=== PATIENT | female | born 1985 | race Caucasian/White ===

== ENCOUNTER 2018-01-18 16:53 | Emergency (ER) | payer MEDICAID, SELFPAY ==
[2018-01-18 16:55] VITALS: BP 145/87; PULSE 99; RESP 14; TEMP 36.4; O2SAT 99; BMI 44.6
--- NOTE | 2018-01-18 17:21 | CT_ITS ---
STUDY: CT ABDOMEN AND PELVIS WITHOUT CONTRAST REASON FOR EXAM: Female, 32 years old. Right flank pain. Hematuria. RADIATION DOSAGE (If Supplied By Facility): CTDIvol = ( 23.49 ) mGy, DLP = ( 1238.24 ) mGycm TECHNIQUE: Transaxial images were obtained from the dome of the diaphragm to the symphysis pubis without oral contrast, and without intravenous contrast. Sagittal and coronal images were reconstructed. Individualized dose optimization techniques were used for this CT. COMPARISON: None. FINDINGS: The visualized lung bases are unremarkable. The visualized portions of the heart are within normal limits. There is decreased attenuation of the liver consistent with steatosis. There is hepatomegaly. Normal gallbladder and extrahepatic biliary system. Normal spleen. Normal pancreas. Normal bilateral adrenal glands. Normal right kidney. Normal left kidney. No definite renal or ureteral stones are seen. There is no hydronephrosis on either side. Evaluation of the GI tract is limited by absence of oral contrast. Cannot exclude stomach wall thickening. No dilated loops of bowel or evidence for obstruction. Cannot exclude segmental thickening of the ortiz of the small or large bowel. Cannot exclude enteritis or colitis. Moderate diffuse fecal retention. Appendix within normal limits. Normal abdominal aorta. Normal inferior vena cava. Normal retroperitoneum. Normal urinary bladder. Normal visualized uterus. Normal abdominal wall. Normal osseous structures. CT/Abdomen/Pelvis without Cont IMPRESSION: No definite acute abnormality. Fatty liver and hepatomegaly. Electronically Signed: Yaron Mchugh MD at 18:54 EDT , Service support ,
[2018-01-18 17:44] LABS: Mucous, Urine 0 SEEN /hpf (<or=2+)
[2018-01-18] MEDS: HYDROcodone Bitartrate/Apap 5/325 Tablet PO (17:50)
[2018-01-18 18:03] LABS: Color, Urine Amber (Yellow); Glucose, Dipstick Normal (Normal); Ketone-Dipstick 15 mg/dl (Negative); Leukocyte Esterase-Dipstick 500 /ul (Negative); Nitrite-Dipstick Positive (Negative); Occult Blood-Urine 250 /ul (Negative); Protein-Dipstick 500 mg/dl (Negative); Urine Clarity Turbid (Clear); Urine Urobilinogen 1 mg/dl (Normal)
[2018-01-18 18:07] LABS: Internal QC Validated? YES +Cl - CLEAR BKGD
[2018-01-18 18:08] LABS: Pregnancy, Urine Negative Negative
[2018-01-18 18:09] LABS: Urine Bilirubin Dipstick 1 mg/dL (Negative)
[2018-01-18 18:17] LABS: Red Blood Cells-Urine > 100 SEEN /hpf (0-5); Squamous Epithelial Cells - UA 5-10 SEEN /hpf (5-10); White Blood Cells >100 SEEN /hpf (0-5)
[2018-01-18 18:18] LABS: Bacteria 1+ /hpf (None Seen)
[2018-01-18 19:18] VITALS: BP 132/80; PULSE 85; RESP 14; O2SAT 98
--- NOTE | 2018-01-18 19:38 | ED.DEP ---
ED Disposition - Plan for ED Patient: Disposition: Home or Assisted Living Chief Complaint: Flank Pain Instructions: ED UTI Cystitis Female Prescriptions: Ondansetron [Zofran Odt] 4 mg PO Q8H PRN PRN #10 tab PRN Reason: Nausea Cephalexin [Keflex] 500 mg PO Q6 #40 cap Referrals: Mario Gonzales DO [Primary Care Provider] - 3-5 Days Additional Instructions: Fluids and rest. Zofran as needed for nausea. Keflex 1 pill 4 times a day for 10 days for urinary tract infection that may be into your right kidney. Motrin and Tylenol for pain. Call and follow-up with your doctor. A urine culture was sent those results should be back within 2 days.
[2018-01-18] MEDS: Cephalexin 250 MG Capsule 500 MG PO (20:03)
[2018-01-18 20:04] VITALS: BP 134/69; PULSE 72; RESP 18
--- NOTE | 2018-04-15 04:56 | ED.VISSUMM ---
- ER Visit Summary Date of Service: 04/15/18 Chief Complaint: Right flank pain History of Present Illness: The patient is a 32 F past medical history of fht-rzrpxjv-jwuuxsvcl diabetes and hyper tension. No prior abdominal surgeries. Patient states she has had right flank pain since Monday. Was gradual in onset is been constant. Only mild pain associated nausea without vomiting or diarrhea. Denies any dysuria. No fever or abdominal trauma. Physical Examination: Well-appearing young female. Vital signs are stable and afebrile. No acute distress. H EENT exam unremarkable with moist mucous membranes. Neck nontender. Heart regular rate and rhythm no murmur. Lungs clear to auscultation bilaterally. Abdomen is soft, nontender, nondistended with normal bowel sounds. No peritoneal signs. No masses. No hernias. Back nontender. Moving all 4 extremities. Neurovascularly intact. Neurologically patient is awake alert with no focal motor deficits. Test Results: CT flank study showed no acute abnormality. There is a normal appendix seen. And no kidney stones. This is reviewed by me and read by the radiologist. Urinalysis showed positive nitrates greater than 100 white cells. Greater than 100 red cells. Positive bacteria. A urine culture was sent. Urine test was negative. Emergency Department Course and Treatment: Patient will be treated for UTI. Started on Keflex in the ER and written a prescription for. Treatment Plan: Keflex 4 times a day for 1 week. Disposition: Discharge Impression: Acute right flank pain secondary to UTI. This note was generated with [employer] dictation software. It may contain incorrect words, spelling, and punctuation that were not noted in review of the chart prior to signing ED Disposition - Plan for ED Patient: Disposition: Home or Assisted Living Chief Complaint: Flank Pain Instructions: ED UTI Cystitis Female Prescriptions: Ondansetron [Zofran Odt] 4 mg PO Q8H PRN PRN #10 tab PRN Reason: Nausea Cephalexin [Keflex] 500 mg PO Q6 #40 cap Referrals: Mario Gonzales DO [Primary Care Provider] - 3-5 Days Additional Instructions: Fluids and rest. Zofran as needed for nausea. Keflex 1 pill 4 times a day for 10 days for urinary tract infection that may be into your right kidney. Motrin and Tylenol for pain. Call and follow-up with your doctor. A urine culture was sent those results should be back within 2 days.
--- NOTE | 2018-04-15 05:00 | ED.DCSUM_ITS ---
- ER Visit Summary Date of Service: 04/15/18 Chief Complaint: Right flank pain History of Present Illness: The patient is a 32 F past medical history of non- insulin-dependent diabetes and hyper tension. No prior abdominal surgeries. Patient states she has had right flank pain since Monday. Was gradual in onset is been constant. Only mild pain associated nausea without vomiting or diarrhea. Denies any dysuria. No fever or abdominal trauma. Physical Examination: Well-appearing young female. Vital signs are stable and afebrile. No acute distress. H EENT exam unremarkable with moist mucous membranes. Neck nontender. Heart regular rate and rhythm no murmur. Lungs clear to auscultation bilaterally. Abdomen is soft, nontender, nondistended with normal bowel sounds. No peritoneal signs. No masses. No hernias. Back nontender. Moving all 4 extremities. Neurovascularly intact. Neurologically patient is awake alert with no focal motor deficits. Test Results: CT flank study showed no acute abnormality. There is a normal appendix seen. And no kidney stones. This is reviewed by me and read by the radiologist. Urinalysis showed positive nitrates greater than 100 white cells. Greater than 100 red cells. Positive bacteria. A urine culture was sent. Urine test was negative. Emergency Department Course and Treatment: Patient will be treated for UTI. Started on Keflex in the ER and written a prescription for. Treatment Plan: Keflex 4 times a day for 1 week. Disposition: Discharge Impression: Acute right flank pain secondary to UTI. This note was generated with [employer] dictation software. It may contain incorrect words, spelling, and punctuation that were not noted in review of the chart prior to signing ED Disposition - Plan for ED Patient: Disposition: Home or Assisted Living Chief Complaint: Flank Pain Instructions: ED UTI Cystitis Female Prescriptions: Ondansetron [Zofran Odt] 4 mg PO Q8H PRN PRN #10 tab PRN Reason: Nausea Cephalexin [Keflex] 500 mg PO Q6 #40 cap Referrals: Mario Gonzales DO [Primary Care Provider] - 3-5 Days Additional Instructions: Fluids and rest. Zofran as needed for nausea. Keflex 1 pill 4 times a day for 10 days for urinary tract infection that may be into your right kidney. Motrin and Tylenol for pain. Call and follow-up with your doctor. A urine culture was sent those results should be back within 2 days.
== END 2018-01-18 20:10 | disposition home or self-care (01) ==
PROVIDERS: Emergency Provider Emergency Medicine; Family Provider Student in an Organized Health Care Education/Training Program; PCP Student in an Organized Health Care Education/Training Program
DX: N39.0 Urinary tract infection, site not specified (principal); R10.9 Unspecified abdominal pain; I10 Essential (primary) hypertension; E11.9 Type 2 diabetes mellitus without complications; Z72.0 Tobacco use; Z79.84 Long term (current) use of oral hypoglycemic drugs; Z79.899 Other long term (current) drug therapy
CPT/HCPCS: 74176; 81001; 81025; 87086; 87088; 87186; 99283

== ENCOUNTER 2018-12-08 01:54 | Emergency (ER) | payer MEDICAID, SELFPAY ==
[2018-12-08 01:54] VITALS: BP 189/116; PULSE 92; RESP 16; TEMP 36.3; O2SAT 98; BMI 43.0
--- NOTE | 2018-12-08 02:15 | ED.DCSUM_ITS ---
- ER Visit Summary Date of Service: 12/08/18 Chief Complaint: Dental pain History of Present Illness: The patient is a 33 F who presents to the emergency department at 0200 hours for the evaluation of dental pain. Patient states that approximately 5 days ago she was seen at outside emergency department was prior to penicillin for a dental infection. She states is not helping and she continues to have pain. When asked what her primary care physician is doing for this she states there is nothing they can do because she is not a dentist. She was informed that I am not a dentist either. She states she has a dental appointment on the of this month. She states she would like a higher antibiotic. Patient continues to smoke. She is trying to get to the point where she can have dentures. Patient is a diabetic with history of hypertension. No known heart murmurs Physical Examination: Afebrile vital signs are stable noted hypertension. Gen: Well-nourished well-developed Head: Normocephalic atraumatic Eyes: Perrl EOMI ENT: TMs clear no rhinorrhea moist mucous membranes patient has widespread dental decay. She points to the left upper probably remnants of a canine or a premolar. There is no focal dental abscess. There are multiple teeth that are decayed down to the gumline as this 1 is. There is no trismus. There is no overlying facial swelling or cellulitic changes Neck: Supple no lymphadenopathy no JVD nontender CVS: Regular rate rhythm no murmurs normal S1-S2 Respiratory: No distress clear to auscultation bilaterally chest nontender Abdomen: Soft nontender nondistended normal bowel sounds no masses Back: Nontender Extremity: Nontender no edema Skin: Normal color no rash Neuro: alert orientated ?3 CN II-XII intact normal strength sensation reflexes gait cerebellar Psych: Normal affect normal mood Emergency Department Course and Treatment: Patient will be given a shot of Toradol. I explained to her that only a dentist is really go to be able to fix this problem. I do not see a need for stronger antibiotic as I do not see any abscess or cellulitic changes. I suspect the pain is because the nerve is becoming irritated due to the advanced decay. Impression: 1. Dental caries This note was generated with [employer] dictation software. It may contain incorrect words, spelling, and punctuation that were not noted in review of the chart prior to signing ED Disposition - Plan for ED Patient: Disposition: Home or Assisted Living Instructions: ED Tooth Pain Prescriptions: Ketorolac [Toradol] 10 mg PO TID PRN 5 Days #15 tab PRN Reason: Pain Referrals: Mario Gonzales DO [Primary Care Provider] - 3-5 Days Additional Instructions: I recommend you get on the cancellation list for your dentist. I would recommend that you continue the penicillin.
[2018-12-08 02:32] VITALS: BP 175/101; PULSE 88; RESP 14; O2SAT 98
[2018-12-08] MEDS: Ketorolac 60 MG/2 ML Vial IM (02:35)
== END 2018-12-08 02:53 | disposition home or self-care (01) ==
PROVIDERS: Emergency Provider Emergency Medicine; Family Provider Student in an Organized Health Care Education/Training Program; PCP Student in an Organized Health Care Education/Training Program
DX: K02.9 Dental caries, unspecified (principal); E11.9 Type 2 diabetes mellitus without complications; I10 Essential (primary) hypertension; E66.9 Obesity, unspecified; Z72.0 Tobacco use; Z79.84 Long term (current) use of oral hypoglycemic drugs; Z79.899 Other long term (current) drug therapy
CPT/HCPCS: 96372; 99283

== ENCOUNTER 2019-10-05 16:33 | Emergency (ER) | payer MEDICAID, SELFPAY ==
[2019-10-05 16:34] VITALS: BP 188/90; PULSE 99; RESP 18; TEMP 36.3; O2SAT 99; BMI 47.2
--- NOTE | 2019-10-05 17:38 | ED.DCSUM_ITS ---
History of Present Illness Chief Complaint: Other, Pain/Inj Informant: Patient Onset: Yesterday Context: Gradual Onset Timing: Continuous Quality: Aching Location: Thoracic - left Worsened by: improves with: Movement Relieved by: Nothing Narrative: Patient is a 34-year-old female with history of obesity, hypertension diabetes mellitus presenting with left shoulder/back pain. She also states she has some pain in her neck. She is the pain is worse when she moves her head to the left or tries to lift her arms up. Then she will get a shock of pain near her left shoulder blade. She denies any injury or falls. She is taken ibuprofen with no significant relief. She states this started yesterday. She denies any numbness or tingling in her legs or arms. She has any radiation of pain into her extremities. She denies any incontinence, fever or headache. She denies any vision changes. 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 She states she came in to be checked out to make sure there was not anything really bad going on because she is never had pain like this before. Past Medical History - Allergies and Home Meds Allergies/Adverse Reactions: Allergies naproxen Allergy (Verified 10/05/19 16:35) Itching oxycodone HCl [From Percocet] Allergy (Verified 10/05/19 16:35) Itching Primary Care Physician: Mario Gonzales DO [Primary Care Provider] - Past Medical History: - - Hypertension, diabetes mellitus Surgical History: noncontributory Smoking Status: Current every day smoker Review of Systems General: Denies: Chills, Fever, Sweats Eyes: Denies: Visual changes - bilaterally, Diplopia ENT: Denies: Rhinorrhea, Sore throat Cardiovascular: Denies: Chest pain, Palpitations Respiratory: Denies: Dyspnea, Cough, Dyspnea on exertion Gastrointestinal: Denies: Abdominal pain, Nausea, Vomiting, Diarrhea, Melena, Hematochezia Genitourinary: Denies: Dysuria, Hematuria, Frequency Musculoskeletal: Reports: Neck pain, Back pain. Denies: Extremity Pain Skin: Denies: Rash, Wounds Neurological: Denies: Headache, Weakness, Parasthesia, Numbness Physical Exam Vital Signs/Narrative: Vital Signs Temp Pulse Resp BP Pulse Ox 10/05/19 16:34 97.4 F L 99 18 188/90 H 99 Inital Vital Signs reviewed: Yes General: Well nourished, Well developed, Obese Head: Normocephalic, Atraumatic Eyes: Perrl, EOMI ENT: Moist mucous membranes, No rhinorrhea Neck: Supple, Nontender, - - No Midline tenderness, limited range of motion to the left secondary to pain Cardiovascular: Regular rate, Regular rhythm, No murmurs Respiratory: No distress, CTA bilaterally, Chest nontender Abdomen: Soft, Nontender, Nondistended, Normal bowel sounds Back: Normal Inspection, Paraspinal Tenderness, - - Mild left thoracic paraspinal tenderness to palpation, no step-off sign, mild tenderness palpation around the spine of the scapula and just above Extremeties: Nontender, No edema, - - Normal range of motion Skin: Normal color, No rash Neuro: Alert, Oriented, Normal Strength, Normal Sensation, Normal DTR, Normal Gait Psychological: Normal affect Diagnostic/Tx/Re-eval - Medical Decision Making Patient is evaluated for atraumatic left neck/upper back pain. This appears to be muscle skeletal. She appears nontoxic in no acute distress. She has normal vital signs except for hypertension however patient has a history of this. She has no respiratory symptoms associated with this. Patient is already taking ibuprofen. She is counseled to continue NSAID therapy and will be prescribed Flexeril as well. She is neurovascular intact. At this time I do not think patient requires further imaging. She is given a work note for tomorrow. Patient is counseled on signs and symptoms requiring return to the emergency room. Patient verbalizes agreement and understand this plan. Patient discharged home in stable and improved condition. ED Disposition - Plan for ED Patient: Disposition: Home or Assisted Living Diagnosis: Acute left-sided thoracic back pain Instructions: BACK PAIN (Acute or Chronic) Prescriptions: cycloBENZAPRine HCl [Flexeril] 10 mg PO TID PRN PRN #15 tab PRN Reason: Muscle Spasm Prescription Printed Referrals: Mario Gonzales DO [Primary Care Provider] - Additional Instructions: I suspect this is a muscle that is having a spasm in your back causing your pain. Continue to use ibuprofen for anti-inflammatory. Apply heat to the area. Follow-up with your primary care doctor you are still having symptoms in the next few days. Return emergency room with significantly worsening symptoms or if you develop weakness, chest pain or fever.
== END 2019-10-05 17:55 | disposition home or self-care (01) ==
PROVIDERS: Emergency Provider Emergency Medicine; PCP Student in an Organized Health Care Education/Training Program
DX: M54.6 Pain in thoracic spine (principal); E11.9 Type 2 diabetes mellitus without complications; I10 Essential (primary) hypertension; E66.9 Obesity, unspecified; F17.200 Nicotine dependence, unspecified, uncomplicated
CPT/HCPCS: 99282

== ENCOUNTER 2021-03-23 15:14 | Emergency (ER) | payer MEDICAID, SELFPAY ==
[2021-03-23 15:16] VITALS: BP 177/97; PULSE 89; RESP 20; TEMP 37.1; O2SAT 97; BMI 47.0
--- NOTE | 2021-03-23 16:13 | EX.ED.DYSGE1 ---
HPI History of Present Illness Chief Complaint: Lower Extremity Injury Informant: patient Narrative Narrative: 35-year-old female states that 3 days ago she was moving into a new apartment going down the steps in a pair of sandals when she slipped came down onto her left knee in a bent position. She states she has had pain in the knee since then. She has been able to bear weight. She denies any sensation that is catching or giving out on her. She also is concerned she may have pinkeye on the right side because her eye has been watering and has been itching. She notes that the eye is not injected or red. No significant runny nose cough or sneezing. PFSH PFSH Medical History Diabetes GERD (gastroesophageal reflux disease) Hypertension Smoker Home Medications glimepiride 4 mg PO DAILY 09/26/13 [History Last Taken 01/18/18] omeprazole 20 mg PO DAILY 02/02/14 [History Last Taken 01/18/18] metformin [Glucophage Xr] 750 mg PO DAILY 06/20/15 [History Last Taken 01/18/18] metoprolol succinate 25 mg PO DAILY 07/29/16 [History Last Taken 01/18/18] dulaglutide [Trulicity] 3 mg SUBCUT QWEEK 03/23/21 [History Last Taken Unknown] naphazoline-pheniramine [Naphcon-A] 2 drp RIGHT EYE Q8H PRN #15 ml 03/23/21 [Rx Last Taken Unknown] Allergy/AdvReac Type Severity Reaction Status Date / Time naproxen Allergy Itching Verified 03/23/21 15:15 oxycodone HCl [From Percocet] Allergy Itching Verified 03/23/21 15:15 Surgical History Hx of tonsillectomy Social History (Updated 03/23/21 @ 16:[address] Nazario Grimm DO) service: No Smoking Status: Current every day smoker tobacco type: cigarettes substance use type: does not use ROS ROS ED Constitutional Constitutional ED: Denies chills or weight loss Eyes Eyes: Reports other Details: Watery right eye with itching ; Denies change in vision or diplopia ENT ENT ED: Denies ear pain, rhinorrhea or sore throat Cardiovascular Cardiovascular: Denies chest pain, orthopnea, palpitations or racing heartbeat Respiratory/Chest Respiratory/Chest: Denies cough, dyspnea or orthopnea Gastrointestinal Gastrointestinal: Denies abdominal pain, diarrhea, nausea or vomiting Genitourinary Genitourinary ED: Denies dysuria, hematuria or urinary frequency Musculoskeletal Musculoskeletal: Reports other Details: See HPI ; Denies arthralgias or myalgias Integumentary Denies abscess or rash Neurologic Neurologic: Denies headache(s) or weakness Psychiatric Psychiatric: Denies anxiety, depression, suicidal ideation or suicidal thoughts Endocrine Endocrinology: Denies polydipsia, polyphagia or polyuria Allergic/Immunologic Allergic/Immunologic ED: Denies mouth swelling, tongue swelling or urticaria EXAM Physical Exam Const Vital Signs: 03/23/21 15:16 Temperature 98.8 F Temperature Source Oral Pulse Rate 89 Respiratory Rate 20 H Blood Pressure 177/97 H Blood Pressure Mean 123 Pulse Ox 97 Oxygen Delivery Method Room Air Positive well nourished, well developed and obese General Appearance ED: well developed Nutritional Appearance: obese HEENT Reports normocephalic, head/scalp atraumatic and moist mucous membranes Eyes PERRL and EOMs intact bilaterally Eyes Narrative: There is mild right periorbital swelling when compared to the left. No erythema. The conjunctiva appears normal. No exudates seen. Neck no lymphadenopathy, supple and no JVD Resp normal respiratory effort and clear to auscultation bilaterally Cardio regular rate, regular rhythm and no murmurs GI normal to inspection, nondistended, normoactive bowel sounds and non-tender Palpation: soft Back/Spine no CVA tenderness and normal ROM Extremity Extremity Narrative: Ligaments appear stable when compared to right.. No palpable effusion. Tensor mechanism intact. No tenderness along the patella or infrapatellar region. No ecchymosis seen. General Extremety ED: Negative for edema General Extremity: Negative for edema Neuro oriented x3 and CN's II-XII intact bilaterally Sensorium / Orientation: alert Motor Exam: strength 5/5 throughout Psych mental status grossly normal Mood & Affect: Negative for depressed or tearful Skin no rashes or lesions noted and no wounds MDM MDM MDM Narrative Medical decision making narrative: My interpretation of the plain films of the left knee is no fracture or effusion. We will treat this conservatively as a sprain. Follow-up with orthopedics in 10 to 14 days if not improved. As far as her eye goes I do not think this is bacterial conjunctivitis. This could possibly be allergic. I can prescribe Naphcon-A. Discharge Plan Triage Chief Complaint: Lower Extremity Injury ED Provider: Nazario Grimm Dx/Rx/DC Orders Clinical Impression: Acute allergic conjunctivitis of right eye, Left knee sprain Instructions: ED Conjunctivitis, Allergic, ED Knee Sprain Prescriptions: New Naphcon-A 0.025-0.3 % drops 2 drp RIGHT EYE Q8H PRN (Reason: eye irritation) Qty: 15 RF: 0 No Action glimepiride 4 MG tablet 4 mg PO DAILY RF: 0 omeprazole 20 MG capsule 20 mg PO DAILY RF: 0 metformin [Glucophage XR] 750 MG tablet extended release 24 hr 750 mg PO DAILY RF: 0 metoprolol succinate 25 MG tablet extended release 24 hr 25 mg PO DAILY RF: 0 Trulicity 3 mg/0.5 mL pen injector 3 mg SUBCUT QWEEK RF: 0 Primary Care Provider: Mario Gonzales Referrals: Mario Gonzales DO [Primary Care Provider] - As Needed Arthur Negrete DO [STAFF PHYSICIAN] - 10-14 Days if not better (For orthopedic evaluation if your knee is not improved in 10 to 14 days)
--- NOTE | 2021-03-23 16:23 | RAD_ITS ---
STUDY: X-RAY - LEFT KNEE REASON FOR EXAM: Female, 35 years old. injury TECHNIQUE: 4 view(s) of the knee. COMPARISON: None. FINDINGS: Normal visualized distal femur. Normal visualized proximal tibia and fibula. Normal proximal tibiofibular articulation. There is no demonstrated fracture. Normal medial femorotibial compartment. Normal lateral femorotibial compartment. Normal patellofemoral articulation. There is no demonstrated joint effusion. The soft tissue structures are unremarkable. RAD/Knee 4 or More Views IMPRESSION: Normal x-ray examination of the knee. Electronically Signed: Tanvir Miguel MD at 17:07 EDT , Service support ,
[2021-03-23 16:52] VITALS: BP 169/85; PULSE 91; RESP 15; O2SAT 98
== END 2021-03-23 16:53 | disposition home or self-care (01) ==
LOC: ED 16:01
PROVIDERS: Emergency Provider Emergency Medicine; PCP Student in an Organized Health Care Education/Training Program
DX: S83.92XA Sprain of unspecified site of left knee, initial encounter (principal); H10.11 Acute atopic conjunctivitis, right eye; E11.9 Type 2 diabetes mellitus without complications; K21.9 Gastro-esophageal reflux disease without esophagitis; I10 Essential (primary) hypertension; Z79.84 Long term (current) use of oral hypoglycemic drugs; Z79.899 Other long term (current) drug therapy; F17.210 Nicotine dependence, cigarettes, uncomplicated; W10.9XXA Fall (on) (from) unspecified stairs and steps, initial encounter; Y93.E6 Activity, residential relocation; Y92.009 Unspecified place in unspecified non-institutional (private) residence as the place of occurrence of the external cause; Y99.8 Other external cause status
CPT/HCPCS: 73564; 99282

== ENCOUNTER 2021-04-16 16:25 | Emergency (ER) | payer MEDICAID, SELFPAY ==
[2021-04-16 16:27] VITALS: BP 187/92; PULSE 96; RESP 18; TEMP 36.4; O2SAT 99; BMI 39.6
--- NOTE | 2021-04-16 17:08 | EKG12_ITS ---
Test Reason : CP Blood Pressure : / mmHG Vent. Rate : 092 BPM Atrial Rate : 092 BPM P-R Int : 136 ms QRS Dur : 088 ms QT Int : 338 ms P-R-T Axes : 025 053 024 degrees QTc Int : 417 ms Normal sinus rhythm Normal ECG Confirmed by MATEO ZAYAS, DANIKA ([id number]), editor managing newspaper KASSY SOTO ([id number]) on 04/19/2021 1:38:19 PM Referred By: PL Confirmed By:VERONICA GALINDO MD
--- NOTE | 2021-04-16 17:15 | RAD_ITS ---
STUDY: X-RAY CHEST REASON FOR EXAM: Female, 35 years old. Chest pain TECHNIQUE: Frontal portable view of the chest COMPARISON: 15 December 2014. FINDINGS: The lungs are clear and expanded. There is no demonstrated pleural abnormality. Normal size heart. Normal mediastinum and lorena. Normal visualized pulmonary arteries. Normal visualized aortic arch and descending thoracic aorta. Normal visualized thoracic spine. Normal visualized ribs, clavicles, and shoulders. There is no demonstrated abnormality of the visualized soft tissue structures of the upper abdomen. RAD/Chest 1 View (Portable) IMPRESSION: Normal x-ray examination of the chest. Electronically Signed: Levy Adam MD at 17:51 EDT Tel , Service support ,
--- NOTE | 2021-04-16 17:16 | EDS_ITS ---
HPI History of Present Illness Chief Complaint: Chest Pain Informant: patient Onset/Context/Timing Onset: Yesterday Activity at onset: gradual Timing: Continuous Quality: Positive for Aching, Burning and Sharp Location: Left Chest and - (Left shoulder) Worsened By: Movement of Arm Relieved By: Nothing Associated Symptoms: Positive for Nausea, Diaphoresis, Dyspnea, Cough and Acid Reflux; Negative for Vomiting, Fever, Lightheadedness and Palpitations Narrative Narrative: Patient presents with pain in her left upper chest and left shoulder that began yesterday. Patient states it has been constant. Patient describes the pain as sharp and burning. Patient states pain is worse with movement of her left shoulder, left arm, and movement of her neck. Patient states nothing has been helping. Patient states she has been taking [id number] analgesics with no relief. Patient admits to nausea but denies any vomiting. Patient states she did break out into a sweat when the pain began. Patient admits to a cough and some slight shortness of breath. Patient also admits to some reflux symptoms. Patient states she has a history of reflux disease however. CVD Risk Factors: Positive for Diabetes and Smoking; Negative for Hypertension, Hypercholesterolemia and Family History 1' </=55 PE Risk Factors: Negative for Recent Travel/Surgery, Recent Immobilization, Prior DVT or PE, Cancer and OCP + Smoking + >/=35 PFSH PFSH Medical History Diabetes GERD (gastroesophageal reflux disease) Hypertension Smoker Home Medications glimepiride 4 mg PO DAILY 09/26/13 [History Last Taken 01/18/18] omeprazole 20 mg PO DAILY 02/02/14 [History Last Taken 01/18/18] metformin [Glucophage Xr] 500 mg PO BID 06/20/15 [History Last Taken 01/18/18] metoprolol succinate 100 mg PO DAILY 07/29/16 [History Last Taken 01/18/18] dulaglutide [Trulicity] 3 mg SUBCUT QWEEK 03/23/21 [History Last Taken Unknown] naphazoline-pheniramine [Naphcon-A] 2 drp RIGHT EYE Q8H PRN #15 ml 03/23/21 [Rx Last Taken Unknown] meloxicam 15 mg PO DAILY PRN #10 tab 04/16/21 [Rx Last Taken Unknown] pravastatin 20 mg PO DAILY 04/16/21 [History Last Taken Unknown] Allergy/AdvReac Type Severity Reaction Status Date / Time naproxen Allergy Itching Verified 04/16/21 16:29 oxycodone HCl [From Percocet] Allergy Itching Verified 04/16/21 16:29 Surgical History (Updated 04/16/21 @ 17:[address] James Browne, ) History of tympanostomy tube placement Hx of tonsillectomy Social History Smoking Status: Current every day smoker tobacco type: cigarettes substance use type: does not use ROS ROS ED Constitutional Constitutional ED: Denies chills or fever(s) Eyes Eyes: Denies blurry vision or change in vision ENT ENT ED: Denies rhinorrhea or sore throat Cardiovascular Cardiovascular: Reports chest pain; Denies palpitations Respiratory/Chest Respiratory/Chest: Reports cough and dyspnea Gastrointestinal Gastrointestinal: Reports nausea; Denies abdominal pain or vomiting Genitourinary Genitourinary ED: Denies dysuria or hematuria Musculoskeletal Musculoskeletal: Reports back pain and neck pain Integumentary Denies abscess or rash Neurologic Neurologic: Denies headache(s) or weakness Allergic/Immunologic Allergic/Immunologic ED: Denies mouth swelling or urticaria EXAM Physical Exam Const Vital Signs: 04/16/21 16:27 04/16/21 16:29 04/16/21 18:25 Temperature 97.6 F L Temperature Source Temporal Pulse Rate 96 88 Respiratory Rate 18 15 Respiratory Effort Normal Non-Labored Blood Pressure 187/92 H 134/88 H Blood Pressure Mean 123 103 Pulse Ox 99 97 Oxygen Delivery Method Room Air Room Air Positive well nourished, well developed and obese General Appearance ED: well developed Nutritional Appearance: obese HEENT normocephalic and atraumatic Eyes PERRL and EOMs intact bilaterally Neck supple and no JVD Chest Wall palpation of chest normal Resp normal respiratory effort and clear to auscultation bilaterally Effort and Inspection: Negative for respiratory distress Cardio regular rate, regular rhythm and no murmurs GI normal to inspection, nondistended, normoactive bowel sounds, soft to palpation, non-tender and non-distended Extremity normal to inspection General Extremety ED: Negative for edema or tenderness General Extremity: Negative for edema Neuro oriented x3, CN's II-XII intact bilaterally and no sensory deficits noted Sensorium / Orientation: awake and alert Motor Exam: strength 5/5 throughout Psych mental status grossly normal Heart Score History: Slightly/Non-Suspicious ECG: Normal Age: </= 45 years Risk Factors: 1 or 2 Risk Factors Troponin: </= Normal Limit Score: 1 MDM MDM MDM Narrative Medical decision making narrative: EKG was obtained. On my interpretation, it showed a normal sinus rhythm with a rate of 92. SC interval, QRS interval, and QTc intervals were all normal. Tyler was normal. There are no acute ST or T wave changes. Portable 1 view chest x-ray was obtained. On my interpretation, lung fan are clear. There is normal cardiac silhouette. Bony thorax is normal. There is no acute process noted. Radiologist also interpreted the x- ray and agrees. CBC shows a mild leukocytosis of 15.0. Comprehensive metabolic profile was within normal limits. Patient was given a dose of morphine initial ly. Patient was given IV fluids. Patient feels better on reevaluation. Patient was instructed to use ice to her left shoulder and upper chest. Patient was instructed to follow-up with her primary care physician in 5 to 7 days. Patient given a prescription for meloxicam. Patient was instructed return if worse in any way. Patient understood and was agreeable with the plan. All questions were answered. Lab Data Attestation: I reviewed the patient's lab results. Labs: Laboratory Results - last 24 hr 04/16/21 04/16/21 16:38 16:38 WBC 15.0 H RBC 4.67 Hgb 12.6 Hct 39.9 MCV 85.4 MCH 27.0 MCHC 31.6 L RDW Std Deviation 44.4 H RDW Coeff of Nicky 14.3 Plt Count 477 H MPV 10.5 Immature Gran % (Auto) 0.300 Neut % (Auto) 61.6 Lymph % (Auto) 28.5 [place] % (Auto) 7.1 Eos % (Auto) 2.0 Baso % (Auto) 0.5 Absolute Neuts (auto) 9.3 H Absolute Lymphs (auto) 4.29 Nucleated RBC % 0 Differential Comment SCANNED Sodium 136 Potassium 4.0 Chloride 104 Carbon Dioxide 25.0 Anion Gap 7 BUN 7 Creatinine 0.60 Estim Creat Clear Calc 139.37 Est GFR (MDRD) Af Amer 147 Est GFR (MDRD) Non-Af 121 BUN/Creatinine Ratio 11.6 Glucose 277 H Calcium 8.4 L Total Bilirubin 0.30 AST 19 ALT 40 Alkaline Phosphatase 98 Troponin I High Sens 4 Total Protein 7.5 Albumin 3.3 Globulin 4.2 Albumin/Globulin Ratio 0.8 L Radiography Chest X-Ray - ED: 1 View, Read by ED Physician, Read by Radiologist and Normal Diagnostic Testing: Radiology Impression Chest X-Ray 04/16/21 17:15 IMPRESSION: Normal x-ray examination of the chest. Electronically Signed: Levy Adam MD at 17:51 EDT Tel , Service support , EKG Initial EKG: Attestation: I personally reviewed and interpreted this EKG as follows: Interpretation: Sinus Rhythm (92) and No Acute Injury Pattern Prior EKG tracings: available for review Prior: Unchanged (07/29/16) Discharge Plan Triage Chief Complaint: Chest Pain ED Provider: James Browne Dx/Rx/DC Orders Clinical Impression: Muscle strain of left shoulder region Instructions: ED Strain Chest Wall, ED Muscle Strain, Extremity Prescriptions: New meloxicam 15 mg tablet 15 mg PO DAILY PRN (Reason: pain) Qty: 10 RF: 0 No Action glimepiride 4 MG tablet 4 mg PO DAILY RF: 0 omeprazole 20 MG capsule 20 mg PO DAILY RF: 0 metformin [Glucophage XR] 750 MG tablet extended release 24 hr 500 mg PO BID RF: 0 metoprolol succinate 25 MG tablet extended release 24 hr 100 mg PO DAILY RF: 0 Trulicity 3 mg/0.5 mL pen injector 3 mg SUBCUT QWEEK RF: 0 Naphcon-A 0.025-0.3 % drops 2 drp RIGHT EYE Q8H PRN (Reason: eye irritation) Qty: 15 RF: 0 pravastatin 20 mg tablet 20 mg PO DAILY RF: 0 Primary Care Provider: Mario Gonzales Referrals: Mario Gonzales DO [Primary Care Provider] - 5-7 Days Disposition Disposition: Home, Self Care
[2021-04-16] MEDS: Morphine 4 MG/ML Syringe IV (17:22)
[2021-04-16] MEDS: 0.9% Normal Saline 1,000 ML 1000 ML IV (17:23)
[2021-04-16 17:32] LABS: Absolute Lymphocyte Count 4.29 X10^3/uL (0.83-4.51); Absolute Neutrophil Count 9.3 X10^3/uL (2.0-7.7); Basophil# 0.08 X10^3/uL; Basophil% 0.5 % (0-1); Hematocrit 39.9 % (37-47); Hemoglobin 12.6 g/dL (12.0-15.0); Lymphocyte # 4.29 X10^3/ul (0.83-4.51); Lymphocyte % 28.5 % (19-41); Mean Corp Hgb Conc 31.6 g/dL (32-36); Mean Corpuscular Volume 85.4 fL (81-99); Mean Platelet Vol. 10.5 fl (6.2-12.0); Monocyte# 1.07 X10^3/uL; Monocyte% 7.1 % (0-10); NRBC Flagged by Analyzer 0 % (0-5); Neutrophil # 9.25 X10^3/uL (2.7-7.7); Neutrophil % 61.6 % (47-70); POSITIVE MORPHOLOGY YES; Platelet Count 477 K/mm3 (150-450); RBC Distribution Width CV 14.3 % (11.6-14.6); RBC Distribution Width SD 44.4 fl (35.1-43.9); Red Blood Count 4.67 M/mm3 (4.2-5.4)
[2021-04-16 17:35] LABS: ALB/GLOB Ratio 0.8 RATIO (0.9-2.4); AST(SGOT) 19 U/L (15-37); Alanine Aminotransfer ALT/SGPT 40 U/L (13-56); Albumin, Serum 3.3 g/dL (3.2-5.0); Alkaline Phosphatase 98 U/L (45-117); Anion Gap 7 (5-15); BUN 7 mg/dL (7-18); BUN/Creat Ratio 11.6 RATIO (10-20); Calcium,Total 8.4 mg/dL (8.5-10.1); Chloride 104 mmol/L (98-107); EST Glomerular Filtration Rate 121 mL/min (>60); Est Glom Filt Rate - Afr Amer 147 mL/min (>60); Estimated Creatinine Clearance 139.37 ml/min; Globulin 4.2 g/dL (2.2-4.2); Glucose 277 mg/dL (74-106); Protein, Total 7.5 g/dL (6.4-8.2); Sodium Level 136 mmol/L (136-145); Troponin-I HS 4 pg/mL (3.0-54.0)
[2021-04-16 17:45] LABS: Differential Indicated SCAN CRITERIA MET
[2021-04-16 18:10] LABS: Differential Comment SCANNED
[2021-04-16 18:25] VITALS: BP 134/88; PULSE 88; RESP 15; O2SAT 97
== END 2021-04-16 19:11 | disposition home or self-care (01) ==
PROVIDERS: Emergency Provider Emergency Medicine; PCP Student in an Organized Health Care Education/Training Program
DX: S46.912A Strain of unspecified muscle, fascia and tendon at shoulder and upper arm level, left arm, initial encounter (principal); F17.210 Nicotine dependence, cigarettes, uncomplicated; E66.9 Obesity, unspecified; E11.9 Type 2 diabetes mellitus without complications; I10 Essential (primary) hypertension; K21.9 Gastro-esophageal reflux disease without esophagitis; Z79.84 Long term (current) use of oral hypoglycemic drugs; Z79.899 Other long term (current) drug therapy; X58.XXXA Exposure to other specified factors, initial encounter
CPT/HCPCS: 71045; 80053; 84484; 85025; 93005; 96374; 99284; J7030; A4216

== ENCOUNTER 2021-07-02 18:13 | Emergency (ER) | payer MEDICAID, SELFPAY ==
[2021-07-02 18:14] VITALS: BP 163/99; PULSE 88; RESP 16; TEMP 35.9; O2SAT 98; BMI 47.7
--- NOTE | 2021-07-02 19:03 | EX.ED.UPPERE ---
HPI History of Present Illness Chief Complaint: Upper Extremity Injury Detail of Chief Complaint: Patient presents with atraumatic left upper extremity pain since March Informant: patient Occured/Mechanism Mechanism/Context: Yes unknown Onset/Context/Timing Onset: Month(s) Context: Sudden Onset Timing: Continuous Quality of Pain: Burning Location: Left upper extremity, arm and forearm Current Severity: Mild Maximum Severity: Severe Worsened by: Nothing Relieved by: Nothing Associated Symptoms Associated Symptoms: Positive for Parasthesia; Negative for Weakness and Loss of Funtion Narrative Narrative: Patient is a 36-year-old woman with type 2 diabetes, hypertension and GERD. She does not know what her last A1c level was. She presents because of persistent pain. She states she had a cardiac work-up and nothing was done for her pain. She was diagnosed with musculoskeletal pain of unknown etiology. She denies fever, chills night sweats. Denies loss of function. She states pain is worse with movement. Initially she said nothing. She describes it as a burning tingling sensation. She has no other symptoms. She does report increased pain with neck movement when asked. Tetanus Immunization: 5-10 years Prior similar symptoms: Yes Recent Illness/Hospitalization: No PFSH PFSH Medical History Diabetes GERD (gastroesophageal reflux disease) Hypertension Smoker Home Medications glimepiride 4 mg PO DAILY 09/26/13 [History Last Taken 01/18/18] omeprazole 20 mg PO DAILY 02/02/14 [History Last Taken 01/18/18] metformin [Glucophage Xr] 500 mg PO BID 06/20/15 [History Last Taken 01/18/18] metoprolol succinate 100 mg PO DAILY 07/29/16 [History Last Taken 01/18/18] dulaglutide [Trulicity] 3 mg SUBCUT QWEEK 03/23/21 [History Last Taken Unknown] naphazoline-pheniramine [Naphcon-A] 2 drp RIGHT EYE Q8H PRN #15 ml 03/23/21 [Rx Last Taken Unknown] meloxicam 15 mg PO DAILY PRN #10 tab 04/16/21 [Rx Last Taken Unknown] pravastatin 20 mg PO DAILY 04/16/21 [History Last Taken Unknown] gabapentin See Rx Instructions .ROUTE .COMPLEX #60 cap 07/02/21 [Rx Last Taken Unknown] Allergy/AdvReac Type Severity Reaction Status Date / Time naproxen Allergy Itching Verified 07/02/21 18:14 oxycodone HCl [From Percocet] Allergy Itching Verified 07/02/21 18:14 Surgical History History of tympanostomy tube placement Hx of tonsillectomy Social History (Updated 07/02/21 @ 19:[address] Ron Ellis MD) household members: none Smoking Status: Current every day smoker tobacco type: cigarettes substance use type: does not use ROS ROS ED Constitutional Constitutional ED: Denies chills, fever(s), subjective, sweats or weight loss Eyes Eyes: Denies blurry vision, change in vision or diplopia ENT ENT ED: Denies ear pain, rhinorrhea or sore throat Cardiovascular Cardiovascular: Denies chest pain, palpitations or racing heartbeat Respiratory/Chest Respiratory/Chest: Denies cough, dyspnea or dyspnea on exertion Gastrointestinal Gastrointestinal: Denies abdominal pain, diarrhea, nausea or vomiting Genitourinary Genitourinary ED: Denies dysuria, hematuria, LMP (females 10-50) or urinary frequency Musculoskeletal Musculoskeletal: Reports neck pain; Denies back pain or myalgias Integumentary Denies Abrasions or rash Neurologic Neurologic: Reports paresthesias; Denies headache(s) or weakness Endocrine Endocrinology: Denies polydipsia, polyphagia or polyuria Hematologic/Lymphatic Hematologic/Lymphatic: Denies easy bleeding or easy bruising EXAM Physical Exam Const Vital Signs: 07/02/21 18:14 Temperature 96.7 F L Temperature Source Temporal Pulse Rate 88 Respiratory Rate 16 Blood Pressure 163/99 H Blood Pressure Mean 120 Pulse Ox 98 Oxygen Delivery Method Room Air Positive well nourished, well developed and obese General Appearance ED: well developed and NAD Nutritional Appearance: obese HEENT Reports moist mucous membranes HEENT Narrative: Ears normal. Nares patent. Posterior pharynx unremarkable. normocephalic and atraumatic Eyes PERRL and EOMs intact bilaterally Eyes Narrative: Conjunctive a pink. Sclera anicteric. Neck full ROM and supple General: tenderness Resp normal respiratory effort and clear to auscultation bilaterally Effort and Inspection: Negative for pain with movement Cardio regular rate, regular rhythm, S1 normal heart sound, S2 normal heart sound and no murmurs GI non-tender, non-distended and no masses Auscultation: normoactive bowel sounds Palpation: soft Extremity normal to inspection and full ROM Extremity Narrative: Axillary, median, radial and ulnar function intact. Bicep, brachialis tricep reflex are 2+ and symmetric. There is no clonus or Babinski sign noted right or left. There is no joint swelling. There is no skin lesions noted. Negative drop test. General Extremety ED: Negative for edema General Extremity: Negative for edema Neuro oriented x3, CN's II-XII intact bilaterally and moves all extremities Neuro Narrative: Affect is flat Sensorium / Orientation: alert Skin Lesions: no lesions Rashes: no rashes Trauma: no lacerations or abrasions MDM MDM MDM Narrative Medical decision making narrative: With a 10-year history of diabetes and description of burning paresthetic pain suspect this represents diabetic neuropathy. X-ray of the neck was obtained since it exacerbated her pain to rule out any significant cervical disc disease. Lab Data Attestation: I reviewed the patient's lab results. Lab results narrative: White count is elevated 12.3 and is nonspecific. Blood sugar is elevated at 243. She has had numerous elevated blood sugars. Suspect she is poorly controlled and cause of her pain i.e. diabetic neuropathy. Patient was started on gabapentin. Radiography Diagnostic Testin view x-ray of the neck was obtained and is normal. There is no evidence of degenerative disc disease narrowing of the foramen etc. There was no interpretation available at the time of my dictation Discharge Plan Triage Chief Complaint: Upper Extremity Injury ED Provider: Ron Ellis Dx/Rx/DC Orders Clinical Impression: Neuropathy due to type 2 diabetes mellitus, Hyperglycemia due to type 2 diabetes mellitus Instructions: ED Neuropathy, Peripheral Prescriptions: New gabapentin 100 mg capsule See Rx Instructions .ROUTE .COMPLEX Qty: 60 RF: 0 No Action glimepiride 4 MG tablet 4 mg PO DAILY RF: 0 omeprazole 20 MG capsule 20 mg PO DAILY RF: 0 metformin [Glucophage XR] 750 MG tablet extended release 24 hr 500 mg PO BID RF: 0 metoprolol succinate 25 MG tablet extended release 24 hr 100 mg PO DAILY RF: 0 Trulicity 3 mg/0.5 mL pen injector 3 mg SUBCUT QWEEK RF: 0 Naphcon-A 0.025-0.3 % drops 2 drp RIGHT EYE Q8H PRN (Reason: eye irritation) Qty: 15 RF: 0 pravastatin 20 mg tablet 20 mg PO DAILY RF: 0 meloxicam 15 mg tablet 15 mg PO DAILY PRN (Reason: pain) Qty: 10 RF: 0 Primary Care Provider: Mario Gonzales Referrals: Mario Gonzales DO [Primary Care Provider] - 1 Week (Will need prescription for gabapentin to treat her diabetic neuropathy neuropathic pain) Disposition Disposition: Home, Self Care
[2021-07-02 19:16] LABS: Absolute Lymphocyte Count 4.29 X10^3/uL (0.83-4.51); Basophil# 0.06 X10^3/uL; Basophil% 0.5 % (0-1); Eosinophil# 0.31 X10^3/uL; Eosinophils% 2.5 % (0-5); Hematocrit 37.5 % (37-47); Hemoglobin 11.8 g/dL (12.0-15.0); Lymphocyte # 4.29 X10^3/ul (0.83-4.51); Mean Corp Hgb Conc 31.5 g/dL (32-36); Mean Corpuscular Hgb 26.5 pg (27.0-32.0); Mean Corpuscular Volume 84.1 fL (81-99); Mean Platelet Vol. 9.9 fl (6.2-12.0); Monocyte% 4.9 % (0-10); NRBC Flagged by Analyzer 0 % (0-5); Neutrophil # 6.97 X10^3/uL (2.7-7.7); Neutrophil % 56.8 % (47-70); POSITIVE MORPHOLOGY YES; Platelet Count 480 K/mm3 (150-450); RBC Distribution Width CV 14.1 % (11.6-14.6); RBC Distribution Width SD 43.2 fl (35.1-43.9); Red Blood Count 4.46 M/mm3 (4.2-5.4); White Blood Count 12.3 K/mm3 (4.4-11.0)
--- NOTE | 2021-07-02 19:18 | RAD_ITS ---
EXAM: XR CERVICAL SPINE, 4 OR 5 VIEWS CLINICAL INDICATION: Neck pain and left upper extremity pain TECHNIQUE: Frontal, lateral and oblique views of the cervical spine. This report was created using I AM AT report [employer] technology. COMPARISON: None. FINDINGS: VERTEBRAE: There is mild straightening of the normal cervical lordosis. This can suggest neck strain. Preserved vertebral body height. No acute fracture. No spondylolisthesis. No significant facet arthropathy. DISC SPACES: Unremarkable. Disc spaces are maintained. SOFT TISSUES: Unremarkable. No prevertebral soft tissue widening. LUNG APICES: Clear. RAD/Cerv Spine 4 or 5 Views IMPRESSION: There is mild straightening of the normal cervical lordosis. This can suggest neck strain. Electronically Signed: Ross Ruiz MD at 19:40 EDT , Service support ,
[2021-07-02 19:22] LABS: Differential Indicated SCAN CRITERIA MET
[2021-07-02 19:29] LABS: Anion Gap 9 (5-15); BUN 11 mg/dL (7-18); BUN/Creat Ratio 12.1 RATIO (10-20); Calcium,Total 8.4 mg/dL (8.5-10.1); Chloride 104 mmol/L (98-107); Creatinine, Serum 0.91 mg/dL (0.55-1.02); EST Glomerular Filtration Rate 76 mL/min (>60); Est Glom Filt Rate - Afr Amer 92 mL/min (>60); Estimated Creatinine Clearance 72.06 ml/min; Glucose 243 mg/dL (74-106); Potassium 3.9 mmol/L (3.5-5.1); Sodium Level 136 mmol/L (136-145)
[2021-07-02 20:12] LABS: Platelet Estimate ADEQUATE (ADEQ); Red Cell Morphology NORM C+C NORMAL (NORM C&C)
== END 2021-07-02 20:12 | disposition home or self-care (01) ==
PROVIDERS: Emergency Provider Emergency Medicine; PCP Student in an Organized Health Care Education/Training Program
DX: E11.40 Type 2 diabetes mellitus with diabetic neuropathy, unspecified (principal); E11.65 Type 2 diabetes mellitus with hyperglycemia; I10 Essential (primary) hypertension; K21.9 Gastro-esophageal reflux disease without esophagitis; F17.210 Nicotine dependence, cigarettes, uncomplicated; E66.9 Obesity, unspecified; Z79.84 Long term (current) use of oral hypoglycemic drugs; Z79.899 Other long term (current) drug therapy
CPT/HCPCS: 72050; 80048; 85025; 99283

== ENCOUNTER 2021-07-10 23:47 | Emergency (ER) | payer MEDICAID, SELFPAY ==
[2021-07-10 23:49] VITALS: BP 204/128; PULSE 81; RESP 15; TEMP 36.4; O2SAT 100; BMI 46.0
--- NOTE | 2021-07-11 00:08 | EX.ED.UPPERE ---
HPI History of Present Illness Chief Complaint: Upper Extremity Injury Narrative Narrative: Patient is a 36-year-old female who states she has been seen multiple times for pain and numbness in her left hand/forearm. She reports she is also had an MRI which showed no obvious signs of nerve impingement. She states that she is right-hand dominant. She also reports that this evening she was wrapping [place] presents and after doing this felt some increased pain and numbness and therefore comes in for evaluation. She denies any direct trauma PFSH PFSH Medical History Diabetes GERD (gastroesophageal reflux disease) Hypertension Smoker Home Medications glimepiride 4 mg PO DAILY 09/26/13 [History Last Taken 01/18/18] omeprazole 20 mg PO DAILY 02/02/14 [History Last Taken 01/18/18] metformin [Glucophage Xr] 500 mg PO BID 06/20/15 [History Last Taken 01/18/18] metoprolol succinate 100 mg PO DAILY 07/29/16 [History Last Taken 01/18/18] dulaglutide [Trulicity] 3 mg SUBCUT QWEEK 03/23/21 [History Last Taken Unknown] naphazoline-pheniramine [Naphcon-A] 2 drp RIGHT EYE Q8H PRN #15 ml 03/23/21 [Rx Last Taken Unknown] meloxicam 15 mg PO DAILY PRN #10 tab 04/16/21 [Rx Last Taken Unknown] pravastatin 20 mg PO DAILY 04/16/21 [History Last Taken Unknown] gabapentin See Rx Instructions .ROUTE .COMPLEX #60 cap 07/02/21 [Rx Last Taken Unknown] prednisone 40 mg PO DAILY #10 tab 07/11/21 [Rx Last Taken Unknown] Allergy/AdvReac Type Severity Reaction Status Date / Time naproxen Allergy Itching Verified 07/10/21 23:53 oxycodone HCl [From Percocet] Allergy Itching Verified 07/10/21 23:53 Surgical History History of tympanostomy tube placement Hx of tonsillectomy Social History (Updated 07/02/21 @ 19:[address] Ron Ellis MD) household members: none Smoking Status: Former smoker substance use type: does not use ROS ROS ED Constitutional Constitutional ED: Denies chills or fever(s) Cardiovascular Cardiovascular: Denies chest pain Respiratory/Chest Respiratory/Chest: Denies cough or dyspnea Gastrointestinal Gastrointestinal: Denies abdominal pain, diarrhea, nausea or vomiting Genitourinary Genitourinary ED: Denies dysuria Musculoskeletal Musculoskeletal: Reports other Details: Positive left hand/forearm pain ; Denies myalgias Integumentary Denies rash Neurologic Neurologic: Reports paresthesias; Denies headache(s) Hematologic/Lymphatic Hematologic/Lymphatic: Denies easy bleeding or easy bruising EXAM Physical Exam Const Vital Signs: 07/10/21 23:49 Temperature 97.6 F L Temperature Source Temporal Pulse Rate 81 Respiratory Rate 15 Blood Pressure 204/128 H Blood Pressure Mean 153 Pulse Ox 100 Oxygen Delivery Method Room Air Positive well nourished and well developed General Appearance ED: well developed Eyes PERRL and EOMs intact bilaterally Neck supple Resp normal respiratory effort and clear to auscultation bilaterally Cardio regular rate and regular rhythm Extremity Extremity Narrative: Left upper extremity is neurovascularly intact; AIN/PIN are intact and normal. No obvious bony deformity or joint effusion noted. Patient has full active range of motion. No overlying soft tissue changes to suggest trauma or infection. Positive Tinel's and Phalen's sign. Neuro oriented x3 and CN's II-XII intact bilaterally Sensorium / Orientation: alert Psych mental status grossly normal Skin no rashes or lesions noted Lesions: no lesions Rashes: no rashes Trauma: no lacerations or abrasions MDM MDM MDM Narrative Medical decision making narrative: Patient presented to the ER with no report or signs of trauma. She had no secondary soft tissue changes to suggest infection. Her exam is consistent with carpal tunnel as she reports pain numbness and tingling into her first second and third digits and the fact that this worsened with repetitive use this evening is common. Therefore do not feel there is need for laboratory or imaging studies. Patient had no signs of compartment syndrome as the forearm was soft and compressible. Therefore she can follow-up with orthopedics to discuss need for possible surgery for her symptoms but otherwise can be given symptomatic medications such as a brace and anti-inflammatories and discharged home Discharge Plan Triage Chief Complaint: Upper Extremity Injury ED Provider: Niko Stovall Dx/Rx/DC Orders Clinical Impression: Acute carpal tunnel syndrome of left wrist Instructions: Carpal Tunnel Syndrome, Carpal Tunnel Release Surgery Prescriptions: New prednisone 20 mg tablet 40 mg PO DAILY Qty: 10 RF: 0 No Action glimepiride 4 MG tablet 4 mg PO DAILY RF: 0 omeprazole 20 MG capsule 20 mg PO DAILY RF: 0 metformin [Glucophage XR] 750 MG tablet extended release 24 hr 500 mg PO BID RF: 0 metoprolol succinate 25 MG tablet extended release 24 hr 100 mg PO DAILY RF: 0 Trulicity 3 mg/0.5 mL pen injector 3 mg SUBCUT QWEEK RF: 0 Naphcon-A 0.025-0.3 % drops 2 drp RIGHT EYE Q8H PRN (Reason: eye irritation) Qty: 15 RF: 0 pravastatin 20 mg tablet 20 mg PO DAILY RF: 0 meloxicam 15 mg tablet 15 mg PO DAILY PRN (Reason: pain) Qty: 10 RF: 0 gabapentin 100 mg capsule See Rx Instructions .ROUTE .COMPLEX Qty: 60 RF: 0 Primary Care Provider: Mario Gonzales Referrals: Mario Gonzales DO [Primary Care Provider] - Heber Horne DO [STAFF PHYSICIAN] - 1 Week (Carpal tunnel) Disposition Disposition: Home, Self Care
== END 2021-07-11 00:30 | disposition home or self-care (01) ==
LOC: ED 07-11 00:24
PROVIDERS: Emergency Provider Emergency Medicine; PCP Student in an Organized Health Care Education/Training Program
DX: G56.02 Carpal tunnel syndrome, left upper limb (principal); E11.9 Type 2 diabetes mellitus without complications; K21.9 Gastro-esophageal reflux disease without esophagitis; I10 Essential (primary) hypertension; Z79.84 Long term (current) use of oral hypoglycemic drugs; Z79.899 Other long term (current) drug therapy; Z87.891 Personal history of nicotine dependence
CPT/HCPCS: 99283

== ENCOUNTER 2021-08-23 13:08 | Emergency (ER) | payer MEDICAID, SELFPAY ==
[2021-08-23 13:09] VITALS: BP 167/115; PULSE 84; RESP 16; TEMP 35.7; O2SAT 96; BMI 46.7
[2021-08-23 13:50] VITALS: O2SAT 98
--- NOTE | 2021-08-23 14:27 | EX.ED.VIS.UR ---
HPI HPI - URI History of Present Illness Chief Complaint: Cough Detail of Chief Complaint: Covid positive since 1222 symptoms for 10 days. Informant: patient Onset/Context/Timing Onset: Days Context: Gradual Onset Timing: Continuous Current Severity: Mild Maximum Severity: Mild Associated Symptoms Associated Symptoms: Positive for Nasal Congestion, Myalgias and Nonproductive cough Narrative Narrative: 36-year-old diabetic female who states that she tested Covid positive on 1222 but has had symptoms now for 10 days. She has had no care for this. She was a [facility] and was referred to [facility]. She denies vomiting or diarrhea Pillard states she has chills and sweats. Last time she checked her blood sugar was yesterday and it was 162. She has been vaccinated against Covid in April. Prior similar symptoms: No Recent Illness/Hospitalization: No ROS ROS ED ROS Narrative Cough, myalgias. Fevers and sweats. Review of Systems ROS Unobtainable: Denies due to encephalopathy Constitutional Constitutional ED: Reports chills, fever(s) and subjective Eyes Eyes: Denies change in vision ENT ENT ED: Reports rhinorrhea; Denies ear pain Cardiovascular Cardiovascular: Denies chest pain Respiratory/Chest Respiratory/Chest: Reports cough; Denies dyspnea Gastrointestinal Gastrointestinal: Denies abdominal pain, diarrhea, nausea or vomiting Genitourinary Genitourinary ED: Denies dysuria Musculoskeletal Musculoskeletal: Reports myalgias Integumentary Denies rash Neurologic Neurologic: Denies headache(s) Psychiatric Psychiatric: Denies depression Endocrine Endocrinology: Denies polyuria Hematologic/Lymphatic Hematologic/Lymphatic: Denies easy bruising Allergic/Immunologic Allergic/Immunologic ED: Denies urticaria PFSH PFSH Medical History Cervical pain (neck) Diabetes GERD (gastroesophageal reflux disease) Hypertension Smoker Home Medications glimepiride 4 mg PO DAILY 09/26/13 [History Last Taken 01/18/18] omeprazole 20 mg PO DAILY 02/02/14 [History Last Taken 01/18/18] metformin [Glucophage Xr] 500 mg PO BID 06/20/15 [History Last Taken 01/18/18] dulaglutide [Trulicity] 3 mg SUBCUT QWEEK 03/23/21 [History Last Taken Unknown] pravastatin 20 mg PO DAILY 04/16/21 [History Last Taken Unknown] gabapentin See Rx Instructions .ROUTE .COMPLEX #60 cap 07/02/21 [Rx Last Taken Unknown] cholecalciferol (vitamin D3) 50 mcg (2,000 unit) capsule 2,000 unit PO DAILY cap 07/21/21 [History Last Taken Unknown] cyanocobalamin (vitamin B-12) 1,000 mcg tablet 1,000 mcg PO DAILY tab 07/21/21 [History Last Taken Unknown] hydrochlorothiazide 12.5 mg capsule 12.5 mg PO DAILY cap 07/21/21 [History Last Taken Unknown] pyridoxine (vitamin B6) 100 mg tablet 200 mg PO BID tab 07/21/21 [History Last Taken Unknown] Allergy/AdvReac Type Severity Reaction Status Date / Time naproxen Allergy Itching Verified 08/23/21 13:09 oxycodone HCl [From Percocet] Allergy Itching Verified 08/23/21 13:09 Surgical History History of tympanostomy tube placement Hx of tonsillectomy Social History household members: none Smoking Status: Former smoker substance use type: does not use EXAM Physical Exam Narrative Exam Narrative: 30 refill no acute distress vital signs are stable and afebrile. Blood pressure is elevated 167/115. Pulse ox 96% on room air no signs of hypoxia. Temperature 96. She does not look septic or toxic. H EENT exam unremarkable moist extremities. Lungs clear to auscultation bilaterally. Heart regular rhythm rate about 80 no murmur. Abdomen soft but obese nontender normal bowel sounds no peritoneal signs. Moving all 4 extremities. Nontender no edema. Neurologically awake and alert. Const Vital Signs: 08/23/21 13:09 08/23/21 13:50 Temperature 96.3 F L Temperature Source Temporal Pulse Rate 84 Respiratory Rate 16 Respiratory Effort Normal Respiratory Depth Normal Respiratory Pattern Normal Blood Pressure 167/115 H Blood Pressure Mean 132 Pulse Ox 96 Oxygen Delivery Method Room Air Room Air Positive well nourished, well developed and obese; Negative for cachectic or contractures General Appearance ED: well developed and NAD; Negative for cachectic, contractures, cyanotic, diaphoretic or pallor Nutritional Appearance: obese; Negative for cachectic HEENT Reports moist mucous membranes normocephalic and atraumatic; Negative for scalp tenderness Face and Sinus: Negative for sinus tenderness External Ear: external ears normal Eyes PERRL and EOMs intact bilaterally Neck no lymphadenopathy, supple, no meningeal signs and no JVD General: Negative for anterior neck swelling or lymphadenopathy Resp normal respiratory effort and clear to auscultation bilaterally Auscultation: Negative for rales, rhonchi or wheezes Cardio S1 normal heart sound, S2 normal heart sound and no murmurs Rate: regular rate Rhythm: regular rhythm GI non-tender, non-distended and no masses Inspection: Negative for abdominal distention Auscultation: normoactive bowel sounds Palpation: soft; Negative for tender or guarding Back/Spine no CVA tenderness and normal ROM General Back: Negative for CVA tenderness Cervical Spine: Negative for cervical spine tenderness Neuro oriented x3 and CN's II-XII intact bilaterally Sensorium / Orientation: alert, oriented to person, oriented to place and oriented to time; Negative for orientation impaired, lethargic or stuporous Motor Exam: strength 5/5 throughout Psych mental status grossly normal Mood & Affect: Negative for depressed or tearful Skin General Skin Exam: Negative for jaundice or pallor Lesions: no lesions Rashes: no rashes MDM MDM MDM Narrative Medical decision making narrative: 36-year-old diabetic vaccinated patient against Covid and Covid positive now for 5 days by test for 10 days of symptoms. She is out of the window for monoclonal antibodies. Clinically she does not look ill. She is not dehydrated. She is not hypoxic. Plenty of fluids and rest. Tylenol Motrin. Watch her blood sugars. Discharge Plan Triage Chief Complaint: Cough Other Complaint: General Illness ED Provider: Rolly Paula Dx/Rx/DC Orders Clinical Impression: COVID-19, Diabetes Instructions: Human Coronaviruses Prescriptions: No Action cyanocobalamin (vitamin B-12) 1,000 mcg tablet 1,000 mcg PO DAILY RF: 0 pyridoxine (vitamin B6) 100 mg tablet 200 mg PO BID RF: 0 cholecalciferol (vitamin D3) 50 mcg (2,000 unit) capsule 2,000 unit PO DAILY RF: 0 hydrochlorothiazide 12.5 mg capsule 12.5 mg PO DAILY RF: 0 glimepiride 4 MG tablet 4 mg PO DAILY RF: 0 omeprazole 20 MG capsule 20 mg PO DAILY RF: 0 metformin [Glucophage XR] 750 MG tablet extended release 24 hr 500 mg PO BID RF: 0 Trulicity 3 mg/0.5 mL pen injector 3 mg SUBCUT QWEEK RF: 0 pravastatin 20 mg tablet 20 mg PO DAILY RF: 0 gabapentin 100 mg capsule See Rx Instructions .ROUTE .COMPLEX Qty: 60 RF: 0 Primary Care Provider: Mario Gonzales Referrals: Mario Gonzales, [Primary Care Provider] - 1 Week if not improving Activity Restrictions/Additional Instructions: Plenty of fluids and rest. Tylenol and Motrin for body aches and fever Watch your blood sugars closely. Follow-up if not improving or return if feeling a lot worse. Disposition Disposition: Home, Self Care
== END 2021-08-23 14:48 | disposition home or self-care (01) ==
LOC: ED 14:36
PROVIDERS: Emergency Provider Emergency Medicine; PCP Student in an Organized Health Care Education/Training Program
DX: U07.1 COVID-19 (principal); E11.9 Type 2 diabetes mellitus without complications; E66.9 Obesity, unspecified; Z87.891 Personal history of nicotine dependence; K21.9 Gastro-esophageal reflux disease without esophagitis; I10 Essential (primary) hypertension; Z79.84 Long term (current) use of oral hypoglycemic drugs
CPT/HCPCS: 99282

== ENCOUNTER 2023-02-24 17:36 | Emergency (ER) | payer MEDICAID, SELFPAY ==
[2023-02-24 17:38] VITALS: BP 121/75; PULSE 84; RESP 14; TEMP 36.1; O2SAT 97; BMI 47.0
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
== END 2023-02-24 18:30 | disposition home or self-care (01) ==
PROVIDERS: Emergency Provider Emergency Medicine; PCP Student in an Organized Health Care Education/Training Program; Visit Provider Emergency Medicine
DX: S16.1XXA Strain of muscle, fascia and tendon at neck level, initial encounter (principal); E11.9 Type 2 diabetes mellitus without complications; R51.9 Headache, unspecified; Z87.891 Personal history of nicotine dependence; I10 Essential (primary) hypertension; V43.52XA Car driver injured in collision with other type car in traffic accident, initial encounter
CPT/HCPCS: 99281

== ENCOUNTER 2023-09-02 15:34 | Emergency (ER) | payer MEDICAID, SELFPAY ==
[2023-09-02 15:36] VITALS: BP 159/98; PULSE 80; RESP 18; TEMP 36.3; O2SAT 99
--- NOTE | 2023-09-02 15:50 | RAD_ITS ---
INDICATION: swelling, pain digit 1 EXAMINATION/TECHNIQUE: X-RAY - RIGHT XR Hand 3 VIEWS COMPARISON: FINDINGS: SOFT TISSUES: No soft tissue swelling or gas. No radiopaque foreign body. BONES/JOINTS: No acute fracture or subluxation.. Normal alignment. Preservation of the joint space.. No sclerotic or destructive changes observed. RAD/Hand Min 3 Views IMPRESSION: Negative. Electronically Signed: Freddie Coyne DO at 16:35 EST ,
--- NOTE | 2023-09-02 17:43 | EX.ED.UPPERE ---
HPI History of Present Illness Chief Complaint: Upper Extremity Injury Detail of Chief Complaint: Pain and swelling to the right thumb Informant: patient Narrative Narrative: Patient presents with pain and swelling to the right thumb that she noticed throughout the night while sleeping and was mild initially. When she woke up she had pain that became more severe and pain with flexion of the IP joint. Pain is to the dorsum of the IP joint. She was worried about possibility of a spider bite. She also was not sure if she maybe had something in with her hand in her sleep. PFSH PFSH Medical History Cervical pain (neck) Diabetes GERD (gastroesophageal reflux disease) Hypertension Smoker Home Medications glimepiride 4 mg tablet 4 mg PO DAILY 09/26/13 [History Last Taken 01/18/18] omeprazole 20 mg capsule,delayed release 20 mg PO DAILY 02/02/14 [History Last Taken 01/18/18] metformin 750 mg tablet,extended release 24 hr (Glucophage XR) 500 mg PO BID 06/20/15 [History Last Taken 01/18/18] dulaglutide 3 mg/0.5 mL subcutaneous pen injector (Trulicity) 3 mg subcut QWEEK 03/23/21 [History Last Taken Unknown] pravastatin 20 mg tablet 20 mg PO DAILY 04/16/21 [History Last Taken Unknown] gabapentin 100 mg capsule See Rx Instructions .Route .COMPLEX #60 caps 07/02/21 [Rx Last Taken Unknown] cholecalciferol (vitamin D3) 50 mcg (2,000 unit) capsule 2,000 unit PO DAILY 07/21/21 [History Last Taken Unknown] cyanocobalamin (vitamin B-12) 1,000 mcg tablet 1,000 mcg PO DAILY 07/21/21 [History Last Taken Unknown] hydrochlorothiazide 12.5 mg capsule 12.5 mg PO DAILY 07/21/21 [History Last Taken Unknown] pyridoxine (vitamin B6) 100 mg tablet 200 mg PO BID 07/21/21 [History Last Taken Unknown] bupropion HCl 150 mg 24 hr tablet, extended release ea PO 10/04/21 [History Last Taken Unknown] cephalexin 500 mg capsule 500 mg PO Q6 #40 CAPSULES 09/02/23 [Rx Last Taken Unknown] fluconazole 200 mg tablet (Diflucan) 200 mg PO DAILY #2 tabs 09/02/23 [Rx Last Taken Unknown] hydrocodone-acetaminophen 5-325mg 5mg-325mg 1 tab PO Q4H PRN PRN Pain 2 days #10 TABLETS 09/02/23 [Rx Last Taken Unknown] sulfamethoxazole 800 mg-trimethoprim 160 mg tablet 1 tab PO BID #14 TABLETS 09/02/23 [Rx Last Taken Unknown] Allergy/AdvReac Type Severity Reaction Status Date / Time naproxen Allergy Itching Verified 09/02/23 15:36 oxycodone HCl [From Percocet] Allergy Itching Verified 09/02/23 15:36 Surgical History History of tympanostomy tube placement Hx of tonsillectomy Social History household members: none Smoking Status: Former smoker substance use type: does not use ROS ROS ED Review of Systems ROS Unobtainable: other Constitutional Constitutional ED: Reports lethargy; Denies chills, fever(s), sweats or weight loss Eyes Eyes: Denies blurry vision, change in vision or diplopia ENT ENT ED: Denies rhinorrhea or sore throat Cardiovascular Cardiovascular: Reports chest pain and racing heartbeat; Denies orthopnea Respiratory/Chest Respiratory/Chest: Reports dyspnea and dyspnea on exertion; Denies cough, orthopnea or sputum Gastrointestinal Gastrointestinal: Denies abdominal pain, diarrhea, nausea or vomiting Genitourinary Genitourinary ED: Denies dysuria, hematuria or urinary frequency Musculoskeletal Musculoskeletal: Reports other Details: Right thumb pain and swelling ; Denies arthralgias, back pain, myalgias or neck pain Integumentary Denies abscess, Abrasions or rash Neurologic Neurologic: Denies headache(s) or weakness Psychiatric Psychiatric: Denies anxiety, depression or suicidal thoughts Endocrine Endocrinology: Denies polydipsia, polyphagia or polyuria Hematologic/Lymphatic Hematologic/Lymphatic: Denies easy bleeding, easy bruising or lymphadenopathy Allergic/Immunologic Allergic/Immunologic ED: Denies mouth swelling, tongue swelling or urticaria EXAM Physical Exam Const Vital Signs: 09/02/23 15:36 Temperature 97.3 F L Temperature Source Temporal Pulse Rate 80 Respiratory Rate 18 Blood Pressure 159/98 H Blood Pressure Mean 118 Pulse Ox 99 Oxygen Delivery Method Room Air Positive well nourished and well developed General Appearance ED: well developed and NAD HEENT Reports TM's clear and moist mucous membranes normocephalic and atraumatic; Negative for trauma or tenderness Tympanic Membrane ED: Yes TM's clear Eyes PERRL and EOMs intact bilaterally General Eye ED: Negative for pale conjunctiva or scleral icterus Neck no lymphadenopathy, supple and no JVD General: Negative for tenderness Chest Wall inspection of chest normal and palpation of chest normal Chest: Negative for tenderness Resp normal respiratory effort and clear to auscultation bilaterally Effort and Inspection: Negative for respiratory distress or pain with movement Auscultation: Negative for rhonchi, wheezes or diminished lung sounds Cardio regular rate, regular rhythm, S1 normal heart sound, S2 normal heart sound and no murmurs Peripheral Pulses: pulses 2+ throughout GI normal to inspection, nondistended, normoactive bowel sounds, soft to palpation, non-tender, non-distended and no masses Back/Spine no CVA tenderness and no thoracic nor lumbar tenderness Extremity Extremity Narrative: Right thumb-patient has some faint erythema to the dorsum of the right thumb over the IP joint with tenderness palpation to the area and pain with attempted flexion of the area. No pain to the flexor surface of the thumb. Neurovascularly intact. No evidence of abscess or foreign body or broken skin noted. No bite wounds noted. General Extremety ED: Negative for edema General Extremity: Negative for edema Neuro oriented x3, CN's II-XII intact bilaterally, no sensory deficits noted and gait normal Sensorium / Orientation: awake, alert, oriented to person, oriented to place and oriented to time Motor Exam: strength 5/5 throughout and strength abnormal Psych mental status grossly normal Skin no rashes or lesions noted and no wounds MDM MDM MDM Narrative Medical decision making narrative: X-ray of the right hand obtained interpreted by radiology as no acute fracture or dislocation. Etiology of redness and swelling unclear. Patient will be referred to orthopedics for follow-up. I will start her on Bactrim and Keflex and give a prescription for few [place] for pain. Will apply an aluminum splint. She is advised to return if increasing pain, redness, swelling, or condition should worsen anyway. Radiography Diagnostic Testing: Clinical Impression(s) from Imaging Studies Hand X-Ray 09/02/23 15:50 IMPRESSION: Negative. Electronically Signed: Freddie Coyne DO at 16:35 EST , Three-view x-rays of the right hand interpreted by myself as no evidence of fracture or dislocation. Radiology in agreement. Discharge Plan Triage Chief Complaint: Upper Extremity Injury ED Provider: Franklin Rodriguez Dx/Rx/DC Orders Clinical Impression: Cellulitis Instructions: ED Cellulitis Prescriptions: New sulfamethoxazole-trimethoprim [sulfamethoxazole-trimethoprim] 800-160 mg tablet 1 tab PO BID Qty: 14 0RF cephalexin [cephalexin] 500 mg capsule 500 mg PO Q6 Qty: 40 0RF fluconazole [Diflucan] 200 mg tablet 200 mg PO DAILY Qty: 2 0RF hydrocodone-acetaminophen [hydrocodone-acetaminophen] 5-325 mg tablet 1 tab PO Q4H PRN PRN (Reason: Pain) 2 Days Qty: 10 0RF No Action cyanocobalamin (vitamin B-12) 1,000 mcg tablet 1,000 mcg PO DAILY pyridoxine (vitamin B6) 100 mg tablet 200 mg PO BID cholecalciferol (vitamin D3) 50 mcg (2,000 unit) capsule 2,000 unit PO DAILY Patient Comments: Take 1 capsule by mouth once daily. hydrochlorothiazide 12.5 mg capsule 12.5 mg PO DAILY bupropion HCl 150 mg tablet extended release 24 hr PO Patient Comments: Take 1 tablet by mouth once daily. In the morning, for mood glimepiride 4 MG tablet 4 mg PO DAILY omeprazole 20 MG capsule 20 mg PO DAILY metformin [Glucophage XR] 750 MG tablet extended release 24 hr 500 mg PO BID Trulicity 3 mg/0.5 mL pen injector 3 mg SUBCUT QWEEK pravastatin 20 mg tablet 20 mg PO DAILY gabapentin 100 mg capsule See Rx Instructions .ROUTE .COMPLEX Qty: 60 0RF Rx Instructions: 100 mg orally twice daily for 2 days then 3 times a day then 2 3 times a day for 3 days then 3 3 times a day Primary Care Provider: Mario Gonzales Referrals: Mario Gonzales DO [Primary Care Provider] - Heber Horne DO [Med Staff - Active Staff] - 3-5 Days Disposition Disposition: Home, Self Care Discharge Date/Time: 09/02/23 18:06
[2023-09-02] MEDS: Cephalexin 250 MG Capsule 500 MG PO (17:59)
[2023-09-02] MEDS: Smz/Tmp Ds Tablet 1 TABLET PO (17:59)
--- OUTSIDE RECORDS SUMMARY | 2023-09-02 17:59 | XMS RPT_ITS | CCD ---
Author Name Unknown Address [id number] [place] [address] Organization [facility] Care Team Providers Care Double Bottom Driver Name Role Phone MARIO GONZALES DO Primary Care Physician Mario Gonzales DO Primary Care Provider [facility], [place]uir Unavailable [facility], Keti Unavailable Mario Gonzales DO Primary Care Provider [facility], Zuri Unavailable [facility], Keti Unavailable Mario Gonzales DO Primary Care Provider [facility], [place]uri Unavailable [facility], [place]eti Unavailable Mario Gonzales DO Primary Care Provider [facility], [place]uri Unavailable [facility], Keti Unavailable [facility], [place]eti Unavailable MARIO GONZALES Primary Care Unavailable VIMAL WILDE Referring Unavailable MARIO GONZALES Primary Care Unavailable MARIO GONZALES Attending Unavailable MARIO GONZALES Primary Care Unavailable MARIO GONZALES Referring Unavailable MARIO GONZALES Primary Care Unavailable MARIO GONZALES Primary Care Unavailable MARIO GONZALES Referring Unavailable MARIO GONZALES Primary Care Unavailable HALLE RAMIREZ Attending Unavailable MRAIO GONZALES Primary Care Unavailable MARIO GONZALES Attending Unavailable MARIO GONZALES Primary Care Unavailable CHANI, VIMAL Referring Unavailable ISRAEL LUEVANO Attending Unavailable MARIO GONZALES Primary Care Unavailable MARIO GONZALES Primary Care Unavailable MALCOLM AMESON Attending Unavailable GONZALESMARIO L Primary Care Unavailable DEVIN DELANEY Attending Unavailable HALLE RAMIREZ Referring Unavailable ISRAEL LUEVANO Attending Unavailable MARIO GONZALES Primary Care Unavailable FAY, CHAYA Attending Unavailable MARIO GONZALES L Primary Care Unavailable AMES, CHAYA Referring Unavailable GONZALESMARIO L Primary Care Unavailable AMES, CHAYA Referring Unavailable GONZALES MARIO L Primary Care Unavailable AMES, CHAYA Attending Unavailable MARIO GONZALES L Primary Care Unavailable AMES, CHAYA Referring Unavailable MARIO GONZALES L Primary Care Unavailable ISRAEL LUEVANO Referring Unavailable GONZALESMARIO L Primary Care Unavailable MARIO GONZALES Primary Care Unavailable VIMAL WILDE Attending Unavailable Allergies Allergy Classification Reported Allergen(s) Allergy Type Date of Onset Reaction(s) Facility (20 sources) Acetaminophen / oxyCODONE; Translations: [acetaminophen-oxy codone] Drug Allergy 04-23-2013 Rash [facility] (20 sources) Naproxen; Translations: [naproxen] Drug Allergy 04-23-2013 Itching [facility] (1 source) Acetaminophen / oxyCODONE; Translations: [OXYCODONE-ACETAMI NOPHEN] Drug Allergy 04-23-2013 [facility] Repository Medications Current Medications Medication Drug Class(es) Dates Sig (Normalized) Sig (Original) Artificial Tears ophthalmic solution (1 source) Start: 09-01-2018 Artificial Tears ophthalmic solution Dose = 2 drop(s), Eye, right, q4hr, PRN for dry eyes, # 15 mL, 0 Refill(s) Start Date: 09/01/18 Status: Ordered azithromycin 250 mg oral tablet (2 sources) Macrolide Antimicrobial Start: 08-18-2022 End: 08-23-2022 azithromycin (ZITHROMAX Z-IRAIDA) 250 mg tablet Take 2 tablets day one, then, 1 tablet daily until gone. 6 tablet 0 08/18/2022 08/23/2022 Active Completed/Discontinued Medications Medication Drug Class(es) Dates Sig (Normalized) Sig (Original) acetaminophen 325 mg oral tablet (20 sources) Start: 07-04-2019 take 2 tablets by mouth every six hours as needed acetaminophen (TYLENOL) 325 mg tablet Take 2 tablets by mouth every 6 hours as needed for Pain. 20 tablet 0 07/04/2019 Active Problems Active Problems Problem Classification Problem Date Documented Da te Episodic/Chronic Abdominal pain (4 sources) Finding of sensation of abdomen; Translations: [Unspecified abdominal pain] Onset: 3 Episodic Acute bronchitis (1 source) Acute bronchitis; Translations: [Acute bronchitis, unspecified] Episodic Administrative/social admission (1 source) Worried well; Translations: [Person with feared health complaint in whom no diagnosis is made] Episodic Anal and rectal conditions (1 source) Disorder of anal region; Translations: [Disease of anus and rectum, unspecified] Episodic Anxiety disorders (20 sources) Mixed anxiety and depressive disorder; Translations: [Anxiety disorder, unspecified] Onset: 1 08-11-2021 Chronic Diabetes mellitus with complications (20 sources) Type 2 diabetes mellitus; Translations: [Type 2 diabetes mellitus with hyperglycemia] Onset: 6 Chronic Diabetes mellitus without complication (1 source) Diabetes mellitus 09-06-2014 Chronic Diabetes mellitus without complication (1 source) High glucose level in blood; Translations: [Glycosuria] Episodic Disorders of lipid metabolism (20 sources) Hypertriglyceridemia; Translations: [Pure hyperglyceridemia] Onset: 6 06-29-2016 Chronic Esophageal disorders (17 sources) Gastroesophageal reflux disease without esophagitis; Translations: [Gastro-esophageal reflux disease without esophagitis] Onset: 3 Chronic Essential hypertension (20 sources) Hypertensive disorder; Translations: [Essential hypertension] Onset: 3 09-06-2014 Chronic Gastritis and duodenitis (5 sources) Gastritis; Translations: [Gastritis, unspecified, without bleeding] Onset: 3 Episodic Genitourinary symptoms and ill-defined conditions (4 sources) Dysuria; Translations: [Dysuria] Onset: 3 Episodic Mood disorders (20 sources) Recurrent major depressive episodes, moderate ; Translations: [Major depressive disorder, recurrent, moderate] Onset: 5 03-18-2015 Chronic Mood disorders (1 source) Mood disorders; Translations: [Anxiety and depression] Onset: 1 Mycoses (3 sources) Candidiasis of vagina; Translations: [Candidiasis of vulva and vagina] Episodic Nausea and vomiting (6 sources) Nausea; Translations: [Nausea] Onset: 3 Episodic Nutritional deficiencies (1 source) Vitamin D deficiency, unspecified; Translations: [Vitamin D deficiency] Onset: 3 Chronic Other circulatory disease (1 source) Pulmonary congestion ; Translations: [Other specified symptoms and signs involving the circulatory and respiratory systems] Episodic Other connective tissue disease (1 source) Cramp in lower limb; Translations: [Cramp and spasm] Episodic Other female genital disorders (1 source) Lesion of vulva; Translations: [Other specified noninflammatory disorders of vulva and perineum] Episodic Other female genital disorders (1 source) Pruritus of vagina; Translations: [Other specified noninflammatory disorders of vagina] Episodic Other female genital disorders (4 sources) Burning sensation of vagina; Translations: [Unspecified condition associated with female genital organs and menstrual cycle] Episodic Other female genital disorders (1 source) Vaginal discharge; Translations: [Other specified noninflammatory disorders of vagina] Episodic Other female genital disorders (1 source) Vaginal irritation; Translations: [Other specified noninflammatory disorders of vagina] Episodic Other gastrointestinal disorders (1 source) Abdominal bloating; Translations: [Abdominal distension (gaseous)] Episodic Other gastrointestinal disorders (1 source) Diarrhea; Translations: [Diarrhea, unspecified] 07-11-2023 Episodic Other gastrointestinal disorders (1 source) Diarrhea, unspecified; Translations: [Diarrhea, unspecified type] Onset: 3 Episodic Other gastrointestinal disorders (1 source) Eructation; Translations: [Belching] Onset: 3 Episodic Other gastrointestinal disorders (1 source) Abdominal distension (gaseous); Translations: [Bloating] Onset: 3 Episodic Other gastrointestinal disorders (1 source) Constipation, unspecified; Translations: [Acute constipation] Onset: 3 Episodic Other liver diseases (20 sources) Steatosis of liver; Translations: [Fatty (change of) liver, not elsewhere classified] Onset: 0 08-30-2019 Chronic Other lower respiratory disease (1 source) Cough; Translations: [Acute cough] Episodic Other non-traumatic joint disorders (1 source) Pain of right wrist; Translations: [Pain in right wrist] Episodic Other non-traumatic joint disorders (1 source) Pain in right knee; Translations: [Pain in joint, lower leg] Episodic Other nutritional; endocrine; and metabolic disorders (20 sources) Body mass index 40+ - severely obese; Translations: [Morbid (severe) obesity due to excess calories] Onset: 6 06-29-2016 Chronic Other nutritional; endocrine; and metabolic disorders (20 sources) Hypomagnesemia; Translations: [Hypomagnesemia] Onset: 3 Chronic Other nutritional; endocrine; and metabolic disorders (1 source) Obesity, unspecified; Translations: [Diabetes mellitus type 2 in obese (HCC)] Onset: 3 Chronic Other upper respiratory infections (2 sources) Acute upper respiratory infection; Translations: [Acute upper respiratory infection, unspecified] Episodic Sexually transmitted infections (not HIV or hepatitis) (1 source) Human papillomavirus deoxyribonucleic acid test positive, high risk on cervical specimen; Translations: [Cervical high risk human papillomavirus (HPV) DNA test positive] Episodic Spondylosis; intervertebral disc disorders; other back problems (1 source) Cervical radiculopathy; Translations: [Radiculopathy, cervical region] Onset: 1 Episodic Unclassified (1 source) History of COVID-19; Translations: [History of COVID-19] Onset: 3 Viral infection (1 source) COVID-19; Translations: [COVID-19] Onset: 3 Past or Other Problems Problem Classification Problem Date Documented Date Episodic/Chronic Allergic reactions (20 sources) Eczema; Translations: [Other specified dermatitis] Onset: 09-28-2022 Episodic Cancer of cervix (20 sources) Atypical squamous cells of undetermined significance on cervical Papanicolaou smear; Translations: [Atypical squamous cells of undetermined significance on cytologic smear of cervix (ASC-US)] Onset: 10-16-2019 10-16-2019 Episodic Immunizations and screening for infectious disease (6 sources) Patient encounter status; Translations: [Encounter for immunization] Onset: 11-28-2022 Episodic Malaise and fatigue (20 sources) Fatigue; Translations: [Other fatigue] Onset: 08-11-2021 08-11-2021 Episodic Other connective tissue disease (20 sources) Neuralgia; Translations: [Neuralgia and neuritis, unspecified] Onset: 08-11-2021 08-11-2021 Episodic Other connective tissue disease (20 sources) Pain in left arm; Translations: [Pain in left arm] Onset: 08-11-2021 08-11-2021 Episodic Other connective tissue disease (20 sources) Muscle weakness; Translations: [Muscle weakness (generalized)] Onset: 09-28-2022 Episodic Other connective tissue disease (1 source) Muscle weakness (generalized); Translations: [Muscle weakness] Onset: 09-26-2022 Episodic Other female genital disorders (1 source) Other specified noninflammatory disorders of vagina; Translations: [Vaginal irritation] Onset: 11-28-2022 Episodic Other infections; including parasitic (20 sources) Personal history of other infectious and parasitic diseases; Translations: [History of COVID-19] Onset: 09-28-2022 Episodic Other screening for suspected conditions (not mental disorders or infectious disease) (4 sources) Other specified abnormal findings of blood chemistry; Translations: [Other abnormal blood chemistry] Onset: 11-01-2022 Episodic Viral infection (20 sources) Infective dermatosis of female genitalia; Translations: [Anogenital (venereal) warts] Onset: 10-08-2019 10-08-2019 Episodic Results Test Name Value Interpretation Reference Range Facil ity Vital Signs Date Time Vital Sign Value Performing Clinician Facility 07-11-2023 07:52-0500 Body temperature 98.4 [degF] Israel Luevano APRN.CNP Work Phone: [facility] 07-11-2023 07:52-0500 Body weight 117.94 kg Israel Luevano APRN.CNP Work Phone: [facility] 07-11-2023 07:52-0500 Diastolic blood pressure 82 mm[Hg] Israel Luevano APRN.CNP Work Phone: [facility] 07-11-2023 07:52-0500 Heart rate 73 /min Israel Luevano APRN.CNP Work Phone: [facility] 07-11-2023 07:52-0500 Respiratory rate 14 /min Israel Luevano STENCIL TYPIST.DIRECTOR OF REHABILITATIVE SERVICES Work Phone: [facility] 07-11-2023 07:52-0500 Systolic blood pressure 131 mm[Hg] Israel Luevano STENCIL TYPIST.DIRECTOR OF REHABILITATIVE SERVICES Work Phone: [facility] 03-27-2023 15:15-0400 Body weight 116.57 kg Israel Luevano STENCIL TYPIST.DIRECTOR OF REHABILITATIVE SERVICES Work Phone: [facility] 03-27-2023 15:15-0400 Diastolic blood pressure 84 mm[Hg] Israel Luevano STENCIL TYPIST.DIRECTOR OF REHABILITATIVE SERVICES Work Phone: [facility] 03-27-2023 15:15-0400 Heart rate 80 /min Israel Luevano STENCIL TYPIST.DIRECTOR OF REHABILITATIVE SERVICES Work Phone: [facility] 03-27-2023 15:15-0400 Respiratory rate 14 /min Israel Luevano STENCIL TYPIST.DIRECTOR OF REHABILITATIVE SERVICES Work Phone: [facility] 03-27-2023 15:15-0400 Systolic blood pressure 136 mm[Hg] Israel Luevano STENCIL TYPIST.DIRECTOR OF REHABILITATIVE SERVICES Work Phone: [facility] 01-25-2023 15:50-0400 Body temperature 97 [degF] Mario Gonzales DO Work Phone: [facility] 01-25-2023 15:50-0400 Body weight 117.48 kg Mario Gonzales DO Work Phone: [facility] 01-25-2023 15:50-0400 Diastolic blood pressure 60 mm[Hg] Mario Gonzales DO Work Phone: [facility] 01-25-2023 15:50-0400 Heart rate 88 /min Mario Gonzales DO Work Phone: [facility] 01-25-2023 15:50-0400 Respiratory rate 20 /min Mario Gonzales DO Work Phone: [facility] 01-25-2023 15:50-0400 Systolic blood pressure 110 mm[Hg] Mario Gonzales DO Work Phone: [facility] 11-28-2022 16:01-0400 Body height 163.8 cm Halle Betzy STENCIL TYPIST.DIRECTOR OF REHABILITATIVE SERVICES Work Phone: [facility] 11-28-2022 16:01-0400 Body weight 120.84 kg Halle Betzy STENCIL TYPIST.DIRECTOR OF REHABILITATIVE SERVICES Work Phone: [facility] 11-28-2022 16:01-0400 Diastolic blood pressure 82 mm[Hg] Halle Betzy STENCIL TYPIST.DIRECTOR OF REHABILITATIVE SERVICES Work Phone: [facility] 11-28-2022 16:01-0400 Systolic blood pressure 130 mm[Hg] Halle Coalton STENCIL TYPIST.DIRECTOR OF REHABILITATIVE SERVICES Work Phone: [facility] 09-26-2022 15:32-0500 Body temperature 97 [degF] Mario Gonzales DO Work Phone: [facility] 09-26-2022 15:32-0500 Body weight 124.29 kg Mario Gonzales DO Work Phone: [facility] 09-26-2022 15:32-0500 Diastolic blood pressure 86 mm[Hg] Mario Gonzales DO Work Phone: [facility] 09-26-2022 15:32-0500 Heart rate 80 /min Mario Gonzales DO Work Phone: [facility] 09-26-2022 15:32-0500 Respiratory rate 16 /min Mario Gonzales DO Work Phone: [facility] 09-26-2022 15:32-0500 Systolic blood pressure 138 mm[Hg] Mario Gonzales DO Work Phone: [facility] 08-30-2022 16:21-0500 Body temperature 97.2 [degF] Nereida Calljanis STENCIL TYPIST.DIRECTOR OF REHABILITATIVE SERVICES Work Phone: [facility] 08-30-2022 16:21-0500 Body weight 127.19 kg Nereida Callow STENCIL TYPIST.DIRECTOR OF REHABILITATIVE SERVICES Work Phone: [facility] 08-30-2022 16:21-0500 Diastolic blood pressure 80 mm[Hg] Nereida Callow STENCIL TYPIST.DIRECTOR OF REHABILITATIVE SERVICES Work Phone: [facility] 08-30-2022 16:21-0500 Heart rate 85 /min Nereida Callow STENCIL TYPIST.DIRECTOR OF REHABILITATIVE SERVICES Work Phone: [facility] 08-30-2022 16:21-0500 Respiratory rate 16 /min Nereida Callow STENCIL TYPIST.DIRECTOR OF REHABILITATIVE SERVICES Work Phone: [facility] 08-30-2022 16:21-0500 SaO2% (BldA) [Mass fraction] 99 % Nereida Callow STENCIL TYPIST.DIRECTOR OF REHABILITATIVE SERVICES Work Phone: [facility] 08-30-2022 16:21-0500 Systolic blood pressure 142 mm[Hg] Nereida Callow STENCIL TYPIST.DIRECTOR OF REHABILITATIVE SERVICES Work Phone: [facility] 08-17-2022 13:43-0500 Body temperature 96.6 [degF] Vimal Chani STENCIL TYPIST.DIRECTOR OF REHABILITATIVE SERVICES Work Phone: [facility] 08-17-2022 13:43-0500 Body weight 125.28 kg Vimal Chani STENCIL TYPIST.DIRECTOR OF REHABILITATIVE SERVICES Work Phone: [facility] 08-17-2022 13:43-0500 Diastolic blood pressure 92 mm[Hg] Vimal Chani STENCIL TYPIST.DIRECTOR OF REHABILITATIVE SERVICES Work Phone: [facility] 08-17-2022 13:43-0500 Heart rate 91 /min Vimal Chani STENCIL TYPIST.DIRECTOR OF REHABILITATIVE SERVICES Work Phone: [facility] 08-17-2022 13:43-0500 SaO2% (BldA) [Mass fraction] 98 % Vimal Chani STENCIL TYPIST.DIRECTOR OF REHABILITATIVE SERVICES Work Phone: [facility] 08-17-2022 13:43-0500 Systolic blood pressure 136 mm[Hg] Vimal Chani STENCIL TYPIST.DIRECTOR OF REHABILITATIVE SERVICES Work Phone: [facility] 04-08-2022 13:20-0400 Body weight 126.1 kg Chaya Zurawick STENCIL TYPIST.DIRECTOR OF REHABILITATIVE SERVICES Work Phone: [facility] 03-25-2022 14:28-0400 Body weight 125.56 kg Vimal Chani STENCIL TYPIST.DIRECTOR OF REHABILITATIVE SERVICES Work Phone: [facility] 03-25-2022 14:28-0400 Diastolic blood pressure 94 mm[Hg] Vimal Chani STENCIL TYPIST.DIRECTOR OF REHABILITATIVE SERVICES Work Phone: [facility] 03-25-2022 14:28-0400 Heart rate 89 /min Vimal Chani STENCIL TYPIST.DIRECTOR OF REHABILITATIVE SERVICES Work Phone: [facility] 03-25-2022 14:28-0400 Respiratory rate 16 /min Vimal Chani STENCIL TYPIST.DIRECTOR OF REHABILITATIVE SERVICES Work Phone: [facility] 03-25-2022 14:28-0400 SaO2% (BldA) [Mass fraction] 97 % Vimal Chani STENCIL TYPIST.DIRECTOR OF REHABILITATIVE SERVICES Work Phone: [facility] 03-25-2022 14:28-0400 Systolic blood pressure 160 mm[Hg] Vimal Chani STENCIL TYPIST.DIRECTOR OF REHABILITATIVE SERVICES Work Phone: [facility] 03-22-2022 17:15-0400 Body temperature 97.39 [degF] Shanda Kadeem STENCIL TYPIST.DIRECTOR OF REHABILITATIVE SERVICES Work Phone: [facility] 03-22-2022 17:15-0400 Body weight 127.1 kg Shanda Kadeem STENCIL TYPIST.DIRECTOR OF REHABILITATIVE SERVICES Work Phone: [facility] 03-22-2022 17:15-0400 Diastolic blood pressure 78 mm[Hg] Shanda Kadeem STENCIL TYPIST.DIRECTOR OF REHABILITATIVE SERVICES Work Phone: [facility] 03-22-2022 17:15-0400 Heart rate 80 /min Shanda Kadeem STENCIL TYPIST.DIRECTOR OF REHABILITATIVE SERVICES Work Phone: [facility] 03-22-2022 17:15-0400 Respiratory rate 16 /min Shanda Kadeem STENCIL TYPIST.DIRECTOR OF REHABILITATIVE SERVICES Work Phone: [facility] 03-22-2022 17:15-0400 SaO2% (BldA) [Mass fraction] 98 % Shanda Kadeem STENCIL TYPIST.DIRECTOR OF REHABILITATIVE SERVICES Work Phone: [facility] 03-22-2022 17:15-0400 Systolic blood pressure 124 mm[Hg] Shanda Kadeem STENCIL TYPIST.DIRECTOR OF REHABILITATIVE SERVICES Work Phone: [facility] 03-11-2022 11:10-0400 Body weight 126.1 kg Aileen De La Rosa MD Work Phone: [facility] 03-11-2022 11:10-0400 Diastolic blood pressure 86 mm[Hg] Aileen De La Rosa MD Work Phone: [facility] 03-11-2022 11:10-0400 Systolic blood pressure 132 mm[Hg] Aileen De La Rosa MD Work Phone: [facility] 02-21-2022 08:03-0400 Body weight 126.55 kg Chaya Zurawick STENCIL TYPIST.DIRECTOR OF REHABILITATIVE SERVICES Work Phone: [facility] 02-21-2022 08:03-0400 Diastolic blood pressure 76 mm[Hg] Chaya Zurawick STENCIL TYPIST.DIRECTOR OF REHABILITATIVE SERVICES Work Phone: [facility] 02-21-2022 08:03-0400 Heart rate 68 /min Chaya Zurawick STENCIL TYPIST.DIRECTOR OF REHABILITATIVE SERVICES Work Phone: [facility] 02-21-2022 08:03-0400 Respiratory rate 16 /min Chaya Zurawick STENCIL TYPIST.DIRECTOR OF REHABILITATIVE SERVICES Work Phone: [facility] 02-21-2022 08:03-0400 Systolic blood pressure 122 mm[Hg] Chaya Zurawick STENCIL TYPIST.DIRECTOR OF REHABILITATIVE SERVICES Work Phone: [facility] 01-20-2022 13:19-0400 Body weight 126.64 kg Chaya Zurawick STENCIL TYPIST.DIRECTOR OF REHABILITATIVE SERVICES Work Phone: [facility] 01-20-2022 13:19-0400 Diastolic blood pressure 90 mm[Hg] Chaya Zurawick STENCIL TYPIST.DIRECTOR OF REHABILITATIVE SERVICES Work Phone: [facility] 01-20-2022 13:19-0400 Heart rate 60 /min Chaya Zurawick STENCIL TYPIST.DIRECTOR OF REHABILITATIVE SERVICES Work Phone: [facility] 01-20-2022 13:19-0400 Respiratory rate 16 /min Chaya Zurawick STENCIL TYPIST.DIRECTOR OF REHABILITATIVE SERVICES Work Phone: [facility] 01-20-2022 13:19-0400 Systolic blood pressure 138 mm[Hg] Chaya Zurawick STENCIL TYPIST.DIRECTOR OF REHABILITATIVE SERVICES Work Phone: [facility] 12-13-2021 15:04-0400 Body weight 126.1 kg Aileen De La Rosa MD Work Phone: [facility] 12-13-2021 15:04-0400 Diastolic blood pressure 88 mm[Hg] Aileen De La Rosa MD Work Phone: [facility] 12-13-2021 15:04-0400 Systolic blood pressure 148 mm[Hg] Aileen De La Rosa MD Work Phone: [facility] 11-22-2021 15:13-0400 Body weight 124.74 kg Aileen De La Rosa MD Work Phone: [facility] 11-22-2021 15:13-0400 Diastolic blood pressure 74 mm[Hg] Aileen De La Rosa MD Work Phone: [facility] 11-22-2021 15:13-0400 Systolic blood pressure 130 mm[Hg] Aileen De La Rosa MD Work Phone: [facility] 07-07-2021 18:24-0500 Body temperature 98.6 [degF] BRIT REICHFIELD DO [facility] 07-07-2021 18:24-0500 Diastolic blood pressure 92 mm[Hg] BRIT REICHFIELD DO [facility] 07-07-2021 18:24-0500 Heart rate 89 /min BRITOCTAVIO DREW DO [facility] 07-07-2021 18:24-0500 Respiratory rate 16 /min BRIT DREW DO [facility] 07-07-2021 18:24-0500 Systolic blood pressure 149 mm[Hg] [facility] Encounters Encounter Date Encounter Type Care Provider Facility Start: 08-23-2023 End: 08-23-2023 ambulatory MARIO L GONZALES Facility:[facility] Start: 08-14-2023 End: 08-15-2023 ambulatory MARIO L GONZALES Facility:[facility] Start: 07-14-2023 Faustina BRADSHAW-C Work Phone: [facility] [place] Procedures Date Procedure Procedure Detail Performing Clinician Start: 01-25-2023 Hemoglobin A1c/Hemoglobin.total in Blood Mario L Gonzales DO Work Phone: Start: 11-01-2022 Us abdominal real time w/image limited Mario L Gonzales DO Work Phone: Start: 08-30-2022 STREP A MOLECULAR (POC) Noni Nuñez PA-C Work Phone: Start: 08-17-2022 COVID WITH FLUA+B, ROUTINE Vimal Wilde STENCIL TYPIST.DIRECTOR OF REHABILITATIVE SERVICES Work Phone: Start: 04-08-2022 Urnls dip stick/tablet rgnt auto w/o microscopy Chaya [facility] STENCIL TYPIST.DIRECTOR OF REHABILITATIVE SERVICES Work Phone: Start: 03-22-2022 Urnls dip stick/tablet rgnt auto w/o microscopy Radha Nicole STENCIL TYPIST.DIRECTOR OF REHABILITATIVE SERVICES Work Phone: Start: 01-20-2022 Hemoglobin A1c/Hemoglobin.total in Blood Chaya Wilson STENCIL TYPIST.DIRECTOR OF REHABILITATIVE SERVICES Work Phone: Start: 11-22-2021 Urine test visual color cmprsn claire De La Rosa MD Work Phone: Start: 10-08-2019 H/O: surgery History of loop electrical excision procedure (LEEP) Mario Gonzales DO Work Phone: Ligation of fallopia n tube BRIT JONES DO Tonsillectomy and adenoidectomy [facility] DO Plan of Treatment Date Care Activity Detail Author Start: 05-02-2029 Urine microalbumin profile [facility] Start: 11-29-2027 HPV TESTING HPV TESTING [facility] Start: 11-29-2027 PAP TESTING PAP TESTING [facility] Start: 05-05-2026 HPV TESTING HPV TESTING [facility] Start: 05-05-2026 PAP TESTING PAP TESTING [facility] Start: 07-11-2024 Annual PCP Team Ring [employer] sloan Disease Visit Annual PCP Team Chronic Disease Visit [facility] Start: 06-02-2024 Annual PCP Team Ring Maker sloan Disease Visit Annual PCP Team Chronic Disease Visit [facility] Start: 05-17-2024 Covid-19 Vaccine ( season) Covid-19 Vaccine ( season) [facility] Immunizations Immunization Date Immunization Notes Care Provider Fa tangela 05-17-2023 Human Papillomavirus 9-valent vaccine Chaya Ames STENCIL TYPIST.DIRECTOR OF REHABILITATIVE SERVICES Work Phone: [facility] 03-08-2023 Human Papillomavirus 9-valent vaccine Israel Luevano STENCIL TYPIST.DIRECTOR OF REHABILITATIVE SERVICES Work Phone: [facility] 02-21-2022 hepatitis B vaccine, adult dosage Chaya Wilson STENCIL TYPIST.DIRECTOR OF REHABILITATIVE SERVICES Work Phone: [facility] 06-02-2021 COVID-19 vaccine, ag e 12+ yr ([employer] - PURPLE TOP) Mario Gonzales DO Work Phone: [facility] 05-06-2021 COVID-19 vaccine, ag e 12+ yr ([employer] - PURPLE TOP) Mario Gonzales DO Work Phone: [facility] 05-02-2019 tetanus toxoid, redu isidro diphtheria toxoid, and acellular pertussis vaccine, adsorbed Mario Gonzales DO Work Phone: [facility] 09-04-2018 influenza virus vacc ine, unspecified formulation Chaya Ames STENCIL TYPIST.DIRECTOR OF REHABILITATIVE SERVICES Work Phone: [facility] 05-16-2000 hepatitis B vaccine, pediatric or pediatric/adolescent dosage Mario Gonzales DO Work Phone: [facility] 05-16-2000 hepatitis B vaccine, unspecified formulation Chayahenrique Wilson STENCIL TYPIST.DIRECTOR OF REHABILITATIVE SERVICES Work Phone: [facility] 04-11-2000 hepatitis B vaccine, pediatric or pediatric/adolescent dosage Mario Gonzales DO Work Phone: [facility] 04-11-2000 measles, mumps and rubella virus vaccine Mario Gonzales DO Work Phone: [facility] 01-19-1993 diphtheria, tetanus toxoids and acellular pertussis vaccine Mario Gonzales DO Work Phone: [facility] 01-19-1993 poliovirus vaccine, inactivated Mario Gonzales DO Work Phone: [facility] 04-28-1989 diphtheria, tetanus toxoids and acellular pertussis vaccine Mario Gonzales DO Work Phone: [facility] 04-28-1989 haemophilus influenz ae type b vaccine, HbOC conjugate Mario Gonzales DO Work Phone: [facility] 04-28-1989 poliovirus vaccine, inactivated Mario Gonzales DO Work Phone: [facility] 11-03-1988 DTP-Haemophilus influenzae type b conjugate vaccine Mario Gonzales DO Work Phone: [facility] 11-03-1988 measles, mumps and rubella virus vaccine Mario Gonzales DO Work Phone: [facility] 02-18-1988 DTP-Haemophilus influenzae type b conjugate vaccine Mario Gonzales DO Work Phone: [facility] 02-18-1988 poliovirus vaccine, inactivated Mario Gonzales DO Work Phone: [facility] 1987 DTP-Haemophilus influenzae type b conjugate vaccine Mario Gonzales DO Work Phone: [facility] 1987 poliovirus vaccine, inactivated Mario Gonzales DO Work Phone: [facility] Payers Date Payer Category Payer Medicaid [id number] 2013 [facility] MEDICAID [id number] 2013-Present [phone] [address] [place] [address] Medicaid [id number] 2013 Medicaid [id number] 2013 Medicaid [id number] Social History Date Type Detail Facility Smokes tobacco d tishay (finding) [facility] Sex Assigned At [facility] Start: 08-18-2021 End: 05-23-2022 Tobacco smoking status NHIS Ex-smoker [facility] End: 03-28-2021 History of tobacco use Current smoker [facility] End: 03-28-2021 History of tobacco use Cigarette Smoker [facility] Start: 08-18-2021 End: 12-28-2022 Cigarettes smoked current (pack per day) - Reported 1 [facility] Work Phone: Start: 08-18-2021 End: 05-23-2022 Tobacco use and exposure Smokeless tobacco non-user [facility] Start: 11-10-2021 End: 06-02-2023 Alcohol intake Current drinker of alcohol (finding) [facility] Start: 11-11-2013 History SDOH Alcohol Comment Occasionally [facility] Start: 10-08-2019 History SDOH Social Connections Phone 5 [facility] Start: 10-08-2019 History SDOH Social Connections Jainism 1 [facility] Start: 10-08-2019 History SDOH Social Connections Membership 2 [facility] Start: 10-08-2019 History SDOH Physical Activity DPW 3 [facility] Start: 10-08-2019 History SDOH Physical Activity MPS 6 [facility] Start: 10-08-2019 Education 13 [facility] Start: 1985 Sex Assigned At Not on file [facility] Start: 11-05-2021 End: 06-29-2022 Exposure to SARS-CoV-2 (event) Not sure [facility] Work Phone: Start: 10-08-2019 End: 12-28-2022 Social connection and isolation panel [facility] Work Phone: Do you belong to any clubs or organizations such as faith groups, unions, fraternal or athletic groups, or school groups? No [facility] Work Phone: Marital Status Not on file [facility] sloan Work Phone: Do you feel stress - tense, restless, nervous, or anxious, or unable to sleep at night because your mind is troubled all the time - these days [OSQ] Only a little [facility] Work Phone: (I/We) worried wheth er (my/our) food would run out before (I/we) got money to buy more. Never true [facility] Work Phone: Medical Equipment Procedure Code Equipment Code Equipment Origin al Text Equipment Identifier Dates Start: 04-29-2014 End: 01-20-2022 Clinical Notes 09-23-2016 to 08-23-2023 Telephone Encounter - Chanel Campa RN - 07/24/2023 4:52 PM ESTTelephone Encounter - Chanel Campa RN - 07/18/2023 8:34 AM ESTTelephone Encounter - Jena Tellez LPN - 07/17/2023 9:58 AM EST Note Date & Type Note Facility 08-23-2023 Note HNO ID: [id number] Author: Janine Mitchell RDMS Service: ? Author Type: Data Input Clerk Type: Progress Notes Filed: 08/23/2023 10:17 AM Note Text: Radiology Service Progress Note PATIENT NAME: Sheila Jimenes DATE OF SERVICE: August 23, 2023 TIME: 10:17 AM PATIENT IDENTITY VERIFICATION COMPLETED USING TWO (2) IDENTIFIERS: Name and Date of confirmed by patient verbally. FALL SCREENING: Has the patient had 2 falls in the last year or 1 fall with injury or currently using an Ambulatory Assistive Device (Walker, Cane, Wheelchair, Crutches, etc.)? No PATIENT GENDER DATA: Female. status: : No status: NO. PATIENT RELEVANT IMPLANT DATA REVIEWED: Not Applicable RADIOLOGY DEPARTMENT: Ultrasound PERIPHERAL IV DATA: Not applicable SIGNED BY: Janine Mitchell RDMS RVT August 23, 2023 10:17 AM [facility] 08-14-2023 Note HNO ID: [id number] Author: Vimal Wilde APRN.CNP Service: ? Author Type: Nurse Practitioner Type: Progress Notes Filed: 08/14/2023 9:54 AM Note Text: Chief Complaint Patient presents with: Follow Up: Diarrhea, vomiting and indigestion x 1 month HPI Sheila Jimenes is a 38 year old female who presents here today for Above Complaints.. Per appointment with Israel Pinzon CNP on 07/11/2023: HPI Sheila Jimenes is a 38 year old female who presents here today for Above Complaints.. Patient presents for watery diarrhea and nausea with vomiting x1 week. Patient reports she ate taco angelo last Monday and has had symptoms since. Patient reports she is able to drink fluids but has not prabhu able to eat much. ASSESSMENT/PLAN: 1. Diarrhea, unspecified type - ICD9: 787.91, ICD10: R19.7 (primary diagnosis) - ENTERIC BACTERIAL PANEL BY PCR - OVA + PARA MICROSCOPIC - C. DIFFICILE PCR - CBC + DIFF - COMP METABOLIC PANEL 2. Gastritis without bleeding, unspecified chronicity, unspecified gastritis type - ICD9: 535.50, ICD10: K29.70 - ONDANSETRON 4 MG DISINTEGRATING TABLET - LOPERAMIDE 2 MG CAPSULE 3. Nausea - ICD9: 787.02, ICD10: R11.0 - ONDANSETRON 4 MG DISINTEGRATING TABLET Patient advised to go to ER if she develops fever increase abdominal pain or can not keep fluids down. Israel Luevano APRN.DIRECTOR OF REHABILITATIVE SERVICES Currently today: Burping smells like spoiled eggs. Happing very frequently. Has been unable to do her stool sample-can't handle having BM in a hat to catch it or put her own stool in a sample cup. Is always nauseated. Diarrhea every day. Most of the time is pure water, greenish, yellow. With imodium gets constipated for several days. No weight loss-has actually gained weight. Doesn't have much appetite, only for sweets. Denies any urinary sx. Diarrhea is worse with eating. Feels very bloated. Nausea, gassy, burping is an all day thing, no triggers that she can note. No improvement in sx with anything but the imodium which makes her constipated so she doesn't like to take it. Sometimes burning in entire lower abdomen. Since this has started her period was about 12 weeks late. But then was normal. Last menstrual period was less than 4 weeks ago. Past medical history, appointments, medications, allergies reviewed. Previous Medical History PAST MEDICAL HISTORY Diagnosis Date Benign hypertensive heart disease without heart failure Diabetes mellitus type 2 in obese (HCC) (HCC) Fatty liver 11/02/2022 Helicobacter pylori infection 09/23/2016 Hypertension Tobacco abuse 04/23/2013 Trichomonosis 09/2018 Previous Surgical History PAST SURGICAL HISTORY Procedure Laterality Date PAST SURGICAL HISTORY OF 2010 [facility] Procedure TONSILLECTOMY PRIMARY/SECONDARY Family History FAMILY HISTORY Problem Relation Age of Onset Diabetes Mother Heart Mother Hypertension Mother Lipids Mother Osteoporosis Mother Diabetes Father Heart Father Hypertension Father Lipids Father Diabetes Paternal Grandfather Heart Paternal Grandfather Hypertension Paternal Grandfather Cancer Paternal Grandmother unsure of the type Diabetes Paternal Grandmother Heart Paternal Grandmother Hypertension Paternal Grandmother Cancer Maternal Grandmother lung Diabetes Maternal Grandmother Heart Maternal Grandmother Hypertension Maternal Grandmother Diabetes Maternal Grandfather Heart Maternal Grandfather Hypertension Maternal Grandfather Patient Allergies ALLERGIES Allergen Reactions Naproxen Itching Percocet [Oxycodone* Rash itching Current Medications Current Outpatient Medications on File Prior to Visit Medication Sig FLUoxetine (PROZAC) 10 mg capsule Take 1 capsule by mouth once daily. pantoprazole DR (PROTONIX) 40 mg tablet Take 1 tablet by mouth daily before breakfast. Take on empty stomach, 1/2 hr before meal. ondansetron orally disintegrating (ZOFRAN ODT) 4 mg disintegrating tablet Take 1 tablet by mouth every 6 hours as needed for nausea/vomiting. loperamide (IMODIUM A-D) 2 mg cap(s) Take 1 capsule by mouth four times a day as needed. polyethylene glycol 3350 (MIRALAX) 17 gram/dose powder Take as needed with no BM in 2 days. magnesium citrate solution Drink 1/3 of bottle, wait 4hrs for results. If no stool, drink next 1/3 bottle. Wait 4hrs. No results, then drink last 1/3 of bottle. For severe constipation. cholecalciferol, Vitamin D3, (VITAMIN D3) 1,250 mcg (50,000 unit) cap capsule Take 1 capsule by mouth one time a week. nystatin (MYCOSTATIN) powder Apply 1 application to affected area three times daily. Blood-Glucose Meter monitoring kit Glucose Meter of Choice - Kit - Dx: Type 2 DM - Uncontrolled E11.65 blood sugar diagnostic (BLOOD GLUCOSE TEST) test strip Test blood sugar(s) 2 times daily. Dx: Type 2 DM - Controlled E11.9 Insulin: Yes Lancets lancets Test blood sugar(s) 2 times daily. Dx: Type 2 DM - Uncontro (more content not included)... [facility] 07-24-2023 Miscellaneous Notes Called Pt ans offered to get her in on Monday with Ceci Ames NP or Vimal Wilde NP and she states, I have already seen both of them and they haven't done anything. . Pt declined OV and hung up. Pt states after she saw provider she took the Imodium and she has only been able to have a BM x2, Now Pt states it is hard to go and is taking the Miralax. She states her stomach feels like it is burning an being ripped apart. Pts phone dropped the call before I could ask her anything else, tried calling back x2 but said it was unavailable. Please let patient know in order to provide antibiotics I need to know what I am treating. I am assuming if she has been unable to provide stool sample the diarrhea has stopped? Pt reports it isn't any of those. She states it has been 4-5 years since she has had it and it was for an infection she had in her intestines. In 2017 looks like she tested + for H Pylori, otherwise mainly had UTIs. Which medication? She has been on prilosec, protonix, miralax in the past 6 months. Pt called in and reports She is not able to give stool sample. She states he butt is too big and hits the bottom of the hat when she sits on it. She said she isn't sure if she's afraid of getting poop all over her, but she can't make herself go. She was able to go once in the toilet, but states her butt burned after she went. Pt reports at first it was hard to get the poop to come out, but it was a norm size/consistency. She said the poop may have been a bit darker, but she had been taking Pepto Bismol.She reports her belly is still aching, upset, nauseated, and burning. Pt states she has not vomited since seeing this provider. She was asking if she could be put on what Dr Gonzales had put her on last time for her stomach to see if that will help. documented in this encounter [facility] 07-17-2023 Miscellaneous Notes KENDAL-07/11/23 Labs-07/11/23 NOV-08/23/23 Stephanie Brown LPN documented in this encounter [facility] 07-17-2023 Miscellaneous Notes Patient has been identified by name and date of : Yes Requested Prescriptions Pending Prescriptions Disp Refills FLUoxetine (PROZAC) 10 mg capsule 90 capsule 0 Sig: Take 1 capsule by mouth once daily. RX INSTRUCTIONS: Patient aware RX will be sent to pharmacy. No need to notify patient. Scheduled 08/23/23 Last check up 05/17/23 Jena Tellez LPN documented in this encounter [facility] 07-13-2023 Miscellaneous Notes Patient was notified Natasha Calderon Ma I can't prescribe antibiotics as I don't know what I'm treating which is reason for stool sample. Patient should stop immodium and only use as needed as directed in the office. Once she has BM she should provide sample. Patient calling asking for lab results. Went over results, notes from Israel Luevano DESIGN QUALITY ENGINEER. Patient said she is having lower mid abdominal pain, taking tylenol and not helping. Patient said she is nauseated, taking zofran rx. Patient said she is eating full meal at dinner and odds and ends for breakfast and lunch, she is craving certain foods. Patient said she is passing small amount of flatus, no bowel movement since taking immodium rx. Patient asking if she needs antibiotic since WBC are elevated? Patient not having any UTI symptoms, not sure if she has yeast infection. Patient uses [facility] for her pharmacy. Please advise Please let patient know her WBC count is high which is consistent with inflammation/infection. Her platelets are high as well however this seems to be chronic. Pt called in asking if provider could go over her labs and get back to her. Pt also wanted to let provider know that she hasn't been able to give the stool samples yet. documented in this encounter [facility] 07-11-2023 Note HNO ID: [id number] Author: Israel Luevano APRN.KALPESH Service: ? Author Type: Nurse Practitioner Type: Progress Notes Filed: 07/11/2023 8:08 AM Note Text: Chief Complaint Patient presents with: Diarrhea: X 1 week Nausea: X 1 week HPI Sheila Lofton Friend is a 38 year old female who presents here today for Above Complaints.. Patient presents for watery diarrhea and nausea with vomiting x1 week. Patient reports she ate taco angelo last Monday and has had symptoms since. Patient reports she is able to drink fluids but has not prabhu able to eat much. Past medical history, appointments, medications, allergies reviewed. Previous Medical History PAST MEDICAL HISTORY Diagnosis Date Benign hypertensive heart disease without heart failure Diabetes mellitus type 2 in obese (HCC) Fatty liver 11/02/2022 Helicobacter pylori infection 09/23/2016 Hypertension Tobacco abuse 04/23/2013 Trichomonosis 09/2018 Previous Surgical History PAST SURGICAL HISTORY Procedure Laterality Date PAST SURGICAL HISTORY OF 2010 [facility] Procedure TONSILLECTOMY PRIMARY/SECONDARY Family History FAMILY HISTORY Problem Relation Age of Onset Diabetes Mother Heart Mother Hypertension Mother Lipids Mother Osteoporosis Mother Diabetes Father Heart Father Hypertension Father Lipids Father Diabetes Paternal Grandfather Heart Paternal Grandfather Hypertension Paternal Grandfather Cancer Paternal Grandmother unsure of the type Diabetes Paternal Grandmother Heart Paternal Grandmother Hypertension Paternal Grandmother Cancer Maternal Grandmother lung Diabetes Maternal Grandmother Heart Maternal Grandmother Hypertension Maternal Grandmother Diabetes Maternal Grandfather Heart Maternal Grandfather Hypertension Maternal Grandfather Patient Allergies ALLERGIES Allergen Reactions Naproxen Itching Percocet [Oxycodone* Rash itching Current Medications Current Outpatient Medications on File Prior to Visit Medication Sig polyethylene glycol 3350 (MIRALAX) 17 gram/dose powder Take as needed with no BM in 2 days. magnesium citrate solution Drink 1/3 of bottle, wait 4hrs for results. If no stool, drink next 1/3 bottle. Wait 4hrs. No results, then drink last 1/3 of bottle. For severe constipation. cholecalciferol, Vitamin D3, (VITAMIN D3) 1,250 mcg (50,000 unit) cap capsule Take 1 capsule by mouth one time a week. FLUoxetine (PROZAC) 10 mg capsule Take 1 capsule by mouth once daily. nystatin (MYCOSTATIN) powder Apply 1 application to affected area three times daily. gabapentin (NEURONTIN) 100 mg capsule TAKE 1 CAPSULE EVERY MORNING, 1 capsule in the afternoon, and 1 - 2 capsules at bedtime. Blood-Glucose Meter monitoring kit Glucose Meter of Choice - Kit - Dx: Type 2 DM - Uncontrolled E11.65 blood sugar diagnostic (BLOOD GLUCOSE TEST) test strip Test blood sugar(s) 2 times daily. Dx: Type 2 DM - Controlled E11.9 Insulin: Yes Lancets lancets Test blood sugar(s) 2 times daily. Dx: Type 2 DM - Uncontrolled E11.65 Insulin: Yes empagliflozin (JARDIANCE) 25 mg tablet Take 1 tablet by mouth once daily. Take 1 tablet once daily in the morning diclofenac (VOLTAREN ARTHRITIS PAIN) 1 % topical gel Apply 2 g to affected area three times daily as needed (carpal tunnel symptoms). pantoprazole DR (PROTONIX) 40 mg tablet Take 1 tablet by mouth daily before breakfast. Take on empty stomach, 1/2 hr before meal. magnesium chloride [address] tablet Take 1 tablet by mouth twice daily. (Patient not taking: Reported on 05/17/2023) pravastatin (PRAVACHOL) 20 mg tablet Take 1 tablet by mouth daily at bedtime. omeprazole (PRILOSEC) 20 mg capsule One pill by mouth daily 30 minutes before breakfast. (Patient not taking: Reported on 05/17/2023) magnesium oxide (MAG-OX) 400 mg (241.3 mg magnesium) tablet Take 1 tablet by mouth once daily. (Patient not taking: Reported on 05/17/2023) diclofenac (VOLTAREN ARTHRITIS PAIN) 1 % topical gel Apply 2 g to affected area four times daily. glimepiride (AMARYL) 2 mg tablet Take 3 tablets every morning and 1 tablet every evening with meals. metoprolol succinate ER (TOPROL XL) 100 mg Take 1 tablet by mouth once daily. dulaglutide (TRULICITY) 4.5 mg/0.5 mL pen injector Inject 4.5 mg subcutaneously one time a week. triamcinolone acetonide (KENALOG) 0.1 % cream Apply 1 application to affected area twice daily as needed (for eczema rash). Apply sparingly to area for rash/itching. Magnesium 250 mg tab Take 1 tablet by mouth twice daily. Blood Pressure Monitor 1 Each once daily. Dx: essential hypertension, type 2 diabetes ibuprofen (MOTRIN) 600 mg tablet Take 1 tablet by mouth every 6 hours as needed for pain. acetaminophen (TYLENOL) 325 mg tablet Take 2 tablets by mouth every 6 hours as needed for Pain. Blood Pressure Test Kit-Large (QUICK RESPONSE BP MONITOR) kit 1 Kit twice daily. No current facility-administered medications on file pr (more content not included)... [facility] 07-11-2023 History of Present illness Narrative Chief Complaint Patient presents with: Diarrhea: X 1 week Nausea: X 1 week HPI Sheila Lofton Friend is a 38 year old female who presents here today for Above Complaints.. Patient presents for watery diarrhea and nausea with vomiting x1 week. Patient reports she ate taco angelo last Monday and has had symptoms since. Patient reports she is able to drink fluids but has not prabhu able to eat much. Past medical history, appointments, medications, allergies reviewed. Previous Medical History PAST MEDICAL HISTORY Diagnosis Date Benign hypertensive heart disease without heart failure Diabetes mellitus type 2 in obese (HCC) Fatty liver 11/02/2022 Helicobacter pylori infection 09/23/2016 Hypertension Tobacco abuse 04/23/2013 Trichomonosis 09/2018 Previous Surgical History PAST SURGICAL HISTORY Procedure Laterality Date PAST SURGICAL HISTORY OF 2010 [facility] Procedure TONSILLECTOMY PRIMARY/SECONDARY <AGE 12 Family History FAMILY HISTORY Problem Relation Age of Onset Diabetes Mother Heart Mother Hypertension Mother Lipids Mother Osteoporosis Mother Diabetes Father Heart Father Hypertension Father Lipids Father Diabetes Paternal Grandfather Heart Paternal Grandfather Hypertension Paternal Grandfather Cancer Paternal Grandmother unsure of the type Diabetes Paternal Grandmother Heart Paternal Grandmother Hypertension Paternal Grandmother Cancer Maternal Grandmother lung Diabetes Maternal Grandmother Heart Maternal Grandmother Hypertension Maternal Grandmother Diabetes Maternal Grandfather Heart Maternal Grandfather Hypertension Maternal Grandfather Patient Allergies ALLERGIES Allergen Reactions Naproxen Itching Percocet [Oxycodone* Rash itching Current Medications Current Outpatient Medications on File Prior to Visit Medication Sig polyethylene glycol 3350 (MIRALAX) 17 gram/dose powder Take as needed with no BM in 2 days. magnesium citrate solution Drink 1/3 of bottle, wait 4hrs for results. If no stool, drink next 1/3 bottle. Wait 4hrs. No results, then drink last 1/3 of bottle. For severe constipation. cholecalciferol, Vitamin D3, (VITAMIN D3) 1,250 mcg (50,000 unit) cap capsule Take 1 capsule by mouth one time a week. FLUoxetine (PROZAC) 10 mg capsule Take 1 capsule by mouth once daily. nystatin (MYCOSTATIN) powder Apply 1 application to affected area three times daily. gabapentin (NEURONTIN) 100 mg capsule TAKE 1 CAPSULE EVERY MORNING, 1 capsule in the afternoon, and 1 - 2 capsules at bedtime. Blood-Glucose Meter monitoring kit Glucose Meter of Choice - Kit - Dx: Type 2 DM - Uncontrolled E11.65 blood sugar diagnostic (BLOOD GLUCOSE TEST) test strip Test blood sugar(s) 2 times daily. Dx: Type 2 DM - Controlled E11.9 Insulin: Yes Lancets lancets Test blood sugar(s) 2 times daily. Dx: Type 2 DM - Uncontrolled E11.65 Insulin: Yes empagliflozin (JARDIANCE) 25 mg tablet Take 1 tablet by mouth once daily. Take 1 tablet once daily in the morning diclofenac (VOLTAREN ARTHRITIS PAIN) 1 % topical gel Apply 2 g to affected area three times daily as needed (carpal tunnel symptoms). pantoprazole DR (PROTONIX) 40 mg tablet Take 1 tablet by mouth daily before breakfast. Take on empty stomach, 1/2 hr before meal. magnesium chloride [address] tablet Take 1 tablet by mouth twice daily. (Patient not taking: Reported on 05/17/2023) pravastatin (PRAVACHOL) 20 mg tablet Take 1 tablet by mouth daily at bedtime. omeprazole (PRILOSEC) 20 mg capsule One pill by mouth daily 30 minutes before breakfast. (Patient not taking: Reported on 05/17/2023) magnesium oxide (MAG-OX) 400 mg (241.3 mg magnesium) tablet Take 1 tablet by mouth once daily. (Patient not taking: Reported on 05/17/2023) diclofenac (VOLTAREN ARTHRITIS PAIN) 1 % topical gel Apply 2 g to affected area four times daily. glimepiride (AMARYL) 2 mg tablet Take 3 tablets every morning and 1 tablet every evening with meals. metoprolol succinate ER (TOPROL XL) 100 mg Take 1 tablet by mouth once daily. dulaglutide (TRULICITY) 4.5 mg/0.5 mL pen injector Inject 4.5 mg subcutaneously one time a week. triamcinolone acetonide (KENALOG) 0.1 % cream Apply 1 application to affected area twice daily as needed (for eczema rash). Apply sparingly to area for rash/itching. Magnesium 250 mg tab Take 1 tablet by mouth twice daily. Blood Pressure Monitor 1 Each once daily. Dx: essential hypertension, type 2 diabetes ibuprofen (MOTRIN) 600 mg tablet Take 1 tablet by mouth every 6 hours as needed for pain. acetaminophen (TYLENOL) 325 mg tablet Take 2 tablets by mouth every 6 hours as needed for Pain. Blood Pressure Test Kit-Large (QUICK RESPONSE BP MONITOR) kit 1 Kit twice daily. No current facility-administered medications on file prior to visit. Social History Social History Tobacco Use Smoking status: Former Packs/day: 1.00 Years: 7.00 Additional pack years: 0.00 Total pack years: 7.00 Types: Cigarettes Quit date: 03/28/2021 Years since quittin.2 Smokeless tobacco: Never Vaping Use Vaping Use: Never used Substance Use Topics Alcohol use: Yes Comment: Occasionally Drug use: No Review of Symptoms REVIEW OF SYSTEMS SEE HPI EXAM: BP 131/82 Pulse 73 Temp 36.9 C (98.4 F) Resp 14 Wt 117.9 kg (260 lb) LMP 02/08/2023 (Within Days) BMI 43.94 kg/m General Appearance: Well appearing, alert, in no acute distress, well-hydrated, well nourished.. Abdomen: Normal abdominal exam, Abdomen soft, non-tender. Bowel sounds normal. No masses, organomegaly Health Maintenance List Dilated Retinal Exam due on 10/26/2018 Diabetic Foot Exam due on 05/05/2022 Urine Albumin:Creatinine Ratio due on 05/06/2022 BP Controlled (<130/80) due on 08/03/2022 Influenza Vaccine(1) due on 02/25/2024 Covid-19 Vaccine(3 - 2022-24 season) due on 05/17/2024 Pneumococcal Vaccine(1 - PCV) due on 05/17/2024 HbA1C due on 08/16/2023 HPV Vaccine(3 - 3-dose SCDM series) due on 09/16/2023 LDL Cholesterol due on 05/17/2024 Annual PCP Team Chronic Disease Visit due on 06/02/2024 Pap Testing due on 11/29/2027 HPV Testing due on 11/29/2027 DTaP,Tdap,Td Vaccine(7 - Td or Tdap) due on 05/02/2029 Hepatitis B Vaccine Completed Hepatitis C Screening Completed HIV Screening Completed ASSESSMENT/PLAN: 1. Diarrhea, unspecified type - ICD9: 787.91, ICD10: R19.7 (primary diagnosis) - ENTERIC BACTERIAL PANEL BY PCR - OVA + PARA MICROSCOPIC - C. DIFFICILE PCR - CBC + DIFF - COMP METABOLIC PANEL 2. Gastritis without bleeding, unspecified chronicity, unspecified gastritis type - ICD9: 535.50, ICD10: K29.70 - ONDANSETRON 4 MG DISINTEGRATING TABLET - LOPERAMIDE 2 MG CAPSULE 3. Nausea - ICD9: 787.02, ICD10: R11.0 - ONDANSETRON 4 MG DISINTEGRATING TABLET Patient advised to go to ER if she develops fever increase abdominal pain or can not keep fluids down. Israel Luevano APRN.DIRECTOR OF REHABILITATIVE SERVICES documented in this encounter [facility] 07-06-2023 Miscellaneous Notes KENDAL-06/02/23 Labs-06/02/23 NOV-08/23/23 Stephanie Brown LPN documented in this encounter [facility] 06-02-2023 Note HNO ID: [id number] Author: Katey Canales RT(R) Service: Radiology Author Type: Technologist Type: Progress Notes Filed: 06/02/2023 3:20 PM Note Text: Radiology Service Progress Note PATIENT NAME: Sheila Jimenes DATE OF SERVICE: June 02, 2023 TIME: 3:07 PM PATIENT IDENTITY VERIFICATION COMPLETED USING TWO (2) IDENTIFIERS: Name and Date of confirmed by patient verbally. FALL SCREENING: Has the patient had 2 falls in the last year or 1 fall with injury or currently using an Ambulatory Assistive Device (Walker, Cane, Wheelchair, Crutches, etc.)? No PATIENT GENDER DATA: Female. status: : No status: NO. PATIENT RELEVANT IMPLANT DATA REVIEWED: Not Applicable RADIOLOGY DEPARTMENT: General X-ray: Exam(s) Completed: Abdomen X-Ray: Abdomen PERIPHERAL IV DATA: Not applicable SIGNED BY: RT Andrea(R) June 02, 2023 3:07 PM [facility] 06-02-2023 Note HNO ID: [id number] Author: Chaya Ames APRN.DIRECTOR OF REHABILITATIVE SERVICES Service: ? Author Type: Nurse Practitioner Type: Progress Notes Filed: 06/02/2023 3:16 PM Note Text: Chief Complaint Patient presents with: abdominal discomfort: Was constipated states took 6 laxatives did go just a normal amouny on Monday. States keeps smelling a vinagar smell off and on HPI Sheila Lofton Friend is a 37 year old female who presents here today for Above Complaints.. Sheila is an established patient of DR. Gonzales, and myself. Per TE: Pt reports for the last 4-5 days, she has been smelling something that smells like vinegar everywhere she goes . Denies any cold or allergy sx's. Denies fever or illness. Does reports she takes a diet pill and gets hot flashes or a headache at times from that but other than that no other sx's. Pt c/o abd discomfort that has been going on for the last couple of days. Notes it is in her lower abd and feels like a sore muscle. Sometimes she gets a sharp pain. Also states she is constipated. She feels like she has to force herself to go and when she does go, it isn't a normal amount. States she used to go 2-3 times per day but for the last 6 weeks she hasn't gone daily. States she even went a couple weeks without going. But denies any abd pain during that time. She said she discussed her bowel issues with Chaya at her last visit on 05/17/23. Feels maybe the Phentermine and Vitamin D might be affecting it as well but she was having some problems prior to starting those meds. Appt made for tomorrow to see Chaya. She will try to come and do her urine sample earlier so that the results will be done by her appt with Chaya. In office today... Pt reports ongoing constipation. Only 1 normal size BM since last visit on 05/17. Took 6 OTC laxative pills over the last 2 days with no relief. Recently started adipex which may be contributing to new constipation? Pt reports she normally goes 1-3 x per day. Reports recent lower abd/pelvis pain the past few days. Pain 5-6/10 Sometimes a sharp central lower abd pain. No fever/chills or n/v UA drawn prior to appointment d/t vinegar smell complaint. Denies dysuria. Reports she thought she had a UTI about 2 weeks ago and took left over antibiotics she had at home and symptoms resolved. Past medical history, appointments, medications, allergies reviewed. Previous Medical History PAST MEDICAL HISTORY Diagnosis Date Benign hypertensive heart disease without heart failure Diabetes mellitus type 2 in obese (HCC) Fatty liver 11/02/2022 Helicobacter pylori infection 09/23/2016 Hypertension Tobacco abuse 04/23/2013 Trichomonosis 09/2018 Previous Surgical History PAST SURGICAL HISTORY Procedure Laterality Date PAST SURGICAL HISTORY OF 2010 [facility] Procedure TONSILLECTOMY PRIMARY/SECONDARY Family History FAMILY HISTORY Problem Relation Age of Onset Diabetes Mother Heart Mother Hypertension Mother Lipids Mother Osteoporosis Mother Diabetes Father Heart Father Hypertension Father Lipids Father Diabetes Paternal Grandfather Heart Paternal Grandfather Hypertension Paternal Grandfather Cancer Paternal Grandmother unsure of the type Diabetes Paternal Grandmother Heart Paternal Grandmother Hypertension Paternal Grandmother Cancer Maternal Grandmother lung Diabetes Maternal Grandmother Heart Maternal Grandmother Hypertension Maternal Grandmother Diabetes Maternal Grandfather Heart Maternal Grandfather Hypertension Maternal Grandfather Patient Allergies ALLERGIES Allergen Reactions Naproxen Itching Percocet [Oxycodone* Rash itching Current Medications Current Outpatient Medications on File Prior to Visit Medication Sig ondansetron orally disintegrating (ZOFRAN ODT) 4 mg disintegrating tablet Take 1 tablet by mouth every 6 hours as needed for nausea/vomiting. Phentermine HCl (ADIPEX-P) 37.5 mg tablet Take 1 tablet by mouth once daily for 30 days. fluconazole (DIFLUCAN) 150 mg tablet Take 1 tablet by mouth as directed. take one, repeat q 4 days until symptoms improve cholecalciferol, Vitamin D3, (VITAMIN D3) 1,250 mcg (50,000 unit) cap capsule Take 1 capsule by mouth one time a week. FLUoxetine (PROZAC) 10 mg capsule Take 1 capsule by mouth once daily. loperamide (IMODIUM A-D) 2 mg cap(s) Take 1 capsule by mouth four times daily as needed. nystatin (MYCOSTATIN) powder Apply 1 application to affected area three times daily. Blood-Glucose Meter monitoring kit Glucose Meter of Choice - Kit - Dx: Type 2 DM - Uncontrolled E11.65 blood sugar diagnostic (BLOOD GLUCOSE TEST) test strip Test blood sugar(s) 2 times daily. Dx: Type 2 DM - Controlled E11.9 Insulin: Yes Lancets lancets Test blood sugar(s) 2 times daily. Dx: Type 2 DM - Uncontrolled E11.65 Insulin: Yes empagliflozin (JARDIANCE) 25 mg tablet Take 1 tablet by mouth once daily. Take 1 tablet once daily in the mornin (more content not included)... [facility] 05-18-2023 Miscellaneous Notes Spoke with pt gave information provided. Pt voices understanding. Please assist in scheduling with endo. Please call patient and let her know that lab work is back. Lipid panel looks good. Continue current regimen of pravastatin. hgA1c is stable at 8.0. Goal is to be below 7.0. We need to adjust current DM regimen. As discussed, the next option is most likely insulin. I have placed endocrinology consult to get their opinion. Please assist in scheduling. Vitamin D level is low. Needs to take OTC 5000 units of vitamin D3 daily. Thank you, Chaya Ames APRN.DIRECTOR OF REHABILITATIVE SERVICES documented in this encounter [facility] 05-17-2023 Note HNO ID: [id number] Author: Chaya Ames APRN.DIRECTOR OF REHABILITATIVE SERVICES Service: ? Author Type: Nurse Practitioner Type: Progress Notes Filed: 05/17/2023 11:57 AM Note Text: Chief Complaint Patient presents with: Follow Up HPI Sheila Jimenes is a 37 year old female who presents here today for Above Complaints. Sheila is an established patient of Dr. Gonzales, Do and myself. Concerns today.. 3 month follow-up Weight and eating -- Pt reports increase in appetite x 1 month. Seems to be eating everything and does not fell full. Gaining weight because of this. Admits to poor diet. DM -- Admits to not checking blood sugars recently. Last time she checked it was months ago and it was 130. Last hgA1c in August was 8.0 Taking Trulicity, jardiance, and amaryl. NO insulin regimen at this time. Tolerating regimen well. Due for lab work today. Denies polyuria, polydipsia, numbness, tingling or pain in extremities, new or unusual visual symptoms, unintended weight changes, lightheadedness/dizziness, bowel changes/loose stools, chest pain or dyspnea Gets yeast infections occasionally after menstrual cycle week. Also taking jardiance which may be contributing. Asking for diflucan to have on hand when needed. No symptoms currently. Vitamin d deficiency -- not taking any supplement currently. Straining with BMs. Denies constipation or hard stools but reports stool is harder to get out than usual. Denies any blood in stool or toilet. Denies any hx of hemorrhoids. Past medical history, appointments, medications, allergies reviewed. Previous Medical History PAST MEDICAL HISTORY Diagnosis Date Benign hypertensive heart disease without heart failure Diabetes mellitus type 2 in obese (HCC) Fatty liver 11/02/2022 Helicobacter pylori infection 09/23/2016 Hypertension Tobacco abuse 04/23/2013 Trichomonosis 09/2018 Previous Surgical History PAST SURGICAL HISTORY Procedure Laterality Date PAST SURGICAL HISTORY OF 2010 [facility] Procedure TONSILLECTOMY PRIMARY/SECONDARY Family History FAMILY HISTORY Problem Relation Age of Onset Diabetes Mother Heart Mother Hypertension Mother Lipids Mother Osteoporosis Mother Diabetes Father Heart Father Hypertension Father Lipids Father Diabetes Paternal Grandfather Heart Paternal Grandfather Hypertension Paternal Grandfather Cancer Paternal Grandmother unsure of the type Diabetes Paternal Grandmother Heart Paternal Grandmother Hypertension Paternal Grandmother Cancer Maternal Grandmother lung Diabetes Maternal Grandmother Heart Maternal Grandmother Hypertension Maternal Grandmother Diabetes Maternal Grandfather Heart Maternal Grandfather Hypertension Maternal Grandfather Patient Allergies ALLERGIES Allergen Reactions Naproxen Itching Percocet [Oxycodone* Rash itching Current Medications Current Outpatient Medications on File Prior to Visit Medication Sig FLUoxetine (PROZAC) 10 mg capsule Take 1 capsule by mouth once daily. ondansetron orally disintegrating (ZOFRAN ODT) 4 mg disintegrating tablet Take 1 tablet by mouth every 6 hours as needed for nausea/vomiting. loperamide (IMODIUM A-D) 2 mg cap(s) Take 1 capsule by mouth four times daily as needed. fluconazole (DIFLUCAN) 150 mg tablet Take 1 tablet by mouth as directed. take one, repeat q 4 days until symptoms improve nystatin (MYCOSTATIN) powder Apply 1 application to affected area three times daily. Blood-Glucose Meter monitoring kit Glucose Meter of Choice - Kit - Dx: Type 2 DM - Uncontrolled E11.65 blood sugar diagnostic (BLOOD GLUCOSE TEST) test strip Test blood sugar(s) 2 times daily. Dx: Type 2 DM - Controlled E11.9 Insulin: Yes Lancets lancets Test blood sugar(s) 2 times daily. Dx: Type 2 DM - Uncontrolled E11.65 Insulin: Yes empagliflozin (JARDIANCE) 25 mg tablet Take 1 tablet by mouth once daily. Take 1 tablet once daily in the morning pantoprazole DR (PROTONIX) 40 mg tablet Take 1 tablet by mouth daily before breakfast. Take on empty stomach, 1/2 hr before meal. pravastatin (PRAVACHOL) 20 mg tablet Take 1 tablet by mouth daily at bedtime. diclofenac (VOLTAREN ARTHRITIS PAIN) 1 % topical gel Apply 2 g to affected area four times daily. glimepiride (AMARYL) 2 mg tablet Take 3 tablets every morning and 1 tablet every evening with meals. metoprolol succinate ER (TOPROL XL) 100 mg Take 1 tablet by mouth once daily. triamcinolone acetonide (KENALOG) 0.1 % cream Apply 1 application to affected area twice daily as needed (for eczema rash). Apply sparingly to area for rash/itching. Magnesium 250 mg tab Take 1 tablet by mouth twice daily. Blood Pressure Monitor 1 Each once daily. Dx: essential hypertension, type 2 diabetes ibuprofen (MOTRIN) 600 mg tablet Take 1 tablet by mouth every 6 hours as needed for pain. acetaminophen (TYLENOL) 325 mg tablet Take 2 tablets by mouth every 6 hours as needed for Pain. Blood Pressure T (more content not included)... [facility] 04-27-2023 Note HNO ID: [id number] Author: Chaya Ames APRN.DIRECTOR OF REHABILITATIVE SERVICES Service: ? Author Type: Nurse Practitioner Type: Progress Notes Filed: 04/27/2023 9:11 AM Note Text: This Team Access Model visit is a phone encounter. It required patient-provider interaction for the medical decision making as documented below. Patient agrees to the visit: Yes Patient Location: [place] CC: Patient presents with: Covid Positive HPI Sheila Lofton Friend is a 37 year old female who is contacted today for a phone visit. This is an established patient of Dr. Mario Gonzales, and myself. Concerns today.. COVID-- COVID + with at home test x2 on Monday evening. Symptoms include: stuffy nose, cough, headache, chills, sneezing, AND possible fever. Symptoms started on Monday morning. Asking for medication to help with symptoms. Denies any CP, SOB, dizziness, or lightheadedness. REVIEW OF SYSTEMS See HPI PAST MEDICAL HISTORY Diagnosis Date Benign hypertensive heart disease without heart failure Diabetes mellitus type 2 in obese (HCC) Fatty liver 11/02/2022 Helicobacter pylori infection 09/23/2016 Hypertension Tobacco abuse 04/23/2013 Trichomonosis 09/2018 PAST SURGICAL HISTORY Procedure Laterality Date PAST SURGICAL HISTORY OF 2010 [facility] Procedure TONSILLECTOMY PRIMARY/SECONDARY ALLERGIES Naproxen and Percocet [Oxycodone-Acetaminophen] MEDICATIONS FLUoxetine (PROZAC) 10 mg capsule Take 1 capsule by mouth once daily. ondansetron orally disintegrating (ZOFRAN ODT) 4 mg disintegrating tablet Take 1 tablet by mouth every 6 hours as needed for nausea/vomiting. loperamide (IMODIUM A-D) 2 mg cap(s) Take 1 capsule by mouth four times daily as needed. fluconazole (DIFLUCAN) 150 mg tablet Take 1 tablet by mouth as directed. take one, repeat q 4 days until symptoms improve nystatin (MYCOSTATIN) powder Apply 1 application to affected area three times daily. gabapentin (NEURONTIN) 100 mg capsule TAKE 1 CAPSULE EVERY MORNING, 1 capsule in the afternoon, and 1 - 2 capsules at bedtime. Blood-Glucose Meter monitoring kit Glucose Meter of Choice - Kit - Dx: Type 2 DM - Uncontrolled E11.65 blood sugar diagnostic (BLOOD GLUCOSE TEST) test strip Test blood sugar(s) 2 times daily. Dx: Type 2 DM - Controlled E11.9 Insulin: Yes Lancets lancets Test blood sugar(s) 2 times daily. Dx: Type 2 DM - Uncontrolled E11.65 Insulin: Yes empagliflozin (JARDIANCE) 25 mg tablet Take 1 tablet by mouth once daily. Take 1 tablet once daily in the morning diclofenac (VOLTAREN ARTHRITIS PAIN) 1 % topical gel Apply 2 g to affected area three times daily as needed (carpal tunnel symptoms). pantoprazole DR (PROTONIX) 40 mg tablet Take 1 tablet by mouth daily before breakfast. Take on empty stomach, 1/2 hr before meal. magnesium chloride [address] tablet Take 1 tablet by mouth twice daily. pravastatin (PRAVACHOL) 20 mg tablet Take 1 tablet by mouth daily at bedtime. omeprazole (PRILOSEC) 20 mg capsule One pill by mouth daily 30 minutes before breakfast. magnesium oxide (MAG-OX) 400 mg (241.3 mg magnesium) tablet Take 1 tablet by mouth once daily. diclofenac (VOLTAREN ARTHRITIS PAIN) 1 % topical gel Apply 2 g to affected area four times daily. glimepiride (AMARYL) 2 mg tablet Take 3 tablets every morning and 1 tablet every evening with meals. metoprolol succinate ER (TOPROL XL) 100 mg Take 1 tablet by mouth once daily. dulaglutide (TRULICITY) 4.5 mg/0.5 mL pen injector Inject 4.5 mg subcutaneously one time a week. triamcinolone acetonide (KENALOG) 0.1 % cream Apply 1 application to affected area twice daily as needed (for eczema rash). Apply sparingly to area for rash/itching. Magnesium 250 mg tab Take 1 tablet by mouth twice daily. Blood Pressure Monitor 1 Each once daily. Dx: essential hypertension, type 2 diabetes ibuprofen (MOTRIN) 600 mg tablet Take 1 tablet by mouth every 6 hours as needed for pain. acetaminophen (TYLENOL) 325 mg tablet Take 2 tablets by mouth every 6 hours as needed for Pain. Blood Pressure Test Kit-Large (QUICK RESPONSE BP MONITOR) kit 1 Kit twice daily. FAMILY HISTORY Problem Relation Age of Onset Diabetes Mother Heart Mother Hypertension Mother Lipids Mother Osteoporosis Mother Diabetes Father Heart Father Hypertension Father Lipids Father Diabetes Paternal Grandfather Heart Paternal Grandfather Hypertension Paternal Grandfather Cancer Paternal Grandmother unsure of the type Diabetes Paternal Grandmother Heart Paternal Grandmother Hypertension Paternal Grandmother Cancer Maternal Grandmother lung Diabetes Maternal Grandmother Heart Maternal Grandmother Hypertension Maternal Grandmother Diabetes Maternal Grandfather Heart Maternal Grandfather Hypertension Maternal Grandfather Social History Tobacco Use Smoking status: Former Packs/day: 1.00 Years: 7.00 Additional pack years: 0.00 Total pack years: 7.00 Types: Cigarettes Q (more content not included)... [facility] 04-27-2023 Instructions Chaya Ames APRN.[facility] 04/27/2023 9:09 AM EDT Images from the original note were not included. FACT SHEET FOR PATIENTS, PARENTS, AND CAREGIVERS EMERGENCY USE AUTHORIZATION (EUA) OF PAXLOVID FOR CORONAVIRUS DISEASE 2019 (COVID-19) You are being given this Fact Sheet because your healthcare provider believes it is necessary to provide you with PAXLOVID for the treatment of oowr-xx-eouzkhja coronavirus disease (COVID-19) caused by the SARS-CoV-2 virus. This Fact Sheet contains information to help you understand the risks and benefits of taking the PAXLOVID you may receive. This Fact Sheet also contains information about how to take PAXLOVID and how to report side effects or problems with the appearance or packaging of PAXLOVID. The U.S. Food and Drug Administration (FDA) has issued an Emergency Use Authorization (EUA) to make PAXLOVID available for the treatment of wvpo-zl-hyhieykd COVID-19 in adults and children 12 years of age and older weighing at least 88 pounds (40 kg) who are at high risk for progression to severe COVID-19, including hospitalization or (for more details about an EUA please see What is an Emergency Use Authorization? at the end of this document). Read this Fact Sheet for information about PAXLOVID. Talk to your healthcare provider about your options or if you have any questions. It is your choice to take PAXLOVID. What is COVID-19? COVID-19 is caused by a virus called a coronavirus. You can get COVID-19 through close contact with another person who has the virus. COVID-19 illnesses have ranged from very mvgu-ne-fxpkcu, including illness resulting in . While information so far suggests that most COVID-19 illness is mild, serious illness can happen and may cause some of your other medical conditions to become worse. Older people and people of all ages with severe, long lasting (chronic) medical conditions like heart disease, lung disease, and diabetes, for example seem to be at higher risk of being hospitalized for COVID-19. What is PAXLOVID? PAXLOVID is a medicine that is available under EUA for the treatment of mvcc-ar-piwhloqo COVID-19 in adults and children 12 years of age and older weighing at least 88 pounds (40 kg) who are at high risk for progression to severe COVID-19, including hospitalization or . Although PAXLOVID is FDA-approved for the treatment of COVID-19 in certain adults (see section What other treatment choices are there?), PAXLOVID use in children remains investigational because it is still being studied. There is limited information about the safety and effectiveness of using PAXLOVID to treat children with pvof-fl-rmapoeoq COVID-19. What is the most important information I should know about PAXLOVID? PAXLOVID can interact with other medicines causing severe or life-threatening side effects or . It is important to know the medicines that should not be taken with PAXLOVID. Do not take PAXLOVID if: you are taking any of the following medicines: o alfuzosin o amiodarone o apalutamide o carbamazepine o colchicine o dihydroergotamine o dronedarone o eletriptan o eplerenone o ergotamine o finerenone o flecainide o flibanserin o ivabradine o lomitapide o lovastatin o lumacaftor/ivacaftor o lurasidone o methylergonovine o midazolam (oral) o naloxegol o phenobarbital o phenytoin o pimozide o primidone o propafenone o quinidine o ranolazine o rifampin o rifapentine o [employer] s Wort (hypericum perforatum) o sildenafil (Revatio ) for pulmonary arterial hypertension o silodosin o simvastatin o tolvaptan o triazolam o ubrogepant o voclosporin These are not the only medicines that may cause serious or life-threatening side effects if taken with PAXLOVID. PAXLOVID may increase or decrease the levels of multiple other medicines. It is very important to tell your healthcare provider about all of the medicines you are taking because additional laboratory tests or changes in the dose of your other medicines may be necessary during treatment with PAXLOVID. Your healthcare provider may also tell you about specific symptoms to watch out for that may indicate that you need to stop or decrease the dose of some of your other medicines. you are allergic to nirmatrelvir, ritonavir, or any of the ingredients in PAXLOVID. See the end of this leaflet for a complete list of ingredients in PAXLOVID. See What are the important possible side effects of PAXLOVID? for signs and symptoms of allergic reactions. What should I tell my healthcare provider before I take PAXLOVID? Tell your healthcare provider if you: have kidney problems. You may need a different dose of PAXLOVID. have liver problems, including hepatitis. have Human Immunodeficiency Virus 1 (HIV-1) infection. PAXLOVID may lead to some HIV-1 medicines not working as well in the future. are or plan to become . It is not known if PAXLOVID can harm your unborn baby. Tell your healthcare provider right away if you are or if you become . are or plan to breastfeed. It is not known if PAXLOVID can pass into your breast milk. Talk to your healthcare provider about the best way to feed your baby during treatment with PAXLOVID. Some medicines may interact with PAXLOVID and may cause serious side effects. Tell your healthcare provider about all the medicines you take, including prescription and hzpv-swz-beyqgcb medicines, vitamins, and herbal supplements. Your healthcare provider can tell you if it is safe to take PAXLOVID with other medicines. You can ask your healthcare provider or pharmacist for a list of medicines that interact with PAXLOVID. Do not start taking a new medicine without telling your healthcare provider. Tell your healthcare provider if you are taking combined control (hormonal contraceptive). PAXLOVID may affect how your hormonal contraceptives work. Females who are able to become should use another effective alternative form of contraception or an additional barrier method of contraception during treatment with PAXLOVID. Talk to your healthcare provider if you have any questions about contraceptive methods that might be right for you. How do I take PAXLOVID? Take PAXLOVID exactly as your healthcare provider tells you to take it. PAXLOVID consists of 2 medicines: nirmatrelvir tablets and ritonavir tablets. The 2 medicines are taken together 2 times each day for 5 days. Nirmatrelvir is an oval, pink tablet. Ritonavir is a white or off-white tablet. PAXLOVID is available in 2 Dose Packs (see Figures A and B below). Your healthcare provider will prescribe the PAXLOVID Dose Pack that is right for you. If you have kidney disease, your healthcare provider may prescribe a lower dose (see Figure B). Talk to your healthcare provider to make sure you receive the correct Dose Pack. Do not remove your PAXLOVID tablets from the blister card before you are ready to take your dose. Take your first dose of PAXLOVID in the morning or evening, depending on when you bulk picker your prescription, or as your healthcare provider tells you to. Swallow the tablets whole. Do not chew, break, or crush the tablets. Take PAXLOVID with or without food. Do not stop taking PAXLOVID without talking to your healthcare provider, even if you feel better. If you miss a dose of PAXLOVID within 8 hours of the time it is usually taken, take it as soon as you remember. If you miss a dose by more than 8 hours, skip the missed dose and take the next dose at your regular time. Do not take 2 doses of PAXLOVID at the same time. If you take too much PAXLOVID, call your healthcare provider or go to the nearest hospital emergency room right away. If you are taking a ritonavir- or cobicistat-containing medicine to treat hepatitis C or HIV-1 infection, you should continue to take your medicine as prescribed by your healthcare provider. Talk to your healthcare provider if you do not feel better or if you feel worse after 5 days. What are the important possible side effects of PAXLOVID? PAXLOVID may cause serious side effects, including: Allergic reactions, including severe allergic reactions (anaphylaxis) have happened during treatment with PAXLOVID. Stop taking PAXLOVID and get medical help right away if you get any of the following symptoms of an allergic reaction: o skin rash, hives, blisters or peeling skin o painful sores or ulcers in the mouth, nose, throat or genital area o swelling of the mouth, lips, tongue or face o trouble swallowing or breathing o throat tightness o hoarseness Liver Problems. Tell your healthcare provider right away if you get any of the following signs and symptoms of liver problems during treatment with PAXLOVID: o loss of appetite o yellowing of your skin and the white of eyes o dark-colored urine o pale colored stools o itchy skin o stomach-area (abdominal) pain The most common side effects of PAXLOVID include: altered sense of taste and diarrhea. Other possible side effects include: headache vomiting abdominal pain nausea high blood pressure feeling generally unwell These are not all the possible side effects of PAXLOVID. For more information, ask your healthcare provider or pharmacist. What other treatment choices are there? PAXLOVID is FDA-approved for the treatment of lfcd-sv-xxhnddtu COVID-19 in certain adults; however, there are not sufficient quantities of the approved presentations (i.e., dose packs) of PAXLOVID at this time. This EUA continues to authorize the emergency use of PAXLOVID for the approved patient population to ensure continued access in order to meet the public health need. VEKLURY (remdesivir) is FDA-approved for the treatment of wkrk-mi-ndtzoyfu COVID-19 in certain adults and children. Talk with your healthcare provider to see if VEKLURY is appropriate for you. For information on the emergency use of other medicines that are authorized by FDA to treat people with COVID-19, please go to https://www.fda.gov/emergency-prep etsffgqv-qjd-thdklqdp/qhw-yuccy-zi watvlzza-mst-bubirf-framework/bradley obawz-fgy-fjvpuwlfmowyt. Your healthcare provider may talk with you about clinical trials for which you may be eligible. It is your choice to be treated or not to be treated with PAXLOVID. Should you decide not to receive it or for your child not to receive it, it will not change your standard medical care. What if I am or ? There is limited experience treating women or mothers with PAXLOVID. For a mother and unborn baby, the benefit of taking PAXLOVID may be greater than the risk from the treatment. If you are , discuss your options and specific situation with your healthcare provider. If you are , discuss your options and specific situation with your healthcare provider. How do I report side effects or problems with the appearance or packaging of PAXLOVID? Contact your healthcare provider if you have any side effects that bother you or do not go away. Report side effects or problems with the appearance or packaging of PAXLOVID (see Figures A and B above for examples of PAXLOVID Dose Packs) to [employer] at www.fda.gov/medHolidogtch or call 0-109-GOH-9188 or you can report side effects to [employer] at the contact information provided below. How should I store PAXLOVID? Store PAXLOVID tablets at room temperature, between 68?F to 77?F (20?C to 25?C). Keep PAXLOVID and all medicines out of the reach of children. What if I have questions about the expiration date for my PAXLOVID? The FDA has extended the expiration date (shelf-life) for some lots of PAXLOVID. To find the extended expiration date, enter the lot number found on the side of carton or bottom of blister pack at this website: https://www.paxlovidlotexEcho360.Chemclin/ or talk with your healthcare provider. Information on the authorized shelf-life extensions for PAXLOVID may also be found at https://www.fda.gov/emergency-prep dsimwuoc-vse-tflfhpxe/lxl-noskh-tp hrpljvfs-fra-mgqnfs-framework/expi ddftcg-jwmtam-qjlgcvbpz. How can I learn more about COVID-19? Ask your healthcare provider. Visit https://www.cdc.gov/COVID19. Contact your local or state public health department. What is an Emergency Use Authorization (EUA)? The [place] FDA has made PAXLOVID available under an emergency access mechanism called an Emergency Use Authorization (EUA). The EUA is supported by a [place] of Health and Human Services (HHS) declaration that circumstances exist to justify the emergency use of drugs and biological products during the COVID-19 pandemic. In issuing an EUA, the FDA has determined, among other things, that based on the total amount of scientific evidence available including data from adequate and well-controlled clinical trials, if available, it is reasonable to believe that the product may be effective for diagnosing, treating, or preventing COVID-19, or a serious or life-threatening disease or condition caused by COVID-19; that the known and potential benefits of the product, when used to diagnose, treat, or prevent such disease or condition, outweigh the known and potential risks of such product; and that there are no adequate, approved, and available alternatives. All of these criteria must be met to allow for the product to be available under an EUA. The EUA for PAXLOVID is in effect for the duration of the COVID-19 declaration justifying emergency use of this product, unless the relevant EUA declaration is terminated or the EUA revoked (after which the products may no longer be used under the EUA). What are the ingredients in PAXLOVID? Active ingredient: nirmatrelvir and ritonavir Nirmatrelvir inactive ingredients: colloidal silicon dioxide, croscarmellose sodium, lactose monohydrate, microcrystalline cellulose, and sodium stearyl fumarate. Film-coating contains: hydroxy propyl methylcellulose, iron oxide red, polyethylene glycol, and titanium dioxide. Ritonavir inactive ingredients: anhydrous dibasic calcium phosphate, colloidal silicon dioxide, copovidone, sodium stearyl fumarate, and sorbitan monolaurate. The film coating may contain: colloidal anhydrous silica, colloidal silicon dioxide, hydroxypropyl cellulose, hypromellose, polyethylene glycol, polysorbate 80, talc, and titanium dioxide. Additional Information For general questions, visit the website or call the telephone number provided below. Website: www.PHWBK00pvymGw.Chemclin Telephone number: (1-877-c19-pack) Distributed by [facility] [place] [address] [id number] Revised: 12/2022 documented in this encounter [facility] 04-27-2023 History of Present illness Narrative This Team Access Model visit is a phone encounter. It required patient-provider interaction for the medical decision making as documented below. Patient agrees to the visit: Yes Patient Location: [place] CC: Patient presents with: Covid Positive HPI Sheila Lofton Friend is a 37 year old female who is contacted today for a phone visit. This is an established patient of Dr. Mario Gonzales, DO and myself. Concerns today.. COVID-- COVID + with at home test x2 on Monday evening. Symptoms include: stuffy nose, cough, headache, chills, sneezing, & possible fever. Symptoms started on Monday morning. Asking for medication to help with symptoms. Denies any CP, SOB, dizziness, or lightheadedness. REVIEW OF SYSTEMS See HPI PAST MEDICAL HISTORY Diagnosis Date Benign hypertensive heart disease without heart failure Diabetes mellitus type 2 in obese (HCC) Fatty liver 11/02/2022 Helicobacter pylori infection 09/23/2016 Hypertension Tobacco abuse 04/23/2013 Trichomonosis 09/2018 PAST SURGICAL HISTORY Procedure Laterality Date PAST SURGICAL HISTORY OF 2010 [facility] Procedure TONSILLECTOMY PRIMARY/SECONDARY <AGE 12 ALLERGIES Naproxen and Percocet [Oxycodone-Acetaminophen] MEDICATIONS FLUoxetine (PROZAC) 10 mg capsule Take 1 capsule by mouth once daily. ondansetron orally disintegrating (ZOFRAN ODT) 4 mg disintegrating tablet Take 1 tablet by mouth every 6 hours as needed for nausea/vomiting. loperamide (IMODIUM A-D) 2 mg cap(s) Take 1 capsule by mouth four times daily as needed. fluconazole (DIFLUCAN) 150 mg tablet Take 1 tablet by mouth as directed. take one, repeat q 4 days until symptoms improve nystatin (MYCOSTATIN) powder Apply 1 application to affected area three times daily. gabapentin (NEURONTIN) 100 mg capsule TAKE 1 CAPSULE EVERY MORNING, 1 capsule in the afternoon, and 1 - 2 capsules at bedtime. Blood-Glucose Meter monitoring kit Glucose Meter of Choice - Kit - Dx: Type 2 DM - Uncontrolled E11.65 blood sugar diagnostic (BLOOD GLUCOSE TEST) test strip Test blood sugar(s) 2 times daily. Dx: Type 2 DM - Controlled E11.9 Insulin: Yes Lancets lancets Test blood sugar(s) 2 times daily. Dx: Type 2 DM - Uncontrolled E11.65 Insulin: Yes empagliflozin (JARDIANCE) 25 mg tablet Take 1 tablet by mouth once daily. Take 1 tablet once daily in the morning diclofenac (VOLTAREN ARTHRITIS PAIN) 1 % topical gel Apply 2 g to affected area three times daily as needed (carpal tunnel symptoms). pantoprazole DR (PROTONIX) 40 mg tablet Take 1 tablet by mouth daily before breakfast. Take on empty stomach, 1/2 hr before meal. magnesium chloride [address] tablet Take 1 tablet by mouth twice daily. pravastatin (PRAVACHOL) 20 mg tablet Take 1 tablet by mouth daily at bedtime. omeprazole (PRILOSEC) 20 mg capsule One pill by mouth daily 30 minutes before breakfast. magnesium oxide (MAG-OX) 400 mg (241.3 mg magnesium) tablet Take 1 tablet by mouth once daily. diclofenac (VOLTAREN ARTHRITIS PAIN) 1 % topical gel Apply 2 g to affected area four times daily. glimepiride (AMARYL) 2 mg tablet Take 3 tablets every morning and 1 tablet every evening with meals. metoprolol succinate ER (TOPROL XL) 100 mg Take 1 tablet by mouth once daily. dulaglutide (TRULICITY) 4.5 mg/0.5 mL pen injector Inject 4.5 mg subcutaneously one time a week. triamcinolone acetonide (KENALOG) 0.1 % cream Apply 1 application to affected area twice daily as needed (for eczema rash). Apply sparingly to area for rash/itching. Magnesium 250 mg tab Take 1 tablet by mouth twice daily. Blood Pressure Monitor 1 Each once daily. Dx: essential hypertension, type 2 diabetes ibuprofen (MOTRIN) 600 mg tablet Take 1 tablet by mouth every 6 hours as needed for pain. acetaminophen (TYLENOL) 325 mg tablet Take 2 tablets by mouth every 6 hours as needed for Pain. Blood Pressure Test Kit-Large (QUICK RESPONSE BP MONITOR) kit 1 Kit twice daily. FAMILY HISTORY Problem Relation Age of Onset Diabetes Mother Heart Mother Hypertension Mother Lipids Mother Osteoporosis Mother Diabetes Father Heart Father Hypertension Father Lipids Father Diabetes Paternal Grandfather Heart Paternal Grandfather Hypertension Paternal Grandfather Cancer Paternal Grandmother unsure of the type Diabetes Paternal Grandmother Heart Paternal Grandmother Hypertension Paternal Grandmother Cancer Maternal Grandmother lung Diabetes Maternal Grandmother Heart Maternal Grandmother Hypertension Maternal Grandmother Diabetes Maternal Grandfather Heart Maternal Grandfather Hypertension Maternal Grandfather Social History Tobacco Use Smoking status: Former Packs/day: 1.00 Years: 7.00 Additional pack years: 0.00 Total pack years: 7.00 Types: Cigarettes Quit date: 03/28/2021 Years since quittin.0 Smokeless tobacco: Never Vaping Use Vaping Use: Never used Substance Use Topics Alcohol use: Yes Comment: Occasionally Drug use: No EXAM: Deferred physical exam as visit was completed over the phone Patient is speaking in complete sentences without obvious respiratory distress or audible wheezing. Virtual visit completed using video, limited exam completed. No exam performed DATA REVIEWED: Most recent labs and imaging results. PNEUMOCOCCAL(1 - PCV) Never done DILATED RETINAL EXAM due on 10/26/2018 COVID-19 VACCINE(3 - Pfizer series) due on 07/28/2021 DIABETIC FOOT EXAM due on 05/05/2022 URINE ALBUMIN:CREATININE RATIO due on 05/06/2022 LDL CHOLESTEROL due on 05/06/2022 BP CONTROLLED (<130/80) due on 08/03/2022 HPV VACCINE(2 - 3-dose SCDM series) due on 04/05/2023 INFLUENZA(1) due on 04/28/2023 HBA1C due on 07/27/2023 ANNUAL PCP TEAM CHRONIC DISEASE VISIT due on 03/27/2024 PAP TESTING due on 11/29/2027 HPV TESTING due on 11/29/2027 DTAP,TDAP,TD(7 - Td or Tdap) due on 05/02/2029 HEPATITIS B Completed HEPATITIS C SCREENING Completed HIV SCREENING Completed ASSESSMENT/PLAN: 1. COVID-19 - ICD9: 079.89, ICD10: U07.1 Paxlovid BID x 5 days. Rest and increase fluids. Discussed CDC guidelines for quarantine. If symptoms worsen to CP or SOB, please be evaluated in ER. - NIRMATRELVIR 300 MG (150 MG X2)-RITONAVIR 100 MG TABLET,DOSE PACK Prescription instructions reviewed with patient as applicable. Potential red flag symptoms discussed with the patient. Reviewed appropriate action plan to take if red flag symptoms occur. Patient agreeable to treatment plan. During this patient visit I have spent approximately 20 minutes in counseling regarding treatment options, medications, and test results. Chaya Ames APRN.DIRECTOR OF REHABILITATIVE SERVICES Nirmatrelvir/Ritonavir (Paxlovid) Considerations Paxlovid is FDA-approved for treatment of mild to moderate COVID-19 in adults who are at high risk for progression to severe COVID-19. Consider use of Paxlovid in the following examples of high risk patients (list is not all inclusive): Age over 65 years Cardiovascular and cerebrovascular disease Chronic disease state (kidney, liver, lung) Diabetes (type 1 or type 2) Immunocompromised state (cancer, solid organ or blood stem cell transplant, HIV) Obesity Paxlovid warnings include serious drug interactions (co-administration with drugs highly dependent on CYP3A for clearance), hypersensitivity reactions, hepatotoxicity, and risk of HIV-1 resistance development. Chaya Ames APRN.CNP April 27, 2023 9:09 AM documented in this encounter [facility] 04-26-2023 Miscellaneous Notes Ok set her up for a telephone call for 9am tomorrow morning with you. Telephone call is fine. Thank you, Chaya Ames APRN.KALPESH Spoke with pt gave information provided. Pt states unable to do video visits has tried and can not.Please advise. Needs VV to assess severity of symptoms prior to prescribing. Thank you, Chaya Ames APRN.KALPESH Patient reports she tested positive twice on home covid test. Symptoms started Sat night: cough, chest congestion, fever, runny nose, sneeze, aches, chills. Today is day 3. Patient asking if pcp would send antiviral medication to [facility]. States she is unable to do VV. Please advise patient. documented in this encounter [facility] 04-17-2023 Miscellaneous Notes Patient has been identified by name and date of : Patient phones for refill(s): Requested Prescriptions Pending Prescriptions Disp Refills FLUoxetine (PROZAC) 10 mg capsule 90 capsule 0 Sig: Take 1 capsule by mouth once daily. Date of last office visit in primary care: 01/25/2023, has appt 05/02/2023 Last 2 Encounter Wt Readings: Date: Wt: 03/27/2023 116.6 kg (257 lb) 03/08/2023 117 kg (258 lb) Previous labs/tests for medication: Not applicable Please advise. Thank you. Josselyn Hayes LPN Patient said she has been out of medication for past 3 days now, was trying to request on my chart. documented in this encounter [facility] 03-27-2023 Note HNO ID: [id number] Author: Israel Luevano APRN.DIRECTOR OF REHABILITATIVE SERVICES Service: ? Author Type: Nurse Practitioner Type: Progress Notes Filed: 03/27/2023 3:23 PM Note Text: Chief Complaint Patient presents with: Diarrhea HPI Sheila Lofton Friend is a 37 year old female who presents here today for Above Complaints.. Patient presents with 4 day history of diarrhea. Patient also reports nausea. Denies vomiting, abdominal pain. Reports daughter was sick prior to her becoming symptomatic. Past medical history, appointments, medications, allergies reviewed. Previous Medical History PAST MEDICAL HISTORY Diagnosis Date Benign hypertensive heart disease without heart failure Diabetes mellitus type 2 in obese (HCC) Fatty liver 11/02/2022 Helicobacter pylori infection 09/23/2016 Hypertension Tobacco abuse 04/23/2013 Trichomonosis 09/2018 Previous Surgical History PAST SURGICAL HISTORY Procedure Laterality Date PAST SURGICAL HISTORY OF 2010 [facility] Procedure TONSILLECTOMY PRIMARY/SECONDARY Family History FAMILY HISTORY Problem Relation Age of Onset Diabetes Mother Heart Mother Hypertension Mother Lipids Mother Osteoporosis Mother Diabetes Father Heart Father Hypertension Father Lipids Father Diabetes Paternal Grandfather Heart Paternal Grandfather Hypertension Paternal Grandfather Cancer Paternal Grandmother unsure of the type Diabetes Paternal Grandmother Heart Paternal Grandmother Hypertension Paternal Grandmother Cancer Maternal Grandmother lung Diabetes Maternal Grandmother Heart Maternal Grandmother Hypertension Maternal Grandmother Diabetes Maternal Grandfather Heart Maternal Grandfather Hypertension Maternal Grandfather Patient Allergies ALLERGIES Allergen Reactions Naproxen Itching Percocet [Oxycodone* Rash itching Current Medications Current Outpatient Medications on File Prior to Visit Medication Sig fluconazole (DIFLUCAN) 150 mg tablet Take 1 tablet by mouth as directed. take one, repeat q 4 days until symptoms improve nystatin (MYCOSTATIN) powder Apply 1 application to affected area three times daily. gabapentin (NEURONTIN) 100 mg capsule TAKE 1 CAPSULE EVERY MORNING, 1 capsule in the afternoon, and 1 - 2 capsules at bedtime. Blood-Glucose Meter monitoring kit Glucose Meter of Choice - Kit - Dx: Type 2 DM - Uncontrolled E11.65 blood sugar diagnostic (BLOOD GLUCOSE TEST) test strip Test blood sugar(s) 2 times daily. Dx: Type 2 DM - Controlled E11.9 Insulin: Yes Lancets lancets Test blood sugar(s) 2 times daily. Dx: Type 2 DM - Uncontrolled E11.65 Insulin: Yes empagliflozin (JARDIANCE) 25 mg tablet Take 1 tablet by mouth once daily. Take 1 tablet once daily in the morning diclofenac (VOLTAREN ARTHRITIS PAIN) 1 % topical gel Apply 2 g to affected area three times daily as needed (carpal tunnel symptoms). pantoprazole DR (PROTONIX) 40 mg tablet Take 1 tablet by mouth daily before breakfast. Take on empty stomach, 1/2 hr before meal. ondansetron orally disintegrating (ZOFRAN ODT) 4 mg disintegrating tablet Take 1 tablet by mouth every 6 hours as needed for nausea/vomiting. magnesium chloride [address] tablet Take 1 tablet by mouth twice daily. pravastatin (PRAVACHOL) 20 mg tablet Take 1 tablet by mouth daily at bedtime. omeprazole (PRILOSEC) 20 mg capsule One pill by mouth daily 30 minutes before breakfast. magnesium oxide (MAG-OX) 400 mg (241.3 mg magnesium) tablet Take 1 tablet by mouth once daily. diclofenac (VOLTAREN ARTHRITIS PAIN) 1 % topical gel Apply 2 g to affected area four times daily. glimepiride (AMARYL) 2 mg tablet Take 3 tablets every morning and 1 tablet every evening with meals. FLUoxetine (PROZAC) 10 mg capsule Take 1 capsule by mouth once daily. metoprolol succinate ER (TOPROL XL) 100 mg Take 1 tablet by mouth once daily. dulaglutide (TRULICITY) 4.5 mg/0.5 mL pen injector Inject 4.5 mg subcutaneously one time a week. triamcinolone acetonide (KENALOG) 0.1 % cream Apply 1 application to affected area twice daily as needed (for eczema rash). Apply sparingly to area for rash/itching. Magnesium 250 mg tab Take 1 tablet by mouth twice daily. Blood Pressure Monitor 1 Each once daily. Dx: essential hypertension, type 2 diabetes ibuprofen (MOTRIN) 600 mg tablet Take 1 tablet by mouth every 6 hours as needed for pain. acetaminophen (TYLENOL) 325 mg tablet Take 2 tablets by mouth every 6 hours as needed for Pain. Blood Pressure Test Kit-Large (QUICK RESPONSE BP MONITOR) kit 1 Kit twice daily. No current facility-administered medications on file prior to visit. Social History Social History Tobacco Use Smoking status: Former Packs/day: 1.00 Years: 7.00 Total pack years: 7.00 Types: Cigarettes Quit date: 03/28/2021 Years since quittin.9 Smokeless tobacco: Never Vaping Use Vaping Use: Never used Substance Use Topics Alcohol use: Yes Comment: Occasionally Drug use: No (more content not included)... [facility] 03-27-2023 Instructions Israel Luevano APRN.CNP - 03/27/2023 3:22 PM EDT Continue zofran Start Immodium documented in this encounter [facility] 03-27-2023 History of Present illness Narrative Chief Complaint Patient presents with: Diarrhea HPI Sheila Lofton Friend is a 37 year old female who presents here today for Above Complaints.. Patient presents with 4 day history of diarrhea. Patient also reports nausea. Denies vomiting, abdominal pain. Reports daughter was sick prior to her becoming symptomatic. Past medical history, appointments, medications, allergies reviewed. Previous Medical History PAST MEDICAL HISTORY Diagnosis Date Benign hypertensive heart disease without heart failure Diabetes mellitus type 2 in obese (HCC) Fatty liver 11/02/2022 Helicobacter pylori infection 09/23/2016 Hypertension Tobacco abuse 04/23/2013 Trichomonosis 09/2018 Previous Surgical History PAST SURGICAL HISTORY Procedure Laterality Date PAST SURGICAL HISTORY OF 2010 [facility] Procedure TONSILLECTOMY PRIMARY/SECONDARY <AGE 12 Family History FAMILY HISTORY Problem Relation Age of Onset Diabetes Mother Heart Mother Hypertension Mother Lipids Mother Osteoporosis Mother Diabetes Father Heart Father Hypertension Father Lipids Father Diabetes Paternal Grandfather Heart Paternal Grandfather Hypertension Paternal Grandfather Cancer Paternal Grandmother unsure of the type Diabetes Paternal Grandmother Heart Paternal Grandmother Hypertension Paternal Grandmother Cancer Maternal Grandmother lung Diabetes Maternal Grandmother Heart Maternal Grandmother Hypertension Maternal Grandmother Diabetes Maternal Grandfather Heart Maternal Grandfather Hypertension Maternal Grandfather Patient Allergies ALLERGIES Allergen Reactions Naproxen Itching Percocet [Oxycodone* Rash itching Current Medications Current Outpatient Medications on File Prior to Visit Medication Sig fluconazole (DIFLUCAN) 150 mg tablet Take 1 tablet by mouth as directed. take one, repeat q 4 days until symptoms improve nystatin (MYCOSTATIN) powder Apply 1 application to affected area three times daily. gabapentin (NEURONTIN) 100 mg capsule TAKE 1 CAPSULE EVERY MORNING, 1 capsule in the afternoon, and 1 - 2 capsules at bedtime. Blood-Glucose Meter monitoring kit Glucose Meter of Choice - Kit - Dx: Type 2 DM - Uncontrolled E11.65 blood sugar diagnostic (BLOOD GLUCOSE TEST) test strip Test blood sugar(s) 2 times daily. Dx: Type 2 DM - Controlled E11.9 Insulin: Yes Lancets lancets Test blood sugar(s) 2 times daily. Dx: Type 2 DM - Uncontrolled E11.65 Insulin: Yes empagliflozin (JARDIANCE) 25 mg tablet Take 1 tablet by mouth once daily. Take 1 tablet once daily in the morning diclofenac (VOLTAREN ARTHRITIS PAIN) 1 % topical gel Apply 2 g to affected area three times daily as needed (carpal tunnel symptoms). pantoprazole DR (PROTONIX) 40 mg tablet Take 1 tablet by mouth daily before breakfast. Take on empty stomach, 1/2 hr before meal. ondansetron orally disintegrating (ZOFRAN ODT) 4 mg disintegrating tablet Take 1 tablet by mouth every 6 hours as needed for nausea/vomiting. magnesium chloride [address] tablet Take 1 tablet by mouth twice daily. pravastatin (PRAVACHOL) 20 mg tablet Take 1 tablet by mouth daily at bedtime. omeprazole (PRILOSEC) 20 mg capsule One pill by mouth daily 30 minutes before breakfast. magnesium oxide (MAG-OX) 400 mg (241.3 mg magnesium) tablet Take 1 tablet by mouth once daily. diclofenac (VOLTAREN ARTHRITIS PAIN) 1 % topical gel Apply 2 g to affected area four times daily. glimepiride (AMARYL) 2 mg tablet Take 3 tablets every morning and 1 tablet every evening with meals. FLUoxetine (PROZAC) 10 mg capsule Take 1 capsule by mouth once daily. metoprolol succinate ER (TOPROL XL) 100 mg Take 1 tablet by mouth once daily. dulaglutide (TRULICITY) 4.5 mg/0.5 mL pen injector Inject 4.5 mg subcutaneously one time a week. triamcinolone acetonide (KENALOG) 0.1 % cream Apply 1 application to affected area twice daily as needed (for eczema rash). Apply sparingly to area for rash/itching. Magnesium 250 mg tab Take 1 tablet by mouth twice daily. Blood Pressure Monitor 1 Each once daily. Dx: essential hypertension, type 2 diabetes ibuprofen (MOTRIN) 600 mg tablet Take 1 tablet by mouth every 6 hours as needed for pain. acetaminophen (TYLENOL) 325 mg tablet Take 2 tablets by mouth every 6 hours as needed for Pain. Blood Pressure Test Kit-Large (QUICK RESPONSE BP MONITOR) kit 1 Kit twice daily. No current facility-administered medications on file prior to visit. Social History Social History Tobacco Use Smoking status: Former Packs/day: 1.00 Years: 7.00 Total pack years: 7.00 Types: Cigarettes Quit date: 03/28/2021 Years since quittin.9 Smokeless tobacco: Never Vaping Use Vaping Use: Never used Substance Use Topics Alcohol use: Yes Comment: Occasionally Drug use: No Review of Symptoms REVIEW OF SYSTEMS See HPI EXAM: BP 136/84 Pulse 80 Resp 14 Wt 116.6 kg (257 lb) LMP 02/08/2023 (Within Days) BMI 43.43 kg/m General Appearance: Well appearing, alert, in no acute distress, well-hydrated, well nourished.. Abdomen: Normal abdominal exam, Abdomen soft, non-tender. Bowel sounds normal. No masses, organomegaly. Health Maintenance List PNEUMOCOCCAL(1 - PCV) Never done DILATED RETINAL EXAM due on 10/26/2018 COVID-19 VACCINE(3 - Pfizer series) due on 07/28/2021 DIABETIC FOOT EXAM due on 05/05/2022 URINE ALBUMIN:CREATININE RATIO due on 05/06/2022 LDL CHOLESTEROL due on 05/06/2022 BP CONTROLLED (<130/80) due on 08/03/2022 HPV VACCINE(2 - 3-dose SCDM series) due on 04/05/2023 INFLUENZA(1) due on 04/28/2023 HBA1C due on 07/27/2023 ANNUAL PCP TEAM CHRONIC DISEASE VISIT due on 01/26/2024 PAP TESTING due on 11/29/2027 HPV TESTING due on 11/29/2027 DTAP,TDAP,TD(7 - Td or Tdap) due on 05/02/2029 HEPATITIS B Completed HEPATITIS C SCREENING Completed HIV SCREENING Completed ASSESSMENT/PLAN: 1. Gastritis without bleeding, unspecified chronicity, unspecified gastritis type - ICD9: 535.50, ICD10: K29.70 - ONDANSETRON 4 MG DISINTEGRATING TABLET - LOPERAMIDE 2 MG CAPSULE 2. Nausea - ICD9: 787.02, ICD10: R11.0 - ONDANSETRON 4 MG DISINTEGRATING TABLET Israel Luevano APRN.DIRECTOR OF REHABILITATIVE SERVICES documented in this encounter [facility] 03-08-2023 Note HNO ID: [id number] Author: Daisy Bates Ma Service: ? Author Type: ? Type: Progress Notes Filed: 03/08/2023 4:32 PM Note Text: Sheila is a 37 year old who presents today for a colposcopy. The patient's last pap smear was ASCUS with positive HPV from November 2022. Patient has a history of abnormal pap: Yes. The patient has had prior treatment: none. test: negative UNIVERSAL PROTOCOL / SAFETY CHECKLIST Procedure to be Performed: Colposcopy with possible biopsy Sign In: A Moment of CARE was completed. Personnel directly involved with the procedure wore the appropriate PPE (Personal Protective Equipment). Patient/Surrogate Stated/Verified: PATIENT VERIFIED(optional for EMERGENT procedures): Patient name, Date of , Relevant allergies, and The intended procedure Time Out Communication: Intended patient and procedure match the source documents. Consent documented and matches the intended procedure. No implant(s) inserted. Sign Out: SIGN OUT (optional for EMERGENT procedures): All specimen containers correctly labeled. All instruments, equipment, possible retained foreign bodies accounted for. Post-procedure follow-up management communicated and Plan of Care Visit completed when applicable. Devin Delaney M.D. PROCEDURE: EXTERNAL GENITALIA: Normal in appearance without lesions VAGINA: Normal in appearance without lesions CERVIX: Speculum placed in vagina and excellent visualization of cervix achieved. Cervix swabbed x 3 with 3% acetic acid solution. Cervix grossly normal. Squamocolumnar junction visualized. acetowhite changes noted 10-2, punctations noted none, mosaicism noted none, and atypical vasculature noted none. BIOPSY: Done at 3:00, 6:00, 10:00, and 12:00 ECC: done HEMOSTASIS: Obtained with silver nitrate and pressure Procedure Summary: Patient tolerated procedure well and colposcopy was adequate. ASSESSMENT: HPV effect PLAN: Specimens labeled and sent to Pathology. Will notify patient of results in 1-2 weeks. Post-procedure instructions reviewed and written material given to the patient. recommended gardasil vaccine trial diflucan and nystatin powder for yeast Devin Delaney MD Patient identified by name and date of . Sheila Jimenes is here for her HPV 9 vaccination, injection # one of the series. Patient ?No Gardasil injection was given without incident. See immunizations for details of immunizations administered today. VIS sheet provided: Yes Patient advised to follow up in 2 months from the 1st injection Provider Dr Delaney was present in office at time of injection. Daisy Bates [facility] 02-23-2023 Miscellaneous Notes Spoke with pt gave information provided. Pt voices understanding. Yes, okay for her to hold off from taking Metformin at this time Mario Gonzales DO MyChart message: U want me to stop taking the metformen right just confused fausto it s still on my medication list documented in this encounter [facility] 01-25-2023 Note HNO ID: [id number] Author: Mario Gonzales, DO Service: ? Author Type: Physician Type: Progress Notes Filed: 01/25/2023 9:39 PM Note Text: Patient presents with: F/U 3 Month HPI: Sheila Jimenes is a 37 year old female who presents to the office today for review of health conditions. Concerns today: Recently has felt sweaty, like she is nauseated, upset stomach and fatigue symptoms. 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 Has been checking blood glucose readings, has been 120 Weight loss, intentional, has been taking her trulicity consistently Feels she isn't tolerating her neurontin well for her carpal tunnel symptoms in her arms, causing fatigue, she has been tapering off this medication Ms. Jimenes has past history of diabetes. Since our last visit she denies excessive thirst or increased frequency of urination, chest pain or dyspnea , new or unusual visual symptoms, and low sugar/hypoglycemic reactions. Depression- no. Follows a diabetic diet some of the time. She is compliant with medication(s) and is tolerating med(s) without any side effects. She reports checking her glucose on a twice a day schedule with sugars in the <150 range. Patient's last HgA1C was Hemoglobin A1C (%) Date Value 09/26/2022 8.0 05/23/2022 8.8 05/06/2021 8.4 01/14/2021 8.4 Hemoglobin A1C (POCT) (%) Date Value 01/20/2022 9.1 ) Last Ophthalmology exam was within the past 12 months Ms. Jimenes reports history of hyperlipidemia. Current therapy includes pravastatin (Pravachol) 20 mg. Denies side effects of muscle weakness or achiness. Her most recent lipid panels are reviewed. Cholesterol, Total (mg/dL) Date Value 05/06/2021 197 HDL Cholesterol (mg/dL) Date Value 05/06/2021 49 LDL Cholesterol (mg/dL) Date Value 05/06/2021 105 Triglyceride (mg/dL) Date Value 05/06/2021 215 Ms. Friend indicates a history of hypertension and states that she is feeling well and denies any symptoms referable to elevated blood pressure. Specifically denies headache, chest pain, palpitations, dyspnea, and peripheral edema. Patient denies any side effects of her medication(s) and is compliant with their regimen. Last 3 Encounter BP Readings: Date: BP: 01/25/2023 110/60 11/28/2022 130/82 09/26/2022 138/86 She watches her diet for sodium, low fat and low cholesterol some of the time. She does not check BP's generally. Sheila gets minimal exercise. PAST MEDICAL HISTORY Diagnosis Date Benign hypertensive heart disease without heart failure Diabetes mellitus type 2 in obese (HCC) Fatty liver 11/02/2022 Helicobacter pylori infection 09/23/2016 Hypertension Tobacco abuse 04/23/2013 Trichomonosis 09/2018 PAST SURGICAL HISTORY Procedure Laterality Date PAST SURGICAL HISTORY OF 2010 [facility] Procedure TONSILLECTOMY PRIMARY/SECONDARY Social History Tobacco Use Smoking status: Former Packs/day: 1.00 Years: 7.00 Pack years: 7.00 Types: Cigarettes Quit date: 03/28/2021 Years since quittin.8 Smokeless tobacco: Never Vaping Use Vaping Use: Never used Substance Use Topics Alcohol use: Yes Comment: Occasionally Drug use: No FAMILY HISTORY Problem Relation Age of Onset Diabetes Mother Heart Mother Hypertension Mother Lipids Mother Osteoporosis Mother Diabetes Father Heart Father Hypertension Father Lipids Father Diabetes Paternal Grandfather Heart Paternal Grandfather Hypertension Paternal Grandfather Cancer Paternal Grandmother unsure of the type Diabetes Paternal Grandmother Heart Paternal Grandmother Hypertension Paternal Grandmother Cancer Maternal Grandmother lung Diabetes Maternal Grandmother Heart Maternal Grandmother Hypertension Maternal Grandmother Diabetes Maternal Grandfather Heart Maternal Grandfather Hypertension Maternal Grandfather Allergies: ALLERGIES Allergen Reactions Naproxen Itching Percocet [Oxycodone* Rash itching Current Meds: magnesium chloride [address] tablet Take 1 tablet by mouth twice daily. pravastatin (PRAVACHOL) 20 mg tablet Take 1 tablet by mouth daily at bedtime. omeprazole (PRILOSEC) 20 mg capsule One pill by mouth daily 30 minutes before breakfast. diclofenac (VOLTAREN ARTHRITIS PAIN) 1 % topical gel Apply 2 g to affected area four times daily. glimepiride (AMARYL) 2 mg tablet Take 3 tablets every morning and 1 tablet every evening with meals. FLUoxetine (PROZAC) 10 mg capsule Take 1 capsule by mouth once daily. gabapentin (NEURONTIN) 100 mg capsule TAKE 1 CAPSULE EVERY MORNING, 1 capsule in the afternoon, and 1 - 2 capsules at bedtime. clotrimazole-betamethasone (LOTRISONE) cream Apply 1 application to affected area twice daily. metoprolol succinate ER (TOPROL XL) 100 mg Take 1 tablet by mouth once daily. dulaglutide (TRULICITY) 4.5 mg (more content not included)... [facility] 01-25-2023 History of Present illness Narrative Patient presents with: F/U 3 Month HPI: Sheila Jimenes is a 37 year old female who presents to the office today for review of health conditions. Concerns today: Recently has felt sweaty, like she is nauseated, upset stomach and fatigue symptoms. 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 Has been checking blood glucose readings, has been 120 Weight loss, intentional, has been taking her trulicity consistently Feels she isn't tolerating her neurontin well for her carpal tunnel symptoms in her arms, causing fatigue, she has been tapering off this medication Ms. Jimenes has past history of diabetes. Since our last visit she denies excessive thirst or increased frequency of urination, chest pain or dyspnea , new or unusual visual symptoms, and low sugar/hypoglycemic reactions. Depression- no. Follows a diabetic diet some of the time. She is compliant with medication(s) and is tolerating med(s) without any side effects. She reports checking her glucose on a twice a day schedule with sugars in the <150 range. Patient's last HgA1C was Hemoglobin A1C (%) Date Value 09/26/2022 8.0 05/23/2022 8.8 05/06/2021 8.4 01/14/2021 8.4 Hemoglobin A1C (POCT) (%) Date Value 01/20/2022 9.1 ) Last Ophthalmology exam was within the past 12 months Ms. Jimenes reports history of hyperlipidemia. Current therapy includes pravastatin (Pravachol) 20 mg. Denies side effects of muscle weakness or achiness. Her most recent lipid panels are reviewed. Cholesterol, Total (mg/dL) Date Value 05/06/2021 197 HDL Cholesterol (mg/dL) Date Value 05/06/2021 49 LDL Cholesterol (mg/dL) Date Value 05/06/2021 105 Triglyceride (mg/dL) Date Value 05/06/2021 215 Friend indicates a history of hypertension and states that she is feeling well and denies any symptoms referable to elevated blood pressure. Specifically denies headache, chest pain, palpitations, dyspnea, and peripheral edema. Patient denies any side effects of her medication(s) and is compliant with their regimen. Last 3 Encounter BP Readings: Date: BP: 01/25/2023 110/60 11/28/2022 130/82 09/26/2022 138/86 She watches her diet for sodium, low fat and low cholesterol some of the time. She does not check BP's generally. Sheila gets minimal exercise. PAST MEDICAL HISTORY Diagnosis Date Benign hypertensive heart disease without heart failure Diabetes mellitus type 2 in obese (HCC) Fatty liver 11/02/2022 Helicobacter pylori infection 09/23/2016 Hypertension Tobacco abuse 04/23/2013 Trichomonosis 09/2018 PAST SURGICAL HISTORY Procedure Laterality Date PAST SURGICAL HISTORY OF 2010 [facility] Procedure TONSILLECTOMY PRIMARY/SECONDARY <AGE 14 Social History Tobacco Use Smoking status: Former Packs/day: 1.00 Years: 7.00 Pack years: 7.00 Types: Cigarettes Quit date: 03/28/2021 Years since quittin.8 Smokeless tobacco: Never Vaping Use Vaping Use: Never used Substance Use Topics Alcohol use: Yes Comment: Occasionally Drug use: No FAMILY HISTORY Problem Relation Age of Onset Diabetes Mother Heart Mother Hypertension Mother Lipids Mother Osteoporosis Mother Diabetes Father Heart Father Hypertension Father Lipids Father Diabetes Paternal Grandfather Heart Paternal Grandfather Hypertension Paternal Grandfather Cancer Paternal Grandmother unsure of the type Diabetes Paternal Grandmother Heart Paternal Grandmother Hypertension Paternal Grandmother Cancer Maternal Grandmother lung Diabetes Maternal Grandmother Heart Maternal Grandmother Hypertension Maternal Grandmother Diabetes Maternal Grandfather Heart Maternal Grandfather Hypertension Maternal Grandfather Allergies: ALLERGIES Allergen Reactions Naproxen Itching Percocet [Oxycodone* Rash itching Current Meds: magnesium chloride [address] tablet Take 1 tablet by mouth twice daily. pravastatin (PRAVACHOL) 20 mg tablet Take 1 tablet by mouth daily at bedtime. omeprazole (PRILOSEC) 20 mg capsule One pill by mouth daily 30 minutes before breakfast. diclofenac (VOLTAREN ARTHRITIS PAIN) 1 % topical gel Apply 2 g to affected area four times daily. glimepiride (AMARYL) 2 mg tablet Take 3 tablets every morning and 1 tablet every evening with meals. FLUoxetine (PROZAC) 10 mg capsule Take 1 capsule by mouth once daily. gabapentin (NEURONTIN) 100 mg capsule TAKE 1 CAPSULE EVERY MORNING, 1 capsule in the afternoon, and 1 - 2 capsules at bedtime. clotrimazole-betamethasone (LOTRISONE) cream Apply 1 application to affected area twice daily. metoprolol succinate ER (TOPROL XL) 100 mg Take 1 tablet by mouth once daily. dulaglutide (TRULICITY) 4.5 mg/0.5 mL pen injector Inject 4.5 mg subcutaneously one time a week. triamcinolone acetonide (KENALOG) 0.1 % cream Apply 1 application to affected area twice daily as needed (for eczema rash). Apply sparingly to area for rash/itching. gabapentin (NEURONTIN) 300 mg capsule Take 1 capsule by mouth three times daily for 30 days. empagliflozin (JARDIANCE) 10 mg tablet Take 1 tablet by mouth once daily. Take 1 tablet once daily in the morning metFORMIN ER (GLUCOPHAGE XR) 500 mg 24 hr tablet Take 2 tablets by mouth twice daily. Blood Pressure Monitor 1 Each once daily. Dx: essential hypertension, type 2 diabetes ibuprofen (MOTRIN) 600 mg tablet Take 1 tablet by mouth every 6 hours as needed for pain. Blood-Glucose Meter monitoring kit Glucose Meter of Choice - Kit - Dx: Type 2 DM - Uncontrolled E11.65 acetaminophen (TYLENOL) 325 mg tablet Take 2 tablets by mouth every 6 hours as needed for Pain. Blood Pressure Test Kit-Large (QUICK RESPONSE BP MONITOR) kit 1 Kit twice daily. magnesium oxide (MAG-OX) 400 mg (241.3 mg magnesium) tablet Take 1 tablet by mouth once daily. cyanocobalamin (VITAMIN B-12) 1,000 mcg tab Take 1 tablet by mouth once daily. Magnesium 250 mg tab Take 1 tablet by mouth twice daily. Review of Systems: The remainder of the review of systems is negative. PE: 01/25/23 1550 BP: 110/60 Pulse: 88 Resp: 20 Temp: 36.1 C (97 F) TempSrc: Right Tympanic Weight: 117.5 kg (259 lb) Gen: A&O, NAD, non-toxic appearing, Pleasant, cooperative HEENT: NT/AC, wearing glasses, PERRLA, EOMs intact b/l, nares clear and patent b/l, pharynx without erythema, exudate or lesions. Uvula midline, MMM. EACs without erythema or debris. TMs pearly musa with intact landmarks b/l. Neck: supple, No cervical LAD, no thyromegaly, no carotid bruits CV: RRR, normal S1 and S2, no murmurs, no gallops, no rubs, Pulses 2+ and symmetric in UE and LE b/l Lungs: normal respiratory effort, CTA b/l, no wheezing or rhonchi or rales Abd: soft,mild epigastric TTP and upper abdominal bloating, ND, +BS, no hepatosplenomegaly MS: FROM all 4 extremities Neuro: CN II-XII intact b/l, strength 5/5 b/l UE and LE, DTRs 2/4 UE and LE, sensation intact. Skin: warm, dry, intact, No rashes or lesions on exposed skin. Foot exam: no edema, normal pulses ASSESSMENT/PLAN: 1. Type 2 diabetes mellitus with hyperglycemia, without long-term current use of insulin (HCC) - ICD9: 250.00, 790.29, ICD10: E11.65 (primary diagnosis) - Improving control - Continue current medications - Stop metformin - Blood glucose monitoring on a twice daily schedule - Counseled on healthy diet and regular exercise - Discussed need for and benefit of weight loss. BMI 43.77 kg/(m^2) 2. Nerve pain - ICD9: 729.2, ICD10: M79.2 - rx refilled, she is tapering off the gabapentin, has signs of carpal tunnel syndrome, she isn't interested in surgical opinoin at this time. - GABAPENTIN 100 MG CAPSULE - DICLOFENAC 1 % TOPICAL GEL 3. Diabetes mellitus type 2 in obese (HCC) - ICD9: 250.00, 278.00, ICD10: E11.69, E66.9 - Controlled - Continue current medications - Blood glucose monitoring on twice daily schedule - Counseled on healthy diet and regular exercise - Discussed need for and benefit of weight loss. BMI 43.77 kg/(m^2) Weight decreasing - Behavioral intervention and - Pharmacological intervention - BLOOD-GLUCOSE METER KIT - BLOOD GLUCOSE TEST STRIPS - LANCETS - EMPAGLIFLOZIN 25 MG TABLET - HEMOGLOBIN A1C (POC) 4. Acute pain of right knee - ICD9: 719.46, ICD10: M25.561 5. GERD without esophagitis - ICD9: 530.81, ICD10: K21.9 - Discussed lifestyle modifications including losing weight, limiting caffeine, no meals three hours before sleep, and head of bed elevation 6. Gastritis without bleeding, unspecified chronicity, unspecified gastritis type - ICD9: 535.50, ICD10: K29.70 - rx refilled. - PANTOPRAZOLE 40 MG TABLET,DELAYED RELEASE - ONDANSETRON 4 MG DISINTEGRATING TABLET 7. Nausea - ICD9: 787.02, ICD10: R11.0 rx refilled, start on prn nausea med, BRAT bland diet., likely with acute gastritis and illness. - PANTOPRAZOLE 40 MG TABLET,DELAYED RELEASE - ONDANSETRON 4 MG DISINTEGRATING TABLET 8. Fatigue, unspecified type - ICD9: 780.79, ICD10: R53.83 - see above 9. Hypertriglyceridemia - ICD9: 272.1, ICD10: E78.1 - suboptimal control - Continue current medication. - Encouraged following a low fat, low cholesterol diet. - Discussed the benefits of regular aerobic exercise and weight loss. 10. Obesity, Class III, BMI 40-49.9 (morbid obesity) (HCC) - ICD9: 278.01, ICD10: E66.01 Stable - Behavioral intervention and - Pharmacological intervention Mario Gonzales DO To ER if develops chest pain, shortness of breath, or severe worsening of symptoms. Discussed risks, benefits, alternatives, and potential side effects of medications. Patient expressed understanding and agreed with the plan. Mario Gonzales DO [address] [place] [address] documented in this encounter [facility] 01-02-2023 Miscellaneous Notes See pt mychart refill request. Pt has upcoming appointment scheduled. Gabrielle Goldstein LPN documented in this encounter [facility] 12-31-2022 Miscellaneous Notes Patient phones requesting refills as follows: Requested Prescriptions Pending Prescriptions Disp Refills cyanocobalamin (VITAMIN B-12) 1,000 mcg tab 90 tablet 3 Sig: Take 1 tablet by mouth once daily. metoprolol succinate ER (TOPROL XL) 100 mg 30 tablet 11 Sig: Take 1 tablet by mouth once daily. dulaglutide (TRULICITY) 4.5 mg/0.5 mL pen injector 6 mL 2 Sig: Inject 4.5 mg subcutaneously one time a week. triamcinolone acetonide (KENALOG) 0.1 % cream 30 g 2 Sig: Apply 1 application to affected area twice daily as needed (for eczema rash). Apply sparingly to area for rash/itching. Magnesium 250 mg tab 60 tablet 11 Sig: Take 1 tablet by mouth twice daily. KENDAL-09/26/22 Labs-09/26/22Jun-01/25/23 Please review and advise. Stephanie Brown LPN documented in this encounter [facility] 12-31-2022 Miscellaneous Notes Patient phones requesting refills as follows: Requested Prescriptions Pending Prescriptions Disp Refills magnesium chloride [address] tablet 60 tablet 0 Sig: Take 1 tablet by mouth twice daily. KENDAL-09/26/22 Labs-09/26/22Jun-01/25/23 med filled 03/28/22 Please review and advise. Stephanie Brown LPN documented in this encounter [facility] 12-06-2022 Miscellaneous Notes Patient notified. Prema Vallejo RN The following approved medication requests have been transmitted electronically. Requested Prescriptions Signed Prescriptions Disp Refills fluconazole (DIFLUCAN) 150 mg tablet 2 tablet 0 Sig: Take 1 tablet by mouth one time only for 1 dose. Repeat in 3 days as needed. Authorizing Provider: HALLE RAMIREZ Pharmacy Information Pharmacy Address [phone] [place] [address] RX sent. Halle Ramirez APRN.CNP Patient notified and colp scheduled. She is still having symptoms of yeast infection though. Vaginal itching/irritation. States in the past she has needed to take 2 diflucan for symptoms to resolve. Asking if she can get more diflucan? Rx pending if appropriate. Please advise. Prema Vallejo RN Please let the patient know that her Pap was normal but HPV is still positive, she will need to have a [place] done. Order filed. Halle Ramirez APRN.CNP documented in this encounter [facility] 11-29-2022 Miscellaneous Notes Patient has been identified by name and date of : Yes Requested Prescriptions Pending Prescriptions Disp Refills gabapentin (NEURONTIN) 300 mg capsule 180 capsule 0 Sig: Take 1 capsule by mouth three times daily for 30 days. RX INSTRUCTIONS: Patient aware RX will be sent to pharmacy. No need to notify patient. Patient last office visit: 09/26/22 Patient next office visit: 12/28/22 Rebecca Rangel MA documented in this encounter [facility] 11-29-2022 Miscellaneous Notes Patient notified of results, verbalizes understanding of instructions. Aleida Fowler RN BV positive. To treat with Flagyl 500mg PO BID for 7 days. 1) No alcohol during treatment and for 24 hours after last dose. 2) No intercourse during treatment. 3) Probiotic by mouth once daily for 30 days or as needed. + YEAST- diflucan sent also Halle Ramirez APRN.CNP documented in this encounter [facility] 11-28-2022 Note HNO ID: [id number] Author: Halle Ramirez APRN.CNP Service: ? Author Type: Nurse Practitioner Type: Progress Notes Filed: 11/28/2022 4:26 PM Note Text: Director Of Athletics offered: Patient declines. Sheila is a 37 year old who presents for an annual gynecologic exam with complaints, vaginal irritation . Menses: cycles every 25-30 days and 3-5 days of flow. Contraception: Essure HPV vaccine: No Last Pap: 05/13/2021 abnormal, ASCUS HPV: 05/07/2021 positive History of abnormal pap: Yes Last mammogram: never Sexually active: Yes Patient concerns for STD exposure: No. 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 History Comments: Sexual Activity: Yes; Male; Essure Contraception: Surgical PAST MEDICAL HISTORY Diagnosis Date Benign hypertensive heart disease without heart failure Diabetes mellitus type 2 in obese (HCC) Fatty liver 11/02/2022 Helicobacter pylori infection 09/23/2016 Hypertension Tobacco abuse 04/23/2013 Trichomonosis 09/2018 PAST SURGICAL HISTORY Procedure Laterality Date PAST SURGICAL HISTORY OF 2010 Essure Procedure TONSILLECTOMY PRIMARY/SECONDARY FAMILY HISTORY Problem Relation Age of Onset Diabetes Mother Heart Mother Hypertension Mother Lipids Mother Osteoporosis Mother Diabetes Father Heart Father Hypertension Father Lipids Father Diabetes Paternal Grandfather Heart Paternal Grandfather Hypertension Paternal Grandfather Cancer Paternal Grandmother unsure of the type Diabetes Paternal Grandmother Heart Paternal Grandmother Hypertension Paternal Grandmother Cancer Maternal Grandmother lung Diabetes Maternal Grandmother Heart Maternal Grandmother Hypertension Maternal Grandmother Diabetes Maternal Grandfather Heart Maternal Grandfather Hypertension Maternal Grandfather SOCIAL HISTORY Social History Tobacco Use Smoking status: Former Packs/day: 1.00 Years: 7.00 Pack years: 7.00 Types: Cigarettes Quit date: 03/28/2021 Years since quittin.6 Smokeless tobacco: Never Vaping Use Vaping Use: Never used Substance Use Topics Alcohol use: Yes Comment: Occasionally Drug use: No REVIEW OF SYSTEMS Abdomen: No abdominal pain, nausea, vomiting, diarrhea, or constipation. No bloating, early satiety, indigestion, or increased flatulence. Bladder: No dysuria, gross hematuria, urinary frequency, urinary urgency, or incontinence. Breast: No breast lumps, nipple d/c, overlying skin changes, redness or skin retraction. Allergies and current medication updated:Yes EXAM: BP 130/82 Ht 5' 4.5 (1.64m) Wt 266 lb 6.4 oz (120.8kg) LMP 11/16/2022 BMI 45.04 kg/(m2). GENERAL: pleasant, female in no apparent distress HEENT: Normocephalic, atraumatic, and no lesions NECK: Supple, full range of motion, no adenopathy, and thyroid normal DERMATOLOGY: Normal, without lesions, non-icteric, and non-hirsute BREAST: soft, non-tender, symmetric, no dominant mass, normal nipple-areolar complex, no lymphadenopathy, and no nipple discharge CHEST: Normal inspiratory effort ABDOMEN: soft, non-tender, and no masses PELVIC: external genitalia normal, normal Bartholin's glands, urethra, [place]'s glands, no vulvar lesions, no cervical lesions, physiologic discharge present, normal appearing perineal body and perianal region BIMANUAL: uterus normal size, shape and consistency, no adnexal masses, and non-tender RECTOVAGINAL: deferred. NEURO: alert and oriented x3,exam grossly non-focal EXTREMITIES: normal ASSESSMENT/PLAN: 1) Health maintenance: Pap done with HPV. Mammogram starting age 40. Nutrition, exercise and routine health maintenance exams reviewed. Calcium/Vitamin D supplementation information provided. 2) Contraception: Essure. Contraceptive options reviewed and information provided. 3) STD screening: Accepted STD check for Gonorrhea and Chlamydia. Trich/BV/yeast done- will notify of results 4) Follow up one year or sooner as needed Halle Ramirez APRN.KALPESH [facility] 11-28-2022 History of Present illness Narrative Director Of Athletics offered: Patient declines. Sheila is a 37 year old who presents for an annual gynecologic exam with complaints, vaginal irritation . Menses: cycles every 25-30 days and 3-5 days of flow. Contraception: Essure HPV vaccine: No Last Pap: 05/13/2021 abnormal, ASCUS HPV: 05/07/2021 positive History of abnormal pap: Yes Last mammogram: never Sexually active: Yes Patient concerns for STD exposure: No. 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 History Comments: Sexual Activity: Yes; Male; Essure Contraception: Surgical PAST MEDICAL HISTORY Diagnosis Date Benign hypertensive heart disease without heart failure Diabetes mellitus type 2 in obese (HCC) Fatty liver 11/02/2022 Helicobacter pylori infection 09/23/2016 Hypertension Tobacco abuse 04/23/2013 Trichomonosis 09/2018 PAST SURGICAL HISTORY Procedure Laterality Date PAST SURGICAL HISTORY OF 2010 Essure Procedure TONSILLECTOMY PRIMARY/SECONDARY <AGE 12 FAMILY HISTORY Problem Relation Age of Onset Diabetes Mother Heart Mother Hypertension Mother Lipids Mother Osteoporosis Mother Diabetes Father Heart Father Hypertension Father Lipids Father Diabetes Paternal Grandfather Heart Paternal Grandfather Hypertension Paternal Grandfather Cancer Paternal Grandmother unsure of the type Diabetes Paternal Grandmother Heart Paternal Grandmother Hypertension Paternal Grandmother Cancer Maternal Grandmother lung Diabetes Maternal Grandmother Heart Maternal Grandmother Hypertension Maternal Grandmother Diabetes Maternal Grandfather Heart Maternal Grandfather Hypertension Maternal Grandfather SOCIAL HISTORY Social History Tobacco Use Smoking status: Former Packs/day: 1.00 Years: 7.00 Pack years: 7.00 Types: Cigarettes Quit date: 03/28/2021 Years since quittin.6 Smokeless tobacco: Never Vaping Use Vaping Use: Never used Substance Use Topics Alcohol use: Yes Comment: Occasionally Drug use: No REVIEW OF SYSTEMS Abdomen: No abdominal pain, nausea, vomiting, diarrhea, or constipation. No bloating, early satiety, indigestion, or increased flatulence. Bladder: No dysuria, gross hematuria, urinary frequency, urinary urgency, or incontinence. Breast: No breast lumps, nipple d/c, overlying skin changes, redness or skin retraction. Allergies and current medication updated:Yes EXAM: BP 130/82 Ht 5' 4.5 (1.64m) Wt 266 lb 6.4 oz (120.8kg) LMP 11/16/2022 BMI 45.04 kg/(m^2). GENERAL: pleasant, female in no apparent distress HEENT: Normocephalic, atraumatic, and no lesions NECK: Supple, full range of motion, no adenopathy, and thyroid normal DERMATOLOGY: Normal, without lesions, non-icteric, and non-hirsute BREAST: soft, non-tender, symmetric, no dominant mass, normal nipple-areolar complex, no lymphadenopathy, and no nipple discharge CHEST: Normal inspiratory effort ABDOMEN: soft, non-tender, and no masses PELVIC: external genitalia normal, normal Bartholin's glands, urethra, [place]'s glands, no vulvar lesions, no cervical lesions, physiologic discharge present, normal appearing perineal body and perianal region BIMANUAL: uterus normal size, shape and consistency, no adnexal masses, and non-tender RECTOVAGINAL: deferred. NEURO: alert and oriented x3,exam grossly non-focal EXTREMITIES: normal ASSESSMENT/PLAN: 1) Health maintenance: Pap done with HPV. Mammogram starting age 40. Nutrition, exercise and routine health maintenance exams reviewed. Calcium/Vitamin D supplementation information provided. 2) Contraception: Essure. Contraceptive options reviewed and information provided. 3) STD screening: Accepted STD check for Gonorrhea and Chlamydia. Trich/BV/yeast done- will notify of results 4) Follow up one year or sooner as needed Halle Ramirez APRN.KALPESH documented in this encounter [facility] 11-03-2022 Miscellaneous Notes Patient has been identified by name and date of : Yes, Provider Holly Esquivel RN Date 11/03/2022 Time 2:38 pm Patient phones for refill(s): Requested Prescriptions Pending Prescriptions Disp Refills empagliflozin (JARDIANCE) 10 mg tablet 30 tablet 11 Sig: Take 1 tablet by mouth once daily. Take 1 tablet once daily in the morning Date of last office visit with pcp: 09/26/2022 Future appt: 12/28/2022 Last 2 Encounter Wt Readings: Date: Wt: 09/26/2022 124.3 kg (274 lb) 08/30/2022 127.2 kg (280 lb 6.4 oz) Previous labs/tests for medication: Diabetes: Hemoglobin A1C (%) Date Value 09/26/2022 8.0 05/23/2022 8.8 05/06/2021 8.4 01/14/2021 8.4 Hemoglobin A1C (POCT) (%) Date Value 01/20/2022 9.1 Blood Pressure: BUN (mg/dL) Date Value 09/26/2022 10 05/06/2021 8 Sodium (mmol/L) Date Value 09/26/2022 138 05/06/2021 134 Last 1 Encounter BP Readings: Date: BP: 09/26/2022 138/86 Liver Function: ALT (U/L) Date Value 09/26/2022 47 05/06/2021 30 AST (U/L) Date Value 09/26/2022 36 05/06/2021 26 Please advise. Thank you. Holly Esquivel RN documented in this encounter [facility] 11-03-2022 Miscellaneous Notes Patient calls and notified of results and providers instructions. Patient verbalizes understanding. Holly Esquivel RN Attempted to contact pt with no answer or vm setup. Will need to try again later. Celina Rizvi Please inform patient that her RUQ US is suggestive of fatty liver disease. I would like her to work on weight loss and low fat diet. Recheck US in 1-2 year Mario Gonzales DO documented in this encounter [facility] 11-01-2022 Note HNO ID: [id number] Author: Janine Mitchell RDMS Service: ? Author Type: Data Input Clerk Type: Progress Notes Filed: 11/01/2022 2:02 PM Note Text: Radiology Service Progress Note PATIENT NAME: Sheila Jimenes DATE OF SERVICE: November 01, 2022 TIME: 2:01 PM PATIENT IDENTITY VERIFICATION COMPLETED USING TWO (2) IDENTIFIERS: Name and Date of confirmed by patient verbally. FALL SCREENING: Has the patient had 2 falls in the last year or 1 fall with injury or currently using an Ambulatory Assistive Device (Walker, Cane, Wheelchair, Crutches, etc.)? No PATIENT GENDER DATA: Female. status: : No status: NO. PATIENT RELEVANT IMPLANT DATA REVIEWED: Not Applicable RADIOLOGY DEPARTMENT: Ultrasound PERIPHERAL IV DATA: Not applicable SIGNED BY: Janine Mitchell RDMS RVT November 01, 2022 2:01 PM [facility] 11-01-2022 History of Present illness Narrative Radiology Service Progress Note PATIENT NAME: Sheila Jimenes DATE OF SERVICE: November 01, 2022 TIME: 2:01 PM PATIENT IDENTITY VERIFICATION COMPLETED USING TWO (2) IDENTIFIERS: Name and Date of confirmed by patient verbally. FALL SCREENING: Has the patient had 2 falls in the last year or 1 fall with injury or currently using an Ambulatory Assistive Device (Walker, Cane, Wheelchair, Crutches, etc.)? No PATIENT GENDER DATA: Female. status: : No status: NO. PATIENT RELEVANT IMPLANT DATA REVIEWED: Not Applicable RADIOLOGY DEPARTMENT: Ultrasound PERIPHERAL IV DATA: Not applicable SIGNED BY: Janine Mitchell RDMS RVT November 01, 2022 2:01 PM documented in this encounter [facility] 10-17-2022 Miscellaneous Notes The following approved medication requests have been transmitted electronically. Requested Prescriptions Signed Prescriptions Disp Refills Magnesium 250 mg tab 60 tablet 11 Sig: Take 1 tablet by mouth twice daily. Authorizing Provider: MARIO GONZALES empagliflozin (JARDIANCE) 10 mg tablet 30 tablet 0 Sig: Take 1 tablet by mouth once daily. Take 1 tablet once daily in the morning Authorizing Provider: MARIO GONZALES DO Pt notified and is willing to add Jardiance to medication regimen. Please send to [facility]. Alice Pedersen Ma We have the option of adding on Jardiance for better diabetes control since she is on max dose of Metformin and Amaryl and Trulicity Please ask patient if she is willing Mario Gonzales DO Spoke with patient in detail concerning results. She verbalized understanding. Advised her to start taking the Mag supplement. She agreed to do so. Went over diabetic meds with her. She claims she is consistent with these and does not miss doses. Sending to schedulers for US order. Aleida Barraza Please inform patient that her lab results show that her magnesium levels are too low. She needs to be taking magnesium supplement twice a day as prescribed with food. Also her a1c is still high at 8%, although slighlty improved. Please clarify what she is actually taking for her diabetes and if she is being consistent and not missing doses? Her liver enzyme levels are too high. Need for RUQ US to recheck her liver. I am concerned for fatty liver disease. Needs to work on weight loss as well and cut out animal fats in her diet such as cheese and high fat milk and red meats and fried/fast/fatty foods. Mario Gonzales DO documented in this encounter [facility] 09-28-2022 Note HNO ID: [id number] Author: Mario Gonzales DO Service: ? Author Type: Physician Type: Progress Notes Filed: 09/28/2022 1:11 PM Note Text: Patient presents with: Follow Up: diabetes HPI: Sheila Jimenes is a 37 year old female who presents to the office today for review of health conditions. Concerns today: Cough, chest congestion, + sick contacts, no hemoptysis or fevers or chills symptoms for 7-10 days. Use of OTC tylenol and ibuprofen without relief. Muscle weakness feeling arms and legs, comes and goes, I just feel like I am weak and achy at times. No known swelling or injury Rash, hands and arm, red and itching, present a few weeks/month. No known new exposures. Ms. Jimenes has past history of diabetes. Since our last visit she denies excessive thirst or increased frequency of urination, chest pain or dyspnea , new or unusual visual symptoms, and low sugar/hypoglycemic reactions. Depression- no. Follows a diabetic diet some of the time. She is compliant with medication(s) and is tolerating med(s) without any side effects. She reports checking her glucose on a once a day schedule with sugars in the <200 range. Patient's last HgA1C was Hemoglobin A1C (%) Date Value 09/26/2022 8.0 05/23/2022 8.8 05/06/2021 8.4 01/14/2021 8.4 Hemoglobin A1C (POCT) (%) Date Value 01/20/2022 9.1 ) Last Ophthalmology exam was within the past 12 months Ms. Jimenes reports history of hyperlipidemia. Current therapy includes pravastatin (Pravachol) 20 mg. Denies side effects of muscle weakness or achiness. Her most recent lipid panels are reviewed. Cholesterol, Total (mg/dL) Date Value 05/06/2021 197 HDL Cholesterol (mg/dL) Date Value 05/06/2021 49 LDL Cholesterol (mg/dL) Date Value 05/06/2021 105 Triglyceride (mg/dL) Date Value 05/06/2021 215 Friend indicates a history of hypertension and states that she is feeling well and denies any symptoms referable to elevated blood pressure. Specifically denies headache, chest pain, palpitations, dyspnea, and peripheral edema. Patient denies any side effects of her medication(s) and is compliant with their regimen. Last 3 Encounter BP Readings: Date: BP: 09/26/2022 138/86 08/30/2022 142/80 08/17/2022 136/92 She watches her diet for sodium, low fat and low cholesterol some of the time. She does not check BP's generally. Sheila gets minimal exercise. PAST MEDICAL HISTORY Diagnosis Date Benign hypertensive heart disease without heart failure Diabetes mellitus type 2 in obese (HCC) Helicobacter pylori infection 09/23/2016 Hypertension Tobacco abuse 04/23/2013 Trichomonosis 09/2018 PAST SURGICAL HISTORY Procedure Laterality Date PAST SURGICAL HISTORY OF 2010 [facility] Procedure TONSILLECTOMY PRIMARY/SECONDARY Social History Tobacco Use Smoking status: Former Packs/day: 1.00 Years: 7.00 Pack years: 7.00 Types: Cigarettes Quit date: 03/28/2021 Years since quittin.5 Smokeless tobacco: Never Vaping Use Vaping Use: Never used Substance Use Topics Alcohol use: Yes Comment: Occasionally Drug use: No FAMILY HISTORY Problem Relation Age of Onset Diabetes Mother Heart Mother Hypertension Mother Lipids Mother Osteoporosis Mother Diabetes Father Heart Father Hypertension Father Lipids Father Diabetes Paternal Grandfather Heart Paternal Grandfather Hypertension Paternal Grandfather Cancer Paternal Grandmother unsure of the type Diabetes Paternal Grandmother Heart Paternal Grandmother Hypertension Paternal Grandmother Cancer Maternal Grandmother lung Diabetes Maternal Grandmother Heart Maternal Grandmother Hypertension Maternal Grandmother Diabetes Maternal Grandfather Heart Maternal Grandfather Hypertension Maternal Grandfather Allergies: ALLERGIES Allergen Reactions Naproxen Itching Percocet [Oxycodone* Rash itching Current Meds: metoprolol succinate ER (TOPROL XL) 100 mg Take 1 tablet by mouth once daily. FLUoxetine (PROZAC) 10 mg capsule Take 1 capsule by mouth once daily. glimepiride (AMARYL) 2 mg tablet Take 3 tablets every morning and 1 tablet every evening with meals magnesium oxide (MAG-OX) 400 mg (241.3 mg magnesium) tablet Take 1 tablet by mouth once daily. diclofenac (VOLTAREN ARTHRITIS PAIN) 1 % topical gel Apply 2 g to affected area four times daily. gabapentin (NEURONTIN) 100 mg capsule Take 1 capsule PO in the morning, 1 capsule PO in the afternoon and 1-2 capsules PO at bedtime magnesium chloride (MAG DELAY, MAG 64) [address] tablet Take 1 tablet by mouth twice daily. clotrimazole-betamethasone (LOTRISONE) cream Apply 1 application to affected area twice daily. pravastatin (PRAVACHOL) 20 mg tablet Take 1 tablet by mouth daily at bedtime. metFORMIN ER (GLUCOPHAGE XR) 500 mg 24 hr tablet Take 2 tablets by mouth twice daily. omeprazole (PRILOSEC) 20 mg capsule One pill by mouth daily 30 minutes before break (more content not included)... [facility] 09-28-2022 History of Present illness Narrative Patient presents with: Follow Up: diabetes HPI: Sheila Jimenes is a 37 year old female who presents to the office today for review of health conditions. Concerns today: Cough, chest congestion, + sick contacts, no hemoptysis or fevers or chills symptoms for 7-10 days. Use of OTC tylenol and ibuprofen without relief. Muscle weakness feeling arms and legs, comes and goes, I just feel like I am weak and achy at times. No known swelling or injury Rash, hands and arm, red and itching, present a few weeks/month. No known new exposures. Ms. Jimenes has past history of diabetes. Since our last visit she denies excessive thirst or increased frequency of urination, chest pain or dyspnea , new or unusual visual symptoms, and low sugar/hypoglycemic reactions. Depression- no. Follows a diabetic diet some of the time. She is compliant with medication(s) and is tolerating med(s) without any side effects. She reports checking her glucose on a once a day schedule with sugars in the <200 range. Patient's last HgA1C was Hemoglobin A1C (%) Date Value 09/26/2022 8.0 05/23/2022 8.8 05/06/2021 8.4 01/14/2021 8.4 Hemoglobin A1C (POCT) (%) Date Value 01/20/2022 9.1 ) Last Ophthalmology exam was within the past 12 months Ms. Jimenes reports history of hyperlipidemia. Current therapy includes pravastatin (Pravachol) 20 mg. Denies side effects of muscle weakness or achiness. Her most recent lipid panels are reviewed. Cholesterol, Total (mg/dL) Date Value 05/06/2021 197 HDL Cholesterol (mg/dL) Date Value 05/06/2021 49 LDL Cholesterol (mg/dL) Date Value 05/06/2021 105 Triglyceride (mg/dL) Date Value 05/06/2021 215 Friend indicates a history of hypertension and states that she is feeling well and denies any symptoms referable to elevated blood pressure. Specifically denies headache, chest pain, palpitations, dyspnea, and peripheral edema. Patient denies any side effects of her medication(s) and is compliant with their regimen. Last 3 Encounter BP Readings: Date: BP: 09/26/2022 138/86 08/30/2022 142/80 08/17/2022 136/92 She watches her diet for sodium, low fat and low cholesterol some of the time. She does not check BP's generally. Sheila gets minimal exercise. PAST MEDICAL HISTORY Diagnosis Date Benign hypertensive heart disease without heart failure Diabetes mellitus type 2 in obese (HCC) Helicobacter pylori infection 09/23/2016 Hypertension Tobacco abuse 04/23/2013 Trichomonosis 09/2018 PAST SURGICAL HISTORY Procedure Laterality Date PAST SURGICAL HISTORY OF 2010 [facility] Procedure TONSILLECTOMY PRIMARY/SECONDARY <AGE 14 Social History Tobacco Use Smoking status: Former Packs/day: 1.00 Years: 7.00 Pack years: 7.00 Types: Cigarettes Quit date: 03/28/2021 Years since quittin.5 Smokeless tobacco: Never Vaping Use Vaping Use: Never used Substance Use Topics Alcohol use: Yes Comment: Occasionally Drug use: No FAMILY HISTORY Problem Relation Age of Onset Diabetes Mother Heart Mother Hypertension Mother Lipids Mother Osteoporosis Mother Diabetes Father Heart Father Hypertension Father Lipids Father Diabetes Paternal Grandfather Heart Paternal Grandfather Hypertension Paternal Grandfather Cancer Paternal Grandmother unsure of the type Diabetes Paternal Grandmother Heart Paternal Grandmother Hypertension Paternal Grandmother Cancer Maternal Grandmother lung Diabetes Maternal Grandmother Heart Maternal Grandmother Hypertension Maternal Grandmother Diabetes Maternal Grandfather Heart Maternal Grandfather Hypertension Maternal Grandfather Allergies: ALLERGIES Allergen Reactions Naproxen Itching Percocet [Oxycodone* Rash itching Current Meds: metoprolol succinate ER (TOPROL XL) 100 mg Take 1 tablet by mouth once daily. FLUoxetine (PROZAC) 10 mg capsule Take 1 capsule by mouth once daily. glimepiride (AMARYL) 2 mg tablet Take 3 tablets every morning and 1 tablet every evening with meals magnesium oxide (MAG-OX) 400 mg (241.3 mg magnesium) tablet Take 1 tablet by mouth once daily. diclofenac (VOLTAREN ARTHRITIS PAIN) 1 % topical gel Apply 2 g to affected area four times daily. gabapentin (NEURONTIN) 100 mg capsule Take 1 capsule PO in the morning, 1 capsule PO in the afternoon and 1-2 capsules PO at bedtime magnesium chloride (MAG DELAY, MAG 64) [address] tablet Take 1 tablet by mouth twice daily. clotrimazole-betamethasone (LOTRISONE) cream Apply 1 application to affected area twice daily. pravastatin (PRAVACHOL) 20 mg tablet Take 1 tablet by mouth daily at bedtime. metFORMIN ER (GLUCOPHAGE XR) 500 mg 24 hr tablet Take 2 tablets by mouth twice daily. omeprazole (PRILOSEC) 20 mg capsule One pill by mouth daily 30 minutes before breakfast. Blood Pressure Monitor 1 Each once daily. Dx: essential hypertension, type 2 diabetes cyanocobalamin (VITAMIN B-12) 1,000 mcg tab Take 1 tablet by mouth once daily. ibuprofen (MOTRIN) 600 mg tablet Take 1 tablet by mouth every 6 hours as needed for pain. Blood-Glucose Meter monitoring kit Glucose Meter of Choice - Kit - Dx: Type 2 DM - Uncontrolled E11.65 acetaminophen (TYLENOL) 325 mg tablet Take 2 tablets by mouth every 6 hours as needed for Pain. Blood Pressure Test Kit-Large (QUICK RESPONSE BP MONITOR) kit 1 Kit twice daily. gabapentin (NEURONTIN) 300 mg capsule Take 1 capsule by mouth three times daily for 30 days. dulaglutide (TRULICITY) 4.5 mg/0.5 mL pen injector Inject 4.5 mg subcutaneously one time a week. triamcinolone acetonide (KENALOG) 0.1 % cream Apply 1 application to affected area twice daily as needed (for eczema rash). Apply sparingly to area for rash/itching. ondansetron orally disintegrating (ZOFRAN ODT) 4 mg disintegrating tablet Take 1 tablet by mouth every 6 hours as needed for nausea/vomiting. doxycycline (VIBRA-TABS) 100 mg tablet Take 1 tablet by mouth twice daily for 10 days. Review of Systems: The remainder of the review of systems is negative. PE: 09/26/22 1532 BP: 138/86 Pulse: 80 Resp: 16 Temp: 36.1 C (97 F) TempSrc: Left Tympanic Weight: 124.3 kg (274 lb) Gen: A&O, NAD, non-toxic appearing, Pleasant, cooperative HEENT: NT/AC, PERRLA, wearing glasses, EOMs intact b/l, nares clear and patent b/l, pharynx without erythema, exudate or lesions. Uvula midline. MMM, EACs without erythema or debris. TMs pearly musa with intact landmarks b/l. Neck: supple, No cervical LAD, no thyromegaly, no carotid bruits CV: RRR, normal S1 and S2, no murmurs, no gallops, no rubs, Pulses 2+ and symmetric in UE and LE b/l Lungs: normal respiratory effort, CTA b/l, no wheezing or rhonchi or rales, + cough Abd: soft, obese, NT, ND, +BS, no hepatosplenomegaly MS: FROM all 4 extremities No proximal or distal muscle pain to palpation Neuro: CN II-XII intact b/l, strength 5/5 b/l UE and LE, DTRs 2/4 UE and LE, sensation intact. Skin: warm, dry, intact, eczema changes of hands and forearms without signs of infection Foot exam: Monofilament wnl on right and left feet. ASSESSMENT/PLAN: 1. History of COVID-19 - ICD9: V12.09, ICD10: Z86.16 (primary diagnosis) - recheck labs - TSH BLD - T4 FREE/FREE THYROX 2. Nerve pain - ICD9: 729.2, ICD10: M79.2 - rx refilled, chronic, stable. - GABAPENTIN 300 MG CAPSULE 3. Type 2 diabetes mellitus with hyperglycemia, without long-term current use of insulin (HCC) - ICD9: 250.00, 790.29, ICD10: E11.65 uncontrolled Poor adherence to plan of care. - Continue current medications - Blood glucose monitoring on a twice a day schedule - Encouraged regular aerobic exercise and weight loss - BP goal of <130/80 - LDL goal of <100 - TRULICITY 4.5 MG/0.5 ML SUBCUTANEOUS PEN INJECTOR - HGB A1C - COMP METABOLIC PANEL - VITAMIN D 25 HYDROXY - TSH BLD - T4 FREE/FREE THYROX 4. Anxiety and depression - ICD9: 300.00, 311, ICD10: F41.9, F32.A - recheck labs, overall stable. - TSH BLD - T4 FREE/FREE THYROX 5. Hypomagnesemia - ICD9: 275.2, ICD10: E83.42 Recheck labs 6. Other eczema - ICD9: 692.9, ICD10: L30.8 - discussed skin care of rash - follow up if symptoms persist or worsen. - Dry skin care instructions reviewed - Use mild soap like Dove, Aveeno or Cetaphil - limit shower/bath to less than 15 minutes with warm, not hot, water - BID use of recommended emollients such as Cetaphil, Eucerin Plus, Aveeno, Aquaphor - Follow up if symptoms persist or worsen. - TRIAMCINOLONE ACETONIDE 0.1 % TOPICAL CREAM 7. Muscle weakness - ICD9: 728.87, ICD10: M62.81 Recheck labs, likely due to lack of exercise and good routines - VITAMIN B12 BLOOD - CK CREATINE KINASE - MAGNESIUM BLD 8. Acute bronchitis, unspecified organism - ICD9: 466.0, ICD10: J20.9 rx as below, supportive care with vaporizer and use of mucinex twice a day recommended - DOXYCYCLINE HYCLATE 100 MG TABLET Mario Gonzales DO To ER if develops chest pain, shortness of breath, or severe worsening of symptoms. Discussed risks, benefits, alternatives, and potential side effects of medications. Patient expressed understanding and agreed with the plan. Mario Gonzales DO [address] [place] [address] documented in this encounter [facility] 09-21-2022 Miscellaneous Notes Pt. informed. Pt should also be checking blood sugars more closely. This may be contributing. Chaya Ames APRN.CNP Noted. Diarrhea may be related to COVID virus. Continue paxlovid. Continue pepto-bismul and increase fluids to stay hydrated. If no improvement within 1 week, please make appointment to assess all of this. Thank you, Chaya Ames APRN.CNP Patient calling and states she had Distance Health visit with Chaya Ames CNP on 09/19/22 for covid treatment. Pt continues to take Paxlovid as ordered. Pt states she forgot to mention to Chaya that she has been having diarrhea for several weeks before having covid and continues to have diarrhea. Reports has 5-6 watery stools per day and there are white oblong things in her stool at times. Has tried Pepto Bismal only, and this has not helped. Reports intermittent mild abdominal ache. Drinking and eating well-states she never lost her appetite. Denies eating fried or fatty foods. Reports feeling very weak and very dizzy . Denies feeling like she is going to pass out. Denies headache, but states she takes medicine for her headaches. Denies having a fever but has sweats currently. Walking ok. States she drops things out of her hand sometimes when trying to hold items. Reports shallow breathing from covid and thick mucus in lungs. Denies SOB or chest pain. Red flag symptoms reviewed as to when to seek ER. Please advise patient. Thank you. documented in this encounter [facility] 09-19-2022 Note HNO ID: [id number] Author: Chaya Ames APRN.CNP Service: ? Author Type: Nurse Practitioner Type: Progress Notes Filed: 09/19/2022 1:14 PM Note Text: AMBULATORY TELEPHONE VISIT Sheila Jimenes has consented to this telephone encounter. Persons Present: patient Chief Complaint/Reason: COVID concern. HPI: COVID -- COVID + with at home test yesterday. Symptoms started Monday morning with cough, diarrhea, body aches, congestion and mild chest tightness. Body aches are the most bothersome symptom. Pt denies any CP, SOB, dizziness, or palpitations. Pt interested in paxlovid. Data Reviewed: Most recent labs and imaging results. Assessment: (U07.1) COVID-19 (primary encounter diagnosis) ASSESSMENT/PLAN: 1. COVID-19 - ICD9: 079.89, ICD10: U07.1 Discussed CDC guidelines for quarantine. Start paxlovid BID x 5 days. Rest and increase fluids. Discussed red flag symptoms and when to seek immediate medical attention. - NIRMATRELVIR 300 MG (150 MG X2)-RITONAVIR 100 MG TABLET,DOSE PACK(EUA) Total Time Spent: 24 minutes Chaya Ames APRN.DIRECTOR OF REHABILITATIVE SERVICES Nirmatrelvir/Ritonavir (Paxlovid) Eligibility and Patient Discussion [facility] Formulary Restriction Criteria: Adult outpatients 18 years and older with ALL of the following: [x] Patient has positive SARS-COV-2 viral test (PCR or antigen test) during current illness [x] Patient has symptoms for 5 days or less [x] Not requiring hospitalization at any time for management of COVID-19 [x] Not requiring supplemental oxygen or a change in baseline supplemental oxygen [x] Not utilized for pre-exposure or post-exposure prophylaxis for prevention of COVID-19 [x] Patient does not have severe renal impairment (eGFR < 30 mL/min) or severe hepatic impairment (Child-Zacarias Class C) [x] Meeting at least one of the criteria for high risk of progression to severe COVID-19: [] Age over 65 years [] Cancer [] Chronic kidney disease [] Chronic liver disease [] Chronic lung diseases, including cystic fibrosis [] Dementia or other neurological conditions [x] Diabetes (type 1 or type 2) [] Disabilities, including Down syndrome and neurodevelopmental disorders [] Heart conditions [] HIV infection [] Immunocompromised state [] Mental health conditions [] Medical related technological dependence (tracheostomy, gastrostomy, or positive pressure ventilation (not related to COVID) [x] Overweight and obesity (BMI greater or equal to 25 for adults) [] Physical inactivity [] [] Sickle cell disease or thalassemia [] Smoking, current or former [] Solid organ or blood stem cell transplant [] Stroke or cerebrovascular disease [] Substance use disorders [] Tuberculosis [] People from racial and ethnic minority groups Criteria above are met: Yes Date of Positive Test: 09/18/22 Date of Symptom Onset: 09/17/22 Patient received COVID vaccine: Yes Drug-Drug interactions reviewed: Yes. No drug interactions were identified. I have discussed the use of the investigational therapeutic, nirmatrelvir/ritonavir, for the treatment of mild to moderate COVID-19 and its use under Emergency Use Authorization with the patient. The patient was informed that nirmatrelvir/ritonavir is not an FDA approved drug and that it is authorized for use under this Emergency Use Authorization. The patient was also informed of the significant known benefits and potential risks of nirmatrelvir/ritonavir, and the extent to which such potential risks and benefits are unknown. The patient was informed that there is mandatory reporting of all medication errors and serious adverse events potentially related to nirmatrelvir/ritonavir treatment within 7 calendar days from the onset of the event and that events up to 28 days after completion of therapy need to be reported. The discussion included alternatives to receiving nirmatrelvir/ritonavir, including clinical trials, and potential the risks and benefits of those alternatives. The patient was provided electronically with the Fact Sheet for Patients, Parents and Caregivers . The patient was also instructed that in addition to the treatment with nirmatrelvir/ritonavir, he/she should continue to self-isolate and use infection control measures (e.g., wear mask, isolate, social distance, avoid sharing personal items, clean and disinfect high touch surfaces, and frequent handwashing) according to CDC guidelines. The patient stated understanding and gave verbal consent to proceeding with nirmatrelvir/ritonavir treatment. Chaya Ames APRN.DIRECTOR OF REHABILITATIVE SERVICES September 19, 2022 1:12 PM [facility] 09-19-2022 Miscellaneous Notes Pt informed, verbalized understanding Celina Rizvi MA The following approved medication requests have been transmitted electronically. Requested Prescriptions Signed Prescriptions Disp Refills nirmatrelvir tablet 300 mg (150 mg x 2) and ritonavir tablet 100 mg in a dose pack (PAXLOVID) 30 tablet 0 Sig: Administer TWO pink nirmatrelvir 150 mg tablets and ONE white ritonavir 100 mg tablet for a total of three tablets twice daily. Authorizing Provider: CHAYA AMES APRN.CNP Pt calls to report her pharmacy does not have Paxlovid. Advised pt to call different pharmacies to see who does have Paxlovid. Pt calls back to report that [facility] stated they have Paxlovid. Please file rx. Patient has been identified by name and date of : Yes Requested Prescriptions Pending Prescriptions Disp Refills nirmatrelvir tablet 300 mg (150 mg x 2) and ritonavir tablet 100 mg in a dose pack (PAXLOVID) 30 tablet 0 Sig: Administer TWO pink nirmatrelvir 150 mg tablets and ONE white ritonavir 100 mg tablet for a total of three tablets twice daily. RX INSTRUCTIONS: Patient aware RX will be sent to pharmacy. No need to notify patient. Ginger Monaco LPN documented in this encounter [facility] 09-19-2022 Miscellaneous Notes Pt had video appt today with Chaya Ames cnp. Ginger Monaco LPN Mychart message sent to pt notifying her to return call to office and speak with FM Triage Nurse. Notified we LM on VM with no call back. PCP recommends an OV. Kaitlin Dinero Ma TC to patient - unable to reach and no option to LM will try again later. Patient needs an office visit to be evaluated Mario Gonzales DO Pt called in and report Dr Gonzales told her to call in any time she wasn't feeling well and she would send medication in for her. Pt states she has a fever, cough bringing up small amount of phlegm clear/white/ yellow, fatigue, diarrhea, nausea, and bilateral leg pain. Pt is going to take a Covid test at home and call back in with results. I let Pt know provider may want her to come in so they can listen to her lungs before they would want to prescribe anything. Please call and advise. documented in this encounter [facility] 09-19-2022 History of Present illness Narrative AMBULATORY TELEPHONE VISIT Sheila Jimenes has consented to this telephone encounter. Persons Present: patient Chief Complaint/Reason: COVID concern. HPI: COVID -- COVID + with at home test yesterday. Symptoms started Monday morning with cough, diarrhea, body aches, congestion and mild chest tightness. Body aches are the most bothersome symptom. Pt denies any CP, SOB, dizziness, or palpitations. Pt interested in paxlovid. Data Reviewed: Most recent labs and imaging results. Assessment: (U07.1) COVID-19 (primary encounter diagnosis) ASSESSMENT/PLAN: 1. COVID-19 - ICD9: 079.89, ICD10: U07.1 Discussed CDC guidelines for quarantine. Start paxlovid BID x 5 days. Rest and increase fluids. Discussed red flag symptoms and when to seek immediate medical attention. - NIRMATRELVIR 300 MG (150 MG X2)-RITONAVIR 100 MG TABLET,DOSE PACK(EUA) Total Time Spent: 24 minutes Chaya Ames, STENCIL TYPIST.DIRECTOR OF REHABILITATIVE SERVICES Nirmatrelvir/Ritonavir (Paxlovid) Eligibility and Patient Discussion [facility] Formulary Restriction Criteria: Adult outpatients 18 years and older with ALL of the following: [x] Patient has positive SARS-COV-2 viral test (PCR or antigen test) during current illness [x] Patient has symptoms for 5 days or less [x] Not requiring hospitalization at any time for management of COVID-19 [x] Not requiring supplemental oxygen or a change in baseline supplemental oxygen [x] Not utilized for pre-exposure or post-exposure prophylaxis for prevention of COVID-19 [x] Patient does not have severe renal impairment (eGFR < 30 mL/min) or severe hepatic impairment (Child-Zacarias Class C) [x] Meeting at least one of the criteria for high risk of progression to severe COVID-19: [] Age over 65 years [] Cancer [] Chronic kidney disease [] Chronic liver disease [] Chronic lung diseases, including cystic fibrosis [] Dementia or other neurological conditions [x] Diabetes (type 1 or type 2) [] Disabilities, including Down syndrome and neurodevelopmental disorders [] Heart conditions [] HIV infection [] Immunocompromised state [] Mental health conditions [] Medical related technological dependence (tracheostomy, gastrostomy, or positive pressure ventilation (not related to COVID) [x] Overweight and obesity (BMI greater or equal to 25 for adults) [] Physical inactivity [] [] Sickle cell disease or thalassemia [] Smoking, current or former [] Solid organ or blood stem cell transplant [] Stroke or cerebrovascular disease [] Substance use disorders [] Tuberculosis [] People from racial and ethnic minority groups Criteria above are met: Yes Date of Positive Test: 09/18/22 Date of Symptom Onset: 09/17/22 Patient received COVID vaccine: Yes Drug-Drug interactions reviewed: Yes. No drug interactions were identified. I have discussed the use of the investigational therapeutic, nirmatrelvir/ritonavir, for the treatment of mild to moderate COVID-19 and its use under Emergency Use Authorization with the patient. The patient was informed that nirmatrelvir/ritonavir is not an FDA approved drug and that it is authorized for use under this Emergency Use Authorization. The patient was also informed of the significant known benefits and potential risks of nirmatrelvir/ritonavir, and the extent to which such potential risks and benefits are unknown. The patient was informed that there is mandatory reporting of all medication errors and serious adverse events potentially related to nirmatrelvir/ritonavir treatment within 7 calendar days from the onset of the event and that events up to 28 days after completion of therapy need to be reported. The discussion included alternatives to receiving nirmatrelvir/ritonavir, including clinical trials, and potential the risks and benefits of those alternatives. The patient was provided electronically with the Fact Sheet for Patients, Parents and Caregivers . The patient was also instructed that in addition to the treatment with nirmatrelvir/ritonavir, he/she should continue to self-isolate and use infection control measures (e.g., wear mask, isolate, social distance, avoid sharing personal items, clean and disinfect high touch surfaces, and frequent handwashing) according to CDC guidelines. The patient stated understanding and gave verbal consent to proceeding with nirmatrelvir/ritonavir treatment. Chaya Ames APRN.CNP September 19, 2022 1:12 PM documented in this encounter [facility] 09-19-2022 Instructions Chaya Ames APRN.CNP - 09/19/2022 1:11 PM EST FACT SHEET FOR PATIENTS, PARENTS, AND CAREGIVERS EMERGENCY USE AUTHORIZATION (EUA) OF PAXLOVID FOR CORONAVIRUS DISEASE 2019 (COVID-19) You are being given this Fact Sheet because your healthcare provider believes it is necessary to provide you with PAXLOVID for the treatment of dsot-pm-bhenpebj coronavirus disease (COVID-19) caused by the SARS-CoV-2 virus. This Fact Sheet contains information to help you understand the risks and benefits of taking the PAXLOVID you have received or may receive. The [place]. Food and Drug Administration (FDA) has issued an Emergency Use Authorization (EUA) to make PAXLOVID available during the COVID-19 pandemic (for more details about an EUA please see What is an Emergency Use Authorization? at the end of this document). PAXLOVID is not an FDA-approved medicine in the [place]. Read this Fact Sheet for information about PAXLOVID. Talk to your healthcare provider about your options or if you have any questions. It is your choice to take PAXLOVID. What is COVID-19? COVID-19 is caused by a virus called a coronavirus. You can get COVID-19 through close contact with another person who has the virus. COVID-19 illnesses have ranged from very ougy-xx-xwoswk, including illness resulting in . While information so far suggests that most COVID-19 illness is mild, serious illness can happen and may cause some of your other medical conditions to become worse. Older people and people of all ages with severe, long lasting (chronic) medical conditions like heart disease, lung disease, and diabetes, for example seem to be at higher risk of being hospitalized for COVID-19. What is PAXLOVID? PAXLOVID is an investigational medicine used to treat alqh-rb-fvxjipim COVID-19 in adults and children [12 years of age and older weighing at least 88 pounds (40 kg)] with positive results of direct SARS-CoV-2 viral testing, and who are at high risk for progression to severe COVID-19, including hospitalization or . PAXLOVID is investigational because it is still being studied. There is limited information about the safety and effectiveness of using PAXLOVID to treat people with oltg-uz-kfytekuz COVID-19. The FDA has authorized the emergency use of PAXLOVID for the treatment of stif-uc-livsvkpl COVID-19 in adults and children [12 years of age and older weighing at least 88 pounds (40 kg)] with a positive test for the virus that causes COVID-19, and who are at high risk for progression to severe COVID-19, including hospitalization or , under an EUA. 1 Revised: 12 November 2021 What should I tell my healthcare provider before I take PAXLOVID? Tell your healthcare provider if you: Have any allergies Have liver or kidney disease Are or plan to become Are a child Have any serious illnesses Tell your healthcare provider about all the medicines you take, including prescription and vpxz-tey-xotvndm medicines, vitamins, and herbal supplements. Some medicines may interact with PAXLOVID and may cause serious side effects. Keep a list of your medicines to show your healthcare provider and pharmacist when you get a new medicine. You can ask your healthcare provider or pharmacist for a list of medicines that interact with PAXLOVID. Do not start taking a new medicine without telling your healthcare provider. Your healthcare provider can tell you if it is safe to take PAXLOVID with other medicines. Tell your healthcare provider if you are taking combined hormonal contraceptive. PAXLOVID may affect how your control pills work. Females who are able to become should use another effective alternative form of contraception or an additional barrier method of contraception. Talk to your healthcare provider if you have any questions about contraceptive methods that might be right for you. How do I take PAXLOVID? PAXLOVID consists of 2 medicines: nirmatrelvir and ritonavir. Take 2 pink tablets of nirmatrelvir with 1 white tablet of ritonavir by mouth 2 times each day (in the morning and in the evening) for 5 days. For each dose, take all 3 tablets at the same time. If you have kidney disease, talk to your healthcare provider. You may need a different dose. Swallow the tablets whole. Do not chew, break, or crush the tablets. Take PAXLOVID with or without food. Do not stop taking PAXLOVID without talking to your healthcare provider, even if you feel better. If you miss a dose of PAXLOVID within 8 hours of the time it is usually taken, take it as soon as you remember. If you miss a dose by more than 8 hours, skip the missed dose and take the next dose at your regular time. Do not take 2 doses of PAXLOVID at the same time. If you take too much PAXLOVID, call your healthcare provider or go to the nearest hospital emergency room right away. If you are taking a ritonavir-or cobicistat-containing medicine to treat hepatitis C or Human Immunodeficiency Virus (HIV), you should continue to take your medicine as prescribed by your healthcare provider. Talk to your healthcare provider if you do not feel better or if you feel worse after 5 days. Who should generally not take PAXLOVID? Do not take PAXLOVID if: You are allergic to nirmatrelvir, ritonavir, or any of the ingredients in PAXLOVID You are taking any of the following medicines: Alfuzosin Pethidine, propoxyphene Ranolazine Amiodarone, dronedarone, flecainide, propafenone, quinidine Colchicine Lurasidone, pimozide, clozapine Dihydroergotamine, ergotamine, methylergonovine Lovastatin, simvastatin Sildenafil (Revatio ) for pulmonary arterial hypertension (PAH) Triazolam, oral midazolam Apalutamide Carbamazepine, phenobarbital, phenytoin Rifampin Teresa s Wort (hypericum perforatum) Taking PAXLOVID with these medicines may cause serious or life-threatening side effects or affect how PAXLOVID works. These are not the only medicines that may cause serious side effects if taken with PAXLOVID. PAXLOVID may increase or decrease the levels of multiple other medicines. It is very important to tell your healthcare provider about all of the medicines you are taking because additional laboratory tests or changes in the dose of your other medicines may be necessary while you are taking PAXLOVID. Your healthcare provider may also tell you about specific symptoms to watch out for that may indicate that you need to stop or decrease the dose of some of your other medicines. What are the important possible side effects of PAXLOVID? Possible side effects of PAXLOVID are: Allergic Reactions. Allergic reactions can happen in people taking PAXLOVID, even after only 1 dose. Stop taking PAXLOVID and call your healthcare provider right away if you get any of the following symptoms of an allergic reaction: hives trouble swallowing or breathing swelling of the mouth, lips, or face throat tightness hoarseness skin rash Liver Problems. Tell your healthcare provider right away if you have any of these signs and symptoms of liver problems: loss of appetite, yellowing of your skin and the whites of eyes (jaundice), dark-colored urine, pale colored stools and itchy skin, stomach area (abdominal) pain. Resistance to HIV Medicines. If you have untreated HIV infection, PAXLOVID may lead to some HIV medicines not working as well in the future. Other possible side effects include: altered sense of taste diarrhea high blood pressure muscle aches These are not all the possible side effects of PAXLOVID. Not many people have taken PAXLOVID. Serious and unexpected side effects may happen. PAXLOVID is still being studied, so it is possible that all of the risks are not known at this time. What other treatment choices are there? Veklury (remdesivir) is FDA-approved for the treatment of ktol-uo-lpygudqs COVID-19 in certain adults and children. Talk with your doctor to see if Veklury is appropriate for you. Like PAXLOVID, FDA may also allow for the emergency use of other medicines to treat people with COVID-19. Go to https://www.fda.gov/emergency-prep aredness-orlye/nje-ahkvx-nek rvqmlcd-rhi-fvtmgl-framework/emerg uhls-rqh-izmclxgtqmwro for information on the emergency use of other medicines that are authorized by FDA to treat people with COVID-19. Your healthcare provider may talk with you about clinical trials for which you may be eligible. It is your choice to be treated or not to be treated with PAXLOVID. Should you decide not to receive it or for your child not to receive it, it will not change your standard medical care. What if I am or ? There is director of diagnostic imaging treating women or mothers with PAXLOVID. For a mother and unborn baby, the benefit of taking PAXLOVID may be greater than the risk from the treatment. If you are , discuss your options and specific situation with your healthcare provider. It is recommended that you use effective barrier contraception or do not have sexual activity while taking PAXLOVID. If you are , discuss your options and specific situation with your healthcare provider. How do I report side effects with PAXLOVID? Contact your healthcare provider if you have any side effects that bother you or do not go away. Report side effects to FDA MedWatch at www.fda.gov/medwatch or call 1-717-URX7466 or you can report side effects to [employer]. at the contact information provided below. Website Fax number Telephone number [employer] How should I store PAXLOVID? Store PAXLOVID tablets at room temperature, between 68?F to 77?F (20?C to 25?C). How can I learn more about COVID-19? Ask your healthcare provider. Visit https://www.cdc.gov/COVID19. Contact your local or state public health department. What is an Emergency Use Authorization (EUA)? The [place] FDA has made PAXLOVID available under an emergency access mechanism called an Emergency Use Authorization (EUA). The EUA is supported by a Water [employer] Manager of Health and Human Service (HHS) declaration that circumstances exist to justify the emergency use of drugs and biological products during the COVID-19 pandemic. PAXLOVID for the treatment of qjtz-ld-srmeqswp COVID-19 in adults and children [12 years of age and older weighing at least 88 pounds (40 kg)] with positive results of direct SARS-CoV-2 viral testing, and who are at high risk for progression to severe COVID-19, including hospitalization or , has not undergone the same type of review as an FDA-approved product. In issuing an EUA under the COVID-19 public health emergency, the FDA has determined, among other things, that based on the total amount of scientific evidence available including data from adequate and well-controlled clinical trials, if available, it is reasonable to believe that the product may be effective for diagnosing, treating, or preventing COVID-19, or a serious or life-threatening disease or condition caused by COVID-19; that the known and potential benefits of the product, when used to diagnose, treat, or prevent such disease or condition, outweigh the known and potential risks of such product; and that there are no adequate, approved, and available alternatives. All of these criteria must be met to allow for the product to be used in the treatment of patients during the COVID-19 pandemic. The EUA for PAXLOVID is in effect for the duration of the COVID-19 declaration justifying emergency use of this product, unless terminated or revoked (after which the products may no longer be used under the EUA). Additional Information For general questions, visit the website or call the telephone number provided below. Website Telephone number www.RROUU40riifJgcinvolve (5-829-E06-RYSZ) You can also go to www.BigCalc.Chemclin or call for more information. Pfizer Distributed by [facility] [place] [address] [id number] Revised: 12 November 2021 documented in this encounter [facility] 08-30-2022 Note HNO ID: [id number] Author: Nereida Esteban APRN.DIRECTOR OF REHABILITATIVE SERVICES Service: ? Author Type: Nurse Practitioner Type: Progress Notes Filed: 09/12/2022 12:02 PM Note Text: Subjective HPI Sheila presents today with a sore throat and sore tounge x 2 days, she states her daughter had strep last week. She has not had a fever. She is eating and drinking well, and no other symptoms. She states she has not ate anything different that would cause tongue irritation Review of Systems HENT: Positive for sore throat (sore throat and tounge). Objective Physical Exam Constitutional: Appearance: Normal appearance. HENT: Head: Normocephalic and atraumatic. Right Ear: Tympanic membrane normal. Nose: Nose normal. No congestion or rhinorrhea. Mouth/Throat: Mouth: Mucous membranes are dry. Pharynx: Posterior oropharyngeal erythema (scantly red, tound irritated on dorsals surface no open area) present. No oropharyngeal exudate. Comments: Slight redness noted on dorsal surface of tongue, no open area and no white coating or other discharge or abnormal's noted Eyes: Extraocular Movements: Extraocular movements intact. Pupils: Pupils are equal, round, and reactive to light. Cardiovascular: Rate and Rhythm: Normal rate and regular rhythm. Pulses: Normal pulses. Heart sounds: Normal heart sounds. Pulmonary: Effort: Pulmonary effort is normal. Breath sounds: Normal breath sounds. Abdominal: General: Abdomen is flat. Palpations: Abdomen is soft. Musculoskeletal: General: Normal range of motion. Lymphadenopathy: Cervical: No cervical adenopathy. Skin: General: Skin is warm and dry. Neurological: General: No focal deficit present. Mental Status: She is alert and oriented to person, place, and time. Psychiatric: Mood and Affect: Mood normal. ASSESSMENT/PLAN: 1. Strep throat exposure - ICD9: V01.89, ICD10: Z20.818 Increase fluids Motrin prn [place] diet and salt water gargles tid x three days for tongue irritations, Follow up with pcp if not resolved in three days - STREP A MOLECULAR (POC) Nereida Esteban APRN.DIRECTOR OF REHABILITATIVE SERVICES [facility] 08-30-2022 History of Present illness Narrative Subjective HPI Sheila presents today with a sore throat and sore tounge x 2 days, she states her daughter had strep last week. She has not had a fever. She is eating and drinking well, and no other symptoms. She states she has not ate anything different that would cause tongue irritation Review of Systems HENT: Positive for sore throat (sore throat and tounge). Objective Physical Exam Constitutional: Appearance: Normal appearance. HENT: Head: Normocephalic and atraumatic. Right Ear: Tympanic membrane normal. Nose: Nose normal. No congestion or rhinorrhea. Mouth/Throat: Mouth: Mucous membranes are dry. Pharynx: Posterior oropharyngeal erythema (scantly red, tound irritated on dorsals surface no open area) present. No oropharyngeal exudate. Comments: Slight redness noted on dorsal surface of tongue, no open area and no white coating or other discharge or abnormal's noted Eyes: Extraocular Movements: Extraocular movements intact. Pupils: Pupils are equal, round, and reactive to light. Cardiovascular: Rate and Rhythm: Normal rate and regular rhythm. Pulses: Normal pulses. Heart sounds: Normal heart sounds. Pulmonary: Effort: Pulmonary effort is normal. Breath sounds: Normal breath sounds. Abdominal: General: Abdomen is flat. Palpations: Abdomen is soft. Musculoskeletal: General: Normal range of motion. Lymphadenopathy: Cervical: No cervical adenopathy. Skin: General: Skin is warm and dry. Neurological: General: No focal deficit present. Mental Status: She is alert and oriented to person, place, and time. Psychiatric: Mood and Affect: Mood normal. ASSESSMENT/PLAN: 1. Strep throat exposure - ICD9: V01.89, ICD10: Z20.818 Increase fluids Motrin prn [place] diet and salt water gargles tid x three days for tongue irritations, Follow up with pcp if not resolved in three days - STREP A MOLECULAR (POC) Nereida Esteban APRN.KALPESH documented in this encounter [facility] 08-19-2022 Miscellaneous Notes Pt reports she is out of medication below. Patient has been identified by name and date of : Yes Patient phones for refill(s): Requested Prescriptions Pending Prescriptions Disp Refills metoprolol succinate ER (TOPROL XL) 100 mg 30 tablet 11 Sig: Take 1 tablet by mouth once daily. Date of last office visit in primary care: 08/17/22 next apt 09/26/22 Last 2 Encounter Wt Readings: Date: Wt: 08/17/2022 125.3 kg (276 lb 3.2 oz) 06/29/2022 127.6 kg (281 lb 3.2 oz) Previous labs/tests for medication: Blood Pressure: BUN (mg/dL) Date Value 05/23/2022 13 05/06/2021 8 Sodium (mmol/L) Date Value 05/23/2022 134 05/06/2021 134 Last 1 Encounter BP Readings: Date: BP: 08/17/2022 136/92 Please advise. Thank you. Phuong Gaitan LPN documented in this encounter [facility] 08-18-2022 Miscellaneous Notes The following approved medication requests have been transmitted electronically. Requested Prescriptions Signed Prescriptions Disp Refills azithromycin (ZITHROMAX Z-IRAIDA) 250 mg tablet 6 tablet 0 Sig: Take 2 tablets day one, then, 1 tablet daily until gone. Authorizing Provider: VIMAL WILDE APRN.CNP documented in this encounter [facility] 08-17-2022 Instructions Vimal Wilde APRN.KALPESH - 08/17/2022 2:08 PM EST Make sure you're drinking at least 60-80 oz of water daily. Drink 1-2 Gatorades or Body Armors daily, Poweraid is good as well. Rest. Ibuprofen/Tylenol as needed. Mucinex twice daily. We'll let you know tomorrow about your COVID/flu results. At that point we'll consider an antibiotic if necessary. documented in this encounter [facility] 08-17-2022 History of Present illness Narrative Chief Complaint Patient presents with: Cough: Congestion, sore throat x 2 days, at home covid test negative HPI Sheila Lofton Friend is a 37 year old female who presents here today for Above Complaints. Today: Started feeling poorly 2 days ago. Nasal congestion, drainage down the back of her throat. A little bit of a sore throat. A little bit of diarrhea. Productive cough with mild yellow productive mucous. No nasal drainage. + aches and chills. Legs feel weak, wobbly. Took Dayquil this morning-did help her sleep somewhat. Past medical history, appointments, medications, allergies reviewed. Previous Medical History PAST MEDICAL HISTORY Diagnosis Date Benign hypertensive heart disease without heart failure Diabetes mellitus type 2 in obese (HCC) Helicobacter pylori infection 09/23/2016 Hypertension Tobacco abuse 04/23/2013 Trichomonosis 09/2018 Previous Surgical History PAST SURGICAL HISTORY Procedure Laterality Date PAST SURGICAL HISTORY OF 2010 Essure Procedure TONSILLECTOMY PRIMARY/SECONDARY <AGE 12 Family History FAMILY HISTORY Problem Relation Age of Onset Diabetes Mother Heart Mother Hypertension Mother Lipids Mother Osteoporosis Mother Diabetes Father Heart Father Hypertension Father Lipids Father Diabetes Paternal Grandfather Heart Paternal Grandfather Hypertension Paternal Grandfather Cancer Paternal Grandmother unsure of the type Diabetes Paternal Grandmother Heart Paternal Grandmother Hypertension Paternal Grandmother Cancer Maternal Grandmother lung Diabetes Maternal Grandmother Heart Maternal Grandmother Hypertension Maternal Grandmother Diabetes Maternal Grandfather Heart Maternal Grandfather Hypertension Maternal Grandfather Patient Allergies ALLERGIES Allergen Reactions Naproxen Itching Percocet [Oxycodone* Rash itching Current Medications Current Outpatient Medications on File Prior to Visit Medication Sig FLUoxetine (PROZAC) 10 mg capsule Take 1 capsule by mouth once daily. glimepiride (AMARYL) 2 mg tablet Take 3 tablets every morning and 1 tablet every evening with meals magnesium oxide (MAG-OX) 400 mg (241.3 mg magnesium) tablet Take 1 tablet by mouth once daily. diclofenac (VOLTAREN ARTHRITIS PAIN) 1 % topical gel Apply 2 g to affected area four times daily. dulaglutide (TRULICITY) 4.5 mg/0.5 mL pen injector Inject 4.5 mg subcutaneously one time a week. pravastatin (PRAVACHOL) 20 mg tablet Take 1 tablet by mouth daily at bedtime. metFORMIN ER (GLUCOPHAGE XR) 500 mg 24 hr tablet Take 2 tablets by mouth twice daily. omeprazole (PRILOSEC) 20 mg capsule One pill by mouth daily 30 minutes before breakfast. metoprolol succinate ER (TOPROL XL) 100 mg Take 1 tablet by mouth once daily. ibuprofen (MOTRIN) 600 mg tablet Take 1 tablet by mouth every 6 hours as needed for pain. Blood-Glucose Meter monitoring kit Glucose Meter of Choice - Kit - Dx: Type 2 DM - Uncontrolled E11.65 acetaminophen (TYLENOL) 325 mg tablet Take 2 tablets by mouth every 6 hours as needed for Pain. gabapentin (NEURONTIN) 100 mg capsule Take 1 capsule PO in the morning, 1 capsule PO in the afternoon and 1-2 capsules PO at bedtime magnesium chloride (MAG DELAY, MAG 64) [address] tablet Take 1 tablet by mouth twice daily. (Patient not taking: Reported on 08/17/2022) clotrimazole-betamethasone (LOTRISONE) cream Apply 1 application to affected area twice daily. (Patient not taking: No sig reported) Blood Pressure Monitor 1 Each once daily. Dx: essential hypertension, type 2 diabetes (Patient not taking: No sig reported) cyanocobalamin (VITAMIN B-12) 1,000 mcg tab Take 1 tablet by mouth once daily. (Patient not taking: Reported on 08/17/2022) Blood Pressure Test Kit-Large (QUICK RESPONSE BP MONITOR) kit 1 Kit twice daily. (Patient not taking: No sig reported) No current facility-administered medications on file prior to visit. Social History Social History Tobacco Use Smoking status: Former Packs/day: 1.00 Years: 7.00 Pack years: 7.00 Types: Cigarettes Quit date: 03/28/2021 Years since quittin.3 Smokeless tobacco: Never Vaping Use Vaping Use: Never used Substance Use Topics Alcohol use: Yes Comment: Occasionally Drug use: No Review of Symptoms REVIEW OF SYSTEMS See HPI, otherwise negative EXAM: BP 136/92 (BP Site: Left Arm, BP Position: Sitting, BP Cuff Size: Regular Adult) Pulse 91 Temp (!) 35.9 C (96.6 F) Wt 125.3 kg (276 lb 3.2 oz) LMP 03/16/2022 (Within Days) SpO2 98% BMI 46.68 kg/m General Appearance: Well appearing, alert, in no acute distress, well-hydrated, well nourished. and Morbidly obese. Head: Normocephalic, no masses, lesions, tenderness or abnormalities. Eyes: Anicteric sclera. Pupils are equally round and reactive to light. Extraocular movements are intact. . Ears: External ears normal, canals clear. Nose/Sinuses: Positive findings: mucosa erythematous and swollen, clear rhinorrhea. Oropharynx: Lips, mucosa, and tongue normal, teeth and gums normal, oropharynx normal. Neck: Supple, no adenopathy; thyroid symmetric, normal size, no bruits. Lungs: Lungs clear to auscultation. No wheezing, rhonchi, rales.. Heart: RRR without murmur, gallop, or rubs. No ectopy. Health Maintenance List PNEUMOCOCCAL(1 - PCV) Never done DILATED RETINAL EXAM due on 10/26/2018 COVID-19 VACCINE(3 - Booster for Pfizer series) due on 07/28/2021 INFLUENZA(1) due on 04/28/2022 DIABETIC FOOT EXAM due on 05/05/2022 URINE ALBUMIN:CREATININE RATIO due on 05/06/2022 LDL CHOLESTEROL due on 05/06/2022 BP CONTROLLED (<130/80) due on 08/03/2022 HBA1C due on 08/22/2022 ANNUAL PCP TEAM CHRONIC DISEASE VISIT due on 06/29/2023 PAP TESTING due on 05/05/2026 HPV TESTING due on 05/05/2026 DTAP,TDAP,TD(7 - Td or Tdap) due on 05/02/2029 HEPATITIS B Completed HEPATITIS C SCREENING Completed HIV SCREENING Completed Data reviewed Previous records, office notes ASSESSMENT/PLAN: 1. URI, acute - ICD9: 465.9, ICD10: J06.9 (primary diagnosis) - Discussed viral etiology and rationale for treatment. - Symptomatic treatment with prn analgesia - Supportive care with fluids and rest - given upcoming [place] weekend if COVID and influenza testing is negative, will consider antibiotic - COVID WITH FLUA+B, ROUTINE 2. Sore throat - ICD9: 462, ICD10: J02.9 - Discussed viral etiology and rationale for treatment. - Symptomatic treatment with prn analgesia - Supportive care with fluids and rest - given upcoming [place] weekend if COVID and influenza testing is negative, will consider antibiotic - COVID WITH FLUA+B, ROUTINE 3. Chest congestion - ICD9: 786.9, ICD10: R09.89 - Discussed viral etiology and rationale for treatment. - Symptomatic treatment with prn analgesia - Supportive care with fluids and rest - given upcoming [place] weekend if COVID and influenza testing is negative, will consider antibiotic - COVID WITH FLUA+B, ROUTINE 4. Acute cough - ICD9: 786.2, ICD10: R05.1 - Discussed viral etiology and rationale for treatment. - Symptomatic treatment with prn analgesia - Supportive care with fluids and rest - given upcoming [place] weekend if COVID and influenza testing is negative, will consider antibiotic - COVID WITH FLUA+B, ROUTINE Vimal Wilde APRN.DIRECTOR OF REHABILITATIVE SERVICES documented in this encounter [facility] 08-08-2022 History of Present illness Narrative POPULATION HEALTH NAVIGATION OUTREACH Action/FYI RP OUTREACH: Contacted patient to schedule PT/OT, will call back when they are ready to schedule. Requested a message in [employer] with call back number. Pt identified by name and : YES, via phone Outreach Outcome/Action Spoke to patient or caregiver: Patient will return the call or ask for return call Did you use a PCP flex slot to schedule this appointment? No Reason for Outreach Care Gap or Scheduling/Wellness visits Payer: Payor: [facility] MEDICAID / [facility] / Product Type: Medicaid / Care Gap Reviewed:: N/A Reminder: Reminder note to check Health Maintenance for items below Health Maintenance items due: PNEUMOCOCCAL(1 - PCV) Never done DILATED RETINAL EXAM due on 10/26/2018 COVID-19 VACCINE(3 - Booster for Pfizer series) due on 07/28/2021 INFLUENZA(1) due on 04/28/2022 DIABETIC FOOT EXAM due on 05/05/2022 URINE ALBUMIN:CREATININE RATIO due on 05/06/2022 LDL CHOLESTEROL due on 05/06/2022 BP CONTROLLED (<130/80) due on 08/03/2022 Navigation Signature: Janine Shultz August 08, 2022 11:32 AM documented in this encounter [facility] 07-25-2022 Miscellaneous Notes Patient phones requesting refills as follows: Requested Prescriptions Pending Prescriptions Disp Refills FLUoxetine (PROZAC) 10 mg capsule [Pharmacy Med Name: fluoxetine 10 mg capsule] 90 capsule 0 Sig: Take 1 capsule by mouth once daily. glimepiride (AMARYL) 2 mg tablet [Pharmacy Med Name: glimepiride 2 mg tablet] 360 tablet 0 Sig: Take 3 tablets every morning and 1 tablet every evening with meals KENDAL-06/29/22 Labs-05/23/22 NOV-09/26/22 med filled 02/21/22 Please review and advise. Stephanie Brown LPN documented in this encounter [facility] 06-16-2022 Miscellaneous Notes Faxed 06/16/2022 Celina Mendez Ma Reordered with new diagnosis. Please fax. Thank you, Chaya Wilson APRN.DIRECTOR OF REHABILITATIVE SERVICES Kayy from [facility] DME section calling received order for wrist thumb spica brace. The carpel tunnel diagnosis is not covered with that type of brace, requesting another diagnosis please. Fax number is [phone]. Please advise documented in this encounter [facility] 05-26-2022 Miscellaneous Notes The following approved medication requests have been transmitted electronically. Requested Prescriptions Signed Prescriptions Disp Refills dulaglutide (TRULICITY) 4.5 mg/0.5 mL pen injector 6 mL 2 Sig: Inject 4.5 mg subcutaneously one time a week. Authorizing Provider: VIMAL WILDE APRN.KALPESH Pt informed, verbalized understanding. Pt reports she needs refill of trulicity. Pended for review. Celina Mendez Ma I'd like her to have her magnesium rechecked again in a month, after taking the rx. Please confirm with Sheila. She is supposed to be taking 4.5mg of the Trulicity. Please have her take the 4.5mg. does she need a new rx? She can have her A1C rechecked again in 3 months. Vimal Wilde APRN.CNP Pt informed, verbalized understanding. Pt reports she has been taking metformin as prescirbed. Just picked up magnesium prescription last night but didn't take it regularly before. Injects 3 mg of trulicity one time a week per pt. Celina Mendez Ma Please let Sheila know that I received her lab results. Her A1C is stable at 8.8, but still too high. Her magnesium is too low. Her liver enzymes remain elevated, but looks like this is her normal and is stable. A low magnesium level can be caused by metformin use. Is she taking her metformin as prescribed? Is she taking her magnesium as prescribed? How often is she taking her Trulicity? I believe her most previous note says she has not been taking this regularly. Vimal Wilde APRN.CNP documented in this encounter [facility] 05-24-2022 Miscellaneous Notes Please schedule daughter as below. Kiara Alvarado LPN Due to her age and diagnosis -- she needs to see pediatric endocrinology. Thank you, Chaya Wilson APRN.DIRECTOR OF REHABILITATIVE SERVICES Phoned patient and scheduled appt with DESIGN QUALITY ENGINEER for 05/23 at 320 pm. Mother said daughter name is Melina Pryor 12/29/2006, . How old is daughter? Mario Gonzales DO Before calling pt back are you okay with taking DaughterMelina as a new pt? Notes she was dx with DM. Kaitlin Dinero Ma Please have her schedule appt with provider to discuss, ok with Dina or Chaya Gonzales DO Patient calls and states that she started to work in February. Patient states that every night when she gets home her hands are numb. Patient knows that she has carpal tunnel. Patient asking if there is anything that she can do for the nerve pain? Patient also states that her daughter Melina has been diagnosed with Diabetes. Patient asking if there is any way that provider can take on Melina as a patient? Please review and advise, Camille Josue RN documented in this encounter [facility] 04-08-2022 History of Present illness Narrative Chief Complaint Patient presents with: Abdominal Pain: x 1 day. Had Urine culture 1 week ago HPI Sheila Lofton Friend is a 36 year old female who presents here today for Above Complaints.. Sheila is an established patient of Dr. Gonzales, DO and myself. Concerns today.. ABD pain -- Woke up this morning with lower abd/pelvis shooting pain. Went back to sleep and then woke again with mild cramping pelvic pain that remains since. Reports hard to have a BM because pain worsens. Described as bloating and cramping discomfort. Leaning forward makes pain better. Pt denies any n/v/d/c. Had recent possible UTI 03/22, seen at urgent care and given Bactrim BID x 3 days. Urine culture showed little to no bacteria growth. Pt still finished antibiotic and symptoms improved. Pt denies any urinary frequency, urgency, or dysuria with this episode today. Denies any flank pain or known hx of kidney stones. LMP 03/16/22. Denies any vaginal bleeding today. Past medical history, appointments, medications, allergies reviewed. Previous Medical History PAST MEDICAL HISTORY Diagnosis Date Benign hypertensive heart disease without heart failure Diabetes mellitus type 2 in obese (HCC) Helicobacter pylori infection 09/23/2016 Hypertension Tobacco abuse 04/23/2013 Trichomonosis 09/2018 Previous Surgical History PAST SURGICAL HISTORY Procedure Laterality Date PAST SURGICAL HISTORY OF 2010 [facility] Procedure TONSILLECTOMY PRIMARY/SECONDARY <AGE 12 Family History FAMILY HISTORY Problem Relation Age of Onset Diabetes Mother Heart Mother Hypertension Mother Lipids Mother Osteoporosis Mother Diabetes Father Heart Father Hypertension Father Lipids Father Diabetes Paternal Grandfather Heart Paternal Grandfather Hypertension Paternal Grandfather Cancer Paternal Grandmother unsure of the type Diabetes Paternal Grandmother Heart Paternal Grandmother Hypertension Paternal Grandmother Cancer Maternal Grandmother lung Diabetes Maternal Grandmother Heart Maternal Grandmother Hypertension Maternal Grandmother Diabetes Maternal Grandfather Heart Maternal Grandfather Hypertension Maternal Grandfather Patient Allergies ALLERGIES Allergen Reactions Naproxen Itching Percocet [Oxycodone* Rash itching Current Medications Current Outpatient Medications on File Prior to Visit Medication Sig magnesium chloride (MAG DELAY, MAG 64) [address] tablet Take 1 tablet by mouth twice daily. clotrimazole-betamethasone (LOTRISONE) cream Apply 1 application to affected area twice daily. FLUoxetine (PROZAC) 10 mg capsule Take 1 capsule by mouth once daily. glimepiride (AMARYL) 2 mg tablet Take 3 tablets every morning and 1 tablet every evening with meals dulaglutide (TRULICITY) 4.5 mg/0.5 mL pen injector Inject 4.5 mg subcutaneously one time a week. pravastatin (PRAVACHOL) 20 mg tablet Take 1 tablet by mouth daily at bedtime. metFORMIN ER (GLUCOPHAGE XR) 500 mg 24 hr tablet Take 2 tablets by mouth twice daily. omeprazole (PRILOSEC) 20 mg capsule One pill by mouth daily 30 minutes before breakfast. gabapentin (NEURONTIN) 100 mg capsule Take 1 capsule PO in the morning, 1 capsule PO in the afternoon and 1-2 capsules PO at bedtime Blood Pressure Monitor 1 Each once daily. Dx: essential hypertension, type 2 diabetes (Patient not taking: Reported on 02/21/2022 ) metoprolol succinate ER (TOPROL XL) 100 mg Take 1 tablet by mouth once daily. cyanocobalamin (VITAMIN B-12) 1,000 mcg tab Take 1 tablet by mouth once daily. (Patient not taking: Reported on 12/13/2021 ) ibuprofen (MOTRIN) 600 mg tablet Take 1 tablet by mouth every 6 hours as needed for pain. Blood-Glucose Meter monitoring kit Glucose Meter of Choice - Kit - Dx: Type 2 DM - Uncontrolled E11.65 acetaminophen (TYLENOL) 325 mg tablet Take 2 tablets by mouth every 6 hours as needed for Pain. Blood Pressure Test Kit-Large (QUICK RESPONSE BP MONITOR) kit 1 Kit twice daily. (Patient not taking: Reported on 02/21/2022 ) Blood Pressure Cuff - Home Use BLOOD PRESSURE CUFF FOR HOME USE. DX: LABILE BLOOD PRESSURE (Patient not taking: Reported on 02/21/2022 ) Current Facility-Administered Medications on File Prior to Visit Medication perflutren lipid microspheres 1.3 mL in NaCl (PF) 0.9% 10 mL injection (DEFINITY) sodium chloride 0.9 % (flush) 10 mL (BD POSIFLUSH) Social History Social History Tobacco Use Smoking status: Former Packs/day: 1.00 Years: 7.00 Pack years: 7.00 Types: Cigarettes Quit date: 03/28/2021 Years since quittin.0 Smokeless tobacco: Never Vaping Use Vaping Use: Never used Substance Use Topics Alcohol use: Yes Comment: Occasionally Drug use: No REVIEW OF SYSTEMS: as above Reviewed relevant PMHx, PSHx, Social Hx, current medications and allergies. Review of Symptoms REVIEW OF SYSTEMS See HPI. All other systems are negative. EXAM: BP (P) 150/84 Pulse (P) 80 Temp (P) 36.7 C (98.1 F) (Temporal) Resp (P) 20 Wt 126.1 kg (278 lb) LMP 03/16/2022 (Within Days) BMI 46.98 kg/m General Appearance: Well appearing, alert, in no acute distress, well-hydrated, well nourished.. Skin: Skin color, texture, turgor normal, no suspicious rashes or lesions. Back:no pain to palpation of vertebrae, good flexion and extension, good range of motion, no muscle tenderness, reflexes are 2+ and symmetric, motor and sensory appear to be normal, negative SLR test, no evidence of scoliosis. No CVA tenderness. Lungs: Lungs clear to auscultation. No wheezing, rhonchi, rales.. Heart: RRR without murmur, gallop, or rubs. No ectopy. Abdomen: Normal abdominal exam, Abdomen soft, non-tender. Bowel sounds normal. No masses, organomegaly. Neurologic: Gait normal. Reflexes normal and symmetric. Sensation grossly intact.. Health Maintenance List PNEUMOCOCCAL(1 - PCV) Never done DILATED RETINAL EXAM due on 10/26/2018 COVID-19 VACCINE(3 - Booster for Pfizer series) due on 10/31/2021 DIABETIC FOOT EXAM due on 05/05/2022 URINE ALBUMIN:CREATININE RATIO due on 05/06/2022 LDL CHOLESTEROL due on 05/06/2022 HBA1C due on 04/22/2022 INFLUENZA(1) due on 04/28/2022 BP CONTROLLED (<130/80) due on 08/03/2022 ANNUAL PCP TEAM CHRONIC DISEASE VISIT due on 03/25/2023 PAP TESTING due on 05/05/2026 HPV TESTING due on 05/05/2026 DTAP,TDAP,TD(7 - Td or Tdap) due on 05/02/2029 HEPATITIS B Completed HEPATITIS C SCREENING Completed HIV SCREENING Completed ASSESSMENT/PLAN: 1. Pelvic pain - ICD9: [id number], ICD10: R10.2 (primary diagnosis) Etiology unclear Differential Diagnosis includes PUD, Gastritis, IBS, Constipation, Ovarian cyst, and Cystitis. - Start bentyl with meals and at bedtime for bloating and cramping. If no improvement and no cause found, may need colonoscopy. - If symptoms worsen greatly over the weekend -- report to ED. - Increase fiber in diet - [place] low residue diet - UA DIP, URINE (POC) --- negative, besides + glucose (known uncontrolled diabetic) - URINALYSIS, WITH MICROSCOPIC - HCG QUAL UR B/O -- negative. - US FEMALE PELVIS TRANSABD LTD - US FEMALE PELVIS TRANSVAG - DICYCLOMINE 10 MG CAPSULE - URINE CULTURE 2. Pelvic cramping - ICD9: 625.9, ICD10: R10.2 See above. - UA DIP, URINE (POC) - URINALYSIS, WITH MICROSCOPIC - HCG QUAL UR B/O - DICYCLOMINE 10 MG CAPSULE - URINE CULTURE 3. Bloating - ICD9: 787.3, ICD10: R14.0 See above. - DICYCLOMINE 10 MG CAPSULE 4. Nerve pain - ICD9: 729.2, ICD10: M79.2 Stable. Well controlled. Refilled. - GABAPENTIN 100 MG CAPSULE RTO if symptoms worsen or do not improve. Prescription instructions reviewed with patient as applicable. Potential red flag symptoms discussed with the patient. Reviewed appropriate action plan to take if red flag symptoms occur. Patient agreeable to treatment plan. Chaya Wilson APRN.CNP [address] [place] [address] documented in this encounter [facility] 04-08-2022 Miscellaneous Notes Noted. Will address at appointment. Chaya Wilson APRN.CNP Protocol recommends See provider within 24 hours for evaluation. Appt made with Chaya Wilson for 1:20pm today. Please call patient if provider as alternative instructions/advise. Thank you. Reason for Disposition [1] MODERATE pain (e.g., interferes with normal activities) AND [2] pain comes and goes (cramps) AND [3] present > 24 hours (Exception: pain with Vomiting or Diarrhea - see that Guideline) Answer Assessment - Initial Assessment Questions Patient reports this morning awhile getting ready for work, she urinated and then showered, and after her shower she got severe shooting pains in her lower abdomen. She states she could not move due to the pain.She then rested after that and fell asleep. Currently having mild abdominal discomfort. Unable to bear down-causes her to have shooting pains. When she sits, she states she feels like she has to go to the bathroom. Yesterday her right back side was hurting her but is not today. 1. LOCATION: lower abdomen 2. RADIATION: no 3. ONSET: this morning 4. SUDDEN: sudden 5. PATTERN comes and goes 6. SEVERITY: severe when bears down 7. RECURRENT SYMPTOM: one time last week 8. CAUSE: Patient not sure if UTI related 9. RELIEVING/AGGRAVATING FACTORS: not bearing down 10. OTHER SYMPTOMS: Denies fever, nausea, vomiting, diarrhea, constipation, or urine problems at this time. 11. : no Protocols used: Abdominal Pain - [id number] documented in this encounter [facility] 03-29-2022 Miscellaneous Notes Patient returned call and given provider's message below with verbalized understanding. Message left to return call. Kiara Alvaardo LPN Please let Sheila know that I received her lab results. Her blood glucose level is very high. This is likely the result of her vaginal burning, as she is spilling glucose into her urine, which can cause a yeast infection. Her leg cramping is likely due to her low magnesium level. I'd like her to begin taking a magnesium supplement twice daily. I've sent this to the pharmacy. Her sodium and chloride levels are just a bit low. I'd like her to make sure she is drinking no more than 64oz water daily. Her liver enzymes are elevated. We need to recheck her magnesium, sodium, chloride, and liver enzyme levels again in 2 weeks. I'd also like to draw her A1C at that point as well. The following approved medication requests have been transmitted electronically. Signed Prescriptions Disp Refills magnesium chloride (MAG DELAY, MAG 64) [address] tablet 60 tablet 0 Sig: Take 1 tablet by mouth twice daily. Authorizing Provider: VIMAL WILDE APRN.KALPESH documented in this encounter [facility] 03-25-2022 History of Present illness Narrative Chief Complaint Patient presents with: Follow Up: UTI Leg Cramps abdominal cramping HPI Sheila Lofton Friend is a 36 year old female who presents here today for Above Complaints. Was seen 3 days ago in urgent care with urinary sx. Given Bactrim for UTI. Culture returned with mixed red. Today: Finished 3 day supply of Bactrim. Burningafter urination. Legs have been crampy at nighttime. When picking something up will get cramping in her abdomen. Blood glucose levels have been running lower lately-yesterday was 112. Past medical history, appointments, medications, allergies reviewed. Previous Medical History PAST MEDICAL HISTORY Diagnosis Date Benign hypertensive heart disease without heart failure Diabetes mellitus type 2 in obese (HCC) Helicobacter pylori infection 09/23/2016 Hypertension Tobacco abuse 04/23/2013 Trichomonosis 09/2018 Previous Surgical History PAST SURGICAL HISTORY Procedure Laterality Date PAST SURGICAL HISTORY OF 2010 [facility] Procedure TONSILLECTOMY PRIMARY/SECONDARY <AGE 12 Family History FAMILY HISTORY Problem Relation Age of Onset Diabetes Mother Heart Mother Hypertension Mother Lipids Mother Osteoporosis Mother Diabetes Father Heart Father Hypertension Father Lipids Father Diabetes Paternal Grandfather Heart Paternal Grandfather Hypertension Paternal Grandfather Cancer Paternal Grandmother unsure of the type Diabetes Paternal Grandmother Heart Paternal Grandmother Hypertension Paternal Grandmother Cancer Maternal Grandmother lung Diabetes Maternal Grandmother Heart Maternal Grandmother Hypertension Maternal Grandmother Diabetes Maternal Grandfather Heart Maternal Grandfather Hypertension Maternal Grandfather Patient Allergies ALLERGIES Allergen Reactions Naproxen Itching Percocet [Oxycodone* Rash itching Current Medications Current Outpatient Medications on File Prior to Visit Medication Sig clotrimazole-betamethasone (LOTRISONE) cream Apply 1 application to affected area twice daily. FLUoxetine (PROZAC) 10 mg capsule Take 1 capsule by mouth once daily. glimepiride (AMARYL) 2 mg tablet Take 3 tablets every morning and 1 tablet every evening with meals dulaglutide (TRULICITY) 4.5 mg/0.5 mL pen injector Inject 4.5 mg subcutaneously one time a week. pravastatin (PRAVACHOL) 20 mg tablet Take 1 tablet by mouth daily at bedtime. metFORMIN ER (GLUCOPHAGE XR) 500 mg 24 hr tablet Take 2 tablets by mouth twice daily. omeprazole (PRILOSEC) 20 mg capsule One pill by mouth daily 30 minutes before breakfast. gabapentin (NEURONTIN) 100 mg capsule Take 1 capsule PO in the morning, 1 capsule PO in the afternoon and 1-2 capsules PO at bedtime metoprolol succinate ER (TOPROL XL) 100 mg Take 1 tablet by mouth once daily. ibuprofen (MOTRIN) 600 mg tablet Take 1 tablet by mouth every 6 hours as needed for pain. Blood-Glucose Meter monitoring kit Glucose Meter of Choice - Kit - Dx: Type 2 DM - Uncontrolled E11.65 acetaminophen (TYLENOL) 325 mg tablet Take 2 tablets by mouth every 6 hours as needed for Pain. sulfamethoxazole-trimethoprim (BACTRIM DS) 800-160 mg per tablet Take 1 tablet by mouth twice daily for 3 days. (Patient not taking: Reported on 03/25/2022 ) Blood Pressure Monitor 1 Each once daily. Dx: essential hypertension, type 2 diabetes (Patient not taking: Reported on 02/21/2022 ) cyanocobalamin (VITAMIN B-12) 1,000 mcg tab Take 1 tablet by mouth once daily. (Patient not taking: Reported on 12/13/2021 ) Blood Pressure Test Kit-Large (QUICK RESPONSE BP MONITOR) kit 1 Kit twice daily. (Patient not taking: Reported on 02/21/2022 ) Blood Pressure Cuff - Home Use BLOOD PRESSURE CUFF FOR HOME USE. DX: LABILE BLOOD PRESSURE (Patient not taking: Reported on 02/21/2022 ) Current Facility-Administered Medications on File Prior to Visit Medication perflutren lipid microspheres 1.3 mL in NaCl (PF) 0.9% 10 mL injection (DEFINITY) sodium chloride 0.9 % (flush) 10 mL (BD POSIFLUSH) Social History Social History Tobacco Use Smoking status: Former Smoker Packs/day: 1.00 Years: 7.00 Pack years: 7.00 Types: Cigarettes Quit date: 03/28/2021 Years since quittin.9 Smokeless tobacco: Never Used Vaping Use Vaping Use: Never used Substance Use Topics Alcohol use: Yes Comment: Occasionally Drug use: No Review of Symptoms REVIEW OF SYSTEMS see HPI, otherwise negative EXAM: BP 160/94 (BP Site: Left Arm, BP Position: Sitting, BP Cuff Size: Regular Adult) Pulse 89 Resp 16 Wt 125.6 kg (276 lb 12.8 oz) LMP 02/11/2022 (Within Days) SpO2 97% BMI 46.78 kg/m General Appearance: Well appearing, alert, in no acute distress, well-hydrated, well nourished. and Morbidly obese. Heart: RRR without murmur, gallop, or rubs. No ectopy. Musculoskeletal: No joint swelling, deformity, or tenderness. Peripheral Pulses: Normal. Health Maintenance List PNEUMOCOCCAL(1 - PCV) Never done DILATED RETINAL EXAM due on 10/26/2018 COVID-19 VACCINE(3 - Booster for Pfizer series) due on 10/31/2021 HBA1C due on 04/22/2022 INFLUENZA(1) due on 04/28/2022 DIABETIC FOOT EXAM due on 05/05/2022 URINE ALBUMIN:CREATININE RATIO due on 05/06/2022 LDL CHOLESTEROL due on 05/06/2022 BP CONTROLLED (<130/80) due on 03/22/2023 ANNUAL PCP TEAM CHRONIC DISEASE VISIT due on 03/23/2023 PAP TESTING due on 05/05/2026 HPV TESTING due on 05/05/2026 DTAP,TDAP,TD(7 - Td or Tdap) due on 05/02/2029 HEPATITIS B Completed HEPATITIS C SCREENING Completed HIV SCREENING Completed Data reviewed Previous records, office notes ASSESSMENT/PLAN: 1. Vaginal burning - ICD9: 625.8, ICD10: N94.9 (primary diagnosis) Suspect sx are not urinary but vaginal candidiasis. Recent vaginal swab positive for arturo. A1C 8.6. Recent UA positive for glucose spilling to urine. Suspect causes of felt vaginal burning. - FLUCONAZOLE 150 MG TABLET - UA WITH CULTURE IF INDICATED 2. Vaginal arturo - ICD9: 112.1, ICD10: B37.3 Suspect sx are not urinary but vaginal candidiasis. Recent vaginal swab positive for arturo. A1C 8.6. Recent UA positive for glucose spilling to urine. Suspect causes of felt vaginal burning. - FLUCONAZOLE 150 MG TABLET - UA WITH CULTURE IF INDICATED 3. Abdominal cramping - ICD9: 789.00, ICD10: R10.9 - CBC - COMP METABOLIC PANEL - MAGNESIUM BLD 4. Leg cramping - ICD9: 729.82, ICD10: R25.2 - CBC - COMP METABOLIC PANEL - MAGNESIUM BLD Vimal Wilde APRN.DIRECTOR OF REHABILITATIVE SERVICES documented in this encounter [facility] 03-25-2022 Miscellaneous Notes Phone call placed patient advised (see prior provider encounter) Patient verbalized understanding, agreed with plan of care. Janet Gaitan LPN ----- Message from Radha Nicole APRN.DIRECTOR OF REHABILITATIVE SERVICES sent at 03/24/2022 11:05 AM EDT ----- Urine culture did not show clear evidence of infection, however it appears sample may have been contaminated with skin bacteria during collection. She may continue to take antibiotic if it has been helpful. Recommend follow up with PCP to ensure hematuria has resolved. Radha Nicole CNP documented in this encounter [facility] 03-24-2022 Miscellaneous Notes Spoke with patient. Given message from provider's office. Patient verbalizes understanding. Fariba Stanley RN Phone call placed, brief message to contact a nurse. Janet Gaitan LPN ----- Message from Radha Nicole APRN.DIRECTOR OF REHABILITATIVE SERVICES sent at 03/24/2022 11:05 AM EDT ----- Urine culture did not show clear evidence of infection, however it appears sample may have been contaminated with skin bacteria during collection. She may continue to take antibiotic if it has been helpful. Recommend follow up with PCP to ensure hematuria has resolved. Radha Nicole CNP documented in this encounter [facility] 03-22-2022 History of Present illness Narrative Subjective The history is provided by the patient. No foreign language interpreter was used. SRIRAM Lofton Friend is a 36 year old female who presents today for CC of burning, urgency and frequency. This started over the past 3 days. Positive for Dysuria, Increase in frequency of urination and Urgency, Negative for Sense of incomplete void, Fevers, Vomiting, Diarrhea, Abdominal pain , Back/Flank pain, Blood in urine and Vaginal itch or discharge Chance of : No Last intercourse: n/a Any self-treatment attempted: Yes Number of previous UTI's in last 6 months:0 Number of previous UTI's in last 12 months: 0 Aggravating Factors: recent vaginal infection, diabetic Alleviating Factors include AZO and Increasing fluids with minimal relief in symptoms. Currently on menses BP 124/78 Pulse 80 Temp 36.3 C (97.4 F) (Tympanic) Resp 16 Wt 127.1 kg (280 lb 3.2 oz) LMP 02/11/2022 (Within Days) SpO2 98% BMI 47.35 kg/m Social History Tobacco Use Smoking status: Former Smoker Packs/day: 1.00 Years: 7.00 Pack years: 7.00 Types: Cigarettes Quit date: 03/28/2021 Years since quittin.9 Smokeless tobacco: Never Used Vaping Use Vaping Use: Never used Substance Use Topics Alcohol use: Yes Comment: Occasionally Drug use: No PAST MEDICAL HISTORY Diagnosis Date Benign hypertensive heart disease without heart failure Diabetes mellitus type 2 in obese (HCC) Helicobacter pylori infection 09/23/2016 Hypertension Tobacco abuse 04/23/2013 Trichomonosis 09/2018 I have confirmed and edited as necessary, the [facility] Review of Systems Constitutional: Negative for chills and fever. Gastrointestinal: Negative for abdominal pain. Genitourinary: Positive for dysuria, frequency and urgency. Negative for flank pain and hematuria. Objective Physical Exam Vitals and nursing note reviewed. Constitutional: Appearance: Normal appearance. Abdominal: General: Bowel sounds are normal. There is no abdominal bruit. Palpations: Abdomen is not rigid. There is no mass or pulsatile mass. Tenderness: There is no abdominal tenderness. There is no guarding or rebound. Negative signs include White's sign and McBurney's sign. Neurological: Mental Status: She is alert and oriented to person, place, and time. Psychiatric: Mood and Affect: Affect normal. ASSESSMENT/PLAN: 1. Urinary frequency - ICD9: 788.41, ICD10: R35.0 (primary diagnosis) acute - UA positive for garcy esterase, hematuria, proteinuria and nitrates - took azo, not accurrate - Send urine for culture - Begin treatment with Bactrim DS BID for 3 days - Patient education for prevention given - UA DIP, URINE (POC) - URINE CULTURE 2. UTI symptoms - ICD9: 788.99, ICD10: R39.9 Appears to be UTI 3. Feared condition not demonstrated - ICD9: V65.5, ICD10: Z71.1 Usually gets yeast infection with antibiotic use, requesting fluconazole Diagnosis and treatment plan were discussed and questions were answered to the patient's satisfaction. Pt acknowledged understanding of concepts and follow up plan. Specific signs and symptoms that would indicate the need for higher level of care were discussed in detail warranting prompt ER evaluation. Shanda Quan APRN.KALPESH documented in this encounter [facility] 03-11-2022 History of Present illness Narrative Sheila Jimenes is a 36 year old female who presents for concerns regarding vaginal infection. Patient states she was treated about a month ago for yeast infection slightly improved but did not completely. Patient states she still has a burning and itching sensation along with white and clear discharge. Patient denies any vaginal odor. Patient states she found out her boyfriend was cheating on her so she does want STD screening as well. Patient does report a history of gonorrhea and chlamydia proximately 14 years ago as well as trichomonas more recently. Patient does have a history of diabetes that is not well managed. Patient states her blood sugars are still elevated. Patient offers no other concerns at this time. She denies any dysuria, fevers or significant pelvic pain. OB History T0 L3 SAB0 IAB0 Ectopic0 Multiple0 Live Births0 Comment: x 3 Multilith Operator History LMP: 11/24/2021, Having periods Age at Menarche: Age at First : Age at Menopause: Multilith Operator History Comments: Sexual Activity: Yes; Male; Essure Contraception: Surgical PAST MEDICAL HISTORY Diagnosis Date Benign hypertensive heart disease without heart failure Diabetes mellitus type 2 in obese (HCC) Helicobacter pylori infection 09/23/2016 Hypertension Tobacco abuse 04/23/2013 Trichomonosis 09/2018 PAST SURGICAL HISTORY Procedure Laterality Date PAST SURGICAL HISTORY OF 2010 [facility] Procedure TONSILLECTOMY PRIMARY/SECONDARY <AGE 12 FAMILY HISTORY Problem Relation Age of Onset Diabetes Mother Heart Mother Hypertension Mother Lipids Mother Osteoporosis Mother Diabetes Father Heart Father Hypertension Father Lipids Father Diabetes Paternal Grandfather Heart Paternal Grandfather Hypertension Paternal Grandfather Cancer Paternal Grandmother unsure of the type Diabetes Paternal Grandmother Heart Paternal Grandmother Hypertension Paternal Grandmother Cancer Maternal Grandmother lung Diabetes Maternal Grandmother Heart Maternal Grandmother Hypertension Maternal Grandmother Diabetes Maternal Grandfather Heart Maternal Grandfather Hypertension Maternal Grandfather Social History Tobacco Use Smoking status: Former Smoker Packs/day: 1.00 Years: 7.00 Pack years: 7.00 Types: Cigarettes Quit date: 03/28/2021 Years since quittin.9 Smokeless tobacco: Never Used Vaping Use Vaping Use: Never used Substance Use Topics Alcohol use: Yes Comment: Occasionally Drug use: No Current Outpatient Medications Medication Sig FLUoxetine (PROZAC) 10 mg capsule Take 1 capsule by mouth once daily. glimepiride (AMARYL) 2 mg tablet Take 3 tablets every morning and 1 tablet every evening with meals dulaglutide (TRULICITY) 4.5 mg/0.5 mL pen injector Inject 4.5 mg subcutaneously one time a week. pravastatin (PRAVACHOL) 20 mg tablet Take 1 tablet by mouth daily at bedtime. metFORMIN ER (GLUCOPHAGE XR) 500 mg 24 hr tablet Take 2 tablets by mouth twice daily. omeprazole (PRILOSEC) 20 mg capsule One pill by mouth daily 30 minutes before breakfast. gabapentin (NEURONTIN) 100 mg capsule Take 1 capsule PO in the morning, 1 capsule PO in the afternoon and 1-2 capsules PO at bedtime Blood Pressure Monitor 1 Each once daily. Dx: essential hypertension, type 2 diabetes (Patient not taking: Reported on 02/21/2022 ) metoprolol succinate ER (TOPROL XL) 100 mg Take 1 tablet by mouth once daily. cyanocobalamin (VITAMIN B-12) 1,000 mcg tab Take 1 tablet by mouth once daily. (Patient not taking: Reported on 12/13/2021 ) ibuprofen (MOTRIN) 600 mg tablet Take 1 tablet by mouth every 6 hours as needed for pain. Blood-Glucose Meter monitoring kit Glucose Meter of Choice - Kit - Dx: Type 2 DM - Uncontrolled E11.65 acetaminophen (TYLENOL) 325 mg tablet Take 2 tablets by mouth every 6 hours as needed for Pain. Blood Pressure Test Kit-Large (QUICK RESPONSE BP MONITOR) kit 1 Kit twice daily. (Patient not taking: Reported on 02/21/2022 ) Blood Pressure Cuff - Home Use BLOOD PRESSURE CUFF FOR HOME USE. DX: LABILE BLOOD PRESSURE (Patient not taking: Reported on 02/21/2022 ) Current Facility-Administered Medications Medication Dose Route Frequency perflutren lipid microspheres 1.3 mL in NaCl (PF) 0.9% 10 mL injection (DEFINITY) INTRAVENOUS DIRECTED PRN sodium chloride 0.9 % (flush) 10 mL (BD POSIFLUSH) 10 mL INTRAVENOUS DIRECTED PRN Allergies As of Date: 03/11/2022 Allergen Noted Reaction NAPROXEN 04/23/2013 Itching PERCOCET [OXYCODONE-ACETAMINOPHEN] 3 Rash Fully Assessed 02/21/2022 REVIEW OF SYSTEMS Abdomen: no pain Bladder: no dysuria . Expanded ROS: GENERAL: Negative for fever Allergies and current medication updated:Yes EXAM: BP 132/86 Wt 278 lb (126.1kg) LMP 02/11/2022 GENERAL: pleasant, female in no apparent distress HEENT: Normocephalic, atraumatic, mucus membranes moist and no lesions NECK: full range of motion DERMATOLOGY: Normal, without lesions, non-icteric and non-hirsute PELVIC: normal Bartholin's glands, urethra, Corsica's glands, no cervical lesions, good vaginal support, physiologic discharge present, normal appearing perineal body and perianal region, vulva is erythematous with some minor excoriations consistent with yeast dermatitis. NEURO: alert and oriented x3,exam grossly non-focal EXTREMITIES: normal ASSESSMENT AND PLAN: Encounter Diagnosis ICD-10-CM 1. Vaginal burning N94.9 ARTURO / TRICHOMONAS AMPLIFICATION BACTERIAL VAGINOSIS AMPLIFICATION GC/CHLAMYDIA DNA DET 2. Vaginal discharge N89.8 ARTURO / TRICHOMONAS AMPLIFICATION BACTERIAL VAGINOSIS AMPLIFICATION GC/CHLAMYDIA DNA DET 3. Screen for STD (sexually transmitted disease) Z11.3 GC/CHLAMYDIA DNA DET 4. lotrsione and diflucan ordered. Importance of strict management of diabetes was reviewed with the patient. Vulvar hygiene was again reviewed with the patient. Medical Decision Making: Problems: Low: Acute, uncomplicated illness or injury Data: Unique test(s) ordered: 3+ Risk: Moderate: Drug management Medical Decision Making Level: 4 - Moderate Aileen Salas MD documented in this encounter [facility] 03-07-2022 History of Present illness Narrative Primary Care Pharmacy Visit REASON FOR CONSULT: DM GOALS: A1c < 7% CONSULTING PROVIDER: Chaya Wilson APRN.CNP Date of Consult: 02/21/22 Sheila Jimenes is a 36 year old female presenting for follow up visit by telephone. Patient consents to pharmacy collaborative practice agreement. Last seen by Chaya Wilson APRN.CNP on 02/21/22. At last DIRECTOR OF REHABILITATIVE SERVICES appt, patient expressed GI symptoms related to Trulicity, and Trulicity was switched to Rybelsus. Patient was not able to obtain Rybelsus due to not covered on insurance. Patients insurance only covers Trulicity, Victoza or Byetta in GLP1 RA class. Pt declines any injectable therapy that needs to be injected daily. At last PharmD visit on 02/22/22, discussed with patient all GLP1 RA have a similar ADEs profile including nausea, discussed changes to diet can assist in managing nausea and referred to nutrition therapy. INTERIM HISTORY: Pt reports nausea continues on and off, not worse. Typically occurs in the evening after large meal She has not scheduled with nutrition therapy, states she has tried in the past and is not interested in making diet changes Patient is not monitoring blood sugars at home Current DM Medications: Metformin ER 500mg tabs - 1000mg BID Glimepiride 2mg tabs - 6mg qAM and 2mg qPM with meals Trulicity 4.5 mg weekly Preventative Medications: On DASHA/ARB: No On Statin: Yes GLYCEMIC CONTROL: Glucometer present at visit: No SMBG s: No, not monitoring BG at home Hypoglycemia: denies ROS: Patient denies CP, SOB, SHELDON, blurred vision, dizziness or lightheadedness Patient reports nausea, denies vomiting, diarrhea, abdominal pain Patient denies symptoms of hypoglycemia (sweating, anxiety, palpitations, hunger, and tremor) Patient denies symptoms of hyperglycemia (polyuria, polydipsia, polyphagia) Patient denies potential medication adverse effects DIET/EXERCISE/SOCIAL Hx: Breakfast: bowl of cereal or breakfast sandwich Lunch: chips, ravioli Dinner:meat, side and vegetable Snacks: cereal between dinner and bedtime, candy bar, cup Beverages: diet soda with breakfast, milk, water Exercise: no scheduled activity Tobacco Use: Smoking status: Former Smoker, Packs/day: 1.00, Years: 7.00 MEDICATIONS: Pill bottles are not present. Adherence: reports missed doses. ACTIVE PROBLEM LIST Hypertension, Essential Major Depressive Disorder, Recurrent Episode, Moderate (Hcc) Morbid Obesity With Bmi of 45.0-49.9, Adult (Hcc) Hypertriglyceridemia Type 2 Diabetes Mellitus With Hyperglycemia, Without Long-Term Current Use of Insulin (Hcc) Fatty Liver History of Loop Electrical Excision Procedure (Leep) Genital Condyloma, Female Ascus With Positive High Risk Hpv Cervical Fatigue Nerve Pain Left Arm Pain Anxiety and Depression PAST MEDICAL HISTORY Diagnosis Date Benign hypertensive heart disease without heart failure Diabetes mellitus type 2 in obese (HCC) Helicobacter pylori infection 09/23/2016 Hypertension Tobacco abuse 04/23/2013 Trichomonosis 09/2018 ALLERGIES Allergen Reactions Naproxen Itching Percocet [Oxycodone* Rash itching Current Outpatient Medications Medication Sig FLUoxetine (PROZAC) 10 mg capsule Take 1 capsule by mouth once daily. glimepiride (AMARYL) 2 mg tablet Take 3 tablets every morning and 1 tablet every evening with meals dulaglutide (TRULICITY) 4.5 mg/0.5 mL pen injector Inject 4.5 mg subcutaneously one time a week. pravastatin (PRAVACHOL) 20 mg tablet Take 1 tablet by mouth daily at bedtime. metFORMIN ER (GLUCOPHAGE XR) 500 mg 24 hr tablet Take 2 tablets by mouth twice daily. omeprazole (PRILOSEC) 20 mg capsule One pill by mouth daily 30 minutes before breakfast. gabapentin (NEURONTIN) 100 mg capsule Take 1 capsule PO in the morning, 1 capsule PO in the afternoon and 1-2 capsules PO at bedtime Blood Pressure Monitor 1 Each once daily. Dx: essential hypertension, type 2 diabetes (Patient not taking: Reported on 02/21/2022 ) metoprolol succinate ER (TOPROL XL) 100 mg Take 1 tablet by mouth once daily. cyanocobalamin (VITAMIN B-12) 1,000 mcg tab Take 1 tablet by mouth once daily. (Patient not taking: Reported on 12/13/2021 ) ibuprofen (MOTRIN) 600 mg tablet Take 1 tablet by mouth every 6 hours as needed for pain. Blood-Glucose Meter monitoring kit Glucose Meter of Choice - Kit - Dx: Type 2 DM - Uncontrolled E11.65 acetaminophen (TYLENOL) 325 mg tablet Take 2 tablets by mouth every 6 hours as needed for Pain. Blood Pressure Test Kit-Large (QUICK RESPONSE BP MONITOR) kit 1 Kit twice daily. (Patient not taking: Reported on 02/21/2022 ) Blood Pressure Cuff - Home Use BLOOD PRESSURE CUFF FOR HOME USE. DX: LABILE BLOOD PRESSURE (Patient not taking: Reported on 02/21/2022 ) Current Facility-Administered Medications Medication Dose Route Frequency perflutren lipid microspheres 1.3 mL in NaCl (PF) 0.9% 10 mL injection (DEFINITY) INTRAVENOUS DIRECTED PRN sodium chloride 0.9 % (flush) 10 mL (BD POSIFLUSH) 10 mL INTRAVENOUS DIRECTED PRN EXAM: Last 3 Encounter BP Readings: Date: BP: 02/21/2022 122/76 01/20/2022 138/90 12/13/2021 148/88 Wt: 126.6 kg (279 lb) BMI: 47.15 kg/(m^2) LABS: Lab Results Component Value Date HBA1C 9.1 01/20/2022 HBA1C 8.6 11/11/2021 HBA1C 8.4 05/06/2021 HBA1C 8.4 01/14/2021 HBA1C 7.9 03/19/2020 CMP: Glucose 157 11/11/2021 BUN 9 11/11/2021 Creatinine 0.48 11/11/2021 Sodium 136 11/11/2021 Potassium 3.8 11/11/2021 Chloride 99 11/11/2021 CO2 23 11/11/2021 Protein, Total 6.9 11/11/2021 Albumin 3.9 11/11/2021 Calcium 8.7 11/11/2021 Alkaline Phosphatase 76 11/11/2021 Bilirubin, Total 0.3 11/11/2021 AST 36 11/11/2021 ALT 55 11/11/2021 EGFR: >60 mL/min/1.73m2 Vitamin B12 Date Value Ref Range Status 11/11/2021 >2,000 (H) 232-1,245 pg/mL Final Lab Results Component Value Date CHOL 197 05/06/2021 LDL 105 05/06/2021 HDL 49 05/06/2021 TG 215 05/06/2021 The ASCVD Risk score (Dragan NORMA Jr., et al., 2013) failed to calculate for the following reasons: The 2013 ASCVD risk score is only valid for ages 40 to 79 Albumin/Creat Ratio (mg/g) Date Value 05/06/2021 Not calculated PHARMACOTHERAPY ASSESSMENT/PLAN: 1. Type 2 diabetes mellitus with hyperglycemia, without long-term current use of insulin ([facility]) - ICD9: 250.00, 790.29, ICD10: E11.65 A1c goal < 7%; not at goal (last A1c 9.1%); No SMBG to evaluate as patient not monitoring readings at home; denies s/sx hypoglycemia; denies s/sx hyperglycemia; Patient reports that she experiences nausea and bloating following large meals while on Trulicity. Have discussed mechanism of action of Trulicity, slowed gastric emptying symptoms can contribute to nausea and large portions more likely to cause symptoms. Recommended to have smaller more frequent meals as smaller portions can help. Encouraged mindful eating to prevent risk of side effects, stopping when feeling full and only having snacks when truly hungry. Today, will continue current regimen, if symptoms continue at upcoming DIRECTOR OF REHABILITATIVE SERVICES visit, can consider decreasing Trulicity dose. CONTINUE Trulicity 4.5 mg weekly ? If GI symptoms persist, can trial lower dose CONTINUE Metformin ER 500mg tabs - 1000mg BID, Glimepiride 2mg tabs - 6mg qAM and 2mg qPM with meals Follow up: Patient is scheduled to see PCP team on 03/23. Patient verbalized understanding of instructions. Bernardo Archer, PharmD, BCACP Primary Care Clinical Pharmacist [facility] The majority of the pharmacy visit (> 50%) was spent counseling and/or coordinating care for the patient. [Telephonic] time was 12 minutes. documented in this encounter [facility] 02-22-2022 History of Present illness Narrative Primary Care Pharmacy Visit REASON FOR CONSULT: DM GOALS: A1c < 7% CONSULTING PROVIDER: Chaya Wilson APRN.DIRECTOR OF REHABILITATIVE SERVICES Date of Consult: 02/21/22 Sheila Jimenes is a 36 year old female presenting for follow up visit by telephone. Patient consents to pharmacy collaborative practice agreement. Last seen by Chaya Wilson APRN.DIRECTOR OF REHABILITATIVE SERVICES on 02/21/22. At last DIRECTOR OF REHABILITATIVE SERVICES appt, patient expressed GI symptoms related to Trulicity, and Trulicity was switched to Rybelsus. Patient was not able to obtain Rybelsus due to not covered on insurance. Patients insurance only covers Trulicity, Victoza or Byetta in GLP1 RA class. INTERIM HISTORY: Patient did not sign in for virtual visit, reached out to patient to complete abbreviated visit over telephone due to limited appointment time remaining Patient reports she experiences nausea while on Trulicity Nausea is worse in the evening and sometimes in the morning Her PCP team has tried to switch from Trulicity to Rybelsus and exenatide, however insurance will not cover alternatives as they prefer Victoza and Byetta on formulary Patient states she will not take a daily injection of any medication if prescribed a daily agent Does not check blood sugar readings currently. Has adequate supply of test strips and working meter. States she has quit smoking the past few months and snacks more often to stay busy Current DM Medications: Metformin ER 500mg tabs - 1000mg BID Glimepiride 2mg tabs - 6mg qAM and 2mg qPM with meals Trulicity 4.5 mg weekly Preventative Medications: On DASHA/ARB: No On Statin: Yes GLYCEMIC CONTROL: Glucometer present at visit: No SMBG s: notcurrently monitoring BG regularly Hypoglycemia: denies ROS: Patient denies CP, SOB, SHELDON, blurred vision, dizziness or lightheadedness Patient reports nausea, vomiting, diarrhea, abdominal pain Patient denies symptoms of hypoglycemia (sweating, anxiety, palpitations, hunger, and tremor) Patient denies symptoms of hyperglycemia (polyuria, polydipsia, polyphagia) Patient denies potential medication adverse effects DIET/EXERCISE/SOCIAL Hx: Breakfast: bowl of cereal or breakfast sandwich Lunch: chips, ravioli Dinner:meat, side and vegetable Snacks: cereal between dinner and bedtime, candy bar, cup Beverages: diet soda with breakfast, milk, water Exercise: no scheduled activity Tobacco Use: Smoking status: Former Smoker, Packs/day: 1.00, Years: 7.00 MEDICATIONS: Pill bottles are not present. Adherence: reports missed doses. ACTIVE PROBLEM LIST Hypertension, Essential Major Depressive Disorder, Recurrent Episode, Moderate (Hcc) Morbid Obesity With Bmi of 45.0-49.9, Adult (Hcc) Hypertriglyceridemia Type 2 Diabetes Mellitus With Hyperglycemia, Without Long-Term Current Use of Insulin (Hcc) Fatty Liver History of Loop Electrical Excision Procedure (Leep) Genital Condyloma, Female Ascus With Positive High Risk Hpv Cervical Fatigue Nerve Pain Left Arm Pain Anxiety and Depression PAST MEDICAL HISTORY Diagnosis Date Benign hypertensive heart disease without heart failure Diabetes mellitus type 2 in obese (HCC) Helicobacter pylori infection 09/23/2016 Hypertension Tobacco abuse 04/23/2013 Trichomonosis 09/2018 ALLERGIES Allergen Reactions Naproxen Itching Percocet [Oxycodone* Rash itching Current Outpatient Medications Medication Sig FLUoxetine (PROZAC) 10 mg capsule Take 1 capsule by mouth once daily. glimepiride (AMARYL) 2 mg tablet Take 3 tablets every morning and 1 tablet every evening with meals dulaglutide (TRULICITY) 4.5 mg/0.5 mL pen injector Inject 4.5 mg subcutaneously one time a week. pravastatin (PRAVACHOL) 20 mg tablet Take 1 tablet by mouth daily at bedtime. metFORMIN ER (GLUCOPHAGE XR) 500 mg 24 hr tablet Take 2 tablets by mouth twice daily. omeprazole (PRILOSEC) 20 mg capsule One pill by mouth daily 30 minutes before breakfast. gabapentin (NEURONTIN) 100 mg capsule Take 1 capsule PO in the morning, 1 capsule PO in the afternoon and 1-2 capsules PO at bedtime Blood Pressure Monitor 1 Each once daily. Dx: essential hypertension, type 2 diabetes (Patient not taking: Reported on 02/21/2022 ) metoprolol succinate ER (TOPROL XL) 100 mg Take 1 tablet by mouth once daily. cyanocobalamin (VITAMIN B-12) 1,000 mcg tab Take 1 tablet by mouth once daily. (Patient not taking: Reported on 12/13/2021 ) ibuprofen (MOTRIN) 600 mg tablet Take 1 tablet by mouth every 6 hours as needed for pain. Blood-Glucose Meter monitoring kit Glucose Meter of Choice - Kit - Dx: Type 2 DM - Uncontrolled E11.65 acetaminophen (TYLENOL) 325 mg tablet Take 2 tablets by mouth every 6 hours as needed for Pain. Blood Pressure Test Kit-Large (QUICK RESPONSE BP MONITOR) kit 1 Kit twice daily. (Patient not taking: Reported on 02/21/2022 ) Blood Pressure Cuff - Home Use BLOOD PRESSURE CUFF FOR HOME USE. DX: LABILE BLOOD PRESSURE (Patient not taking: Reported on 02/21/2022 ) Current Facility-Administered Medications Medication Dose Route Frequency perflutren lipid microspheres 1.3 mL in NaCl (PF) 0.9% 10 mL injection (DEFINITY) INTRAVENOUS DIRECTED PRN sodium chloride 0.9 % (flush) 10 mL (BD POSIFLUSH) 10 mL INTRAVENOUS DIRECTED PRN EXAM: Last 3 Encounter BP Readings: Date: BP: 02/21/2022 122/76 01/20/2022 138/90 12/13/2021 148/88 Wt: 126.6 kg (279 lb) BMI: 47.15 kg/(m^2) LABS: Lab Results Component Value Date HBA1C 9.1 01/20/2022 HBA1C 8.6 11/11/2021 HBA1C 8.4 05/06/2021 HBA1C 8.4 01/14/2021 HBA1C 7.9 03/19/2020 CMP: Glucose 157 11/11/2021 BUN 9 11/11/2021 Creatinine 0.48 11/11/2021 Sodium 136 11/11/2021 Potassium 3.8 11/11/2021 Chloride 99 11/11/2021 CO2 23 11/11/2021 Protein, Total 6.9 11/11/2021 Albumin 3.9 11/11/2021 Calcium 8.7 11/11/2021 Alkaline Phosphatase 76 11/11/2021 Bilirubin, Total 0.3 11/11/2021 AST 36 11/11/2021 ALT 55 11/11/2021 EGFR: >60 mL/min/1.73m2 Vitamin B12 Date Value Ref Range Status 11/11/2021 >2,000 (H) 232-1,245 pg/mL Final Lab Results Component Value Date CHOL 197 05/06/2021 LDL 105 05/06/2021 HDL 49 05/06/2021 TG 215 05/06/2021 The ASCVD Risk score (Dragan GREEN Jr., et al., 2013) failed to calculate for the following reasons: The 2013 ASCVD risk score is only valid for ages 40 to 79 Albumin/Creat Ratio (mg/g) Date Value 05/06/2021 Not calculated PHARMACOTHERAPY ASSESSMENT/PLAN: 1. Type 2 diabetes mellitus with hyperglycemia, without long-term current use of insulin (HCC) - ICD9: 250.00, 790.29, ICD10: E11.65 A1c goal < 7%; not at goal (last A1c 9.1%); SMBG elevated on current regimen; denies s/sx hypoglycemia; denies s/sx hyperglycemia; Patient reports that she experienced nausea and bloating following large meals while on Trulicity. Explained to patient the mechanism of action of Trulicity, slowed gastric emptying symptoms can contribute to nausea and large portions more likely to cause symptoms. Recommended to have smaller more frequent meals as smaller portions can help. Encouraged mindful eating to prevent risk of side effects, stopping when feeling full and only having snacks when truly hungry. 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 CONTINUE Trulicity 4.5 mg weekly If GI symptoms persist, can trial lower dose CONTINUE Metformin ER 500mg tabs - 1000mg BID, Glimepiride 2mg tabs - 6mg qAM and 2mg qPM with meals - CONSULT TO NUTRITION THERAPY Follow up: Patient is scheduled to see PCP team on 03/23/22. Patient to follow up with PharmD on 03/07/22. Patient verbalized understanding of instructions. Bernardo Archer PharmD, BCACP Primary Care Clinical Pharmacist [facility] The majority of the pharmacy visit (> 50%) was spent counseling and/or coordinating care for the patient. [Telephonic] time was 20 minutes. documented in this encounter [facility] 02-21-2022 Miscellaneous Notes Spoke with pt gave information provided. Pt voices understanding. Please assist in scheduling with pharmacy. Please call patient and let her know that I have reviewed prior PA denial that is still requesting trial of injectable medications first. I put in a virtual pharmacy consult within the next 2 weeks to discuss options to DM regimen. Thank you, Chaya Wilson APRN.KALPESH documented in this encounter [facility] 02-21-2022 Instructions Chaya Wilson APRN.CNP - 02/21/2022 8:27 AM EDT Give Prozac 2-3 more weeks to see improvement in labile mood. If no improvement after 2-3 weeks Mychart message me or call office to switch and trial different SSRI. Continue Trulicity until discussed with prior authorization team. documented in this encounter [facility] 02-21-2022 History of Present illness Narrative Chief Complaint Patient presents with: Recheck HPI Sheila Lofton Friend is a 36 year old female who presents here today for Above Complaints. Sheila is an established patient of Dr. Gonzales, and myself. Seen by this provider on 01/20/22. Stopped Trulicity injections d/t side effects. Prescribed Rybelsus 3 mg PO daily as replacement -- insurance would not cover and had to switch to Byetta weekly. Also started on Prozac 10 mg daily at this appointment d/t anxiety and depression. Concerns today... DM: Current regimen: Amaryl 8 mg daily, metformin 1000 mg BID, Trulicity 4.5 mg weekly. Pt reports insurance will not cover Byetta either. Still taking Trulicity 4.5 mg SQ weekly --- symptoms of n/v and abd pain have returned but less frequent than prior. N/v about 3x per month. Zofran improves. Will take one zofran at onset of nausea and prevents any vomiting. Not checking blood sugars at home recently. Could tell her BG was elevated prior at last appointment d/t recent polyuria and polydipsia. No signs or symptoms of hyperglycemia recently at this visit. Ate breakfast just prior to appointment -- no accurate fasting blood glucose. Anxiety/depression: Feels depression has improved but has no emotions recently. Feels not as depressed but feels very blah all the time. And sleeping has worsened --- sleeping all the time. Still feels unmotivated. Needs to find a job but has no desire or drive to do so. Feeling nervous, anxious, or on edge 2 Over half the days Not being able to stop or control worrying 3 Nearly every day Worrying too much about different things 3 Nearly every day Trouble relaxing 0 Not at all sure Being so restless that it's hard to sit still 2 Over half the days Being easily annoyed or irritable 3 Nearly every day Feeling afraid as if something awful might happen 3 Nearly every day MYNOR-7 Anxiety Score 16 If you checked off any problems, how difficult have these problems made it for you to do your work, take care of things at home, or get along with other people? Very difficult HTN: Much improved BP from last visit. Stable. Well controlled. Last 14 Encounter BP Readings: Date: BP: 02/21/2022 122/76 01/20/2022 138/90 12/13/2021 148/88 11/22/2021 130/74 11/10/2021 142/96 10/29/2021 138/82 08/18/2021 138/90 08/03/2021 138/86 07/05/2021 158/92 06/02/2021 136/90 05/05/2021 128/74 05/05/2021 148/82 01/28/2021 138/90 11/12/2020 112/70 HLD: Due to have lipid panel done today. Ordered at last visit. Not fasting currently. Will return to have drawn. Arm pain: Had arm pain 4 months ago to L forearm. Went away and is now returning. Intermittent pain to forearm at nighttime occurring multiple times a week. Sometimes will last all night, sometimes will last a few minutes. Taking her gabapentin 100 mg TID which does give some relief. Pain is mild currently but afraid it may get worse. Past medical history, appointments, medications, allergies reviewed. Previous Medical History PAST MEDICAL HISTORY Diagnosis Date Benign hypertensive heart disease without heart failure Diabetes mellitus type 2 in obese (HCC) Helicobacter pylori infection 09/23/2016 Hypertension Tobacco abuse 04/23/2013 Trichomonosis 09/2018 Previous Surgical History PAST SURGICAL HISTORY Procedure Laterality Date PAST SURGICAL HISTORY OF 2010 Essure Procedure TONSILLECTOMY PRIMARY/SECONDARY <AGE 12 Family History FAMILY HISTORY Problem Relation Age of Onset Diabetes Mother Heart Mother Hypertension Mother Lipids Mother Osteoporosis Mother Diabetes Father Heart Father Hypertension Father Lipids Father Diabetes Paternal Grandfather Heart Paternal Grandfather Hypertension Paternal Grandfather Cancer Paternal Grandmother unsure of the type Diabetes Paternal Grandmother Heart Paternal Grandmother Hypertension Paternal Grandmother Cancer Maternal Grandmother lung Diabetes Maternal Grandmother Heart Maternal Grandmother Hypertension Maternal Grandmother Diabetes Maternal Grandfather Heart Maternal Grandfather Hypertension Maternal Grandfather Patient Allergies ALLERGIES Allergen Reactions Naproxen Itching Percocet [Oxycodone* Rash itching Current Medications Current Outpatient Medications on File Prior to Visit Medication Sig exenatide (BYDUREON BCISE) 2mg / 0.85 ml subcutaneous auto injector Inject 0.85 mL subcutaneously one time a week. FLUoxetine (PROZAC) 10 mg capsule Take 1 capsule by mouth once daily. semaglutide (RYBELSUS) 3 mg tablet Take 1 tablet by mouth daily before breakfast. glimepiride (AMARYL) 2 mg tablet take 3 tablets every morning and 1 tablet every evening with meals TRULICITY 4.5 mg/0.5 mL pen injector Inject 4.5 mg subcutaneously one time a week. gabapentin (NEURONTIN) 100 mg capsule Take 1 capsule PO in the morning, 1 capsule PO in the afternoon and 1-2 capsules PO at bedtime metFORMIN ER (GLUCOPHAGE XR) 500 mg 24 hr tablet Take 2 tablets by mouth twice daily. Blood Pressure Monitor 1 Each once daily. Dx: essential hypertension, type 2 diabetes pravastatin (PRAVACHOL) 20 mg tablet Take 1 tablet by mouth daily at bedtime. omeprazole (PRILOSEC) 20 mg capsule One pill by mouth daily 30 minutes before breakfast. metoprolol succinate ER (TOPROL XL) 100 mg Take 1 tablet by mouth once daily. cyanocobalamin (VITAMIN B-12) 1,000 mcg tab Take 1 tablet by mouth once daily. (Patient not taking: Reported on 12/13/2021 ) ibuprofen (MOTRIN) 600 mg tablet Take 1 tablet by mouth every 6 hours as needed for pain. Blood-Glucose Meter monitoring kit Glucose Meter of Choice - Kit - Dx: Type 2 DM - Uncontrolled E11.65 acetaminophen (TYLENOL) 325 mg tablet Take 2 tablets by mouth every 6 hours as needed for Pain. Blood Pressure Test Kit-Large (QUICK RESPONSE BP MONITOR) kit 1 Kit twice daily. Blood Pressure Cuff - Home Use BLOOD PRESSURE CUFF FOR HOME USE. DX: LABILE BLOOD PRESSURE Current Facility-Administered Medications on File Prior to Visit Medication perflutren lipid microspheres 1.3 mL in NaCl (PF) 0.9% 10 mL injection (DEFINITY) sodium chloride 0.9 % (flush) 10 mL (BD POSIFLUSH) Social History Social History Tobacco Use Smoking status: Former Smoker Packs/day: 1.00 Years: 7.00 Pack years: 7.00 Types: Cigarettes Quit date: 03/28/2021 Years since quittin.9 Smokeless tobacco: Never Used Vaping Use Vaping Use: Never used Substance Use Topics Alcohol use: Yes Comment: Occasionally Drug use: No REVIEW OF SYSTEMS: as above Reviewed relevant PMHx, PSHx, Social Hx, current medications and allergies. Review of Symptoms See HPI. All other systems are negative. EXAM: BP 122/76 (BP Site: Left Arm, BP Position: Sitting, BP Cuff Size: Large Adult) Pulse 68 Resp 16 Wt 126.6 kg (279 lb) LMP 11/24/2021 BMI 47.15 kg/m General Appearance: Well appearing, alert, in no acute distress, well-hydrated, well nourished.. Skin: Skin color, texture, turgor normal, no suspicious rashes or lesions. Head: Normocephalic, no masses, lesions, tenderness or abnormalities. Lungs: Lungs clear to auscultation. No wheezing, rhonchi, rales.. Heart: RRR without murmur, gallop, or rubs. No ectopy. Abdomen: Normal abdominal exam, Abdomen soft, non-tender. Bowel sounds normal. No masses, organomegaly. Extremities: No deformities, edema, skin discoloration, clubbing or cyanosis. Good capillary refill. . Musculoskeletal: No joint swelling, deformity, or tenderness. Peripheral Pulses: Normal. Neurologic: Gait normal. Reflexes normal and symmetric. Sensation grossly intact.. Health Maintenance List PNEUMOCOCCAL(1 - PCV) Never done HEPATITIS B(3 of 3 - Risk 3-dose series) due on 09/15/2000 DILATED RETINAL EXAM due on 10/26/2018 COVID-19 VACCINE(3 - Booster for Pfizer series) due on 10/31/2021 HBA1C due on 04/22/2022 INFLUENZA(Season Ended) due on 04/28/2022 DIABETIC FOOT EXAM due on 05/05/2022 URINE ALBUMIN:CREATININE RATIO due on 05/06/2022 LDL CHOLESTEROL due on 05/06/2022 BP CONTROLLED (<130/80) due on 08/03/2022 ANNUAL PCP TEAM CHRONIC DISEASE VISIT due on 01/20/2023 PAP TESTING due on 05/05/2026 HPV TESTING due on 05/05/2026 DTAP,TDAP,TD(7 - Td or Tdap) due on 05/02/2029 HEPATITIS C SCREENING Completed HIV SCREENING Completed ASSESSMENT/PLAN: 1. Type 2 diabetes mellitus with hyperglycemia, without long-term current use of insulin (HCC) - ICD9: 250.00, 790.29, ICD10: E11.65 (primary diagnosis) uncontrolled - Continue current medications until pharmacy consult to discuss options to regimen. Continue Trulicity until alternative is given- pt agreeable. - Blood glucose monitoring on a once a day schedule -- expressed the importance of this even when pt is feeling fine. - Encouraged regular aerobic exercise and weight loss - Discussed diabetic education issues of usp diabetic complications, hypoglycemic symptoms, hyperglycemic symptoms, diet, medications- side effects and need for compliance, importance of exercise, importance of appointments with Civil Preparedness Officer and importance of annual examinations with Opthalmology with patient. - BP goal of <130/80 - LDL goal of <100 - GLIMEPIRIDE 2 MG TABLET - METFORMIN ER 500 MG TABLET,EXTENDED RELEASE 24 HR - CONSULT TO PHARMACY 2. Anxiety and depression - ICD9: 300.00, 311, ICD10: F41.9, F32.A Continue current dosage until 6 week salomon. Give additional 2-3 weeks from now to see full effects. Can increase to 2 tablets if symptoms are not improved at that point. Will have follow-up appointment to discuss options if again no improvement. May need to trial different SSRI. - FLUOXETINE 10 MG CAPSULE 3. Hypertriglyceridemia - ICD9: 272.1, ICD10: E78.1 Stable. Well controlled. Needs pending blood work from prior appointment to reassess. Refilled. - PRAVASTATIN 20 MG TABLET 4. GERD without esophagitis - ICD9: 530.81, ICD10: K21.9 Stable. Well controlled. Refilled. - OMEPRAZOLE 20 MG CAPSULE,DELAYED RELEASE 5. Nerve pain - ICD9: 729.2, ICD10: M79.2 Increase gabapentin to 2 tablets at bedtime -- continue 1 tablet in the morning and afternoon. Follow-up if no improvement to arm discomfort after increased dosage. - GABAPENTIN 100 MG CAPSULE 6. Left arm pain - ICD9: 729.5, ICD10: M79.602 Increase gabapentin to 2 tablets at bedtime -- continue 1 tablet in the morning and afternoon. Follow-up if no improvement to arm discomfort after increased dosage. 7. Encounter for immunization - ICD9: V03.89, ICD10: Z23 - HEPATITIS B VACCINE, ADULT AGE 20+, IM Follow-up in 2-4 weeks to discuss mood. Prescription instructions reviewed with patient as applicable. Potential red flag symptoms discussed with the patient. Reviewed appropriate action plan to take if red flag symptoms occur. Patient agreeable to treatment plan. Chaya Wilson APRN.KALPESH [address] [place] [address] documented in this encounter [facility] 01-21-2022 Miscellaneous Notes The following approved medication requests have been transmitted electronically. Signed Prescriptions Disp Refills exenatide (BYDUREMIMA BCISE) 2mg / 0.85 ml subcutaneous auto injector 3.4 mL 2 Sig: Inject 0.85 mL subcutaneously one time a week. Authorizing Provider: CHAYA WILSON APRN.CNP Pt informed, verbalized understanding. Please send [facility] [place]. Celina Mendez Ma Victoza is a daily injection. Byetta is either an immediate release injection 2x/day prior to meals or an extended release injection once weekly. Chaya Wilson APRN.KALPESH T/C to pt states does not like injecting herself. Is asking if these are once a day injections or once a week? Please reach out to patient and explain that Ryebelsus will not be covered unless Victoza and Byetta have been trailed. These are both injectables similar to Trulicity. Please see if patient has any preference. Thank you, Chaya Wilson APRN.KALPESH Per PA questions for rybelsus. Pt to have a trial and failure of 60 days of at least 3 preferred medicines. Which are trulicity (pt still taking) but next she would have to try victoza and byetta. Per med list do not see these have been taken. Please review. Electronic PA requested. Patient calling and states [facility] pharmacy informed her that her Rybelsus medication requires a Prior Authorization. Informed patient that the Prior Authorization Dept. would be notified. Prior authorization requested for the following medication: Medication: Rybelsus 3mg tablet Provider: Mario Gonzales (Chaya Wilson is prescriber) Insurance Company Name: Payer Plan Sponsor Code Group Number Group Name [employer] [id number] [employer] [place] Medicaid Insurance [employer] Phone number: Patient ID number:[id number] Pharmacy Name: [facility] Telephone number: [phone] Please contact patient with update. Thank you. documented in this encounter [facility] 01-20-2022 Instructions Chaya Wilson APRN.KALPESH - 01/20/2022 1:46 PM EDT Start rybelsus 3 mg daily PO -- Stop trulicity injections. Start taking Prozac 10 mg daily for depression. Follow-up in 1 laura to reassess blood sugars and mood. documented in this encounter [facility] 01-20-2022 History of Present illness Narrative UChief Complaint Patient presents with: blood sugars: running high stopped taking shot makes her nauseated HPI Sheila Lofton Friend is a 36 year old female who presents here today for Above Complaints. Sheila is an established patient of Dr. Christian DO. Concerns today.. DM Telephone encounter on Monday: Pt reports she has been having nausea daily X4-5 mths, started after increasing dose of Trulicity to 4.5mg. Pt states she has random vomiting about 1 time each month. Nausea is temporarily relieved when pt eats something. Pt states she thought nausea & vomiting was caused by the trulicity so she stopped taking it 2 wks ago. States the nausea stopped. Pt states her blood sugar was 357 this morning. Today.. Every morning and night felt very nauseated, no vomiting. Was unsure of cause then noticed symptoms worsened after increasing dosage of Trulicity. Pt does report symptoms still occurring on the lower dose of trulicity of 3 mg but just not as severe or frequent. Stopped giving Trulicity injections on her own to trial off of the medication and symptoms resolved and felt back to baseline. Pt would like to discontinue this medication. Has been 2 week since being off medication. Zofran gives some relief with nausea during occurances. Pt reports taking blood sugar randomly and found to be very elevated in the 300s so she did take 1 injection of trulicity on Monday after seeing her blood sugar reading that high. Slight nausea has returned with restarting this. Checks blood sugars sometimes . While taking the Trulicity blood sugars ranged from 128-200s. During the 2 weeks without Trulicity, pt was not checking BG routinely until she got the reading of 357. Every BG readings after that was in the 300s. Pt reports feeling very tired and lazy. Pt reports polyuria, polydipsia, and some brain fog . Denies numbness, tingling or pain in extremities, new or unusual visual symptoms, unintended weight changes, lightheadedness/dizziness, bowel changes/loose stools, chest pain or dyspnea. A1C 9.1% today in office. Patient's last HgA1C was 8.6% on 11/11/21. No fasting blood sugar in office d/t patient just ate prior to appointment. Unknown fasting blood sugars at home. Current regimen: Trulicity 4.5 mg weekly (has not been taking), glimepiride 6 mg in AM and 2 mg in evening, and metformin 1000 mg BID. Tolerating well: No Med compliance: No Checking sugars: Yes, rarely. Sugars range: see above. Signs of hypoglycemia?: no. Yeast infection? Vaginal itchiness and dysuria with burning x 1 week. Thought she had a yeast infection -- given diflucan via MyChart to trial prior to this appointment. Took both pills with little relief of symptoms. Discussed likely urine saturation d/t excess glucose being excreted from the body through her urine causing these symptoms. Needs blood glucose control to manage. Depression: Lacking motivation. Hard time getting out of bed in the morning to get things done. Sleeping all the time. Has been ongoing for a year or so. Has tried Wellbutrin without success. Made her very dizziness so she stopped quickly. Looking to restart/retry SSRI therapy. Gained weight over the past few months d/t smoking cessation. No desire to return to smoking habits at this time. Weight gain contributes to worsening depression symptoms. HLD: Pravastatin 20 mg. Stable based on last lipid panel in Apr. Will repeat lipid panel d/t uncontrolled DM. Component Latest Ref Rng & Units 05/06/2021 Cholesterol, Total <200 mg/dL 197 Triglyceride <150 mg/dL 215 (H) HDL Cholesterol >39 mg/dL 49 LDL Cholesterol <100 mg/dL 105 (H) Non HDL Cholesterol <130 mg/dL 148 (H) Fasting Time hrs 12 VLDL Cholesterol <30 mg/dL 43 (H) TC:HDL Ratio <5.10 4.02 LDL:HDL Ratio <2.54 2.14 GERD: prilosec 20 mg daily. Stable. Well controlled. HTN: Metoprolol 100 mg daily. Stable but not optimal control. Denies any CP, headaches, SOB, palpitations, or dizziness. Last 14 Encounter BP Readings: Date: BP: 01/20/2022 138/90 12/13/2021 148/88 11/22/2021 130/74 11/10/2021 142/96 10/29/2021 138/82 08/18/2021 138/90 08/03/2021 138/86 07/05/2021 158/92 06/02/2021 136/90 05/05/2021 128/74 05/05/2021 148/82 01/28/2021 138/90 11/12/2020 112/70 10/28/2020 142/80 Past medical history, appointments, medications, allergies reviewed. Previous Medical History PAST MEDICAL HISTORY Diagnosis Date Benign hypertensive heart disease without heart failure Diabetes mellitus type 2 in obese (HCC) Helicobacter pylori infection 09/23/2016 Hypertension Tobacco abuse 04/23/2013 Trichomonosis 09/2018 Previous Surgical History PAST SURGICAL HISTORY Procedure Laterality Date PAST SURGICAL HISTORY OF 2010 Essure Procedure TONSILLECTOMY PRIMARY/SECONDARY <AGE 12 Family History FAMILY HISTORY Problem Relation Age of Onset Diabetes Mother Heart Mother Hypertension Mother Lipids Mother Osteoporosis Mother Diabetes Father Heart Father Hypertension Father Lipids Father Diabetes Paternal Grandfather Heart Paternal Grandfather Hypertension Paternal Grandfather Cancer Paternal Grandmother unsure of the type Diabetes Paternal Grandmother Heart Paternal Grandmother Hypertension Paternal Grandmother Cancer Maternal Grandmother lung Diabetes Maternal Grandmother Heart Maternal Grandmother Hypertension Maternal Grandmother Diabetes Maternal Grandfather Heart Maternal Grandfather Hypertension Maternal Grandfather Patient Allergies ALLERGIES Allergen Reactions Naproxen Itching Percocet [Oxycodone* Rash itching Current Medications Current Outpatient Medications on File Prior to Visit Medication Sig glimepiride (AMARYL) 2 mg tablet take 3 tablets every morning and 1 tablet every evening with meals TRULICITY 4.5 mg/0.5 mL pen injector Inject 4.5 mg subcutaneously one time a week. ondansetron orally disintegrating (ZOFRAN ODT) 4 mg disintegrating tablet Take 1 tablet by mouth every 6 hours as needed for nausea/vomiting. gabapentin (NEURONTIN) 100 mg capsule Take 1 capsule PO in the morning, 1 capsule PO in the afternoon and 1-2 capsules PO at bedtime dulaglutide (TRULICITY) 3 mg/0.5 mL pen injector Inject 3 mg subcutaneously one time a week. metFORMIN ER (GLUCOPHAGE XR) 500 mg 24 hr tablet Take 2 tablets by mouth twice daily. Pyridoxine HCl (VITAMIN B-6) 250 mg tablet Take 1 tablet by mouth once daily. Blood Pressure Monitor 1 Each once daily. Dx: essential hypertension, type 2 diabetes pravastatin (PRAVACHOL) 20 mg tablet Take 1 tablet by mouth daily at bedtime. blood sugar diagnostic (FREESTYLE LITE STRIPS) test strip Test blood sugar(s) 2 times daily. Dx: Type 2 DM - Uncontrolled E11.65 Insulin: No omeprazole (PRILOSEC) 20 mg capsule One pill by mouth daily 30 minutes before breakfast. metoprolol succinate ER (TOPROL XL) 100 mg Take 1 tablet by mouth once daily. Cholecalciferol, Vitamin D3, 50 mcg (2,000 unit) cap Take 1 capsule by mouth once daily. cyanocobalamin (VITAMIN B-12) 1,000 mcg tab Take 1 tablet by mouth once daily. (Patient not taking: Reported on 12/13/2021 ) ibuprofen (MOTRIN) 600 mg tablet Take 1 tablet by mouth every 6 hours as needed for pain. Lancets lancets Test blood sugar(s) 1-2 times daily. Dx: Type 2 DM - Uncontrolled E11.65 Insulin: No Blood-Glucose Meter monitoring kit Glucose Meter of Choice - Kit - Dx: Type 2 DM - Uncontrolled .65 acetaminophen (TYLENOL) 325 mg tablet Take 2 tablets by mouth every 6 hours as needed for Pain. Blood Pressure Test Kit-Large (QUICK RESPONSE BP MONITOR) kit 1 Kit twice daily. lancets (FREESTYLE LANCETS) 28 gauge misc Test blood sugar(s) 2 times daily. Dx: Type 2 DM - Uncontrolled E11. Insulin: No Blood Pressure Cuff - Home Use BLOOD PRESSURE CUFF FOR HOME USE. DX: LABILE BLOOD PRESSURE blood sugar diagnostic (FREESTYLE TEST) test strip Use as instructed Current Facility-Administered Medications on File Prior to Visit Medication perflutren lipid microspheres 1.3 mL in NaCl (PF) 0.9% 10 mL injection (DEFINITY) sodium chloride 0.9 % (flush) 10 mL (BD POSIFLUSH) Social History Social History Tobacco Use Smoking status: Former Smoker Packs/day: 1.00 Years: 7.00 Pack years: 7.00 Types: Cigarettes Quit date: 03/28/2021 Years since quittin.8 Smokeless tobacco: Never Used Vaping Use Vaping Use: Never used Substance Use Topics Alcohol use: Yes Comment: Occasionally Drug use: No REVIEW OF SYSTEMS: as above Reviewed relevant PMHx, PSHx, Social Hx, current medications and allergies. Review of Symptoms See HPI. All other systems are negative. EXAM: BP 138/90 (BP Site: Left Arm, BP Position: Sitting, BP Cuff Size: Large Adult) Pulse 60 Resp 16 Wt 126.6 kg (279 lb 3.2 oz) LMP 11/24/2021 BMI 47.18 kg/m General Appearance: Well appearing, alert, in no acute distress, well-hydrated, well nourished.. Skin: Skin color, texture, turgor normal, no suspicious rashes or lesions. Head: Normocephalic, no masses, lesions, tenderness or abnormalities. Lungs: Lungs clear to auscultation. No wheezing, rhonchi, rales.. Heart: RRR without murmur, gallop, or rubs. No ectopy. Abdomen: Normal abdominal exam, Abdomen soft, non-tender. Bowel sounds normal. No masses, organomegaly. Extremities: No deformities, edema, skin discoloration, clubbing or cyanosis. Good capillary refill. . Musculoskeletal: No joint swelling, deformity, or tenderness. Peripheral Pulses: Normal. Neurologic: Gait normal. Reflexes normal and symmetric. Sensation grossly intact.. Health Maintenance List PNEUMOCOCCAL(1 - PCV) Never done HEPATITIS B(3 of 3 - Risk 3-dose series) due on 09/15/2000 DILATED RETINAL EXAM due on 10/26/2018 COVID-19 VACCINE(3 - Booster for Pfizer series) due on 10/31/2021 HBA1C due on 02/11/2022 INFLUENZA(Season Ended) due on 04/28/2022 DIABETIC FOOT EXAM due on 05/05/2022 URINE ALBUMIN:CREATININE RATIO due on 05/06/2022 LDL CHOLESTEROL due on 05/06/2022 BP CONTROLLED (<130/80) due on 08/03/2022 ANNUAL PCP TEAM CHRONIC DISEASE VISIT due on 11/10/2022 PAP TESTING due on 05/05/2026 HPV TESTING due on 05/05/2026 DTAP,TDAP,TD(7 - Td or Tdap) due on 05/02/2029 HEPATITIS C SCREENING Completed HIV SCREENING Completed ASSESSMENT/PLAN: 1. Type 2 diabetes mellitus with hyperglycemia, without long-term current use of insulin (HCC) - ICD9: 250.00, 790.29, ICD10: E11.65 (primary diagnosis) poorly controlled worsening control Poor adherence to plan of care. The patient is new to me. - Continue current medications - Add Rybelsus 3 mg PO daily --- will reassess in 1 month and discuss dosage increase if needed. - Discontinue Trulicity injections to side effects. Emphasized the importance to not take trulicity and Rybelsus together d/t being in the same drug class. - Blood glucose monitoring on a once a day schedule, fasting in the more if able. - Encouraged regular aerobic exercise and weight loss - Follow up in 1 month, sooner should any other issues arise. - Discussed diabetic education issues of usp diabetic complications, hypoglycemic symptoms, hyperglycemic symptoms, diet, medications- side effects and need for compliance, importance of exercise, importance of appointments with Civil Preparedness Officer and importance of annual examinations with Opthalmology with patient. - BP goal of <130/80 - LDL goal of <100 - LIPID PANEL BASIC - RYBELSUS 3 MG TABLET - HEMOGLOBIN A1C (POC) 2. Dysuria - ICD9: 788.1, ICD10: R30.0 Likely from urinary glucose saturation d/t very elevated blood glucose readings d/t poor adherence to DM medication regimen. - UA WITH CULTURE IF INDICATED 3. Itching in the vaginal area - ICD9: 698.1, ICD10: N89.8 See above. - UA WITH CULTURE IF INDICATED 4. Anxiety and depression - ICD9: 300.00, 311, ICD10: F41.9, F32.A Start Prozac 10 mg daily. Will reassess at 1 month follow-up. - Discussed side effects and mechanism of action of medication. - FLUOXETINE 10 MG CAPSULE 5. Hypertriglyceridemia - ICD9: 272.1, ICD10: E78.1 - good control from last lab work and - to be determined upon return of lab results - Continue current medication. - Encouraged following a low fat, low cholesterol diet. - Discussed the benefits of regular aerobic exercise and weight loss. - Encouraged following a low carbohydrate, healthy oil intake diet. - Continue current therapy. - LIPID PANEL BASIC 6. Hypertension, essential - ICD9: 401.9, ICD10: I10 - suboptimal control - Continue current medication(s) - Encouraged dietary sodium restriction/DASH diet - Recommended regular aerobic exercise. - Recommend home blood pressure monitoring, to bring results in on next visit - Discussed need and benefit for weight loss. - Follow up in 1 month for BP recheck. - Recheck in 1 month, sooner should new symptoms or problems arise. - Reviewed risks of HTN and principles of treatment - Goal of BP <130/80 - Recommend home or pharmacy blood pressure monitoring - Recommended no refined sugar, low refined starch, healthy oil intake (olive oil), healthy protein (fish) along the lines of the Mediterranean diet. 7. GERD without esophagitis - ICD9: 530.81, ICD10: K21.9 Stable. Well controlled. 8. Obesity, Class III, BMI 40-49.9 (morbid obesity) (HCC) - ICD9: 278.01, ICD10: E66.01 Weight increasing - Behavioral intervention, - Eat well program and - Continue current medications - Discussed importance of smoking cessation and the benefits to encourage continuation. RTO in 1 months, sooner if needed, to reassess BP, blood glucose, and mood. I spent 42 minutes in the visit, with more than 50% of the total [id number] time of the visit in counseling / coordination of care. Prescription instructions reviewed with patient as applicable. Potential red flag symptoms discussed with the patient. Reviewed appropriate action plan to take if red flag symptoms occur. Patient agreeable to treatment plan. Chaya Wilson APRN.KALPESH [address] [place] [address] documented in this encounter [facility] 01-18-2022 Miscellaneous Notes Patient has been identified by name and date of : Yes Patient phones for refill(s): Pending Prescriptions Disp Refills GLIMEPIRIDE 2 MG TABLET 360 tablet 0 Sig: take 3 tablets every morning and 1 tablet every evening with meals VEENA: Yes TRULICITY 4.5 MG/0.5 ML SUBCUTANEOUS PEN INJECTOR 6 mL 0 Sig: Inject 4.5 mg subcutaneously one time a week. VEENA: Yes Date of last office visit in primary care: 11/10/21 Last 2 Encounter Wt Readings: Date: Wt: 12/13/2021 126.1 kg (278 lb) 11/22/2021 124.7 kg (275 lb) Previous labs/tests for medication: Not applicable Please advise. Thank you. Kiara Alvarado LPN documented in this encounter [facility] 01-17-2022 Miscellaneous Notes Thank you patient notified of such. Take zofran as needed every 6 hours for n/v. Thank you, Chaya Wilson APRN.KALPESH The following approved medication requests have been transmitted electronically. Signed Prescriptions Disp Refills fluconazole (DIFLUCAN) 150 mg tablet 2 tablet 0 Sig: Take 1 tablet by mouth one time only for 1 dose. Take one tablet now and repeat dose in 72 hours. VEENA: No Authorizing Provider: CHAYA WILSON ondansetron orally disintegrating (ZOFRAN ODT) 4 mg disintegrating tablet 60 tablet 1 Sig: Take 1 tablet by mouth every 6 hours as needed for nausea/vomiting. Authorizing Provider: CHAYA WILSON APRN.KALPESH Spoke with pt gave information provided. Pt voices understanding. Made her an appointment with you on Monday. She states she is taking the shots but they are causing nausea and vomiting asking for something to be sent for this to pharmacy. Please advise. Diflucan prescription sent over to pharmacy. With blood sugar that high, please assist patient in making appointment for DM management. We need alternative medication if patient is not taking the Trulicity and to evaluate continuing symptoms. Thank you, Chaya Wilson APRN.KALPESH Pt reports she has been having nausea daily X4-5 mths, started after increasing dose of Trulicity to 4.5mg. Pt states she has random vomiting about 1 time each month. Nausea is temporarily relieved when pt eats something. Pt states she thought nausea & vomiting was caused by the trulicity so she stopped taking it 2 wks ago. States the nausea stopped. Pt states her blood sugar was 357 this morning. Pt also states she now has a yeast infection. States she is usually given diflucan when she gets yeast infections, asking for an Rx for same, pending. Please advise. Elizabeth Bryan LPN documented in this encounter [facility] 12-29-2021 Miscellaneous Notes PDMP website checked and validated. All prescriptions have been APPROPRIATELY filled. No suspicious activity was identified. 12/29/2021 by Chaya Wilson APRN.CNP The following approved medication requests have been transmitted electronically. Signed Prescriptions Disp Refills gabapentin (NEURONTIN) 100 mg capsule 120 capsule 2 Sig: Take 1 capsule PO in the morning, 1 capsule PO in the afternoon and 1-2 capsules PO at bedtime VEENA: No Authorizing Provider: CHAYA WILSON APRN.CNP Patient has been identified by name and date of : Yes Patient phones for refill(s): Pending Prescriptions Disp Refills GABAPENTIN 100 MG CAPSULE 120 capsule 2 Sig: Take 1 capsule PO in the morning, 1 capsule PO in the afternoon and 1-2 capsules PO at bedtime VEENA: No Date of last office visit in primary care: 11/10/21 Last 2 Encounter Wt Readings: Date: Wt: 12/13/2021 126.1 kg (278 lb) 11/22/2021 124.7 kg (275 lb) Previous labs/tests for medication: Not applicable Please advise. Thank you. Kiara Alvarado LPN documented in this encounter [facility] 12-13-2021 History of Present illness Narrative Sheila Jimenes is a 36 year old female who presents today for a excision of vulvar/perineal lesions. Has three vulvar lesions- one on right approximately 1.5cm, one on left 4.5cm and one perianal 1cm . Indication: new vulvar lesion. UNIVERSAL PROTOCOL / SAFETY CHECKLIST Procedure to be Performed: excision of vulvar/perianal lesion Sign In: A Moment of CARE was completed. Personnel directly involved with the procedure wore the appropriate PPE (Personal Protective Equipment). Patient/Surrogate Stated/Verified: PATIENT VERIFIED(optional for EMERGENT procedures): Patient name, Date of , Relevant allergies and The intended procedure Time Out Communication: Intended patient and procedure match the source documents. Consent documented and matches the intended procedure. Sign Out: SIGN OUT (optional for EMERGENT procedures): All specimen containers correctly labeled. Aileen Salas MD PROCEDURE NOTE: GROSS LESIONS: Yes, 3 lesions excision: Area was cleansed with betadine and anesthetized each lesion with 3 1% lidocaine with 1:100,000 epi. Larger lesions needed 6cc. Once anesthesia was adequate scalpel used to excise lesions superficially. Silver nitrate applied. Good hemostasis. HEMOSTASIS: Obtained with silver nitrate Procedure Summary: Patient tolerated procedure well. ASSESSMENT: Perianal/Vulvar lesions PLAN: Specimens labeled and sent to Pathology. Will notify patient of results in 1-2 weeks. Aileen Salas MD documented in this encounter [facility] 11-22-2021 Instructions Chelita Ferris La - 11/22/2021 3:03 PM EDT YOUR RECOVERY It may take a few weeks for your cervix to heal. While your cervix heals, you may have: - Vaginal bleeding (less than a normal menstrual period) - Mild cramping - A brown-black vaginal discharge (similar to coffee grounds) which is a result of the paste used to help stop bleeding from the procedure Do NOT put anything in the vagina for 1 week after your colposcopy if your doctor does a biopsy of your cervix. This includes sex, tampons, and douches. If you have any discomfort, you may take an over the counter pain medication (motrin, advil, ibuprofen, tylenol, etc). If this does not relieve your discomfort, contact your doctor's office for a prescription strength pain medication. It is okay to wear a sanitary pad until the discharge and spotting stops. RISKS Although problems seldom occur with colposcopy, there can be some complications. You may feel faint during and shortly after the procedure as well as have some bleeding and vaginal discharge after the procedure. There is also a risk of infection after the procedure. These complications are rare and can be easily treated. You should contact you doctor is you have any of the following: - Heavy bleeding (more than your normal period) - Bleeding with clots - Severe abdominal pain - Fever (more than 100.4F) - Foul smelling vaginal discharge RESULTS If a biopsy was taken, we will have the results of your biopsy in 1-2 weeks. If you do not hear the results of your biopsy after 2 weeks, please contact your physicians office for the results. Depending on the biopsy results, your doctor will determine your follow up plan which may include further testing or treatments. STAYING HEALTHY After the procedure, you will need to see your doctor for follow up visits during the year. At these visits your doctor will check the health of your cervix with a pap smear. After three normal pap smears, your doctor will allow you to return to having exams once a year. If you have another abnormal pap smear, you may need closer follow up for longer or you may need additional treatment. By making a few lifestyle changes after the procedure, you can help protect the health of your cervix: - Have regular pelvic exams and pap smears as ordered by your doctor. - Stop smoking as smoking increases your risk of developing a cancer of the cervix - If you have more than one sexual partner, limit your number of partners and use condoms to reduce your risks of STDs. If you have any additional questions, please contact your doctor's office. documented in this encounter [facility] 11-22-2021 History of Present illness Narrative Sheila is a 36 year old who presents today for a colposcopy. The patient's last pap smear was ASCUS with positive HPV from April 2021. Patient has a history of abnormal pap: Yes. The patient has had prior treatment: none. test: negative UNIVERSAL PROTOCOL / SAFETY CHECKLIST Procedure to be Performed: colposcopy Sign In: A Moment of CARE was completed. Personnel directly involved with the procedure wore the appropriate PPE (Personal Protective Equipment). Patient/Surrogate Stated/Verified: PATIENT VERIFIED(optional for EMERGENT procedures): Patient name, Date of , Relevant allergies and The intended procedure Time Out Communication: Intended patient and procedure match the source documents. Consent documented and matches the intended procedure. Sign Out: SIGN OUT (optional for EMERGENT procedures): No specimen collected. PROCEDURE: EXTERNAL GENITALIA: Normal in appearance without lesions- Large CONDYLOMA on left perianal area VAGINA: Normal in appearance without lesions CERVIX: Speculum placed in vagina and excellent visualization of cervix achieved. Cervix swabbed x 3 with 3% acetic acid solution. Cervix grossly normal. Squamocolumnar junction visualized. No acetowhite changes, punctations, mosaicism or atypical vasculature noted. BIOPSY: Not done. ECC: not done HEMOSTASIS: NA Procedure Summary: Patient tolerated procedure well and colposcopy was adequate. ASSESSMENT: inflammation PLAN: Recommend removal of perianal lesion- will schedule Needs pap and hpv in 04/2022 Aileen Salas MD documented in this encounter [facility] 11-19-2021 Miscellaneous Notes Patient has been identified by name and date of : Yes Patient phones for refill(s): Pending Prescriptions Disp Refills TRULICITY 4.5 MG/0.5 ML SUBCUTANEOUS PEN INJECTOR Sig: Inject 4.5 mg subcutaneously one time a week. Patient requesting prescription for increased dose of Trulicity be sent to [facility] per provider recommendation 11/12/21. Date of last office visit with pcp: 11/10/2021 Future appt: Last 2 Encounter Wt Readings: Date: Wt: 11/10/2021 123.4 kg (272 lb) 10/29/2021 124.3 kg (274 lb) Previous labs/tests for medication: Diabetes: Hemoglobin A1C (%) Date Value 11/11/2021 8.6 05/06/2021 8.4 01/14/2021 8.4 Blood Pressure: BUN (mg/dL) Date Value 11/11/2021 9 05/06/2021 8 Sodium (mmol/L) Date Value 11/11/2021 136 05/06/2021 134 Last 1 Encounter BP Readings: Date: BP: 11/10/2021 142/96 Liver Function: ALT (U/L) Date Value 11/11/2021 55 05/06/2021 30 AST (U/L) Date Value 11/11/2021 36 05/06/2021 26 Please advise. Thank you. Holly Esquivel, RN documented in this encounter [facility] 07-07-2021 Hospital Discharge instructions Patient Education 07/07/2021 20:57:28 AA [place] MUSA (CUSTOM) Result type:CT Spine Cervical w/o Contrast Result date:July 07, 2021 20:28 EST Result status:In Progress Result title:CT SPINE CERVICAL W/O CONTRAST Encounter info:[id number], [facility], Emergency, 07/07/2021 - Contributor system:[employer] * Preliminary Report * [id number] ORIGINAL EXAMINATION: CT OF THE CERVICAL SPINE WITHOUT CONTRAST 07/07/2021 8:28 pm TECHNIQUE: CT of the cervical spine was performed without the administration of intravenous contrast. Multiplanar reformatted images are provided for review. Dose modulation, iterative reconstruction, and/or weight based adjustment of the mA/kV was utilized to reduce the radiation dose to as low as reasonably achievable. COMPARISON: None. HISTORY: ORDERING SYSTEM PROVIDED HISTORY: Reason for Exam: neck pain FINDINGS: BONES/ALIGNMENT: There is no acute fracture or traumatic malalignment. DEGENERATIVE CHANGES: There are mild multilevel degenerative changes in the cervical spine. There is a posterior disc osteophyte complex at C6-7 which causes mild encroachment on the central spinal canal at this level. No significant neural foraminal narrowing is noted in any level. SOFT TISSUES: There is no prevertebral soft tissue swelling. Lung apices are clear. IMPRESSION: No acute osseous abnormality. Mild degenerative change. There is a posterior disc osteophyte complex at C6-7 causing mild central canal stenosis. Preliminary Report was Dictated by a Resident Preliminary Report By: Lakhwinder Preston Dictated Time: 07/07/2021 8:35:30 PM Prelim Time: 07/07/2021 8:40:39 PM Ordering Provider: [facility] [employer] This document has an image Document Released: 08/14/2006 Document Revised: 07/31/2013 Document Reviewed: 08/15/2014 ExitCare Patient Information 2015 [employer], [employer]. This information is not intended to replace advice given to you by your health care provider. Make sure you discuss any questions you have with your health care provider. 07/07/2021 19:44:46 Radiculopathy, Cervical Pinched Nerve in the Neck A pinched nerve in the neck (cervical radiculopathy) is caused when the nerve that goes from the spinal cord to the neck or arm is irritated or has pressure on it. This may be caused by a bulging spinal disk. A spinal disk is the cushion between each spinal bone (vertebrae). Or it may be caused by a narrowing of the spinal joint because of osteoarthritis and wear and tear from repeated injuries. A pinched nerve can cause numbness, tingling, deep aching, or electrical shooting pain from the side of the neck all the way down to the fingers on one side. It can also cause weakness of the muscles that the nerve controls. A pinched nerve may start after a sudden turning or bending force (such as in a car accident) or after a simple awkward movement. In either case, muscle spasm is commonly present and adds to the pain. Home care Follow these guidelines when caring for yourself at home: Rest and relax the muscles. Use a comfortable pillow that supports your head and keeps your spine in a natural (neutral) position. Your head shouldn t be tilted forward or backward. A rolled-up towel may help for a custom fit. When standing or sitting, keep your neck in line with your body. Keep your head up and shoulders down. Stay away from activities that require you to move your neck a lot. You can use heat and massage to help ease the pain. Take a hot shower or bath, or use a heating pad. You can also use a cold pack for relief. You can make a cold pack by wrapping a plastic bag of crushed or cubed ice in a thin towel. Try both heat and cold, and use the method that feels best. Do this for 20 minutes several times a day. You may use acetaminophen or ibuprofen to control pain, unless another pain medicine was prescribed. If you have chronic liver or kidney disease, talk with your healthcare provider before using these medicines. Also talk with your provider if you ve had a stomach ulcer or gastrointestinal bleeding. Reduce stress. Stress can make it longer for your pain to go away. Do any exercises or stretches that were given to you as part of your discharge plan. Wear a soft collar, if prescribed. Physical therapy and massages are known to help. You may need injections near the affected nerve or surgery for a more serious injury. Follow-up care Follow up with your healthcare provider, or as advised, if you don t start to get better after 1 week. If you have muscle weakness you should seek attention immediately. You may need more tests. Tell your provider about any fever, chills, or weight loss. If X-rays were taken, a radiologist may look at them. You will be told of any new findings that may affect your care. When to seek medical advice Call your healthcare provider right away if any of these occur: Pain becomes worse even after taking prescribed pain medicine Weakness in the arm or legs Numbness in the arm gets worse Trouble breathing or swallowing [id number] [employer]. [address] [place] [address]. All rights reserved. This information is not intended as a substitute for professional medical care. Always follow your healthcare professional's instructions. Follow Up Care 07/07/2021 18:20:34 With:HILARIO ZAYAS, SAMANTHA Lozada, Neurosurgery Address: [facility] [address] [place] [address]- [phone] When:2-4 days With:Go to emergency room if symptoms worsen Address:Unknown When:2-4 days With:MARIO GONZALES DO Address: [address] [place] [address]- When:2-4 days [facility] documented as of this encounter (statuses as of 11/19/2021) [facility] History of Past illness Narrative* Problem Noted Date Resolved Date Helicobacter pylori infection 09/23/2016 Diabetes mellitus type 2 in obese 04/23/2013 06/29/2016 Tobacco abuse 04/23/2013 01/12/2017 Supervision of normal first 06/01/2006 05/30/2016 Benign essential hypertension antepartum 006 05/30/2016 documented as of this encounter (statuses as of 11/22/2021) [facility] History of Past illness Narrative* Problem Noted Date Resolved Date Helicobacter pylori infection 09/23/2016 Diabetes mellitus type 2 in obese 04/23/2013 06/29/2016 Tobacco abuse 04/23/2013 01/12/2017 Supervision of normal first 06/01/2006 05/30/2016 Benign essential hypertension antepartum 29/2 006 05/30/2016 documented as of this encounter (statuses as of 12/13/2021) [address]27-2017 History of Past illness Narrative* Problem Noted Date Resolved Date Helicobacter pylori infection 09/23/2016 Diabetes mellitus type 2 in obese 04/23/2013 06/29/2016 Tobacco abuse 04/23/2013 01/12/2017 Supervision of normal first 06/01/2006 05/30/2016 Benign essential hypertension antepartum 29/2 006 05/30/2016 documented as of this encounter (statuses as of 12/29/2021) [address]27-2017 History of Past illness Narrative* Problem Noted Date Resolved Date Helicobacter pylori infection 09/23/2016 Diabetes mellitus type 2 in obese 04/23/2013 06/29/2016 Tobacco abuse 04/23/2013 01/12/2017 Supervision of normal first 06/01/2006 05/30/2016 Benign essential hypertension antepartum 29/2 006 05/30/2016 documented as of this encounter (statuses as of 01/17/2022) [address]-2017 History of Past illness Narrative* Problem Noted Date Resolved Date Helicobacter pylori infection 09/23/2016 Diabetes mellitus type 2 in obese 04/23/2013 06/29/2016 Tobacco abuse 04/23/2013 01/12/2017 Supervision of normal first 06/01/2006 05/30/2016 Benign essential hypertension antepartum 29/2 006 05/30/2016 documented as of this encounter (statuses as of 01/19/2022) [address]-2017 History of Past illness Narrative* Problem Noted Date Resolved Date Helicobacter pylori infection 09/23/2016 Diabetes mellitus type 2 in obese 04/23/2013 06/29/2016 Tobacco abuse 04/23/2013 01/12/2017 Supervision of normal first 06/01/2006 05/30/2016 Benign essential hypertension antepartum 29/2 006 05/30/2016 documented as of this encounter (statuses as of 01/20/2022) [address] History of Past illness Narrative* Problem Noted Date Resolved Date Helicobacter pylori infection 09/23/2016 Diabetes mellitus type 2 in obese 04/23/2013 06/29/2016 Tobacco abuse 04/23/2013 01/12/2017 Supervision of normal first 06/01/2006 05/30/2016 Benign essential hypertension antepartum 29/2 006 05/30/2016 documented as of this encounter (statuses as of 01/21/2022) [address]-2017 History of Past illness Narrative* Problem Noted Date Resolved Date Helicobacter pylori infection 09/23/2016 Diabetes mellitus type 2 in obese 04/23/2013 06/29/2016 Tobacco abuse 04/23/2013 01/12/2017 Supervision of normal first 06/01/2006 05/30/2016 Benign essential hypertension antepartum 05/26/2 006 05/30/2016 documented as of this encounter (statuses as of 02/21/2022) [address]-2017 History of Past illness Narrative* Problem Noted Date Resolved Date Helicobacter pylori infection 09/23/2016 Diabetes mellitus type 2 in obese 04/23/2013 06/29/2016 Tobacco abuse 04/23/2013 01/12/2017 Supervision of normal first 06/01/2006 05/30/2016 Benign essential hypertension antepartum 05/26/2 006 05/30/2016 documented as of this encounter (statuses as of 03/02/2022) [facility] History of Past illness Narrative* Problem Noted Date Resolved Date Helicobacter pylori infection 09/23/2016 Diabetes mellitus type 2 in obese 04/23/2013 06/29/2016 Tobacco abuse 04/23/2013 01/12/2017 Supervision of normal first 06/01/2006 05/30/2016 Benign essential hypertension antepartum 05/26/2 006 05/30/2016 documented as of this encounter (statuses as of 03/11/2022) [address]-2017 History of Past illness Narrative* Problem Noted Date Resolved Date Helicobacter pylori infection 09/23/2016 Diabetes mellitus type 2 in obese 04/23/2013 06/29/2016 Tobacco abuse 04/23/2013 01/12/2017 Supervision of normal first 06/01/2006 05/30/2016 Benign essential hypertension antepartum 29/2 006 05/30/2016 documented as of this encounter (statuses as of 03/13/2022) [address]-2017 History of Past illness Narrative* Problem Noted Date Resolved Date Helicobacter pylori infection 09/23/2016 Diabetes mellitus type 2 in obese 04/23/2013 06/29/2016 Tobacco abuse 04/23/2013 01/12/2017 Supervision of normal first 06/01/2006 05/30/2016 Benign essential hypertension antepartum 29/2 006 05/30/2016 documented as of this encounter (statuses as of 03/22/2022) [address]-2017 History of Past illness Narrative* Problem Noted Date Resolved Date Helicobacter pylori infection 09/23/2016 Diabetes mellitus type 2 in obese 04/23/2013 06/29/2016 Tobacco abuse 04/23/2013 01/12/2017 Supervision of normal first 06/01/2006 05/30/2016 Benign essential hypertension antepartum 05/26/2 006 05/30/2016 documented as of this encounter (statuses as of 03/24/2022) [address]27-2017 History of Past illness Narrative* Problem Noted Date Resolved Date Helicobacter pylori infection 09/23/2016 Diabetes mellitus type 2 in obese 04/23/2013 06/29/2016 Tobacco abuse 04/23/2013 01/12/2017 Supervision of normal first 06/01/2006 05/30/2016 Benign essential hypertension antepartum 29/2 006 05/30/2016 documented as of this encounter (statuses as of 03/25/2022) [address]-2017 History of Past illness Narrative* Problem Noted Date Resolved Date Helicobacter pylori infection 09/23/2016 Diabetes mellitus type 2 in obese 04/23/2013 06/29/2016 Tobacco abuse 04/23/2013 01/12/2017 Supervision of normal first 06/01/2006 05/30/2016 Benign essential hypertension antepartum 29/2 006 05/30/2016 documented as of this encounter (statuses as of 03/25/2022) [address]-2017 History of Past illness Narrative* Problem Noted Date Resolved Date Helicobacter pylori infection 09/23/2016 Diabetes mellitus type 2 in obese 04/23/2013 06/29/2016 Tobacco abuse 04/23/2013 01/12/2017 Supervision of normal first 06/01/2006 05/30/2016 Benign essential hypertension antepartum 29/2 006 05/30/2016 documented as of this encounter (statuses as of 03/29/2022) [address]27-2017 History of Past illness Narrative* Problem Noted Date Resolved Date Helicobacter pylori infection 09/23/2016 Diabetes mellitus type 2 in obese 04/23/2013 06/29/2016 Tobacco abuse 04/23/2013 01/12/2017 Supervision of normal first 06/01/2006 05/30/2016 Benign essential hypertension antepartum 05/26/2 006 05/30/2016 documented as of this encounter (statuses as of 04/07/2022) [address]27-2017 History of Past illness Narrative* Problem Noted Date Resolved Date Helicobacter pylori infection 09/23/2016 Diabetes mellitus type 2 in obese 04/23/2013 06/29/2016 Tobacco abuse 04/23/2013 01/12/2017 Supervision of normal first 06/01/2006 05/30/2016 Benign essential hypertension antepartum 29/2 006 05/30/2016 documented as of this encounter (statuses as of 04/08/2022) [address]27-2017 History of Past illness Narrative* Problem Noted Date Resolved Date Helicobacter pylori infection 09/23/2016 Diabetes mellitus type 2 in obese 04/23/2013 06/29/2016 Tobacco abuse 04/23/2013 01/12/2017 Supervision of normal first 06/01/2006 05/30/2016 Benign essential hypertension antepartum 29/2 006 05/30/2016 documented as of this encounter (statuses as of 04/08/2022) [address]-2017 History of Past illness Narrative* Problem Noted Date Resolved Date Helicobacter pylori infection 09/23/2016 Diabetes mellitus type 2 in obese 04/23/2013 06/29/2016 Tobacco abuse 04/23/2013 01/12/2017 Supervision of normal first 06/01/2006 05/30/2016 Benign essential hypertension antepartum 29/2 006 05/30/2016 documented as of this encounter (statuses as of 04/18/2022) [facility] History of Past illness Narrative* Problem Noted Date Resolved Date Helicobacter pylori infection 09/23/2016 Diabetes mellitus type 2 in obese 04/23/2013 06/29/2016 Tobacco abuse 04/23/2013 01/12/2017 Supervision of normal first 06/01/2006 05/30/2016 Benign essential hypertension antepartum 2 006 05/30/2016 documented as of this encounter (statuses as of 05/26/2022) [place] [address]-2017 History of Past illness Narrative* Problem Noted Date Resolved Date Helicobacter pylori infection 09/23/2016 Diabetes mellitus type 2 in obese 04/23/2013 06/29/2016 Tobacco abuse 04/23/2013 01/12/2017 Supervision of normal first 06/01/2006 05/30/2016 Benign essential hypertension antepartum 2 006 05/30/2016 documented as of this encounter (statuses as of 05/28/2022) [address]27-2017 History of Past illness Narrative* Problem Noted Date Resolved Date Helicobacter pylori infection 09/23/2016 Diabetes mellitus type 2 in obese 04/23/2013 06/29/2016 Tobacco abuse 04/23/2013 01/12/2017 Supervision of normal first 06/01/2006 05/30/2016 Benign essential hypertension antepartum 2 006 05/30/2016 documented as of this encounter (statuses as of 06/16/2022) [address]27-2017 History of Past illness Narrative* Problem Noted Date Resolved Date Helicobacter pylori infection 09/23/2016 Diabetes mellitus type 2 in obese 04/23/2013 06/29/2016 Tobacco abuse 04/23/2013 01/12/2017 Supervision of normal first 06/01/2006 05/30/2016 Benign essential hypertension antepartum 05/26/2 006 05/30/2016 documented as of this encounter (statuses as of 07/25/2022) [address]-2017 History of Past illness Narrative* Problem Noted Date Resolved Date Helicobacter pylori infection 09/23/2016 Diabetes mellitus type 2 in obese 04/23/2013 06/29/2016 Tobacco abuse 04/23/2013 01/12/2017 Supervision of normal first 06/01/2006 05/30/2016 Benign essential hypertension antepartum 29/2 006 05/30/2016 documented as of this encounter (statuses as of 08/08/2022) [address]27-2017 History of Past illness Narrative* Problem Noted Date Resolved Date Helicobacter pylori infection 09/23/2016 Diabetes mellitus type 2 in obese 04/23/2013 06/29/2016 Tobacco abuse 04/23/2013 01/12/2017 Supervision of normal first 06/01/2006 05/30/2016 Benign essential hypertension antepartum 29/2 006 05/30/2016 documented as of this encounter (statuses as of 08/19/2022) [address]27-2017 History of Past illness Narrative* Problem Noted Date Resolved Date Helicobacter pylori infection 09/23/2016 Diabetes mellitus type 2 in obese 04/23/2013 06/29/2016 Tobacco abuse 04/23/2013 01/12/2017 Supervision of normal first 06/01/2006 05/30/2016 Benign essential hypertension antepartum 05/26/2 006 05/30/2016 documented as of this encounter (statuses as of 08/19/2022) [address]27-2017 History of Past illness Narrative* Problem Noted Date Resolved Date Helicobacter pylori infection 09/23/2016 Diabetes mellitus type 2 in obese 04/23/2013 06/29/2016 Tobacco abuse 04/23/2013 01/12/2017 Supervision of normal first 06/01/2006 05/30/2016 Benign essential hypertension antepartum 29/2 006 05/30/2016 documented as of this encounter (statuses as of 08/20/2022) [address]27-2017 History of Past illness Narrative* Problem Noted Date Resolved Date Helicobacter pylori infection 09/23/2016 Diabetes mellitus type 2 in obese 04/23/2013 06/29/2016 Tobacco abuse 04/23/2013 01/12/2017 Supervision of normal first 06/01/2006 05/30/2016 Benign essential hypertension antepartum 29/2 006 05/30/2016 documented as of this encounter (statuses as of 09/12/2022) [address]27-2017 History of Past illness Narrative* Problem Noted Date Resolved Date Helicobacter pylori infection 09/23/2016 Diabetes mellitus type 2 in obese 04/23/2013 06/29/2016 Tobacco abuse 04/23/2013 01/12/2017 Supervision of normal first 06/01/2006 05/30/2016 Benign essential hypertension antepartum 29/2 006 05/30/2016 documented as of this encounter (statuses as of 09/19/2022) [address]27-2017 History of Past illness Narrative* Problem Noted Date Resolved Date Helicobacter pylori infection 09/23/2016 Diabetes mellitus type 2 in obese 04/23/2013 06/29/2016 Tobacco abuse 04/23/2013 01/12/2017 Supervision of normal first 06/01/2006 05/30/2016 Benign essential hypertension antepartum 2 006 05/30/2016 documented as of this encounter (statuses as of 09/19/2022) [place] [id number] History of Past illness Narrative* Problem Noted Date Resolved Date Helicobacter pylori infection 09/23/2016 Diabetes mellitus type 2 in obese 04/23/2013 06/29/2016 Tobacco abuse 04/23/2013 01/12/2017 Supervision of normal first 06/01/2006 05/30/2016 Benign essential hypertension antepartum 05/26/2 006 05/30/2016 documented as of this encounter (statuses as of 09/20/2022) [address]27-2017 History of Past illness Narrative* Problem Noted Date Resolved Date Helicobacter pylori infection 09/23/2016 Diabetes mellitus type 2 in obese 04/23/2013 06/29/2016 Tobacco abuse 04/23/2013 01/12/2017 Supervision of normal first 06/01/2006 05/30/2016 Benign essential hypertension antepartum 05/26/2 006 05/30/2016 documented as of this encounter (statuses as of 09/21/2022) [address]27-2017 History of Past illness Narrative* Problem Noted Date Resolved Date Helicobacter pylori infection 09/23/2016 Diabetes mellitus type 2 in obese 04/23/2013 06/29/2016 Tobacco abuse 04/23/2013 01/12/2017 Supervision of normal first 06/01/2006 05/30/2016 Benign essential hypertension antepartum 05/26/2 006 05/30/2016 documented as of this encounter (statuses as of 09/28/2022) [address]27-2017 History of Past illness Narrative* Problem Noted Date Resolved Date Helicobacter pylori infection 09/23/2016 Diabetes mellitus type 2 in obese 04/23/2013 06/29/2016 Tobacco abuse 04/23/2013 01/12/2017 Supervision of normal first 06/01/2006 05/30/2016 Benign essential hypertension antepartum 05/26/2 006 05/30/2016 documented as of this encounter (statuses as of 10/18/2022) [address]27-2017 History of Past illness Narrative* Problem Noted Date Resolved Date Helicobacter pylori infection 09/23/2016 Diabetes mellitus type 2 in obese 04/23/2013 06/29/2016 Tobacco abuse 04/23/2013 01/12/2017 Supervision of normal first 06/01/2006 05/30/2016 Benign essential hypertension antepartum 05/26/2 006 05/30/2016 documented as of this encounter (statuses as of 11/03/2022) [address]27-2017 History of Past illness Narrative* Problem Noted Date Resolved Date Helicobacter pylori infection 09/23/2016 Diabetes mellitus type 2 in obese 04/23/2013 06/29/2016 Tobacco abuse 04/23/2013 01/12/2017 Supervision of normal first 06/01/2006 05/30/2016 Benign essential hypertension antepartum 05/26/2 006 05/30/2016 documented as of this encounter (statuses as of 11/03/2022) [address]27-2017 History of Past illness Narrative* Problem Noted Date Resolved Date Helicobacter pylori infection 09/23/2016 Diabetes mellitus type 2 in obese 04/23/2013 06/29/2016 Tobacco abuse 04/23/2013 01/12/2017 Supervision of normal first 06/01/2006 05/30/2016 Benign essential hypertension antepartum 05/26/2 006 05/30/2016 documented as of this encounter (statuses as of 11/29/2022) [address]27-2017 History of Past illness Narrative* Problem Noted Date Resolved Date Helicobacter pylori infection 09/23/2016 Diabetes mellitus type 2 in obese 04/23/2013 06/29/2016 Tobacco abuse 04/23/2013 01/12/2017 Supervision of normal first 06/01/2006 05/30/2016 Benign essential hypertension antepartum 29/2 006 05/30/2016 documented as of this encounter (statuses as of 11/29/2022) [address]27-2017 History of Past illness Narrative* Problem Noted Date Resolved Date Helicobacter pylori infection 09/23/2016 Diabetes mellitus type 2 in obese 04/23/2013 06/29/2016 Tobacco abuse 04/23/2013 01/12/2017 Supervision of normal first 06/01/2006 05/30/2016 Benign essential hypertension antepartum 29/2 006 05/30/2016 documented as of this encounter (statuses as of 11/30/2022) [address]27-2017 History of Past illness Narrative* Problem Noted Date Resolved Date Helicobacter pylori infection 09/23/2016 Diabetes mellitus type 2 in obese 04/23/2013 06/29/2016 Tobacco abuse 04/23/2013 01/12/2017 Supervision of normal first 06/01/2006 05/30/2016 Benign essential hypertension antepartum 29/2 006 05/30/2016 documented as of this encounter (statuses as of 12/07/2022) [address]27-2017 History of Past illness Narrative* Problem Noted Date Resolved Date Helicobacter pylori infection 09/23/2016 Diabetes mellitus type 2 in obese 04/23/2013 06/29/2016 Tobacco abuse 04/23/2013 01/12/2017 Supervision of normal first 06/01/2006 05/30/2016 Benign essential hypertension antepartum 29/2 006 05/30/2016 documented as of this encounter (statuses as of 01/02/2023) [address]27-2017 History of Past illness Narrative* Problem Noted Date Resolved Date Helicobacter pylori infection 09/23/2016 Diabetes mellitus type 2 in obese 04/23/2013 06/29/2016 Tobacco abuse 04/23/2013 01/12/2017 Supervision of normal first 06/01/2006 05/30/2016 Benign essential hypertension antepartum 29/2 006 05/30/2016 documented as of this encounter (statuses as of 01/02/2023) [address]27-2017 History of Past illness Narrative* Problem Noted Date Resolved Date Helicobacter pylori infection 09/23/2016 Diabetes mellitus type 2 in obese 04/23/2013 06/29/2016 Tobacco abuse 04/23/2013 01/12/2017 Supervision of normal first 06/01/2006 05/30/2016 Benign essential hypertension antepartum 29/2 006 05/30/2016 documented as of this encounter (statuses as of 01/02/2023) [address]27-2017 History of Past illness Narrative* Problem Noted Date Resolved Date Helicobacter pylori infection 09/23/2016 Diabetes mellitus type 2 in obese 04/23/2013 06/29/2016 Tobacco abuse 04/23/2013 01/12/2017 Supervision of normal first 06/01/2006 05/30/2016 Benign essential hypertension antepartum 05/26/2 006 05/30/2016 documented as of this encounter (statuses as of 01/26/2023) [address]27-2017 History of Past illness Narrative* Problem Noted Date Resolved Date Helicobacter pylori infection 09/23/2016 Diabetes mellitus type 2 in obese 04/23/2013 06/29/2016 Tobacco abuse 04/23/2013 01/12/2017 Supervision of normal first 06/01/2006 05/30/2016 Benign essential hypertension antepartum 05/26/2 006 05/30/2016 documented as of this encounter (statuses as of 02/21/2023) [address]27-2017 History of Past illness Narrative* Problem Noted Date Resolved Date Helicobacter pylori infection 09/23/2016 Diabetes mellitus type 2 in obese 04/23/2013 06/29/2016 Tobacco abuse 04/23/2013 01/12/2017 Supervision of normal first 06/01/2006 05/30/2016 Benign essential hypertension antepartum 29/2 006 05/30/2016 documented as of this encounter (statuses as of 02/23/2023) [address]27-2017 History of Past illness Narrative* Problem Noted Date Diagnosed Date Resolved Date Helicobacter pylori infection 09/23/2016 01/12/2017 Diabetes mellitus type 2 in obese 04/23/2013 06/29/2016 Tobacco abuse 04/23/2013 01/12/2017 Supervision of normal first 06/01/2006 05/30/2016 Benign essential hypertension antepartum 05/26/2006 05/30/2016 documented as of this encounter (statuses as of 03/28/2023) [address]27-2017 History of Past illness Narrative* Problem Noted Date Diagnosed Date Resolved Date Helicobacter pylori infection 09/23/2016 01/12/2017 Diabetes mellitus type 2 in obese 04/23/2013 06/29/2016 Tobacco abuse 04/23/2013 01/12/2017 Supervision of normal first 06/01/2006 05/30/2016 Benign essential hypertension antepartum 05/26/2006 05/30/2016 documented as of this encounter (statuses as of 04/18/2023) [address]27-2017 History of Past illness Narrative* Problem Noted Date Diagnosed Date Resolved Date Helicobacter pylori infection 09/23/2016 01/12/2017 Diabetes mellitus type 2 in obese 04/23/2013 06/29/2016 Tobacco abuse 04/23/2013 01/12/2017 Supervision of normal first 06/01/2006 05/30/2016 Benign essential hypertension antepartum 05/26/2006 05/30/2016 documented as of this encounter (statuses as of 04/27/2023) [place] [address]-2017 History of Past illness Narrative* Problem Noted Date Diagnosed Date Resolved Date Helicobacter pylori infection 09/23/2016 01/12/2017 Diabetes mellitus type 2 in obese 04/23/2013 06/29/2016 Tobacco abuse 04/23/2013 01/12/2017 Supervision of normal first 06/01/2006 05/30/2016 Benign essential hypertension antepartum 05/26/2006 05/30/2016 documented as of this encounter (statuses as of 04/27/2023) [address]27-2017 History of Past illness Narrative* Problem Noted Date Diagnosed Date Resolved Date Helicobacter pylori infection 09/23/2016 01/12/2017 Diabetes mellitus type 2 in obese 04/23/2013 06/29/2016 Tobacco abuse 04/23/2013 01/12/2017 Supervision of normal first 06/01/2006 05/30/2016 Benign essential hypertension antepartum 05/26/2006 05/30/2016 documented as of this encounter (statuses as of 06/14/2023) [address]27-2017 History of Past illness Narrative* Problem Noted Date Diagnosed Date Resolved Date Helicobacter pylori infection 09/23/2016 01/12/2017 Diabetes mellitus type 2 in obese 04/23/2013 06/29/2016 Tobacco abuse 04/23/2013 01/12/2017 Supervision of normal first 06/01/2006 05/30/2016 Benign essential hypertension antepartum 05/26/2006 05/30/2016 documented as of this encounter (statuses as of 07/02/2023) [facility]27-2017 History of Past illness Narrative* Problem Noted Date Diagnosed Date Resolved Date Helicobacter pylori infection 09/23/2016 01/12/2017 Diabetes mellitus type 2 in obese (HCC) 04/23/2013 06/29/2016 Tobacco abuse 04/23/2013 01/12/2017 Supervision of normal first 06/01/2006 05/30/2016 Benign essential hypertension antepartum 05/26/2006 05/30/2016 documented as of this encounter (statuses as of 07/07/2023) [place] [address]2017 History of Past illness Narrative* Problem Noted Date Diagnosed Date Resolved Date Helicobacter pylori infection 09/23/2016 01/12/2017 Diabetes mellitus type 2 in obese (HCC) 04/23/2013 06/29/2016 Tobacco abuse 04/23/2013 01/12/2017 Supervision of normal first 06/01/2006 05/30/2016 Benign essential hypertension antepartum 05/26/2006 05/30/2016 documented as of this encounter (statuses as of 07/11/2023) [place] [address]2017 History of Past illness Narrative* Problem Noted Date Diagnosed Date Resolved Date Helicobacter pylori infection 09/23/2016 01/12/2017 Diabetes mellitus type 2 in obese (HCC) 04/23/2013 06/29/2016 Tobacco abuse 04/23/2013 01/12/2017 Supervision of normal first 06/01/2006 05/30/2016 Benign essential hypertension antepartum 05/26/2006 05/30/2016 documented as of this encounter (statuses as of 07/13/2023) [place] [address]2017 History of Past illness Narrative* Problem Noted Date Diagnosed Date Resolved Date Helicobacter pylori infection 09/23/2016 01/12/2017 Diabetes mellitus type 2 in obese (HCC) 04/23/2013 06/29/2016 Tobacco abuse 04/23/2013 01/12/2017 Supervision of normal first 06/01/2006 05/30/2016 Benign essential hypertension antepartum 05/26/2006 05/30/2016 documented as of this encounter (statuses as of 07/17/2023) [facility]-27-2017 History of Past illness Narrative* Problem Noted Date Diagnosed Date Resolved Date Helicobacter pylori infection 09/23/2016 01/12/2017 Diabetes mellitus type 2 in obese (HCC) 04/23/2013 06/29/2016 Tobacco abuse 04/23/2013 01/12/2017 Supervision of normal first 06/01/2006 05/30/2016 Benign essential hypertension antepartum 05/26/2006 05/30/2016 documented as of this encounter (statuses as of 07/17/2023) [facility]27-2017 History of Past illness Narrative* Problem Noted Date Diagnosed Date Resolved Date Helicobacter pylori infection 09/23/2016 01/12/2017 Diabetes mellitus type 2 in obese (HCC) 04/23/2013 06/29/2016 Tobacco abuse 04/23/2013 01/12/2017 Supervision of normal first 06/01/2006 05/30/2016 Benign essential hypertension antepartum 05/26/2006 05/30/2016 documented as of this encounter (statuses as of 07/25/2023) [facility] No data available for this section [facility] Evaluation note* Diagnosis Type 2 diabetes mellitus with hyperglycemia, without long-term current use of insulin (HCC) [facility] Diagnosis ASCUS with positive high risk HPV cervical- Primary Cervical high risk human papillomavirus (HPV) DNA test positive [facility] Diagnosis Vulval lesion- Primary Other specified noninflammatory disorder of vulva and perineum Perianal lesion Other specified disorder of rectum and anus [facility] Diagnosis Nerve pain Neuralgia, neuritis, and radiculitis, unspecified [facility] Diagnosis Type 2 diabetes mellitus with hyperglycemia, without long-term current use of insulin (HCC) [facility] Diagnosis Type 2 diabetes mellitus with hyperglycemia, without long-term current use of insulin (HCC)- Primary Dysuria Itching in the vaginal area Pruritus of genital organs Anxiety and depression Dysthymic disorder Hypertriglyceridemia Pure hyperglyceridemia Hypertension, essential Unspecified essential hypertension GERD without esophagitis Esophageal reflux Obesity, Class III, BMI 40-49.9 (morbid obesity) (HCC) Morbid obesity [facility] Diagnosis Type 2 diabetes mellitus with hyperglycemia, without long-term current use of insulin (HCC)- Primary Anxiety and depression Dysthymic disorder Hypertriglyceridemia Pure hyperglyceridemia GERD without esophagitis Esophageal reflux Nerve pain Neuralgia, neuritis, and radiculitis, unspecified Left arm pain Pain in limb Encounter for immunization Need for other specified prophylactic vaccination against single bacterial disease [facility] Diagnosis Type 2 diabetes mellitus with hyperglycemia, without long-term current use of insulin (HCC)- Primary [facility] Diagnosis Vaginal burning- Primary Other specified symptom associated with female genital organs Vaginal discharge Leukorrhea, not specified as infective Screen for STD (sexually transmitted disease) Screening examination for venereal disease [facility] Diagnosis Type 2 diabetes mellitus with hyperglycemia, without long-term current use of insulin ([facility] Diagnosis Urinary frequency- Primary UTI symptoms Other symptoms involving urinary system Feared condition not demonstrated Person with feared complaint in whom no diagnosis was made [facility] Diagnosis Vaginal burning- Primary Other specified symptom associated with female genital organs Vaginal arturo Candidiasis of vulva and vagina Abdominal cramping Abdominal pain, unspecified site Leg cramping Cramp of limb [facility] Diagnosis Hypomagnesemia- Primary Disorders of magnesium metabolism Type 2 diabetes mellitus with hyperglycemia, without long-term current use of insulin (HCC) Vaginal burning Other specified symptom associated with female genital organs Elevated serum glucose with glucosuria [facility] Diagnosis Pelvic pain- Primary Pelvic cramping Unspecified symptom associated with female genital organs Bloating Flatulence, eructation, and gas pain Nerve pain Neuralgia, neuritis, and radiculitis, unspecified [facility] Diagnosis Hypomagnesemia- Primary Disorders of magnesium metabolism Type 2 diabetes mellitus with hyperglycemia, without long-term current use of insulin ([facility]) [facility] Diagnosis Right wrist pain- Primary Pain in joint, forearm [facility] Diagnosis Anxiety and depression Dysthymic disorder Type 2 diabetes mellitus with hyperglycemia, without long-term current use of insulin (HCC) [facility] Diagnosis URI, acute- Primary Acute upper respiratory infections of unspecified site Sore throat Acute pharyngitis Chest congestion Other symptoms involving respiratory system and chest Acute cough [facility] Diagnosis Strep throat exposure- Primary Contact with or exposure to other communicable diseases [facility] Diagnosis COVID-19- Primary [facility] Diagnosis COVID-19 [facility] Diagnosis Type 2 diabetes mellitus with hyperglycemia, without long-term current use of insulin (HCC)- Primary Nerve pain Neuralgia, neuritis, and radiculitis, unspecified History of COVID-19 Anxiety and depression Dysthymic disorder Hypomagnesemia Disorders of magnesium metabolism Other eczema Muscle weakness Muscle weakness (generalized) Acute bronchitis, unspecified organism [facility] Diagnosis Elevated LFTs- Primary Other abnormal blood chemistry [facility] Diagnosis Encounter for gynecological examination without abnormal finding- Primary Routine gynecological examination Encounter for screening for malignant neoplasm of cervix Screening for malignant neoplasm of the cervix Special screening examination for human papillomavirus (HPV) Vaginal irritation Unspecified noninflammatory disorder of vagina [facility] Diagnosis Nerve pain Neuralgia, neuritis, and radiculitis, unspecified [facility] Diagnosis Cervical high risk HPV (human papillomavirus) test positive- Primary Cervical high risk human papillomavirus (HPV) DNA test positive Vaginal burning Other specified symptom associated with female genital organs Vaginal arturo Candidiasis of vulva and vagina [facility] Diagnosis Hypomagnesemia Disorders of magnesium metabolism [facility] Diagnosis Fatigue, unspecified type Type 2 diabetes mellitus with hyperglycemia, without long-term current use of insulin (HCC) Other eczema Nerve pain Neuralgia, neuritis, and radiculitis, unspecified [facility] Diagnosis Type 2 diabetes mellitus with hyperglycemia, without long-term current use of insulin ([facility])- Primary Nerve pain Neuralgia, neuritis, and radiculitis, unspecified Diabetes mellitus type 2 in obese ([facility]) Type II or unspecified type diabetes mellitus without mention of complication, not stated as uncontrolled Acute pain of right knee GERD without esophagitis Esophageal reflux Gastritis without bleeding, unspecified chronicity, unspecified gastritis type Nausea Nausea alone Fatigue, unspecified type Hypertriglyceridemia Pure hyperglyceridemia Obesity, Class III, BMI 40-49.9 (morbid obesity) ([facility]) Morbid obesity documented in this encounter [facility] note* Diagnosis Gastritis without bleeding, unspecified chronicity, unspecified gastritis type Nausea Nausea alone documented in this encounter [facility] note* Diagnosis Anxiety and depression Dysthymic disorder documented in this encounter [facility] note* Diagnosis COVID-19- Primary documented in this encounter [facility] note* Diagnosis Diabetes mellitus type 2 in obese ([facility])- Primary Type II or unspecified type diabetes mellitus without mention of complication, not stated as uncontrolled Type 2 diabetes mellitus with hyperglycemia, without long-term current use of insulin ([facility]) documented in this encounter [facility] note* Diagnosis Elevated LFTs Other abnormal blood chemistry documented in this encounter [facility] note* Diagnosis Vaginal yeast infection Candidiasis of vulva and vagina documented in this encounter [facility] note* Diagnosis Diarrhea, unspecified type- Primary Gastritis without bleeding, unspecified chronicity, unspecified gastritis type Nausea Nausea alone documented in this encounter [facility] note* Diagnosis Anxiety and depression Dysthymic disorder documented in this encounter [facility] note* Diagnosis Gastritis without bleeding, unspecified chronicity, unspecified gastritis type Nausea Nausea alone documented in this encounter [facility] for referral (narrative)* Outpatient Procedure (Routine) - Pending Review Specialty Diagnoses / Procedures Referred By [place] Referred To Contact [facility] Diagnoses ASCUS with positive high risk HPV cervical Procedures COLPOSCOPY COLPOSCOPY CERVIX BX CERVIX & ENDOCRV CURRETAGE Aileen Roman MD [address] [place] [address] [facility] [address] [place] [address] Referral ID Status Reason Start Date Expiration Date Visits Requested Visits Authorized [id number] Pending Review Auto-Generat ed Referral 11/22/2021 11/22/2022 1 1 [facility] for referral (narrative)* Diagnostic Procedure Only (Routine) - Authorized Specialty Diagnoses / Procedures Referred By Contac t Referred To Contact US IMAGING Diagnoses Pelvic pain Procedures US FEMALE PELVIS TRANSVAG US TRANSVAGINAL Chaya Wilson APRN.DIRECTOR OF REHABILITATIVE SERVICES [address] [place] [address] Us Imaging Referral ID Status Reason Start Date Expiration Date Visits Requested Visits Authorized [id number] Authorized Auto-Generat ed Referral 04/08/2022 05/08/2023 1 1 * Diagnostic Procedure Only (Routine) - Authorized Specialty Diagnoses / Procedures Referred By Contac t Referred To Contact US IMAGING Diagnoses Pelvic pain Procedures US FEMALE PELVIS TRANSABD LTD US PELVIC NONOBSTETRIC IMAGE DCMTN LIMITED/F/U Chaya Wilson APRN.DIRECTOR OF REHABILITATIVE SERVICES [address] [place] [address] Us Imaging Referral ID Status Reason Start Date Expiration Date Visits Requested Visits Authorized [id number] Authorized Auto-Generat ed Referral 04/08/2022 05/08/2023 1 1 [facility] for referral (narrative)* Diagnostic Procedure Only (Routine) - Authorized Specialty Diagnoses / Procedures Referred By Contac t Referred To Contact US IMAGING Diagnoses Elevated LFTs Procedures US ABD RT UPPER QUADRANT US ABDOMINAL REAL TIME W/IMAGE LIMITED Mario Gonzales DO [address] [place] [address] Us Imaging Referral ID Status Reason Start Date Expiration Date Visits Requested Visits Authorized [id number] Authorized Auto-Generat ed Referral 10/13/2022 11/12/2023 1 1 [facility] for referral (narrative)* Outpatient Procedure (Routine) - Authorized Specialty Diagnoses / Procedures Referred By Heaven t Referred To Contact [facility] Diagnoses Cervical high risk HPV (human papillomavirus) test positive Procedures COLPOSCOPY COLPOSCOPY CERVIX BX CERVIX & ENDOCRV CURRETAGE Halle Ramirez APRN.CNP [address] [place] [address] [facility] [address] [place] [address] Referral ID Status Reason Start Date Expiration Date Visits Requested Visits Authorized [id number] Authorized Auto-Generat ed Referral 12/06/2022 12/06/2023 1 1 [facility] for referral (narrative)* Diagnostic Procedure Only (Routine) - Closed Specialty Diagnoses / Procedures Referred By Heaven t Referred To Contact US IMAGING Diagnoses Elevated LFTs Procedures US ABD RT UPPER QUADRANT US ABDOMINAL REAL TIME W/IMAGE LIMITED Mario Gonzales DO [address] [place] [address] [place] [id number] Referral ID Status Reason Start Date Expiration Date V isits Requested Visits Authorized [id number] Closed Auto-Generate d Referral 10/13/2022 11/12/2023 1 1 [facility] Summary Purpose Family History No Family History Records FoundNo Family History Records Found Advance Directives No Advanced Directives Records FoundNo Advanced Directives Records Found Reason for Referral Specialty Diagnoses / Procedures Referred By Heaven dale Referred To Contact Endocrinology Diagnoses Diabetes mellitus type 2 in obese (HCC) Type 2 diabetes mellitus with hyperglycemia, without long-term current use of insulin (HCC) Procedures CONSULT TO ENDOCRINOLOGY OFFICE/OUTPATIENT NEW HIGH MDM 60-74 MINUTES Chaya Ames APRN.CNP [address] [place] [address] Referral ID Status Reason Start Date Expiration Date Visits Requested Visits Authorized [id number] Authorized PCP Requested Referral 05/18/2023 05/17/2024 1 1 Specialty Diagnoses / Procedures Referred By Contac t Referred To Contact Vimal Wilde APRN.DIRECTOR OF REHABILITATIVE SERVICES [address] [place] [address] Referral ID Status Reason Start Date Expiration Date Visits Re quested Visits Authorized [id number] Closed 1 1 Specialty Diagnoses / Procedures Referred By Contac t Referred To Contact Nutrition Diagnoses Type 2 diabetes mellitus with hyperglycemia, without long-term current use of insulin (HCC) Procedures CONSULT TO NUTRITION THERAPY OFFICE/OUTPATIENT NEW [facility] MDM 60-74 MINUTES Chaya Wilson APRN.DIRECTOR OF REHABILITATIVE SERVICES [address] [place] [address] Referral ID Status Reason Start Date Expiration Date Visits Requested Visits Authorized [id number] Authorized PCP Requested Referral 02/22/2022 02/22/2023 1 1 Specialty Diagnoses / Procedures Referred By Contac t Referred To Contact Mario Gonzales DO [address] [place] [address] Referral ID Status Reason Start Date Expiration Date Visits Re quested Visits Authorized [id number] Closed 1 1 Specialty Diagnoses / Procedures Referred By Contac t Referred To Contact Chaya Wilson APRN.DIRECTOR OF REHABILITATIVE SERVICES [address] [place] [address] Referral ID Status Reason Start Date Expiration Date V isits Requested Visits Authorized [id number] Pending Review 1 1 Additional Source Comments INFORMATION SOURCE (unrecogn ized section and content) DATE CREATED AUTHOR AUTHOR'S ORGANIZ ATION 08/27/2023 [facility] Source Comments (unrecognize d section and content) In the event this informatio n is protected by the Federal Confidentiality of Alcohol and Drug Abuse Patient Records regulations: The Federal rules restrict any use of the information to criminally investigate or prosecute any alcohol or drug abuse patient.[facility] the event this information is protected by the Federal Confidentiality of Alcohol and Drug Abuse Patient Records regulations: The Federal rules restrict any use of the information to criminally investigate or prosecute any alcohol or drug abuse patient.[facility] Hospital[facility] the event this information is protected by the Federal Confidentiality of Alcohol and Drug Abuse Patient Records regulations: The Federal rules restrict any use of the information to criminally investigate or prosecute any alcohol or drug abuse patient.[facility] HospitalIn the event this information is protected by the Federal Confidentiality of Alcohol and Drug Abuse Patient Records regulations: The Federal rules restrict any use of the information to criminally investigate or prosecute any alcohol or drug abuse patient.[facility] Hospital[facility] the event this information is protected by the Federal Confidentiality of Alcohol and Drug Abuse Patient Records regulations: The Federal rules restrict any use of the information to criminally investigate or prosecute any alcohol or drug abuse patient.[facility] HospitalIn the event this information is protected by the Federal Confidentiality of Alcohol and Drug Abuse Patient Records regulations: The Federal rules restrict any use of the information to criminally investigate or prosecute any alcohol or drug abuse patient.[facility] HospitalIn the event this information is protected by the Federal Confidentiality of Alcohol and Drug Abuse Patient Records regulations: The Federal rules restrict any use of the information to criminally investigate or prosecute any alcohol or drug abuse patient.[facility] Hospital[facility] the event this information is protected by the Federal Confidentiality of Alcohol and Drug Abuse Patient Records regulations: The Federal rules restrict any use of the information to criminally investigate or prosecute any alcohol or drug abuse patient.[facility] HospitalIn the event this information is protected by the Federal Confidentiality of Alcohol and Drug Abuse Patient Records regulations: The Federal rules restrict any use of the information to criminally investigate or prosecute any alcohol or drug abuse patient.[facility] HospitalIn the event this information is protected by the Federal Confidentiality of Alcohol and Drug Abuse Patient Records regulations: The Federal rules restrict any use of the information to criminally investigate or prosecute any alcohol or drug abuse patient.[facility] HospitalIn the event this information is protected by the Federal Confidentiality of Alcohol and Drug Abuse Patient Records regulations: The Federal rules restrict any use of the information to criminally investigate or prosecute any alcohol or drug abuse patient.[facility] HospitalIn the event this information is protected by the Federal Confidentiality of Alcohol and Drug Abuse Patient Records regulations: The Federal rules restrict any use of the information to criminally investigate or prosecute any alcohol or drug abuse patient.[facility] HospitalIn the event this information is protected by the Federal Confidentiality of Alcohol and Drug Abuse Patient Records regulations: The Federal rules restrict any use of the information to criminally investigate or prosecute any alcohol or drug abuse patient.[facility] HospitalIn the event this information is protected by the Federal Confidentiality of Alcohol and Drug Abuse Patient Records regulations: The Federal rules restrict any use of the information to criminally investigate or prosecute any alcohol or drug abuse patient.[facility] HospitalIn the event this information is protected by the Federal Confidentiality of Alcohol and Drug Abuse Patient Records regulations: The Federal rules restrict any use of the information to criminally investigate or prosecute any alcohol or drug abuse patient.[facility] HospitalIn the event this information is protected by the Federal Confidentiality of Alcohol and Drug Abuse Patient Records regulations: The Federal rules restrict any use of the information to criminally investigate or prosecute any alcohol or drug abuse patient.[facility] the event this information is protected by the Federal Confidentiality of Alcohol and Drug Abuse Patient Records regulations: The Federal rules restrict any use of the information to criminally investigate or prosecute any alcohol or drug abuse patient.[facility] HospitalIn the event this information is protected by the Federal Confidentiality of Alcohol and Drug Abuse Patient Records regulations: The Federal rules restrict any use of the information to criminally investigate or prosecute any alcohol or drug abuse patient.[facility] HospitalIn the event this information is protected by the Federal Confidentiality of Alcohol and Drug Abuse Patient Records regulations: The Federal rules restrict any use of the information to criminally investigate or prosecute any alcohol or drug abuse patient.[facility] HospitalIn the event this information is protected by the Federal Confidentiality of Alcohol and Drug Abuse Patient Records regulations: The Federal rules restrict any use of the information to criminally investigate or prosecute any alcohol or drug abuse patient.[facility] HospitalIn the event this information is protected by the Federal Confidentiality of Alcohol and Drug Abuse Patient Records regulations: The Federal rules restrict any use of the information to criminally investigate or prosecute any alcohol or drug abuse patient.[facility] HospitalIn the event this information is protected by the Federal Confidentiality of Alcohol and Drug Abuse Patient Records regulations: The Federal rules restrict any use of the information to criminally investigate or prosecute any alcohol or drug abuse patient.[facility] HospitalIn the event this information is protected by the Federal Confidentiality of Alcohol and Drug Abuse Patient Records regulations: The Federal rules restrict any use of the information to criminally investigate or prosecute any alcohol or drug abuse patient.[facility] HospitalIn the event this information is protected by the Federal Confidentiality of Alcohol and Drug Abuse Patient Records regulations: The Federal rules restrict any use of the information to criminally investigate or prosecute any alcohol or drug abuse patient.[facility] HospitalIn the event this information is protected by the Federal Confidentiality of Alcohol and Drug Abuse Patient Records regulations: The Federal rules restrict any use of the information to criminally investigate or prosecute any alcohol or drug abuse patient.[facility] HospitalIn the event this information is protected by the Federal Confidentiality of Alcohol and Drug Abuse Patient Records regulations: The Federal rules restrict any use of the information to criminally investigate or prosecute any alcohol or drug abuse patient.[facility] HospitalIn the event this information is protected by the Federal Confidentiality of Alcohol and Drug Abuse Patient Records regulations: The Federal rules restrict any use of the information to criminally investigate or prosecute any alcohol or drug abuse patient.[facility] HospitalIn the event this information is protected by the Federal Confidentiality of Alcohol and Drug Abuse Patient Records regulations: The Federal rules restrict any use of the information to criminally investigate or prosecute any alcohol or drug abuse patient.[facility] HospitalIn the event this information is protected by the Federal Confidentiality of Alcohol and Drug Abuse Patient Records regulations: The Federal rules restrict any use of the information to criminally investigate or prosecute any alcohol or drug abuse patient.[facility] HospitalIn the event this information is protected by the Federal Confidentiality of Alcohol and Drug Abuse Patient Records regulations: The Federal rules restrict any use of the information to criminally investigate or prosecute any alcohol or drug abuse patient.[facility] HospitalIn the event this information is protected by the Federal Confidentiality of Alcohol and Drug Abuse Patient Records regulations: The Federal rules restrict any use of the information to criminally investigate or prosecute any alcohol or drug abuse patient.[facility] HospitalIn the event this information is protected by the Federal Confidentiality of Alcohol and Drug Abuse Patient Records regulations: The Federal rules restrict any use of the information to criminally investigate or prosecute any alcohol or drug abuse patient.[facility] HospitalIn the event this information is protected by the Federal Confidentiality of Alcohol and Drug Abuse Patient Records regulations: The Federal rules restrict any use of the information to criminally investigate or prosecute any alcohol or drug abuse patient.[facility] HospitalIn the event this information is protected by the Federal Confidentiality of Alcohol and Drug Abuse Patient Records regulations: The Federal rules restrict any use of the information to criminally investigate or prosecute any alcohol or drug abuse patient.[facility] HospitalIn the event this information is protected by the Federal Confidentiality of Alcohol and Drug Abuse Patient Records regulations: The Federal rules restrict any use of the information to criminally investigate or prosecute any alcohol or drug abuse patient.[facility] HospitalIn the event this information is protected by the Federal Confidentiality of Alcohol and Drug Abuse Patient Records regulations: The Federal rules restrict any use of the information to criminally investigate or prosecute any alcohol or drug abuse patient.[facility] HospitalIn the event this information is protected by the Federal Confidentiality of Alcohol and Drug Abuse Patient Records regulations: The Federal rules restrict any use of the information to criminally investigate or prosecute any alcohol or drug abuse patient.[facility] HospitalIn the event this information is protected by the Federal Confidentiality of Alcohol and Drug Abuse Patient Records regulations: The Federal rules restrict any use of the information to criminally investigate or prosecute any alcohol or drug abuse patient.[facility] HospitalIn the event this information is protected by the Federal Confidentiality of Alcohol and Drug Abuse Patient Records regulations: The Federal rules restrict any use of the information to criminally investigate or prosecute any alcohol or drug abuse patient.[facility] HospitalIn the event this information is protected by the Federal Confidentiality of Alcohol and Drug Abuse Patient Records regulations: The Federal rules restrict any use of the information to criminally investigate or prosecute any alcohol or drug abuse patient.[facility] HospitalIn the event this information is protected by the Federal Confidentiality of Alcohol and Drug Abuse Patient Records regulations: The Federal rules restrict any use of the information to criminally investigate or prosecute any alcohol or drug abuse patient.[facility] HospitalIn the event this information is protected by the Federal Confidentiality of Alcohol and Drug Abuse Patient Records regulations: The Federal rules restrict any use of the information to criminally investigate or prosecute any alcohol or drug abuse patient.[facility] HospitalIn the event this information is protected by the Federal Confidentiality of Alcohol and Drug Abuse Patient Records regulations: The Federal rules restrict any use of the information to criminally investigate or prosecute any alcohol or drug abuse patient.[facility] HospitalIn the event this information is protected by the Federal Confidentiality of Alcohol and Drug Abuse Patient Records regulations: The Federal rules restrict any use of the information to criminally investigate or prosecute any alcohol or drug abuse patient.[facility] HospitalIn the event this information is protected by the Federal Confidentiality of Alcohol and Drug Abuse Patient Records regulations: The Federal rules restrict any use of the information to criminally investigate or prosecute any alcohol or drug abuse patient.[facility] HospitalIn the event this information is protected by the Federal Confidentiality of Alcohol and Drug Abuse Patient Records regulations: The Federal rules restrict any use of the information to criminally investigate or prosecute any alcohol or drug abuse patient.[facility] HospitalIn the event this information is protected by the Federal Confidentiality of Alcohol and Drug Abuse Patient Records regulations: The Federal rules restrict any use of the information to criminally investigate or prosecute any alcohol or drug abuse patient.[facility] HospitalIn the event this information is protected by the Federal Confidentiality of Alcohol and Drug Abuse Patient Records regulations: The Federal rules restrict any use of the information to criminally investigate or prosecute any alcohol or drug abuse patient.[facility] HospitalIn the event this information is protected by the Federal Confidentiality of Alcohol and Drug Abuse Patient Records regulations: The Federal rules restrict any use of the information to criminally investigate or prosecute any alcohol or drug abuse patient.[facility] HospitalIn the event this information is protected by the Federal Confidentiality of Alcohol and Drug Abuse Patient Records regulations: The Federal rules restrict any use of the information to criminally investigate or prosecute any alcohol or drug abuse patient.[facility] HospitalIn the event this information is protected by the Federal Confidentiality of Alcohol and Drug Abuse Patient Records regulations: The Federal rules restrict any use of the information to criminally investigate or prosecute any alcohol or drug abuse patient.[facility] HospitalIn the event this information is protected by the Federal Confidentiality of Alcohol and Drug Abuse Patient Records regulations: The Federal rules restrict any use of the information to criminally investigate or prosecute any alcohol or drug abuse patient.[facility] HospitalIn the event this information is protected by the Federal Confidentiality of Alcohol and Drug Abuse Patient Records regulations: The Federal rules restrict any use of the information to criminally investigate or prosecute any alcohol or drug abuse patient.[facility] HospitalIn the event this information is protected by the Federal Confidentiality of Alcohol and Drug Abuse Patient Records regulations: The Federal rules restrict any use of the information to criminally investigate or prosecute any alcohol or drug abuse patient.[facility] HospitalIn the event this information is protected by the Federal Confidentiality of Alcohol and Drug Abuse Patient Records regulations: The Federal rules restrict any use of the information to criminally investigate or prosecute any alcohol or drug abuse patient.[facility] HospitalIn the event this information is protected by the Federal Confidentiality of Alcohol and Drug Abuse Patient Records regulations: The Federal rules restrict any use of the information to criminally investigate or prosecute any alcohol or drug abuse patient.[facility] HospitalIn the event this information is protected by the Federal Confidentiality of Alcohol and Drug Abuse Patient Records regulations: The Federal rules restrict any use of the information to criminally investigate or prosecute any alcohol or drug abuse patient.[facility] HospitalIn the event this information is protected by the Federal Confidentiality of Alcohol and Drug Abuse Patient Records regulations: The Federal rules restrict any use of the information to criminally investigate or prosecute any alcohol or drug abuse patient.[facility] HospitalIn the event this information is protected by the Federal Confidentiality of Alcohol and Drug Abuse Patient Records regulations: The Federal rules restrict any use of the information to criminally investigate or prosecute any alcohol or drug abuse patient.[facility] HospitalIn the event this information is protected by the Federal Confidentiality of Alcohol and Drug Abuse Patient Records regulations: The Federal rules restrict any use of the information to criminally investigate or prosecute any alcohol or drug abuse patient.[facility] Reason for Visit (unrecogniz ed section and content) Reason Comments Colposcopy Reason Comments lesion removed Reason Onset Date Comments Refill Request 12/28/2021 Reason Comments Medication Problem Trulicity Vaginal Problem Reason Comments Refill Request Reason Comments blood sugars running high stopped taking shot makes her nauseated Reason Comments Insurance Authorization Reason Comments Recheck Reason Comments Allied Health Visit DM Reason Comments Vaginal Problem burning and discharg e- white in color with no odor Reason Comments Allied Health Visit DM Reason Comments Urinary Frequency frequency and burnin g x 3 days Reason Comments Results Reason Comments Follow Up UTI Leg Cramps abdominal cramping Reason Comments Patient Update Reason Comments Abdominal Pain Reason Comments Abdominal Pain x 1 day. Had Urine c ulture 1 week ago Reason Comments Refill Request Reason Comments Results Reason Comments Patient Question Reason Comments need another diagnosis on rx Reason Comments Orders Reason Comments Cough Congestion, sore thr oat x 2 days, at home covid test negative Reason Onset Date Comments Refill Request 08/18/2022 Reason Comments Exposure Pt reported + Strep exposure, reported tongue irritation. Reason Comments Covid Test Result Reason Comments Patient Update Medication Request Reason Comments Medication Problem Reason Comments Follow Up diabetes Reason Onset Date Comments Refill Request 11/03/2022 Reason Onset Date Comments Yearly Exam 11/28/2022 Reason Onset Date Comments Refill Request 11/29/2022 Reason Onset Date Comments Refill Request 12/31/2022 Reason Comments F/U 3 Month Reason Comments Diarrhea Reason Onset Date Comments Refill Request 04/17/2023 Reason Comments Covid + / requesting antiviral Reason Comments Covid Positive Reason Comments Radiology US Specialty Diagnoses / Procedures Referred By Heaven dale Referred To Contact US IMAGING Diagnoses Elevated LFTs Procedures US ABD RT UPPER QUADRANT US ABDOMINAL REAL TIME W/IMAGE LIMITED Mario Gonzales, DO [address] [facility] [place] [address] [place] [address] Referral ID Status Reason Start Date Expiration Date V isits Requested Visits Authorized [id number] Closed Auto-Generate d Referral 10/13/2022 11/12/2023 1 1 Reason Onset Date Comments Refill Request 07/06/2023 Reason Comments Diarrhea X 1 week Nausea X 1 week Reason Onset Date Comments Refill Request 07/14/2023 Reason Comments Patient Update Patient Question Care Teams (unrecognized sec tion and content) Double Bottom Driver Relationship Specialty Start Date End Date Mario Gonzales DO [address] [facility] [place] [address] PCP - General Family Practice 05/23/13 uZri Pillai, [facility]ly [facility] [address] [facility] [address] Pharmacist Pharmacy 02/04/21 Double Bottom Driver Relationship Specialty Start Date End Date Mario Gonzales DO [address] [facility] [place] [address] PCP - General Family Practice 05/23/13 [facility] [address] [facility] [place] [address] Pharmacist Pharmacy 02/04/21 Double Bottom Driver Relationship Specialty Start Date End Date Mario Gonzales DO [address] [facility] [place] [address] PCP - General Family Practice 05/23/13 [facility] [address] [place] [address] Pharmacist Pharmacy 02/04/21 Double Bottom Driver Relationship Specialty Start Date End Date Mario Gonzales, DO [address] [place] [address] PCP - General Family Practice 05/23/13 RifleZuri talleyUniversity Health [facility] [address] [place] [address] Pharmacist Pharmacy 02/04/21 Double Bottom Driver Relationship Specialty Start Date End Date Mario Gonzales, DO [address] [place] [address] PCP - General Family Practice 05/23/13 RosasZuri talleyUniversity [facility] [address] [place] [address] Pharmacist Pharmacy 02/04/21 Double Bottom Driver Relationship Specialty Start Date End Date Mario Gonzales, DO [address] [place] [address] PCP - General Family Practice 05/23/13 [facility] [address] [place] [address] Pharmacist Pharmacy 02/04/21 Double Bottom Driver Relationship Specialty Start Date End Date Mario Gonzales, DO [address] [place] [address] PCP - General Family Practice 05/23/13 [facility]Zuri[facility] [address] [place] [address] Pharmacist Pharmacy 02/04/21 Double Bottom Driver Relationship Specialty Start Date End Date Mario Gonzales, DO [address] [place] [address] PCP - General Family Practice 05/23/13 RosasZuri talleyUniversity [facility] [address] [place] [address] Pharmacist Pharmacy 02/04/21 [facility], [facility] [address] [place] [address] Pharmacist Pharmacy 02/22/22 Double Bottom Driver Relationship Specialty Start Date End Date Mario Gonzales, DO [address] [place] [address] PCP - General Family Practice 05/23/13 Rosas, Zuri, [facility]ly [facility] [address] [place] [address] Pharmacist Pharmacy 02/04/21 ScotBernardo bruce, [facility]ly [facility] [address] [place] [address] Pharmacist Pharmacy 02/22/22 Double Bottom Driver Relationship Specialty Start Date End Date Mario Gonzales, DO [address] [place] [address] PCP - General Family Practice 05/23/13 Rosas, Zuri, Formerly [facility] [address] [place] [address] Pharmacist Pharmacy 02/04/21 SuziBernardo, Formerly [facility] [address] [place] [address] Pharmacist Pharmacy 02/22/22 Double Bottom Driver Relationship Specialty Start Date End Date Mario Gonzales, DO [address] [place] [address] PCP - General Family Practice 05/23/13 Rosas, Zuri, Formerly [facility] [address] [place] [address] Pharmacist Pharmacy 02/04/21 ScoteBrnardo bruce, Formerly [facility] [address] [place] [address] Pharmacist Pharmacy 02/22/22 Double Bottom Driver Relationship Specialty Start Date End Date Mario Gonzales, DO [address] [place] [address] PCP - General Family Practice 05/23/13 Alicia Pillaiily, Formerly [facility] [address] [place] [address] Pharmacist Pharmacy 02/04/21 Bernardo Archer, Formerly [facility] [address] [place] [address] Pharmacist Pharmacy 02/22/22 Double Bottom Driver Relationship Specialty Start Date End Date Mario Gonzales DO [address] [place] [address] PCP - General Family Practice 05/23/13 Alicia Pillaiily, Formerly [facility] [address] [place] [address] Pharmacist Pharmacy 02/04/21 Bernardo Archer, [facility]ly [facility] [address] [place] [address] Pharmacist Pharmacy 02/22/22 Double Bottom Driver Relationship Specialty Start Date End Date Mario Gonzales, DO [address] [place] [address] PCP - General Family Practice 05/23/13 Alicia Pillaiily, Formerly [facility] [address] [place] [address] Pharmacist Pharmacy 02/04/21 ScotBernardo bruce, Formerly [facility] [address] [place] [address] Pharmacist Pharmacy 02/22/22 Double Bottom Driver Relationship Specialty Start Date End Date Mario Gonzales, DO [address] [place] [address] PCP - General Family Practice 05/23/13 Alicia Pillaiily, Formerly [facility] [address] [place] [address] Pharmacist Pharmacy 02/04/21 ScotBernardo bruce, Formerly [facility] [address] [place] [address] Pharmacist Pharmacy 02/22/22 Double Bottom Driver Relationship Specialty Start Date End Date Mario Gonzales, DO [address] [place] [address] PCP - General Family Practice 05/23/13 Alicia Pillaiily, Formerly [facility] [address] [place] [address] Pharmacist Pharmacy 02/04/21 ScotBernardo bruce, Formerly [facility] [address] [place] [address] Pharmacist Pharmacy 02/22/22 Double Bottom Driver Relationship Specialty Start Date End Date Mario Gonzales, DO [address] [place] [address] PCP - General Family Practice 05/23/13 Zuri Pillai, [facility]ly [facility] [address] [place] [address] Pharmacist Pharmacy 02/04/21 Bernardo Archer, [facility]ly [facility] [address] [place] [address] Pharmacist Pharmacy 02/22/22 Double Bottom Driver Relationship Specialty Start Date End Date Mario Gonzales, DO [address] [place] [address] PCP - General Family Practice 05/23/13 Alicia Pillaiily, Formerly [facility] [address] [place] [address] Pharmacist Pharmacy 02/04/21 ScotBernardo bruceUniversity [facility] [address] [place] [address] Pharmacist Pharmacy 02/22/22 Double Bottom Driver Relationship Specialty Start Date End Date Mario Gonzales, DO [address] [facility] [place] [address] PCP - General Family Medicine 05/23/13 Zuri PilaliUniversity [facility] [address] [place] [address] Pharmacist Pharmacy 02/04/21 ScotBernardo bruce, [facility]ly [facility] [address] [place] [address] Pharmacist Pharmacy 02/22/22 Double Bottom Driver Relationship Specialty Start Date End Date Mario Gonzales, DO [address] [place] [address] PCP - General Family Medicine 05/23/13 Zuri PillaiUniversity [facility] [address] [place] [address] Pharmacist Pharmacy 02/04/21 ScotBernardo bruceUniversity [facility] [address] [place] [address] Pharmacist Pharmacy 02/22/22 Double Bottom Driver Relationship Specialty Start Date End Date Mario Gonzales, DO [address] [place] [address] PCP - General Family Medicine 05/23/13 Zuri Pillai, [facility]ly [facility] [address] [place] [address] Pharmacist Pharmacy 02/04/21 SuziKylejeanneUniversity Health [facility] [address] [place] [address] Pharmacist Pharmacy 02/22/22 Double Bottom Driver Relationship Specialty Start Date End Date Mario Gonzales, DO [address] [place] [address] PCP - General Family Medicine 05/23/13 Alicia Pillaiily, [facility]ly [facility] [address] [place] [address] Pharmacist Pharmacy 02/04/21 Bernardo Archer, [facility]ly [facility] [address] [place] [address] Pharmacist Pharmacy 02/22/22 Double Bottom Driver Relationship Specialty Start Date End Date Mario Gonzales, DO [address] [place] [address] PCP - General Family Medicine 05/23/13 Zuri Pillai, [facility] [address] [place] [address] Pharmacist Pharmacy 02/04/21 ScotBernardo bruce, [facility]ly [facility] [address] [place] [address] Pharmacist Pharmacy 02/22/22 Double Bottom Driver Relationship Specialty Start Date End Date Mario Gonzales, DO [address] [place] [address] PCP - General Family Medicine 05/23/13 Rifle, Zuri, Formerly [facility] [address] [place] [address] Pharmacist Pharmacy 02/04/21 ScotBernardo bruce, [facility]ly [facility] [address] [place] [address] Pharmacist Pharmacy 02/22/22 Double Bottom Driver Relationship Specialty Start Date End Date Mario Gonzales, DO [address] [place] [address] PCP - General Family Medicine 05/23/13 Zuri Pillai, Formerly [facility] [address] [place] [address] Pharmacist Pharmacy 02/04/21 Bernardo ArcherUniversity [facility] [address] [place] [address] Pharmacist Pharmacy 02/22/22 Double Bottom Driver Relationship Specialty Start Date End Date Mario Gonzales, DO [address] [place] [address] PCP - General Family Medicine 05/23/13 Zuri Pillai, [facility] [address] [place] [address] Pharmacist Pharmacy 02/04/21 SuziBernardo, Formerly [facility] [address] [place] [address] Pharmacist Pharmacy 02/22/22 Double Bottom Driver Relationship Specialty Start Date End Date Mario Gonzales DO [address] [place] [address] PCP - General Family Medicine 05/23/13 Zuri Pillai, [facility] [address] [place] [address] Pharmacist Pharmacy 02/04/21 ScotBernardo bruce, [facility]ly [facility] [address] [place] [address] Pharmacist Pharmacy 02/22/22 Double Bottom Driver Relationship Specialty Start Date End Date Mario Gonzales DO [address] [place] [address] PCP - General Family Medicine 05/23/13 Zuri Pillai, [facility] [address] [place] [address] Pharmacist Pharmacy 02/04/21 Bernardo Archer, [facility] [address] [place] [address] Pharmacist Pharmacy 02/22/22 Double Bottom Driver Relationship Specialty Start Date End Date Mario Gonzales, DO [address] [place] [address] PCP - General Family Medicine 05/23/13 Alicia Pillaiily, [facility] [address] [place] [address] Pharmacist Pharmacy 02/04/21 Bernardo Archer, [facility] [address] [place] [address] Pharmacist Pharmacy 02/22/22 Double Bottom Driver Relationship Specialty Start Date End Date Mario Gonzales, DO [address] [place] [address] PCP - General Family Medicine 05/23/13 Zuri Pillai, [facility] [address] [place] [address] Pharmacist Pharmacy 02/04/21 Bernardo Archer, [facility] [address] [place] [address] Pharmacist Pharmacy 02/22/22 Double Bottom Driver Relationship Specialty Start Date End Date Mario Gonzales, DO [address] [place] [address] PCP - General Family Medicine 05/23/13 Zuri Pillai, [facility] [address] [place] [address] Pharmacist Pharmacy 02/04/21 Bernardo Archer, [facility] [address] [place] [address] Pharmacist Pharmacy 02/22/22 Double Bottom Driver Relationship Specialty Start Date End Date Mario Gonzales, DO [address] [place] [address] PCP - General Family Medicine 05/23/13 [facility]ZuriUniversity [facility] [address] [place] [address] Pharmacist Pharmacy 02/04/21 ScotBernardo bruce, [facility]ly [facility] [address] [place] [address] Pharmacist Pharmacy 02/22/22 Double Bottom Driver Relationship Specialty Start Date End Date Mario Gonzales, DO [address] [place] [address] PCP - General Family Medicine 05/23/13 [facility]ZuriUniversity [facility] [address] [place] [address] Pharmacist Pharmacy 02/04/21 ScotBernardo bruceUniversity Health [facility] [address] [place] [address] Pharmacist Pharmacy 02/22/22 Double Bottom Driver Relationship Specialty Start Date End Date Mario Gonzales, DO [address] [place] [address] PCP - General Family Medicine 05/23/13 [facility]ifleAliciaZuriDign[facility] [address] [place] [address] Pharmacist Pharmacy 02/04/21 ScotBernardo bruce, [facility] [address] [place] [address] Pharmacist Pharmacy 02/22/22 Double Bottom Driver Relationship Specialty Start Date End Date Mario Gonzales, DO [address] [place] [address] PCP - General Family Medicine 05/23/13 Rosas Zuri, [facility] [address] [place] [address] Pharmacist Pharmacy 02/04/21 Bernardo Archer, [facility] [address] [place] [address] Pharmacist Pharmacy 02/22/22 Double Bottom Driver Relationship Specialty Start Date End Date Mario Gonzales, DO [address] [place] [address] PCP - General Family Medicine 05/23/13 Alicia Pillaiily, [facility] [address] [place] [address] Pharmacist Pharmacy 02/04/21 ScotBernardo bruce, [facility]ly [facility] [address] [place] [address] Pharmacist Pharmacy 02/22/22 Double Bottom Driver Relationship Specialty Start Date End Date Mario Gonzales, DO [address] [place] [address] PCP - General Family Medicine 05/23/13 Alicia Pillaiily, Formerly [facility] [address] [place] [address] Pharmacist Pharmacy 02/04/21 Bernardo Archer, [facility] [address] [place] [address] Pharmacist Pharmacy 02/22/22 Double Bottom Driver Relationship Specialty Start Date End Date Mario Gonzales, DO [address] [place] [address] PCP - General Family Medicine 05/23/13 Alicia Pillaiily, Formerly [facility] [address] [place] [address] Pharmacist Pharmacy 02/04/21 Bernardo Acrher, [facility]ly [facility] [address] [place] [address] Pharmacist Pharmacy 02/22/22 Double Bottom Driver Relationship Specialty Start Date End Date Mario Gonzales DO [address] [place] [address] PCP - General Family Medicine 05/23/13 Alicia Pillaiily, [facility] [address] [place] [address] Pharmacist Pharmacy 02/04/21 Bernardo Archer, [facility] [address] [place] [address] Pharmacist Pharmacy 02/22/22 Double Bottom Driver Relationship Specialty Start Date End Date Mario Gonzales DO [address] [place] [address] PCP - General Family Medicine 05/23/13 Alicia Pillaiily, [facility] [address] [place] [address] Pharmacist Pharmacy 02/04/21 Bernardo Archer, [facility] [address] [place] [address] Pharmacist Pharmacy 02/22/22 Double Bottom Driver Relationship Specialty Start Date End Date Mario Gonzales DO [address] [place] [address] PCP - General Family Medicine 05/23/13 Alicia Pillaiily, [facility] [address] [place] [address] Pharmacist Pharmacy 02/04/21 Bernardo Archer, [facility] [address] [place] [address] Pharmacist Pharmacy 02/22/22 Double Bottom Driver Relationship Specialty Start Date End Date Mario Gonzales DO [address] [place] [address] PCP - General Family Medicine 05/23/13 Rifle [facility]uriUniversity [facility] [address] [place] [address] Pharmacist Pharmacy 02/04/21 [facility] CenterBernardo bruceUniversity [facility] [address] [place] [address] Pharmacist Pharmacy 02/22/22 Double Bottom Driver Relationship Specialty Start Date End Date Mario Gonzales DO [address] [place] [address] PCP - General Family Medicine 05/23/13 RifleAliciaZuri, [facility] [address] [place] [address] Pharmacist Pharmacy 02/04/21 ScotBernardo bruce, [facility] [address] [place] [address] Pharmacist Pharmacy 02/22/22 Double Bottom Driver Relationship Specialty Start Date End Date Mario Gonzales DO [address] [place] [address] PCP - General Family Medicine 05/23/13 Rifle Zuri, [facility] [address] [place] [address] Pharmacist Pharmacy 02/04/21 ScotBernardo bruce, [facility] [address] [place] [address] Pharmacist Pharmacy 02/22/22 Double Bottom Driver Relationship Specialty Start Date End Date Mario Gonzales DO [address] [place] [address] PCP - General Family Medicine 05/23/13 Rifle, Zuri, [facility] [address] [place] [address] Pharmacist Pharmacy 02/04/21 Bernardo ArcherUniversity [facility] [address] [place] [address] Pharmacist Pharmacy 02/22/22 Double Bottom Driver Relationship Specialty Start Date End Date Mario Gonzales DO [address] [place] [address] PCP - General Family Medicine 05/23/13 Rosas Zuri, [facility] [address] [place] [address] Pharmacist Pharmacy 02/04/21 Bernardo ArcherUniversity [facility] [address] [place] [address] Pharmacist Pharmacy 02/22/22 Double Bottom Driver Relationship Specialty Start Date End Date Mario Gonzales DO [address] [place] [address] PCP - General Family Medicine 05/23/13 Rifle, Zuri, [facility] [address] [place] [address] Pharmacist Pharmacy 02/04/21 Bernardo Archer, [facility] [address] [place] [address] Pharmacist Pharmacy 02/22/22 Double Bottom Driver Relationship Specialty Start Date End Date Mario Gonzales DO [address] [place] [address] PCP - General Family Medicine 05/23/13 Rifle, Zuri, [facility] [address] [place] [address] Pharmacist Pharmacy 02/04/21 [facility] CenterBernardo bruceUniversity [facility] [address] [place] [address] Pharmacist Pharmacy 02/22/22 Double Bottom Driver Relationship Specialty Start Date End Date Mario Gonzales DO [address] [place] [address] PCP - General Family Medicine 05/23/13 Rosas Zuri, [facility] [address] [place] [address] Pharmacist Pharmacy 02/04/21 ScotBernardo bruceUniversity Health [facility] [address] [place] [address] Pharmacist Pharmacy 02/22/22 Double Bottom Driver Relationship Specialty Start Date End Date Mario Gonzales DO [address] [place] [address] PCP - General Family Medicine 05/23/13 Zuri PillaiUniversity [facility] [address] [place] [address] Pharmacist Pharmacy 02/04/21 [facility] CenterBernardo bruceUniversity [facility] [address] [place] [address] Pharmacist Pharmacy 02/22/22 Double Bottom Driver Relationship Specialty Start Date End Date Mario Gonzales DO [address] [place] [address] PCP - General Family Medicine 05/23/13 Alicia Pillaiily, [facility] [address] [place] [address] Pharmacist Pharmacy 02/04/21 Bernardo Archer, [facility] [address] [place] [address] Pharmacist Pharmacy 02/22/22 FOR RECORDS PERTAINING TO PATIENTS WHO ARE OR HAVE BEEN ENROLLED IN A CHEMICAL DEPENDENCY/SUBSTANCEABUSE PROGRAM, SOME INFORMATION MAY BE OMITTED. This clinical summary was aggregated from multiple sources. Caution should be exercised in using it in the provision of clinical care. This summary normalizes information from multiple sources, and as a consequence, information in this document may materially change the coding, format and clinical context of patient data. In addition, data may be omitted in some cases. CLINICAL DECISIONS SHOULD BE BASED ON THE PRIMARY CLINICAL RECORDS. [facility]. provides no warranty or guarantee of the accuracy or completeness of information in this document.
== END 2023-09-02 18:06 | disposition home or self-care (01) ==
LOC: ED 17:52
PROVIDERS: Emergency Provider Emergency Medicine; PCP Student in an Organized Health Care Education/Training Program; Visit Provider Emergency Medicine
DX: L03.011 Cellulitis of right finger (principal); E11.9 Type 2 diabetes mellitus without complications; Z87.891 Personal history of nicotine dependence; R06.00 Dyspnea, unspecified
CPT/HCPCS: 73130; 99285

== ENCOUNTER 2023-10-08 21:35 | Emergency (ER) | payer MEDICAID, SELFPAY ==
--- NOTE | 2023-10-08 00:10 | RAD_ITS ---
STUDY: X-RAY CHEST REASON FOR EXAM: Female, 38 years old. chest pain TECHNIQUE: PA and lateral views of the chest. COMPARISON: 04/16/2021. FINDINGS: The lungs are clear and expanded. There is no demonstrated pleural abnormality. Normal size heart. Normal mediastinum and lorena. Normal visualized pulmonary arteries. Normal visualized aortic arch and descending thoracic aorta. Normal visualized thoracic spine. Normal visualized ribs, clavicles, and shoulders. There is no demonstrated abnormality of the visualized soft tissue structures of the upper abdomen. RAD/Chest PA and Lateral IMPRESSION: Normal x-ray examination of the chest. Electronically Signed: Felicia Gao MD at 1:00 [facility] ,
[2023-10-08 21:35] VITALS: BP 206/112; PULSE 124; RESP 18; TEMP 36.4; O2SAT 99; BMI 47.9
--- NOTE | 2023-10-08 22:15 | EKG12_ITS ---
Test Reason : DYSRHYTHMIA Blood Pressure : / mmHG Vent. Rate : 085 BPM Atrial Rate : 085 BPM P-R Int : 162 ms QRS Dur : 088 ms QT Int : 370 ms P-R-T Axes : 015 018 013 degrees QTc Int : 440 ms Normal sinus rhythm Normal ECG Confirmed by Arthur Crockett ([id number]), newspaper managing editor KASSY SOTO ([id number]) on 10/10/2023 9:12:30 AM Referred By: Confirmed By:Arthur Crockett
[2023-10-08] MEDS: Mag Hydrox/Al Hydrox/Simeth 30 ML UDC PO (22:29)
[2023-10-08] MEDS: 0.9% Normal Saline (1000mL) 1,000 ML 999 ML IV (22:30)
--- OUTSIDE RECORDS SUMMARY | 2023-10-08 22:43 | XMS RPT_ITS | CCD ---
Author Name Unknown Address [id number] [place] [address] Organization [facility] Care Team Providers Care Orth[facility]ics Pediatric Physician Name Role Phone MARIO GONZALES DO Primary Care Physician Mario Gonzales DO Primary Care Provider [facility], Zuri Unavailable [facility], Keti Unavailable Mario Gonzales DO Primary Care Provider [facility], Zuri Unavailable [facility], Keti Unavailable Mario Gonzales DO Primary Care Provider [facility], Zuri Unavailable [facility], Keti Unavailable Mario Gonzales DO Primary Care Provider [facility], Zuri Unavailable [facility], Keti Unavailable [facility], Keti Unavailable CHAYA AMES Referring Unavailable MARIO GONZALES Primary Care Unavailable ISRAEL LUEVANO Attending Unavailable MARIO GONZALES Primary Care Unavailable ISRAEL LUEVANO Referring Unavailable MARIO GONZALES Primary Care Unavailable MARIO GONZALES Primary Care Unavailable VIMAL WILDE Attending Unavailable MARIO GONZALES Primary Care Unavailable VIMAL WILDE Referring Unavailable MARIO GONZALES Primary Care Unavailable VIMAL WILDE Referring Unavailable MARIO GONZALES Primary Care Unavailable GONZALES, MARIO L Referring Unavailable GONZALESMARIO L Primary Care Unavailable GONZALESMARIO L Attending Unavailable GONZALESMARIO L Primary Care Unavailable HALLE RAMIREZ Referring Unavailable DEVIN DELANEY Attending Unavailable ISRAEL LUEVANO Attending Unavailable GONZALES, MARIO L Primary Care Unavailable GONZALES, MARIO L Primary Care Unavailable HALLE RAMIREZ Attending Unavailable MALCOLM AMESON Attending Unavailable GONZALESMARIO L Primary Care Unavailable GONZALESMARIO L Primary Care Unavailable GONZALESMARIO L Attending Unavailable GONZALES MARIO L Primary Care Unavailable GONZALES, MARIO L Referring Unavailable AMES, CHAYA Attending Unavailable GONZALES MARIO L Primary Care Unavailable AMES, CHAYA Referring Unavailable GONZALES MARIO L Primary Care Unavailable AMES, CHAYA Referring Unavailable GONZALES, MARIO L Primary Care Unavailable AMES, CHAYA Attending Unavailable GONZALESMARIO L Primary Care Unavailable Allergies Allergy Classification Reported Allergen(s) Allergy Type Date of Onset Reaction(s) Facility (20 sources) Acetaminophen / oxyCODONE; Translations: [acetaminophen-oxy codone] Drug Allergy 04-23-2013 Rash [facility] (20 sources) Naproxen; Translations: [naproxen] Drug Allergy 04-23-2013 Itching [facility] (1 source) Acetaminophen / oxyCODONE; Translations: [OXYCODONE-ACETAMI NOPHEN] Drug Allergy 04-23-2013 [facility] Repository Medications Current Medications Medication Drug Class(es) [...] Classification Problem Date Documented Da te Episodic/Chronic Acute bronchitis (1 source) Acute bronchitis; Translations: [...] [Gastritis, unspecified, without bleeding] Onset: 3 Episodic Mood disorders (20 sources) [...] 07-11-2023 Episodic Other gastrointestinal disorders (1 source) Eructation; Translations: [Belching] Onset: 3 Episodic Other gastrointestinal disorders (1 source) Abdominal distension (gaseous); Translations: [Bloating] Onset: 3 Episodic Other gastrointestinal disorders (1 source) Diarrhea, unspecified; Translations: [Diarrhea, unspecified type] Onset: 3 Episodic Other liver diseases (20 [...] Other Problems Problem Classification Problem Date Documented Da te Episodic/Chronic Abdominal pain (4 sources) Finding of sensation of abdomen; Translations: [Unspecified abdominal pain] Onset: 06-02-2023 Episodic Allergic reactions (20 sources) Eczema; Translations: [Other specified dermatitis] Onset: 09-28-2022 Episodic Cancer of cervix (20 sources) Atypical squamous cells of undetermined significance on cervical Papanicolaou smear; Translations: [Atypical squamous cells of undetermined significance on cytologic smear of cervix (ASC-US)] Onset: 10-16-2019 10-16-2019 Episodic Genitourinary symptoms and ill-defined conditions (4 sources) Dysuria; Translations: [Dysuria] Onset: 06-02-2023 Episodic Immunizations and screening for infectious disease [...] Translations: [Vaginal irritation] Onset: 11-28-2022 Episodic Other gastrointestinal disorders (1 source) Constipation, unspecified; Translations: [Acute constipation] Onset: 06-02-2023 Episodic Other infections; including parasitic (20 sources) [...] 98.4 [degF] Israel Luevano APRN.CNP Work Phone: [facility] 07-11-2023 07:52-0500 Body weight 117.94 kg Israel Luevaon APRN.CNP Work Phone: [facility] 07-11-2023 07:52-0500 Diastolic blood pressure 82 mm[Hg] Israel Luevano APRN.CNP Work Phone: [facility] 07-11-2023 07:52-0500 Heart rate 73 /min Israel Luevano APRN.CNP Work Phone: [facility] 07-11-2023 07:52-0500 Respiratory rate 14 /min Israel Luevano SECURITY SOFTWARE ENGINEER.[employer] Work Phone: [facility] 07-11-2023 07:52-0500 Systolic blood pressure 131 mm[Hg] Israel Luevano SECURITY SOFTWARE ENGINEER.[employer] Work Phone: [facility] 03-27-2023 15:15-0400 Body weight 116.57 kg Israel Luevano SECURITY SOFTWARE ENGINEER.[employer] Work Phone: [facility] 03-27-2023 15:15-0400 Diastolic blood pressure 84 mm[Hg] Israel Luevano SECURITY SOFTWARE ENGINEER.[employer] Work Phone: [facility] 03-27-2023 15:15-0400 Heart rate 80 /min Israel Luevano SECURITY SOFTWARE ENGINEER.[employer] Work Phone: [facility] 03-27-2023 15:15-0400 Respiratory rate 14 /min Israel Luevano SECURITY SOFTWARE ENGINEER.[employer] Work Phone: [facility] 03-27-2023 15:15-0400 Systolic blood pressure 136 mm[Hg] Israel Luevano SECURITY SOFTWARE ENGINEER.[employer] Work Phone: [facility] 01-25-2023 15:50-0400 Body temperature 97 [degF] Mario Gonzales DO Work Phone: [facility] 01-25-2023 15:50-0400 Body weight 117.48 kg Mario Gonzales DO Work Phone: [facility] 01-25-2023 15:50-0400 Diastolic blood pressure 60 mm[Hg] Mario Gonzales DO Work Phone: [facility] 01-25-2023 15:50-0400 Heart rate 88 /min Mario Gonzales DO Work Phone: [facility] 01-25-2023 15:50-0400 Respiratory rate 20 /min Mario Gonzales DO Work Phone: [facility] 01-25-2023 15:50-0400 Systolic blood pressure 110 mm[Hg] Mario Gonzales DO Work Phone: [facility] 11-28-2022 16:01-0400 Body height 163.8 cm Halle Betzy SECURITY SOFTWARE ENGINEER.[employer] Work Phone: [facility] 11-28-2022 16:01-0400 Body weight 120.84 kg Halle [place] SECURITY SOFTWARE ENGINEER.[employer] Work Phone: [facility] 11-28-2022 16:01-0400 Diastolic blood pressure 82 mm[Hg] Halle Betzy SECURITY SOFTWARE ENGINEER.[employer] Work Phone: [facility] 11-28-2022 16:01-0400 Systolic blood pressure 130 mm[Hg] Halle [place] SECURITY SOFTWARE ENGINEER.[employer] Work Phone: [facility] 09-26-2022 15:32-0500 Body temperature 97 [degF] Mario Gonzales DO Work Phone: [facility] 09-26-2022 15:32-0500 Body weight 124.29 kg Mario Gonzales DO Work Phone: [facility] 09-26-2022 15:32-0500 Diastolic blood pressure 86 mm[Hg] Mario Gonzales DO Work Phone: [facility] 09-26-2022 15:32-0500 Heart rate 80 /min Mario Gonzales DO Work Phone: [facility] 09-26-2022 15:32-0500 Respiratory rate 16 /min Mario Gonzales DO Work Phone: [facility] 09-26-2022 15:32-0500 Systolic blood pressure 138 mm[Hg] Mario Gonzales DO Work Phone: [facility] 08-30-2022 16:21-0500 Body temperature 97.2 [degF] Nereida Esteban SECURITY SOFTWARE ENGINEER.[employer] Work Phone: [facility] 08-30-2022 16:21-0500 Body weight 127.19 kg Nereida Calljanis SECURITY SOFTWARE ENGINEER.[employer] Work Phone: [facility] 08-30-2022 16:21-0500 Diastolic blood pressure 80 mm[Hg] Nereida Callow SECURITY SOFTWARE ENGINEER.[employer] Work Phone: [facility] 08-30-2022 16:21-0500 Heart rate 85 /min Nereida Callow SECURITY SOFTWARE ENGINEER.[employer] Work Phone: [facility] 08-30-2022 16:21-0500 Respiratory rate 16 /min Nereida Callow SECURITY SOFTWARE ENGINEER.[employer] Work Phone: [facility] 08-30-2022 16:21-0500 SaO2% (BldA) [Mass fraction] 99 % Nereida Callow SECURITY SOFTWARE ENGINEER.[employer] Work Phone: [facility] 08-30-2022 16:21-0500 Systolic blood pressure 142 mm[Hg] Nereida Callow SECURITY SOFTWARE ENGINEER.[employer] Work Phone: [facility] 08-17-2022 13:43-0500 Body temperature 96.6 [degF] Vimal Goldie SECURITY SOFTWARE ENGINEER.[employer] Work Phone: [facility] 08-17-2022 13:43-0500 Body weight 125.28 kg Vimal Goldie SECURITY SOFTWARE ENGINEER.[employer] Work Phone: [facility] 08-17-2022 13:43-0500 Diastolic blood pressure 92 mm[Hg] Vimal Goldie SECURITY SOFTWARE ENGINEER.[employer] Work Phone: [facility] 08-17-2022 13:43-0500 Heart rate 91 /min Vimal Goldie SECURITY SOFTWARE ENGINEER.[employer] Work Phone: [facility] 08-17-2022 13:43-0500 SaO2% (BldA) [Mass fraction] 98 % Vimal Goldie SECURITY SOFTWARE ENGINEER.[employer] Work Phone: [facility] 08-17-2022 13:43-0500 Systolic blood pressure 136 mm[Hg] Vimal Goldie SECURITY SOFTWARE ENGINEER.[employer] Work Phone: [facility] 04-08-2022 13:20-0400 Body weight 126.1 kg Chaya Wilson SECURITY SOFTWARE ENGINEER.[employer] Work Phone: [facility] 03-25-2022 14:28-0400 Body weight 125.56 kg Vimal Goldie SECURITY SOFTWARE ENGINEER.[employer] Work Phone: [facility] 03-25-2022 14:28-0400 Diastolic blood pressure 94 mm[Hg] Vimal Goldie SECURITY SOFTWARE ENGINEER.[employer] Work Phone: [facility] 03-25-2022 14:28-0400 Heart rate 89 /min Vimal Goldie SECURITY SOFTWARE ENGINEER.[employer] Work Phone: [facility] 03-25-2022 14:28-0400 Respiratory rate 16 /min Vimal Goldie SECURITY SOFTWARE ENGINEER.[employer] Work Phone: [facility] 03-25-2022 14:28-0400 SaO2% (BldA) [Mass fraction] 97 % Vimal Goldie SECURITY SOFTWARE ENGINEER.[employer] Work Phone: [facility] 03-25-2022 14:28-0400 Systolic blood pressure 160 mm[Hg] Vimal Goldie SECURITY SOFTWARE ENGINEER.[employer] Work Phone: [facility] 03-22-2022 17:15-0400 Body temperature 97.39 [degF] Shanda Kadeem SECURITY SOFTWARE ENGINEER.[employer] Work Phone: [facility] 03-22-2022 17:15-0400 Body weight 127.1 kg Shanda Kadeem SECURITY SOFTWARE ENGINEER.[employer] Work Phone: [facility] 03-22-2022 17:15-0400 Diastolic blood pressure 78 mm[Hg] Shanda Kadeem SECURITY SOFTWARE ENGINEER.[employer] Work Phone: [facility] 03-22-2022 17:15-0400 Heart rate 80 /min Shanda Kadeem SECURITY SOFTWARE ENGINEER.[employer] Work Phone: [facility] 03-22-2022 17:15-0400 Respiratory rate 16 /min Shanda Kadeem SECURITY SOFTWARE ENGINEER.[employer] Work Phone: [facility] 03-22-2022 17:15-0400 SaO2% (BldA) [Mass fraction] 98 % Shanda Kadeem SECURITY SOFTWARE ENGINEER.[employer] Work Phone: [facility] 03-22-2022 17:15-0400 Systolic blood pressure 124 mm[Hg] Shanda Kadeem SECURITY SOFTWARE ENGINEER.[employer] Work Phone: [facility] 03-11-2022 11:10-0400 Body weight 126.1 kg Aileen De La Rosa MD Work Phone: [facility] 03-11-2022 11:10-0400 Diastolic blood pressure 86 mm[Hg] Aileen De La Rosa MD Work Phone: [facility] 03-11-2022 11:10-0400 Systolic blood pressure 132 mm[Hg] Aileen De La Rosa MD Work Phone: [facility] 02-21-2022 08:03-0400 Body weight 126.55 kg Chaya Zurawick SECURITY SOFTWARE ENGINEER.[employer] Work Phone: [facility] 02-21-2022 08:03-0400 Diastolic blood pressure 76 mm[Hg] Chaya Zurawick SECURITY SOFTWARE ENGINEER.[employer] Work Phone: [facility] 02-21-2022 08:03-0400 Heart rate 68 /min Chaya Zurawick SECURITY SOFTWARE ENGINEER.[employer] Work Phone: [facility] 02-21-2022 08:03-0400 Respiratory rate 16 /min Chaya Zurawick SECURITY SOFTWARE ENGINEER.[employer] Work Phone: [facility] 02-21-2022 08:03-0400 Systolic blood pressure 122 mm[Hg] Chaya Zurawick SECURITY SOFTWARE ENGINEER.[employer] Work Phone: [facility] 01-20-2022 13:19-0400 Body weight 126.64 kg Chaya Zurawick SECURITY SOFTWARE ENGINEER.[employer] Work Phone: [facility] 01-20-2022 13:19-0400 Diastolic blood pressure 90 mm[Hg] Chaya Zurawick SECURITY SOFTWARE ENGINEER.[employer] Work Phone: [facility] 01-20-2022 13:19-0400 Heart rate 60 /min Chaya Zurawick SECURITY SOFTWARE ENGINEER.[employer] Work Phone: [facility] 01-20-2022 13:19-0400 Respiratory rate 16 /min Chaya Zurawick SECURITY SOFTWARE ENGINEER.[employer] Work Phone: [facility] 01-20-2022 13:19-0400 Systolic blood pressure 138 mm[Hg] Chaya Zurawick SECURITY SOFTWARE ENGINEER.[employer] Work Phone: [facility] 12-13-2021 15:04-0400 Body weight 126.1 kg Aileen De La Rosa MD Work Phone: [facility] 12-13-2021 15:04-0400 Diastolic blood pressure 88 mm[Hg] Aileen De La Rosa MD Work Phone: [facility] 12-13-2021 15:04-0400 Systolic blood pressure 148 mm[Hg] Aileen De La Rosa MD Work Phone: [facility] 11-22-2021 15:13-0400 Body weight 124.74 kg Aileen De La Rosa MD Work Phone: [facility] 11-22-2021 15:13-0400 Diastolic blood pressure 74 mm[Hg] Aileen De La Rosa MD Work Phone: [facility] 11-22-2021 15:13-0400 Systolic blood pressure 130 mm[Hg] Aileen De La Rosa MD Work Phone: [facility] 07-07-2021 18:24-0500 Body temperature 98.6 [degF] [facility] 07-07-2021 18:24-0500 Diastolic blood pressure 92 mm[Hg] BRIT REICHFIELD DO [facility] 07-07-2021 18:24-0500 Heart rate 89 /min BRIT DREW DO [facility] 07-07-2021 18:24-0500 Respiratory rate 16 /min BRIT DREW DO [facility] 07-07-2021 18:24-0500 Systolic blood pressure 149 mm[Hg] [facility] Encounters Encounter Date Encounter Type Care Provider Facility Start: 08-23-2023 End: 08-23-2023 ambulatory MARIO L GONZALES Facility:[facility] Start: 08-14-2023 End: 08-15-2023 ambulatory MARIO L GONZALES Facility:[facility] Start: 07-14-2023 Faustina BRADSHAW-C Work Phone: [facility] [place] Procedures Date Procedure Procedure Detail Performing Clinician Start: 01-25-2023 Hemoglobin A1c/Hemoglobin.total in Blood Mario Josephrison DO Work Phone: Start: 11-01-2022 Us abdominal real time w/image limited Mario Josephrison DO Work Phone: Start: 08-30-2022 STREP A MOLECULAR (POC) Noni BRADSHAW-C Work Phone: Start: 08-17-2022 COVID WITH FLUA+B, ROUTINE Vimal Wilde SECURITY SOFTWARE ENGINEER[employer] Work Phone: Start: 04-08-2022 Urnls dip stick/tablet rgnt auto w/o microscopy Chaya Wilson SECURITY SOFTWARE ENGINEER.[employer] Work Phone: Start: 03-22-2022 Urnls dip stick/tablet rgnt auto w/o microscopy Radha Nicole SECURITY SOFTWARE ENGINEER.[employer] Work Phone: Start: 01-20-2022 Hemoglobin A1c/Hemoglobin.total in Blood Chaya Wilson SECURITY SOFTWARE ENGINEER.[employer] Work Phone: Start: 11-22-2021 Urine test visual color cmprsn claire De La Rosa MD Work Phone: Start: 10-08-2019 H/O: surgery History of loop electrical excision procedure (LEEP) Mario Gonzales DO Work Phone: Ligation of fallopia n tube BRIT DREW DO Tonsillectomy and adenoidectomy BRIT RAJENDRA DO Plan of Treatment Date Care Activity Detail Author Start: 05-02-2029 Urine microalbumin profile [facility] Start: 11-29-2027 HPV TESTING HPV TESTING [facility] Start: 11-29-2027 PAP TESTING PAP TESTING [facility] Start: 05-05-2026 HPV TESTING HPV TESTING [facility] Start: 05-05-2026 PAP TESTING PAP TESTING [facility] Start: 07-11-2024 Annual PCP Team Cytology Manager sloan Disease Visit Annual PCP Team Chronic Disease Visit [facility] Start: 06-02-2024 Annual PCP Team Cytology Manager sloan Disease Visit Annual PCP Team Chronic Disease Visit [facility] Start: 05-17-2024 Covid-19 Vaccine ( season) Covid-19 Vaccine ( season) [facility] Immunizations Immunization Date Immunization Notes Care Provider Les valadez 05-17-2023 Human Papillomavirus 9-valent vaccine Chaya Ames SECURITY SOFTWARE ENGINEER.[employer] Work Phone: [facility] 03-08-2023 Human Papillomavirus 9-valent vaccine Israel Luevano SECURITY SOFTWARE ENGINEER.[employer] Work Phone: [facility] 02-21-2022 hepatitis B vaccine, adult dosage Chaya Wilson SECURITY SOFTWARE ENGINEER.[employer] Work Phone: [facility] 06-02-2021 COVID-19 vaccine, ag e 12+ yr (PFIZER-BIONTClassOwl - PURPLE TOP) Mario Gonzales DO Work Phone: [facility] 05-06-2021 COVID-19 vaccine, ag e 12+ yr (Goojet-GoGoVan - PURPLE TOP) Mario Gonzales DO Work Phone: [facility] 05-02-2019 tetanus toxoid, redu isidro diphtheria toxoid, and acellular pertussis vaccine, adsorbed Mario Gonzales DO Work Phone: [facility] 09-04-2018 influenza virus vacc ine, unspecified formulation Chaya Ames SECURITY SOFTWARE ENGINEER.[employer] Work Phone: [facility] 05-16-2000 hepatitis B vaccine, pediatric or pediatric/adolescent dosage Mario Gonzales DO Work Phone: [facility] 05-16-2000 hepatitis B vaccine, unspecified formulation Chaya Wilson SECURITY SOFTWARE ENGINEER.[employer] Work Phone: [facility] 04-11-2000 hepatitis B vaccine, pediatric or pediatric/adolescent dosage Mario Gonzales DO Work Phone: [facility] 04-11-2000 measles, mumps and rubella virus vaccine Mario Gonzales DO Work Phone: [facility] 01-19-1993 diphtheria, tetanus toxoids and acellular pertussis vaccine Mario Gonzales DO Work Phone: [facility] 01-19-1993 poliovirus vaccine, inactivated Mario Gonzales DO Work Phone: [facility] 04-28-1989 diphtheria, tetanus toxoids and acellular pertussis vaccine Mario Gonzales DO Work Phone: [facility] 04-28-1989 haemophilus influenz ae type b vaccine, HbOC conjugate Mario Gonzales DO Work Phone: [facility] 04-28-1989 poliovirus vaccine, inactivated Mario Gonzales DO Work Phone: [facility] 11-03-1988 DTP-Haemophilus influenzae type b conjugate vaccine Mario Gonzales DO Work Phone: [facility] 11-03-1988 measles, mumps and rubella virus vaccine Mario Gonzales DO Work Phone: [facility] 02-18-1988 DTP-Haemophilus influenzae type b conjugate vaccine Mario Gonzales DO Work Phone: [facility] 02-18-1988 poliovirus vaccine, inactivated Mario Gonzales DO Work Phone: [facility] 1987 DTP-Haemophilus influenzae type b conjugate vaccine Mario Gonzales DO Work Phone: [facility] 1987 poliovirus vaccine, inactivated Mario Gonzales DO Work Phone: [facility] Payers Date Payer Category Payer Medicaid [id number] 2013 Medicaid [employer] [facility] MEDICAID [id number] 2013-Present [phone] [address] [place] [address] Medicaid [id number] 2013 Medicaid [id number] 2013 Medicaid [id number] Social History Date Type Detail Facility Smokes tobacco d aily (finding) [facility] Sex Assigned At [facility] Start: 08-18-2021 End: 05-23-2022 Tobacco smoking status NHIS Ex-smoker [facility] End: 03-28-2021 History of tobacco use Current smoker [facility] End: 03-28-2021 History of tobacco use Cigarette Smoker [facility] Start: 08-18-2021 End: 12-28-2022 Cigarettes smoked current (pack per day) - Reported [address] [facility] Work Phone: Start: 08-18-2021 End: 05-23-2022 Tobacco use and exposure Smokeless tobacco non-user [facility] Start: 11-10-2021 End: 06-02-2023 Alcohol intake Current drinker of alcohol (finding) [facility] Start: 11-11-2013 History SDOH Alcohol Comment Occasionally [facility] Start: 10-08-2019 History SDOH Social Connections Phone [address] [facility] Start: 10-08-2019 History SDOH Social Connections Congregation [address] [facility] Start: 10-08-2019 History SDOH Social Connections Membership [address] [facility] Start: 10-08-2019 History SDOH Physical Activity DPW [address] [facility] Start: 10-08-2019 History SDOH Physical Activity MPS [address] [facility] Start: 10-08-2019 Education [address] [facility] Start: 1985 Sex Assigned At Not on file [facility] Start: 11-05-2021 End: 06-29-2022 Exposure to SARS-CoV-2 (event) Not sure [facility] Work Phone: Start: 10-08-2019 End: 12-28-2022 Social connection and isolation panel [facility] Work Phone: Do you belong to any clubs or organizations such as uatsdin groups, unions, fraternal or athletic groups, or school groups? No [facility] Work Phone: Marital Status Not on file [facility] Work Phone: Do you feel stress - tense, restless, nervous, or anxious, or unable to sleep at night because your mind is troubled all the time - these days [OSQ] Only a little [facility] Work Phone: (I/We) worried wheth er (my/our) food would run out before (I/we) got money to buy more. Never true [facility] Work Phone: Medical Equipment Procedure Code Equipment [...] Type Note Facility 08-23-2023 Note HNO ID: [id number] Author: Kuzmik, Janine, RDMS Service: ? Author Type: Hospital Food Service Worker Type: Progress Notes Filed: 08/23/2023 10:17 AM [...] Not applicable SIGNED BY: Janine Mitchell RDMS RVRemigio August 23, 2023 10:17 AM [facility] 08-14-2023 Note HNO ID: [id number] Author: Vimal Wilde APRN.CNP Service: ? Author [...] can not keep fluids down. Israel Luevano APRN.[employer] Currently today: Burping smells like spoiled eggs. [...] DM - Uncontro (more content not included)... [facility] 07-24-2023 Miscellaneous Notes Called Pt ans offered [...] that will help. documented in this encounter [facility] 07-17-2023 Miscellaneous Notes KENDAL-07/11/23 Labs-07/11/23 NOV-08/23/23 Stephanie Brown LPN documented in this encounter [facility] 07-17-2023 Miscellaneous Notes Patient has been identified [...] Jena Tellez LPN documented in this encounter [facility] 07-13-2023 Miscellaneous Notes Patient was notified Natasha Calderon Ma I can't prescribe antibiotics as I don't know what I'm treating which is reason for stool sample. Patient should stop immodium and only use as needed as directed in the office. Once she has BM she should provide sample. Patient calling asking for lab results. Went over results, notes from Israel Luevano PLASTIC MOLDER. Patient said she is having lower mid [...] if she has yeast infection. Patient uses [facility] for her pharmacy. Please advise Please let [...] stool samples yet. documented in this encounter [facility] 07-11-2023 Note HNO ID: [id number] Author: Israel Luevano APRN.KALPESH Service: ? Author [...] on file pr (more content not included)... [facility] 07-11-2023 History of Present illness Narrative Chief [...] can not keep fluids down. Israel Luevano APRN.[employer] documented in this encounter [facility] 07-06-2023 Miscellaneous Notes KENDAL-06/02/23 Labs-06/02/23 NOV-08/23/23 Stephanie Brown LPN documented in this encounter [facility] 06-02-2023 Note HNO ID: [id number] Author: Katey Canales RT(R) Service: Radiology Author [...] RT Andrea(R) June 02, 2023 3:07 PM [facility] 06-02-2023 Note HNO ID: [id number] Author: Chaya Ames APRN.[employer] Service: ? Author Type: Nurse Practitioner Type: [...] in the mornin (more content not included)... [facility] 05-18-2023 Miscellaneous Notes Spoke with pt gave [...] vitamin D3 daily. Thank you, Chaya Ames APRN.[employer] documented in this encounter [facility] 05-17-2023 Note HNO ID: [id number] Author: Chaya Ames APRN.[employer] Service: ? Author Type: Nurse Practitioner Type: Progress Notes Filed: 05/17/2023 11:57 AM Note Text: Chief Complaint Patient presents with: Follow Up HPI Sheila Lofton Friend is a 37 [...] Blood Pressure T (more content not included)... [facility] 04-27-2023 Note HNO ID: [id number] Author: Chaya Ames APRN.KALPESH Service: ? Author Type: Nurse Practitioner Type: Progress Notes Filed: 04/27/2023 9:11 AM Note Text: This Team Access Model visit is a phone encounter. It required patient-provider interaction for the medical decision making as documented below. Patient agrees to the visit: Yes Patient Location: [place] CC: Patient presents with: Covid Positive HPI [...] Types: Cigarettes Q (more content not included)... [facility] 04-27-2023 Instructions Chaya Ames APRN.[facility] 04/27/2023 9:09 AM EDT Images from the original note were not included. FACT SHEET FOR PATIENTS, PARENTS, AND CAREGIVERS EMERGENCY USE AUTHORIZATION (EUA) OF PAXLOVID FOR CORONAVIRUS DISEASE 2019 (COVID-19) You are being given this Fact Sheet because your healthcare provider believes it is necessary to provide you with PAXLOVID for the treatment of vrjd-kv-qagjesci coronavirus disease (COVID-19) caused by the SARS-CoV-2 [...] make PAXLOVID available for the treatment of efnc-rn-mvrmisej COVID-19 in adults and children 12 years [...] virus. COVID-19 illnesses have ranged from very wuox-lv-ailszl, including illness resulting in . While information [...] available under EUA for the treatment of fyta-mm-rglzbhek COVID-19 in adults and children 12 years [...] of using PAXLOVID to treat children with tqbe-up-rnulumcg COVID-19. What is the most important information [...] o ranolazine o rifampin o rifapentine o [place] s Wort (hypericum perforatum) o sildenafil (Revatio [...] the medicines you take, including prescription and awry-ayk-nhwqkwp medicines, vitamins, and herbal supplements. Your healthcare [...] morning or evening, depending on when you pickling grader your prescription, or as your healthcare provider [...] PAXLOVID is FDA-approved for the treatment of qfqi-go-cxnnjusb COVID-19 in certain adults; however, there are not sufficient quantities of the approved presentations (i.e., dose packs) of PAXLOVID at this time. This EUA continues to authorize the emergency use of PAXLOVID for the approved patient population to ensure continued access in order to meet the public health need. VEKLURY (remdesivir) is FDA-approved for the treatment of iwrh-bb-qvpudeta COVID-19 in certain adults and children. Talk with your healthcare provider to see if VEKLURY is appropriate for you. For information on the emergency use of other medicines that are authorized by FDA to treat people with COVID-19, please go to https://www.fda.gov/emergency-prep bfzyrpxy-lny-xeziaopf/gjf-mwmbv-rr umniekdy-zai-hctwgw-framework/bradley uamwl-imv-gypyqjixywewo. Your healthcare provider may talk with you [...] for examples of PAXLOVID Dose Packs) to FDA [employer] at www.fda.gov/medwatch or call 5-981-MAO-7590 or you can report side effects to [employer]. at the contact information provided below. How [...] bottom of blister pack at this website: https://www.OceanavidlotexGenVault.Bandtastic/ or talk with your healthcare provider. Information on the authorized shelf-life extensions for PAXLOVID may also be found at https://www.fda.gov/emergency-prep hgvvdaxv-qgm-jwtgavlb/pnd-biwdi-hx uptgkbqe-ncv-javaen-framework/expi spwhcp-fjmnub-eyyqcyhvi. How can I learn more about COVID-19? Ask your healthcare provider. Visit https://www.cdc.gov/COVID19. Contact your local or state public health department. What is an Emergency Use Authorization (EUA)? The [place] FDA has made PAXLOVID available under an emergency access mechanism called an Emergency Use Authorization (EUA). The EUA is supported by a [place] of Health and Human Services (HHS) declaration [...] call the telephone number provided below. Website: www.AZXCF49fnabJa.Bandtastic Telephone number: (1-877-c19-PACK) Distributed by [employer] [place] [address] LAB-1494-9.3b Revised: 12/2022 documented in this encounter [facility] 04-27-2023 History of Present illness Narrative This Team Access Model visit is a phone encounter. It required patient-provider interaction for the medical decision making as documented below. Patient agrees to the visit: Yes Patient Location: [place] CC: Patient presents with: Covid Positive HPI Sheila Lofton Friend is a 37 year old female who is contacted today for a phone visit. This is an established patient of Dr. Mario Gonzales DO and myself. Concerns today.. COVID-- COVID [...] options, medications, and test results. Chaya Ames APRN.[employer] Nirmatrelvir/Ritonavir (Paxlovid) Considerations Paxlovid is FDA-approved for [...] 2023 9:09 AM documented in this encounter [facility] 04-26-2023 Miscellaneous Notes Ok set her up for a telephone call for 9am tomorrow morning with you. Telephone call is fine. Thank you, Chaya Ames APRN.CNP Spoke with pt gave information provided. Pt [...] Please advise patient. documented in this encounter [facility] 04-17-2023 Miscellaneous Notes Patient has been identified [...] on my chart. documented in this encounter [facility] 03-27-2023 Note HNO ID: [id number] Author: Israel Luevano APRN.[employer] Service: ? Author Type: Nurse Practitioner Type: [...] Drug use: No (more content not included)... [facility] 03-27-2023 Instructions Israel Luevano APRN.KALPESH - 03/27/2023 3:22 PM EDT Continue zofran Start Immodium documented in this encounter [facility] 03-27-2023 History of Present illness Narrative Chief [...] ONDANSETRON 4 MG DISINTEGRATING TABLET Israel Luevano APRN.[employer] documented in this encounter [facility] 03-08-2023 Note HNO ID: [id number] Author: Daisy Bates Ma Service: ? Author [...] by name and date of . Sheila Lofton Friend is here for her HPV 9 vaccination, injection # one of the series. Patient ?No Gardasil injection was given without incident. See immunizations for details of immunizations administered today. VIS sheet provided: Yes Patient advised to follow up in 2 months from the 1st injection Provider Dr Delaney was present in office at time of injection. Daisy Bates [facility] 02-23-2023 Miscellaneous Notes Spoke with pt gave information provided. Pt voices understanding. Yes, okay for her to hold off from taking Metformin at this time Mario Gonzales DO MyChart message: U want me to stop taking the metformen right just confused fausto it s still on my medication list documented in this encounter [facility] 01-25-2023 Note HNO ID: [id number] Author: Mario Gonzales, DO Service: ? 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 Jimenes indicates a history of hypertension and states [...] (TRULICITY) 4.5 mg (more content not included)... [facility] 01-25-2023 History of Present illness Narrative Patient presents with: F/U 3 Month HPI: Sheila Jimenes is a 37 year old female who presents to the office today for review of health conditions. Concerns today: Recently has felt sweaty, like she is nauseated, upset stomach and fatigue symptoms. 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 Friend indicates a history of hypertension and [...] agreed with the plan. Mario Gonzales DO [address] [place] [address] documented in this encounter [facility] 01-02-2023 Miscellaneous Notes See pt mychart refill request. Pt has upcoming appointment scheduled. Gabrielle Goldstein LPN documented in this encounter [facility] 12-31-2022 Miscellaneous Notes Patient phones requesting refills [...] Stephanie Brown LPN documented in this encounter [facility] 12-31-2022 Miscellaneous Notes Patient phones requesting refills as follows: Requested Prescriptions Pending Prescriptions Disp Refills magnesium chloride [address] tablet 60 tablet 0 Sig: Take 1 tablet by mouth twice daily. KENDAL-09/26/22 Labs-09/26/22Jun-01/25/23 med filled 03/28/22 Please review and advise. Stephanie Brown LPN documented in this encounter [facility] 12-06-2022 Miscellaneous Notes Patient notified. Prema Vallejo RN The following approved medication requests have been transmitted electronically. Requested Prescriptions Signed Prescriptions Disp Refills fluconazole (DIFLUCAN) 150 mg tablet 2 tablet 0 Sig: Take 1 tablet by mouth one time only for 1 dose. Repeat in 3 days as needed. Authorizing Provider: HALLE RAMIREZ Pharmacy Information Pharmacy Address [phone] [place], [place] [id number] RX sent. Halle Ramirez APRN.CNP Patient notified [...] positive, she will need to have a [place] done. Order filed. Halle Ramirez APRN.CNP documented in this encounter [facility] 11-29-2022 Miscellaneous Notes Patient has been identified [...] Rebecca Rangel MA documented in this encounter [facility] 11-29-2022 Miscellaneous Notes Patient notified of results, [...] Halle Ramirez APRN.CNP documented in this encounter [facility] 11-28-2022 Note HNO ID: [id number] Author: Halle Ramirez APRN.CNP Service: ? Author Type: Nurse Practitioner Type: Progress Notes Filed: 11/28/2022 4:26 PM Note Text: [employer] offered: Patient declines. 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 11-03-2022 Miscellaneous Notes Patient has been identified [...] Holly Esquivel RN documented in this encounter [facility] 11-03-2022 Miscellaneous Notes Patient calls and notified [...] Mario Gonzales DO documented in this encounter [facility] 11-01-2022 Note HNO ID: [id number] Author: Janine Mitchell RDMS Service: ? Author Type: Hospital Food Service Worker Type: Progress Notes Filed: 11/01/2022 2:02 PM [...] RDMS RVT November 01, 2022 2:01 PM [facility] 11-01-2022 History of Present illness Narrative Radiology [...] 2022 2:01 PM documented in this encounter [facility] 10-17-2022 Miscellaneous Notes The following approved medication [...] to medication regimen. Please send to [facility]. Alice Pedersen Ma We have the [...] Mario Gonzales DO documented in this encounter [facility] 09-28-2022 Note HNO ID: [id number] Author: Mario Gonzales DO Service: ? Author [...] minutes before break (more content not included)... [facility] 09-28-2022 History of Present illness Narrative Patient [...] Triglyceride (mg/dL) Date Value 05/06/2021 215 Ms. Jimenes indicates a history of hypertension and states [...] agreed with the plan. Mario Gonzales DO [address] [place] [address] documented in this encounter [facility] 09-21-2022 Miscellaneous Notes Pt. informed. Pt should [...] patient. Thank you. documented in this encounter [facility] 09-19-2022 Note HNO ID: [id number] Author: Chaya Ames APRN.CNP Service: ? Author [...] Total Time Spent: 24 minutes Chaya Ames APRN.[employer] Nirmatrelvir/Ritonavir (Paxlovid) Eligibility and Patient Discussion [facility] Formulary Restriction Criteria: Adult outpatients 18 years [...] to proceeding with nirmatrelvir/ritonavir treatment. Chaya Ames APRN.[employer] September 19, 2022 1:12 PM [facility] 09-19-2022 Miscellaneous Notes Pt informed, verbalized understanding [...] tablets twice daily. Authorizing Provider: CHAYA AMES APRN.KALPESH Pt calls to report her pharmacy does [...] Ginger Monaco LPN documented in this encounter [facility] 09-19-2022 Miscellaneous Notes Pt had video appt [...] needs an office visit to be evaluated Maroi Gonzales DO Pt called in and report [...] call and advise. documented in this encounter [facility] 09-19-2022 History of Present illness Narrative AMBULATORY [...] Total Time Spent: 24 minutes Chaya Ames APRN.CNP Nirmatrelvir/Ritonavir (Paxlovid) [facility]ligibility and [facility]: Adult outpatients 18 years and [...] 2022 1:12 PM documented in this encounter [facility] 09-19-2022 Instructions Chaya Ames APRN.CNP - 09/19/2022 1:11 PM EST FACT SHEET FOR PATIENTS, PARENTS, AND CAREGIVERS EMERGENCY USE AUTHORIZATION (EUA) OF PAXLOVID FOR CORONAVIRUS DISEASE 2019 (COVID-19) You are being given this Fact Sheet because your healthcare provider believes it is necessary to provide you with PAXLOVID for the treatment of lvhf-oy-wittuhmi coronavirus disease (COVID-19) caused by the SARS-CoV-2 [...] virus. COVID-19 illnesses have ranged from very rkdo-pu-vpdgxm, including illness resulting in . While information [...] is an investigational medicine used to treat ibaq-mw-ivkisqlt COVID-19 in adults and children [12 years [...] of using PAXLOVID to treat people with npcf-va-gwdinziw COVID-19. The FDA has authorized the emergency use of PAXLOVID for the treatment of gtvb-su-jbuyaiyi COVID-19 in adults and children [12 years [...] the medicines you take, including prescription and ukpt-shq-whqcdja medicines, vitamins, and herbal supplements. Some medicines [...] oral midazolam Apalutamide Carbamazepine, phenobarbital, phenytoin Rifampin [place] s Wort (hypericum perforatum) Taking PAXLOVID with [...] (remdesivir) is FDA-approved for the treatment of wvdn-em-deicifnp COVID-19 in certain adults and children. Talk with your doctor to see if Veklury is appropriate for you. Like PAXLOVID, FDA may also allow for the emergency use of other medicines to treat people with COVID-19. Go to https://www.fda.gov/emergency-prep aredness-andresponse/zjh-cdopm-rli ompxfuf-tsq-vcmeud-framework/emerg vpuo-thk-xiuunrvytcmhx for information on the emergency use of [...] if I am or ? There is nougat cutter machine treating women or mothers with PAXLOVID. For [...] to FDA MedWatch at www.fda.gov/medwatch or call 7-495-UZH1432 or you can report side effects to [employer]. at the contact information provided below. Website Fax number Telephone number Pictorama How should I store PAXLOVID? Store PAXLOVID [...] (EUA). The EUA is supported by a [place] of Health and Human Service (HHS) declaration that circumstances exist to justify the emergency use of drugs and biological products during the COVID-19 pandemic. PAXLOVID for the treatment of zvan-ru-knmjxsdv COVID-19 in adults and children [12 years [...] telephone number provided below. Website Telephone number www.QCOFO49ewchWx.com (4-264-Q53-PCIX) You can also go to www.Occlutech.Bandtastic or call for more information. Pfizer Distributed by [employer] [place] [address] LAB-1494-2.1 Revised: 12 November 2021 documented in this encounter [facility] 08-30-2022 History of Present illness Narrative [...] V01.89, ICD10: Z20.818 Increase fluids Motrin prn Bartholomew diet and salt water gargles tid x three days for tongue irritations, Follow up with pcp if not resolved in three days - STREP A MOLECULAR (POC) Nereida Esteban APRN.KALPESH documented in this encounter [facility] 08-19-2022 Miscellaneous Notes Pt reports she is [...] Phuong Gaitan LPN documented in this encounter [facility] 08-18-2022 Miscellaneous Notes The following approved medication requests have been transmitted electronically. Requested Prescriptions Signed Prescriptions Disp Refills azithromycin (ZITHROMAX Z-IRAIDA) 250 mg tablet 6 tablet 0 Sig: Take 2 tablets day one, then, 1 tablet daily until gone. Authorizing Provider: VIMAL WILDE APRN.CNP documented in this encounter [facility] 08-17-2022 Instructions Vimal Wilde APRN.KALPESH - 08/17/2022 2:08 PM EST Make sure you're drinking at least 60-80 oz of water daily. Drink 1-2 Gatorades or Body Armors daily, Poweraid is good as well. Rest. Ibuprofen/Tylenol as needed. Mucinex twice daily. We'll let you know tomorrow about your COVID/flu results. At that point we'll consider an antibiotic if necessary. documented in this encounter [facility] 08-17-2022 History of Present illness Narrative Chief [...] with fluids and rest - given upcoming [place] weekend if COVID and influenza testing is [...] with fluids and rest - given upcoming [place] weekend if COVID and influenza testing is negative, will consider antibiotic - COVID WITH FLUA+B, ROUTINE Vimal Wilde APRN.CNP documented in this encounter [facility] 08-08-2022 History of Present illness Narrative POPULATION HEALTH NAVIGATION OUTREACH Action/FYI RP OUTREACH: Contacted patient to schedule PT/OT, will call back when they are ready to schedule. Requested a message in [employer] with call back number. Pt identified by name and : YES, via phone Outreach Outcome/Action Spoke to patient or caregiver: Patient will return the call or ask for return call Did you use a PCP flex slot to schedule this appointment? No Reason for Outreach Care Gap or Scheduling/Wellness visits Payer: Payor: [facility] MEDICAID / Plan: [facility] MEDICAID / Product Type: Medicaid / Care [...] 2022 11:32 AM documented in this encounter [facility] 07-25-2022 Miscellaneous Notes Patient phones requesting refills [...] Stephanie Brown LPN documented in this encounter [facility] 06-16-2022 Miscellaneous Notes Faxed 06/16/2022 Celina Mendez Ma Reordered with new diagnosis. Please fax. Thank you, Chaya Wilson APRN.KALPESH Kayy from [facility] calling received order for wrist thumb spica brace. The carpel tunnel diagnosis is not covered with that type of brace, requesting another diagnosis please. Fax number is [phone]. Please advise documented in this encounter [facility] 05-26-2022 Miscellaneous Notes The following approved medication requests have been transmitted electronically. Requested Prescriptions Signed Prescriptions Disp Refills dulaglutide (TRULICITY) 4.5 mg/0.5 mL pen injector 6 mL 2 Sig: Inject 4.5 mg subcutaneously one time a week. Authorizing Provider: VIMAL WILDE APRN.CNP Pt informed, verbalized understanding. Pt reports [...] Vimal Wilde APRN.CNP documented in this encounter [facility] 05-24-2022 Miscellaneous Notes Please schedule daughter as below. Kiara Alvarado LPN Due to her age and diagnosis -- she needs to see pediatric endocrinology. Thank you, Chaya Wilson APRN.[employer] Phoned patient and scheduled appt with PLASTIC MOLDER for 05/23 at 320 pm. Mother said daughter name is Melina Pryor dob 12/29/2006, . How old is daughter? Mario [...] Camille Josue RN documented in this encounter [facility] 04-08-2022 History of Present illness Narrative Chief Complaint Patient presents with: Abdominal Pain: x 1 day. Had Urine culture 1 week ago SRIRAM Lofton Friend is a 36 year [...] Completed ASSESSMENT/PLAN: 1. Pelvic pain - ICD9: [id number], ICD10: R10.2 (primary diagnosis) Etiology unclear Differential Diagnosis includes PUD, Gastritis, IBS, Constipation, Ovarian cyst, and Cystitis. - Start bentyl with meals and at bedtime for bloating and cramping. If no improvement and no cause found, may need colonoscopy. - If symptoms worsen greatly over the weekend -- report to ED. - Increase fiber in diet - Bartholomew low residue diet - UA DIP, URINE [...] agreeable to treatment plan. Chaya Wilson APRN.KALPESH [address] [place] [address] documented in this encounter [facility] 04-08-2022 Miscellaneous Notes Noted. Will address at [...] : no Protocols used: Abdominal Pain - [id number] documented in this encounter [facility] 03-29-2022 Miscellaneous Notes Patient returned call and given provider's message below with verbalized understanding. Message left to return call. Kiara Alvarado LPN Please let Sheila know that I [...] mouth twice daily. Authorizing Provider: VIMAL WILDE APRN.[employer] documented in this encounter [facility] 03-25-2022 History of Present illness Narrative Chief [...] METABOLIC PANEL - MAGNESIUM BLD Vimal Wilde APRN.KALPESH documented in this encounter [facility] 03-25-2022 Miscellaneous Notes Phone call placed patient advised (see prior provider encounter) Patient verbalized understanding, agreed with plan of care. Janet Gaitan LPN ----- Message from Radha Nicole APRN.[employer] sent at 03/24/2022 11:05 AM EDT ----- Urine culture did not show clear evidence of infection, however it appears sample may have been contaminated with skin bacteria during collection. She may continue to take antibiotic if it has been helpful. Recommend follow up with PCP to ensure hematuria has resolved. Radha Nicole CNP documented in this encounter [facility] 03-24-2022 Miscellaneous Notes Spoke with patient. Given message from provider's office. Patient verbalizes understanding. Fariba M Lentine RN Phone call placed, brief message to contact a nurse. Janet Gaitan LPN ----- Message from Radha Nicole APRN.[employer] sent at 03/24/2022 11:05 AM EDT ----- Urine culture did not show clear evidence of infection, however it appears sample may have been contaminated with skin bacteria during collection. She may continue to take antibiotic if it has been helpful. Recommend follow up with PCP to ensure hematuria has resolved. Radha Nicole CNP documented in this encounter [facility] 03-22-2022 History of Present illness Narrative Subjective The history is provided by the patient. No production posting clerk was used. HPI Sheila Lofton Friend is a 36 [...] have confirmed and edited as necessary, the [facility] Review of Systems Constitutional: Negative for [...] (primary diagnosis) acute - UA positive for gracy esterase, hematuria, proteinuria and nitrates - took [...] Shanda Quan APRN.KALPESH documented in this encounter 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 03-07-2022 History of Present illness Narrative Primary Care Pharmacy Visit REASON FOR CONSULT: DM GOALS: A1c < 7% CONSULTING PROVIDER: Chaya Wilson APRN.CNP Date of Consult: 02/21/22 Sheila Jimenes is a 36 year old female presenting for follow up visit by telephone. Patient consents to pharmacy collaborative practice agreement. Last seen by Chaya Wilson APRN.CNP on 02/21/22. At last [employer] appt, patient expressed GI symptoms related to [...] hyperglycemia, without long-term current use of insulin ([facility]) - ICD9: 250.00, 790.29, ICD10: E11.65 A1c [...] current regimen, if symptoms continue at upcoming [employer] visit, can consider decreasing Trulicity dose. CONTINUE Trulicity 4.5 mg weekly ? If GI symptoms persist, can trial lower dose CONTINUE Metformin ER 500mg tabs - 1000mg BID, Glimepiride 2mg tabs - 6mg qAM and 2mg qPM with meals Follow up: Patient is scheduled to see PCP team on 03/23. Patient verbalized understanding of instructions. Bernardo Archer, PharmD, BCACP Primary Care Clinical Pharmacist [facility] The majority of the pharmacy visit (> 50%) was spent counseling and/or coordinating care for the patient. [Telephonic] time was 12 minutes. documented in this encounter [facility] 02-22-2022 History of Present illness Narrative Primary Care Pharmacy Visit REASON FOR CONSULT: DM GOALS: A1c < 7% CONSULTING PROVIDER: Chaya Wilson APRN.[employer] Date of Consult: 02/21/22 Sheila Jimenes is a 36 year old female presenting for follow up visit by telephone. Patient consents to pharmacy collaborative practice agreement. Last seen by Chaya Wilson APRN.[employer] on 02/21/22. At last [employer] appt, patient expressed GI symptoms related to [...] hyperglycemia, without long-term current use of insulin ([facility]) - ICD9: 250.00, 790.29, ICD10: E11.65 A1c [...] snacks when truly hungry. Referral placed to cashier. CONTINUE Trulicity 4.5 mg weekly If GI [...] Archer PharmD, BCACP Primary Care Clinical Pharmacist [facility] The majority of the pharmacy visit (> 50%) was spent counseling and/or coordinating care for the patient. [Telephonic] time was 20 minutes. documented in this encounter [facility] 02-21-2022 Miscellaneous Notes Spoke with pt gave [...] Chaya Wilson APRN.KALPESH documented in this encounter [facility] 02-21-2022 Instructions Chaya Wilson APRN.CNP - 02/21/2022 8:27 AM EDT Give Prozac 2-3 more weeks to see improvement in labile mood. If no improvement after 2-3 weeks Mychart message me or call office to switch and trial different SSRI. Continue Trulicity until discussed with prior authorization team. documented in this encounter [facility] 02-21-2022 History of Present illness Narrative Chief [...] loss - Discussed diabetic education issues of jail diabetic complications, hypoglycemic symptoms, hyperglycemic symptoms, diet, medications- side effects and need for compliance, importance of exercise, importance of appointments with Artist Manager and importance of annual examinations with Opthalmology [...] agreeable to treatment plan. Chaya Wilson APRN.KALPESH [address] [place] [address] documented in this encounter [facility] 01-21-2022 Miscellaneous Notes The following approved medication requests have been transmitted electronically. Signed Prescriptions Disp Refills exenatide (BYDUREON BCISE) 2mg / 0.85 ml subcutaneous auto injector 3.4 mL 2 Sig: Inject 0.85 mL subcutaneously one time a week. Authorizing Provider: CHAYA WILSON APRN.CNP Pt informed, verbalized understanding. Please [facility] [place]. Celina Mendez Ma Victoza is a daily injection. Byetta is either an immediate release injection 2x/day prior to meals or an extended release injection once weekly. Chaya Wilson APRN.CNP T/C to pt states does not like injecting herself. Is asking if these are once a day injections or once a week? Please reach out to patient and explain that Ryebelsus will not be covered unless Victoza and Byetta have been trailed. These are both injectables similar to Trulicity. Please see if patient has any preference. Thank you, Chaya Wilson APRN.CNP Per PA questions for rybelsus. Pt to have a trial and failure of 60 days of at least 3 preferred medicines. Which are trulicity (pt still taking) but next she would have to try victoza and byetta. Per med list do not see these have been taken. Please review. Electronic PA requested. Patient calling and states [facility] pharmacy informed her that her Rybelsus medication requires a Prior Authorization. Informed patient that the Prior Authorization Dept. would be notified. Prior authorization requested for the following medication: Medication: Rybelsus 3mg tablet Provider: Mario Gonzales (Chaya Wilson is prescriber) Insurance Company Name: Payer Plan Sponsor Code Group Number Group Name [employer] [id number] [employer] [place] Medicaid Insurance j[employer] Phone number: Patient ID number:[id number] Pharmacy Name: [facility] Telephone number: [phone] Please contact patient with update. Thank you. documented in this encounter [facility] 01-20-2022 Instructions Chaya Wilson APRN.CNP - 01/20/2022 1:46 PM EDT Start rybelsus 3 mg daily PO -- Stop trulicity injections. Start taking Prozac 10 mg daily for depression. Follow-up in 1 laura to reassess blood sugars and mood. documented in this encounter [facility] 01-20-2022 History of Present illness Narrative UChief [...] 2 DM - Uncontrolled E11.65 Insulin: No Blood Pressure Cuff - Home [...] arise. - Discussed diabetic education issues of jail diabetic complications, hypoglycemic symptoms, hyperglycemic symptoms, diet, medications- side effects and need for compliance, importance of exercise, importance of appointments with Artist Manager and importance of annual examinations with Opthalmology [...] with more than 50% of the total [id number] time of the visit in counseling / coordination of care. Prescription instructions reviewed with patient as applicable. Potential red flag symptoms discussed with the patient. Reviewed appropriate action plan to take if red flag symptoms occur. Patient agreeable to treatment plan. Chaya Wilson APRN.KALPESH [address] [place] [address] documented in this encounter [facility] 01-18-2022 Miscellaneous Notes Patient has been identified [...] Kiara Alvarado LPN documented in this encounter [facility] 01-17-2022 Miscellaneous Notes Thank you patient notified [...] evaluate continuing symptoms. Thank you, Chaya Wilson APRN.[employer] Pt reports she has been having nausea [...] Elizabeth Bryan LPN documented in this encounter [facility] 12-29-2021 [facility]isc[facility]. All prescriptions have [...] Kiara Alvarado LPN documented in this encounter [facility] 12-13-2021 History of Present illness Narrative Sheila [...] Aileen Salas MD documented in this encounter [facility] 11-22-2021 Instructions Chelita Ferris Ma - 11/22/2021 3:03 PM EDT YOUR RECOVERY [...] your doctor's office. documented in this encounter [facility] 11-22-2021 History of Present illness Narrative Sheila [...] Aileen Salas MD documented in this encounter [facility] 11-19-2021 Miscellaneous Notes Patient has been identified by name and date of : Yes Patient phones for refill(s): Pending Prescriptions Disp Refills TRULICITY 4.5 MG/0.5 ML SUBCUTANEOUS PEN INJECTOR Sig: Inject 4.5 mg subcutaneously one time a week. Patient requesting prescription for increased dose of Trulicity be sent to [facility] per provider recommendation 11/12/21. Date of last [...] Holly Esquivel RN documented in this encounter [facility] 07-07-2021 Hospital Discharge instructions Patient Education 07/07/2021 20:57:28 AA Blank DI (CUSTOM) Result type:CT Spine Cervical w/o Contrast Result date:July 07, 2021 20:28 EST Result status:In Progress Result title:CT SPINE CERVICAL W/O CONTRAST Encounter info:[id number], [place], Emergency, 07/07/2021 - Contributor system:[employer] * Preliminary Report * [id number] ORIGINAL EXAMINATION: CT OF THE CERVICAL SPINE [...] Document Reviewed: 08/15/2014 ExitCare Patient Information 2015 [employer] [facility]. This information is not intended to replace [...] arm gets worse Trouble breathing or swallowing [id number] [employer]. [address] [place] [address]. All rights reserved. This information is not intended as a substitute for professional medical care. Always follow your healthcare professional's instructions. Follow Up Care 07/07/2021 18:20:34 With:HILARIO ZAYAS, SAMANTHA Lozada, Neurosurgery Address: [address] [facility] [address] [place] [address]- [phone] When:2-4 days With:Go to emergency room if symptoms worsen Address:Unknown When:2-4 days With:MARIO GONZALES DO Address: [address] [place] [address]- When:2-4 days [facility] documented as of this encounter (statuses as of 11/19/2021) [facility] History of Past illness Narrative* Problem Noted Date Resolved Date Helicobacter pylori infection 09/23/2016 Diabetes mellitus type 2 in obese 04/23/2013 06/29/2016 Tobacco abuse 04/23/2013 01/12/2017 Supervision of normal first 06/01/2006 05/30/2016 Benign essential hypertension antepartum 006 05/30/2016 documented as of this encounter (statuses as of 11/22/2021) [facility] History of Past illness Narrative* Problem Noted Date Resolved Date Helicobacter pylori infection 09/23/2016 Diabetes mellitus type 2 in obese 04/23/2013 06/29/2016 Tobacco abuse 04/23/2013 01/12/2017 Supervision of normal first 06/01/2006 05/30/2016 Benign essential hypertension antepartum 29/2 006 05/30/2016 documented as of this encounter (statuses as of 12/13/2021) [address]27-2017 History of Past illness Narrative* Problem Noted Date Resolved Date Helicobacter pylori infection 09/23/2016 Diabetes mellitus type 2 in obese 04/23/2013 06/29/2016 Tobacco abuse 04/23/2013 01/12/2017 Supervision of normal first 06/01/2006 05/30/2016 Benign essential hypertension antepartum 05/26/2 006 05/30/2016 documented as of this encounter (statuses as of 12/29/2021) [address]27-2017 History of Past illness Narrative* Problem Noted Date Resolved Date Helicobacter pylori infection 09/23/2016 Diabetes mellitus type 2 in obese 04/23/2013 06/29/2016 Tobacco abuse 04/23/2013 01/12/2017 Supervision of normal first 06/01/2006 05/30/2016 Benign essential hypertension antepartum 05/26/2 006 05/30/2016 documented as of this encounter (statuses as of 01/17/2022) [address]27-2017 History of Past illness Narrative* Problem Noted Date Resolved Date Helicobacter pylori infection 09/23/2016 Diabetes mellitus type 2 in obese 04/23/2013 06/29/2016 Tobacco abuse 04/23/2013 01/12/2017 Supervision of normal first 06/01/2006 05/30/2016 Benign essential hypertension antepartum 29/2 006 05/30/2016 documented as of this encounter (statuses as of 01/19/2022) [address]27-2017 History of Past illness Narrative* Problem Noted Date Resolved Date Helicobacter pylori infection 09/23/2016 Diabetes mellitus type 2 in obese 04/23/2013 06/29/2016 Tobacco abuse 04/23/2013 01/12/2017 Supervision of normal first 06/01/2006 05/30/2016 Benign essential hypertension antepartum 29/2 006 05/30/2016 documented as of this encounter (statuses as of 01/20/2022) [facility] History of Past illness Narrative* Problem Noted Date Resolved Date Helicobacter pylori infection 09/23/2016 Diabetes mellitus type 2 in obese 04/23/2013 06/29/2016 Tobacco abuse 04/23/2013 01/12/2017 Supervision of normal first 06/01/2006 05/30/2016 Benign essential hypertension antepartum 05/26/2 006 05/30/2016 documented as of this encounter (statuses as of 01/21/2022) [address]27-2017 History of Past illness Narrative* Problem Noted Date Resolved Date Helicobacter pylori infection 09/23/2016 Diabetes mellitus type 2 in obese 04/23/2013 06/29/2016 Tobacco abuse 04/23/2013 01/12/2017 Supervision of normal first 06/01/2006 05/30/2016 Benign essential hypertension antepartum 05/26/2 006 05/30/2016 documented as of this encounter (statuses as of 02/21/2022) [address]27-2017 History of Past illness Narrative* Problem Noted Date Resolved Date Helicobacter pylori infection 09/23/2016 Diabetes mellitus type 2 in obese 04/23/2013 06/29/2016 Tobacco abuse 04/23/2013 01/12/2017 Supervision of normal first 06/01/2006 05/30/2016 Benign essential hypertension antepartum 05/26/2 006 05/30/2016 documented as of this encounter (statuses as of 03/02/2022) [facility] History of Past illness Narrative* Problem Noted Date Resolved Date Helicobacter pylori infection 09/23/2016 Diabetes mellitus type 2 in obese 04/23/2013 06/29/2016 Tobacco abuse 04/23/2013 01/12/2017 Supervision of normal first 06/01/2006 05/30/2016 Benign essential hypertension antepartum 05/26/2 006 05/30/2016 documented as of this encounter (statuses as of 03/11/2022) [address]27-2017 History of Past illness Narrative* Problem Noted Date Resolved Date Helicobacter pylori infection 09/23/2016 Diabetes mellitus type 2 in obese 04/23/2013 06/29/2016 Tobacco abuse 04/23/2013 01/12/2017 Supervision of normal first 06/01/2006 05/30/2016 Benign essential hypertension antepartum 29/2 006 05/30/2016 documented as of this encounter (statuses as of 03/13/2022) [address]27-2017 History of Past illness Narrative* Problem Noted Date Resolved Date Helicobacter pylori infection 09/23/2016 Diabetes mellitus type 2 in obese 04/23/2013 06/29/2016 Tobacco abuse 04/23/2013 01/12/2017 Supervision of normal first 06/01/2006 05/30/2016 Benign essential hypertension antepartum 29/2 006 05/30/2016 documented as of this encounter (statuses as of 03/22/2022) [address]27[address]2017 History of Past illness Narrative* Problem Noted Date Resolved Date Helicobacter pylori infection 09/23/2016 Diabetes mellitus type 2 in obese 04/23/2013 06/29/2016 Tobacco abuse 04/23/2013 01/12/2017 Supervision of normal first 06/01/2006 05/30/2016 Benign essential hypertension antepartum 05/26/2 006 05/30/2016 documented as of this encounter (statuses as of 03/24/2022) [address]27-2017 History of Past illness Narrative* Problem Noted Date Resolved Date Helicobacter pylori infection 09/23/2016 Diabetes mellitus type 2 in obese 04/23/2013 06/29/2016 Tobacco abuse 04/23/2013 01/12/2017 Supervision of normal first 06/01/2006 05/30/2016 Benign essential hypertension antepartum 29/2 006 05/30/2016 documented as of this encounter (statuses as of 03/25/2022) [address]27-2017 History of Past illness Narrative* Problem Noted Date Resolved Date Helicobacter pylori infection 09/23/2016 Diabetes mellitus type 2 in obese 04/23/2013 06/29/2016 Tobacco abuse 04/23/2013 01/12/2017 Supervision of normal first 06/01/2006 05/30/2016 Benign essential hypertension antepartum 29/2 006 05/30/2016 documented as of this encounter (statuses as of 03/25/2022) [address]27-2017 History of Past illness Narrative* Problem Noted Date Resolved Date Helicobacter pylori infection 09/23/2016 Diabetes mellitus type 2 in obese 04/23/2013 06/29/2016 Tobacco abuse 04/23/2013 01/12/2017 Supervision of normal first 06/01/2006 05/30/2016 Benign essential hypertension antepartum 29/2 006 05/30/2016 documented as of this encounter (statuses as of 03/29/2022) [facility] History of Past illness Narrative* Problem Noted Date Resolved Date Helicobacter pylori infection 09/23/2016 Diabetes mellitus type 2 in obese 04/23/2013 06/29/2016 Tobacco abuse 04/23/2013 01/12/2017 Supervision of normal first 06/01/2006 05/30/2016 Benign essential hypertension antepartum 05/26/2 006 05/30/2016 documented as of this encounter (statuses as of 04/07/2022) [facility] History of Past illness Narrative* Problem Noted Date Resolved Date Helicobacter pylori infection 09/23/2016 Diabetes mellitus type 2 in obese 04/23/2013 06/29/2016 Tobacco abuse 04/23/2013 01/12/2017 Supervision of normal first 06/01/2006 05/30/2016 Benign essential hypertension antepartum 05/26/2 006 05/30/2016 documented as of this encounter (statuses as of 04/08/2022) [address]27-2017 History of Past illness Narrative* Problem Noted Date Resolved Date Helicobacter pylori infection 09/23/2016 Diabetes mellitus type 2 in obese 04/23/2013 06/29/2016 Tobacco abuse 04/23/2013 01/12/2017 Supervision of normal first 06/01/2006 05/30/2016 Benign essential hypertension antepartum 05/26/2 006 05/30/2016 documented as of this encounter (statuses as of 04/08/2022) [address]27-2017 History of Past illness Narrative* Problem Noted Date Resolved Date Helicobacter pylori infection 09/23/2016 Diabetes mellitus type 2 in obese 04/23/2013 06/29/2016 Tobacco abuse 04/23/2013 01/12/2017 Supervision of normal first 06/01/2006 05/30/2016 Benign essential hypertension antepartum 006 05/30/2016 documented as of this encounter (statuses as of 04/18/2022) [address]27-2017 History of Past illness Narrative* Problem Noted Date Resolved Date Helicobacter pylori infection 09/23/2016 Diabetes mellitus type 2 in obese 04/23/2013 06/29/2016 Tobacco abuse 04/23/2013 01/12/2017 Supervision of normal first 06/01/2006 05/30/2016 Benign essential hypertension antepartum 05/26/2 006 05/30/2016 documented as of this encounter (statuses as of 05/26/2022) [address]27-2017 History of Past illness Narrative* Problem Noted Date Resolved Date Helicobacter pylori infection 09/23/2016 Diabetes mellitus type 2 in obese 04/23/2013 06/29/2016 Tobacco abuse 04/23/2013 01/12/2017 Supervision of normal first 06/01/2006 05/30/2016 Benign essential hypertension antepartum 05/26/2 006 05/30/2016 documented as of this encounter (statuses as of 05/28/2022) [address]27-2017 History of Past illness Narrative* Problem Noted Date Resolved Date Helicobacter pylori infection 09/23/2016 Diabetes mellitus type 2 in obese 04/23/2013 06/29/2016 Tobacco abuse 04/23/2013 01/12/2017 Supervision of normal first 06/01/2006 05/30/2016 Benign essential hypertension antepartum 05/26/2 006 05/30/2016 documented as of this encounter (statuses as of 06/16/2022) [address]27-2017 History of Past illness Narrative* Problem Noted Date Resolved Date Helicobacter pylori infection 09/23/2016 Diabetes mellitus type 2 in obese 04/23/2013 06/29/2016 Tobacco abuse 04/23/2013 01/12/2017 Supervision of normal first 06/01/2006 05/30/2016 Benign essential hypertension antepartum 05/26/2 006 05/30/2016 documented as of this encounter (statuses as of 07/25/2022) [address]27-2017 History of Past illness Narrative* Problem Noted Date Resolved Date Helicobacter pylori infection 09/23/2016 Diabetes mellitus type 2 in obese 04/23/2013 06/29/2016 Tobacco abuse 04/23/2013 01/12/2017 Supervision of normal first 06/01/2006 05/30/2016 Benign essential hypertension antepartum 29/2 006 05/30/2016 documented as of this encounter (statuses as of 08/08/2022) [address]27-2017 History of Past illness Narrative* Problem Noted Date Resolved Date Helicobacter pylori infection 09/23/2016 Diabetes mellitus type 2 in obese 04/23/2013 06/29/2016 Tobacco abuse 04/23/2013 01/12/2017 Supervision of normal first 06/01/2006 05/30/2016 Benign essential hypertension antepartum 29/2 006 05/30/2016 documented as of this encounter (statuses as of 08/19/2022) [address]27[address]2017 History of Past illness Narrative* Problem Noted Date Resolved Date Helicobacter pylori infection 09/23/2016 Diabetes mellitus type 2 in obese 04/23/2013 06/29/2016 Tobacco abuse 04/23/2013 01/12/2017 Supervision of normal first 06/01/2006 05/30/2016 Benign essential hypertension antepartum 29/2 006 05/30/2016 documented as of this encounter (statuses as of 08/19/2022) [address]27-2017 History of Past illness Narrative* Problem Noted Date Resolved Date Helicobacter pylori infection 09/23/2016 Diabetes mellitus type 2 in obese 04/23/2013 06/29/2016 Tobacco abuse 04/23/2013 01/12/2017 Supervision of normal first 06/01/2006 05/30/2016 Benign essential hypertension antepartum 29/2 006 05/30/2016 documented as of this encounter (statuses as of 08/20/2022) [address]27-2017 History of Past illness Narrative* Problem Noted Date Resolved Date Helicobacter pylori infection 09/23/2016 Diabetes mellitus type 2 in obese 04/23/2013 06/29/2016 Tobacco abuse 04/23/2013 01/12/2017 Supervision of normal first 06/01/2006 05/30/2016 Benign essential hypertension antepartum 29/2 006 05/30/2016 documented as of this encounter (statuses as of 09/12/2022) [address]27-2017 History of Past illness Narrative* Problem Noted Date Resolved Date Helicobacter pylori infection 09/23/2016 Diabetes mellitus type 2 in obese 04/23/2013 06/29/2016 Tobacco abuse 04/23/2013 01/12/2017 Supervision of normal first 06/01/2006 05/30/2016 Benign essential hypertension antepartum 29/2 006 05/30/2016 documented as of this encounter (statuses as of 09/19/2022) [address]27-2017 History of Past illness Narrative* Problem Noted Date Resolved Date Helicobacter pylori infection 09/23/2016 Diabetes mellitus type 2 in obese 04/23/2013 06/29/2016 Tobacco abuse 04/23/2013 01/12/2017 Supervision of normal first 06/01/2006 05/30/2016 Benign essential hypertension antepartum 29/2 006 05/30/2016 documented as of this encounter (statuses as of 09/19/2022) [place] [id number] History of Past illness Narrative* Problem Noted Date Resolved Date Helicobacter pylori infection 09/23/2016 Diabetes mellitus type 2 in obese 04/23/2013 06/29/2016 Tobacco abuse 04/23/2013 01/12/2017 Supervision of normal first 06/01/2006 05/30/2016 Benign essential hypertension antepartum 29/2 006 05/30/2016 documented as of this encounter (statuses as of 09/20/2022) [facility]01-27-2017 History of Past illness Narrative* Problem Noted Date Resolved Date Helicobacter pylori infection 09/23/2016 Diabetes mellitus type 2 in obese 04/23/2013 06/29/2016 Tobacco abuse 04/23/2013 01/12/2017 Supervision of normal first 06/01/2006 05/30/2016 Benign essential hypertension antepartum 29/2 006 05/30/2016 documented as of this encounter (statuses as of 09/21/2022) [address]27-2017 History of Past illness Narrative* Problem Noted Date Resolved Date Helicobacter pylori infection 09/23/2016 Diabetes mellitus type 2 in obese 04/23/2013 06/29/2016 Tobacco abuse 04/23/2013 01/12/2017 Supervision of normal first 06/01/2006 05/30/2016 Benign essential hypertension antepartum 29/2 006 05/30/2016 documented as of this encounter (statuses as of 09/28/2022) [address]27-2017 History of Past illness Narrative* Problem Noted Date Resolved Date Helicobacter pylori infection 09/23/2016 Diabetes mellitus type 2 in obese 04/23/2013 06/29/2016 Tobacco abuse 04/23/2013 01/12/2017 Supervision of normal first 06/01/2006 05/30/2016 Benign essential hypertension antepartum 29/2 006 05/30/2016 documented as of this encounter (statuses as of 10/18/2022) [address]27-2017 History of Past illness Narrative* Problem Noted Date Resolved Date Helicobacter pylori infection 09/23/2016 Diabetes mellitus type 2 in obese 04/23/2013 06/29/2016 Tobacco abuse 04/23/2013 01/12/2017 Supervision of normal first 06/01/2006 05/30/2016 Benign essential hypertension antepartum 29/2 006 05/30/2016 documented as of this encounter (statuses as of 11/03/2022) [place] [id number] History of Past illness Narrative* Problem Noted Date Resolved Date Helicobacter pylori infection 09/23/2016 Diabetes mellitus type 2 in obese 04/23/2013 06/29/2016 Tobacco abuse 04/23/2013 01/12/2017 Supervision of normal first 06/01/2006 05/30/2016 Benign essential hypertension antepartum 29/2 006 05/30/2016 documented as of this encounter (statuses as of 11/03/2022) [address]27-2017 History of Past illness Narrative* Problem Noted Date Resolved Date Helicobacter pylori infection 09/23/2016 Diabetes mellitus type 2 in obese 04/23/2013 06/29/2016 Tobacco abuse 04/23/2013 01/12/2017 Supervision of normal first 06/01/2006 05/30/2016 Benign essential hypertension antepartum 29/2 006 05/30/2016 documented as of this encounter (statuses as of 11/29/2022) [address]27-2017 History of Past illness Narrative* Problem Noted Date Resolved Date Helicobacter pylori infection 09/23/2016 Diabetes mellitus type 2 in obese 04/23/2013 06/29/2016 Tobacco abuse 04/23/2013 01/12/2017 Supervision of normal first 06/01/2006 05/30/2016 Benign essential hypertension antepartum 29/2 006 05/30/2016 documented as of this encounter (statuses as of 11/29/2022) [address]27-2017 History of Past illness Narrative* Problem Noted Date Resolved Date Helicobacter pylori infection 09/23/2016 Diabetes mellitus type 2 in obese 04/23/2013 06/29/2016 Tobacco abuse 04/23/2013 01/12/2017 Supervision of normal first 06/01/2006 05/30/2016 Benign essential hypertension antepartum 29/2 006 05/30/2016 documented as of this encounter (statuses as of 11/30/2022) [address]27-2017 History of Past illness Narrative* Problem Noted Date Resolved Date Helicobacter pylori infection 09/23/2016 Diabetes mellitus type 2 in obese 04/23/2013 06/29/2016 Tobacco abuse 04/23/2013 01/12/2017 Supervision of normal first 06/01/2006 05/30/2016 Benign essential hypertension antepartum 29/2 006 05/30/2016 documented as of this encounter (statuses as of 12/07/2022) [address]27-2017 History of Past illness Narrative* Problem Noted Date Resolved Date Helicobacter pylori infection 09/23/2016 Diabetes mellitus type 2 in obese 04/23/2013 06/29/2016 Tobacco abuse 04/23/2013 01/12/2017 Supervision of normal first 06/01/2006 05/30/2016 Benign essential hypertension antepartum 29/2 006 05/30/2016 documented as of this encounter (statuses as of 01/02/2023) [address]27-2017 History of Past illness Narrative* Problem Noted Date Resolved Date Helicobacter pylori infection 09/23/2016 Diabetes mellitus type 2 in obese 04/23/2013 06/29/2016 Tobacco abuse 04/23/2013 01/12/2017 Supervision of normal first 06/01/2006 05/30/2016 Benign essential hypertension antepartum 29/2 006 05/30/2016 documented as of this encounter (statuses as of 01/02/2023) [facility]01-27-2017 History of Past illness Narrative* Problem Noted Date Resolved Date Helicobacter pylori infection 09/23/2016 Diabetes mellitus type 2 in obese 04/23/2013 06/29/2016 Tobacco abuse 04/23/2013 01/12/2017 Supervision of normal first 06/01/2006 05/30/2016 Benign essential hypertension antepartum 05/26/2 006 05/30/2016 documented as of this encounter (statuses as of 01/02/2023) [facility]01-27-2017 History of Past illness Narrative* Problem Noted Date Resolved Date Helicobacter pylori infection 09/23/2016 Diabetes mellitus type 2 in obese 04/23/2013 06/29/2016 Tobacco abuse 04/23/2013 01/12/2017 Supervision of normal first 06/01/2006 05/30/2016 Benign essential hypertension antepartum 05/26/2 006 05/30/2016 documented as of this encounter (statuses as of 01/26/2023) [address]27-2017 History of Past illness Narrative* Problem Noted Date Resolved Date Helicobacter pylori infection 09/23/2016 Diabetes mellitus type 2 in obese 04/23/2013 06/29/2016 Tobacco abuse 04/23/2013 01/12/2017 Supervision of normal first 06/01/2006 05/30/2016 Benign essential hypertension antepartum 05/26/2 006 05/30/2016 documented as of this encounter (statuses as of 02/21/2023) [address]27-2017 History of Past illness Narrative* Problem Noted Date Resolved Date Helicobacter pylori infection 09/23/2016 Diabetes mellitus type 2 in obese 04/23/2013 06/29/2016 Tobacco abuse 04/23/2013 01/12/2017 Supervision of normal first 06/01/2006 05/30/2016 Benign essential hypertension antepartum 05/26/2 006 05/30/2016 documented as of this encounter (statuses as of 02/23/2023) [address]27-2017 History of Past illness Narrative* Problem Noted Date Diagnosed Date Resolved Date Helicobacter pylori infection 09/23/2016 01/12/2017 Diabetes mellitus type 2 in obese 04/23/2013 06/29/2016 Tobacco abuse 04/23/2013 01/12/2017 Supervision of normal first 06/01/2006 05/30/2016 Benign essential hypertension antepartum 05/26/2006 05/30/2016 documented as of this encounter (statuses as of 03/28/2023) [address]27-2017 History of Past illness Narrative* Problem Noted Date Diagnosed Date Resolved Date Helicobacter pylori infection 09/23/2016 01/12/2017 Diabetes mellitus type 2 in obese 04/23/2013 06/29/2016 Tobacco abuse 04/23/2013 01/12/2017 Supervision of normal first 06/01/2006 05/30/2016 Benign essential hypertension antepartum 05/26/2006 05/30/2016 documented as of this encounter (statuses as of 04/18/2023) [address]27-2017 History of Past illness Narrative* Problem Noted Date Diagnosed Date Resolved Date Helicobacter pylori infection 09/23/2016 01/12/2017 Diabetes mellitus type 2 in obese 04/23/2013 06/29/2016 Tobacco abuse 04/23/2013 01/12/2017 Supervision of normal first 06/01/2006 05/30/2016 Benign essential hypertension antepartum 05/26/2006 05/30/2016 documented as of this encounter (statuses as of 04/27/2023) [address]27-2017 History of Past illness Narrative* Problem Noted Date Diagnosed Date Resolved Date Helicobacter pylori infection 09/23/2016 01/12/2017 Diabetes mellitus type 2 in obese 04/23/2013 06/29/2016 Tobacco abuse 04/23/2013 01/12/2017 Supervision of normal first 06/01/2006 05/30/2016 Benign essential hypertension antepartum 05/26/2006 05/30/2016 documented as of this encounter (statuses as of 04/27/2023) [address]27-2017 History of Past illness Narrative* Problem Noted Date Diagnosed Date Resolved Date Helicobacter pylori infection 09/23/2016 01/12/2017 Diabetes mellitus type 2 in obese 04/23/2013 06/29/2016 Tobacco abuse 04/23/2013 01/12/2017 Supervision of normal first 06/01/2006 05/30/2016 Benign essential hypertension antepartum 05/26/2006 05/30/2016 documented as of this encounter (statuses as of 06/14/2023) [address]27-2017 History of Past illness Narrative* Problem Noted Date Diagnosed Date Resolved Date Helicobacter pylori infection 09/23/2016 01/12/2017 Diabetes mellitus type 2 in obese 04/23/2013 06/29/2016 Tobacco abuse 04/23/2013 01/12/2017 Supervision of normal first 06/01/2006 05/30/2016 Benign essential hypertension antepartum 05/26/2006 05/30/2016 documented as of this encounter (statuses as of 07/02/2023) [facility]01-27-2017 History of Past illness Narrative* Problem Noted Date Diagnosed Date Resolved Date Helicobacter pylori infection 09/23/2016 01/12/2017 Diabetes mellitus type 2 in obese (HCC) 04/23/2013 06/29/2016 Tobacco abuse 04/23/2013 01/12/2017 Supervision of normal first 06/01/2006 05/30/2016 Benign essential hypertension antepartum 05/26/2006 05/30/2016 documented as of this encounter (statuses as of 07/07/2023) [facility]01-27-2017 History of Past illness Narrative* Problem Noted Date Diagnosed Date Resolved Date Helicobacter pylori infection 09/23/2016 01/12/2017 Diabetes mellitus type 2 in obese (HCC) 04/23/2013 06/29/2016 Tobacco abuse 04/23/2013 01/12/2017 Supervision of normal first 06/01/2006 05/30/2016 Benign essential hypertension antepartum 05/26/2006 05/30/2016 documented as of this encounter (statuses as of 07/11/2023) [facility]01-27-2017 History of Past illness Narrative* Problem Noted Date Diagnosed Date Resolved Date Helicobacter pylori infection 09/23/2016 01/12/2017 Diabetes mellitus type 2 in obese (HCC) 04/23/2013 06/29/2016 Tobacco abuse 04/23/2013 01/12/2017 Supervision of normal first 06/01/2006 05/30/2016 Benign essential hypertension antepartum 05/26/2006 05/30/2016 documented as of this encounter (statuses as of 07/13/2023) [facility]01-27-2017 History of Past illness Narrative* Problem Noted Date Diagnosed Date Resolved Date Helicobacter pylori infection 09/23/2016 01/12/2017 Diabetes mellitus type 2 in obese (HCC) 04/23/2013 06/29/2016 Tobacco abuse 04/23/2013 01/12/2017 Supervision of normal first 06/01/2006 05/30/2016 Benign essential hypertension antepartum 05/26/2006 05/30/2016 documented as of this encounter (statuses as of 07/17/2023) [facility]01-27-2017 History of Past illness Narrative* Problem Noted Date Diagnosed Date Resolved Date Helicobacter pylori infection 09/23/2016 01/12/2017 Diabetes mellitus type 2 in obese (HCC) 04/23/2013 06/29/2016 Tobacco abuse 04/23/2013 01/12/2017 Supervision of normal first 06/01/2006 05/30/2016 Benign essential hypertension antepartum 05/26/2006 05/30/2016 documented as of this encounter (statuses as of 07/17/2023) [facility]01-27-2017 History of Past illness Narrative* Problem Noted Date Diagnosed Date Resolved Date Helicobacter pylori infection 09/23/2016 01/12/2017 Diabetes mellitus type 2 in obese (HCC) 04/23/2013 06/29/2016 Tobacco abuse 04/23/2013 01/12/2017 Supervision of normal first 06/01/2006 05/30/2016 Benign essential hypertension antepartum 05/26/2006 05/30/2016 documented as of this encounter (statuses as of 07/25/2023) [facility] No data available for this section [facility] Evaluation note* Diagnosis Type 2 diabetes mellitus with hyperglycemia, without long-term current use of insulin ([facility]) documented in this encounter [facility] Diagnosis ASCUS with positive high risk HPV cervical- Primary Cervical high risk human papillomavirus (HPV) DNA test positive [facility] Diagnosis Vulval lesion- Primary Other specified noninflammatory disorder of vulva and perineum Perianal lesion Other specified disorder of rectum and anus [facility] this [facility]* Diagnosis Nerve pain Neuralgia, neuritis, and radiculitis, unspecified [facility] Diagnosis Type 2 diabetes mellitus with hyperglycemia, without long-term current use of insulin (HCC) [facility] Diagnosis Type 2 diabetes mellitus with hyperglycemia, without long-term current use of insulin (HCC)- Primary Dysuria Itching in the vaginal area Pruritus of genital organs Anxiety and depression Dysthymic disorder Hypertriglyceridemia Pure hyperglyceridemia Hypertension, essential Unspecified essential hypertension GERD without esophagitis Esophageal reflux Obesity, Class III, BMI 40-49.9 (morbid obesity) (HCC) Morbid obesity [facility] this [facility]* Diagnosis Type 2 diabetes mellitus with hyperglycemia, without long-term current use of insulin (HCC)- Primary Anxiety and depression Dysthymic disorder Hypertriglyceridemia Pure hyperglyceridemia GERD without esophagitis Esophageal reflux Nerve pain Neuralgia, neuritis, and radiculitis, unspecified Left arm pain Pain in limb Encounter for immunization Need for other specified prophylactic vaccination against single bacterial disease documented [facility] Diagnosis Type 2 diabetes mellitus with hyperglycemia, without long-term current use of insulin ([facility])- Primary documented [facility] this [facility]* Diagnosis Vaginal burning- Primary Other specified symptom associated with female genital organs Vaginal discharge Leukorrhea, not specified as infective Screen for STD (sexually transmitted disease) Screening examination for venereal disease documented in this encounter [facility] note* Diagnosis Type 2 diabetes mellitus with hyperglycemia, without long-term current use of insulin ([facility])- Primary documented [facility] this [facility]* Diagnosis Urinary frequency- Primary UTI symptoms Other symptoms involving urinary system Feared condition not demonstrated Person with feared complaint in whom no diagnosis was made documented [facility] this [facility]* Diagnosis Vaginal burning- Primary Other specified symptom associated with female genital organs Vaginal arturo Candidiasis of vulva and vagina Abdominal cramping Abdominal pain, unspecified site Leg cramping Cramp of limb [facility] this [facility] Diagnosis Hypomagnesemia- Primary Disorders of magnesium metabolism Type 2 diabetes mellitus with hyperglycemia, without long-term current use of insulin (HCC) Vaginal burning Other specified symptom associated with female genital organs Elevated serum glucose with glucosuria documented [facility] this [facility]* Diagnosis Pelvic pain- Primary Pelvic cramping Unspecified symptom associated with female genital organs Bloating Flatulence, eructation, and gas pain Nerve pain Neuralgia, neuritis, and radiculitis, unspecified documented [facility] this [facility] Diagnosis Hypomagnesemia- Primary Disorders of magnesium metabolism Type 2 diabetes mellitus with hyperglycemia, without long-term current use of insulin ([facility]) [facility] Right [facility] pain- Primary Pain in joint, forearm [facility] Diagnosis Anxiety and depression Dysthymic disorder Type 2 diabetes mellitus with hyperglycemia, without long-term current use of insulin (HCC) [facility] Diagnosis URI, acute- Primary Acute upper respiratory infections of unspecified site Sore throat Acute pharyngitis Chest congestion Other symptoms involving respiratory system and chest Acute cough [facility]* Diagnosis Strep throat exposure- Primary Contact with or exposure to other communicable diseases [facility]* Diagnosis COVID-19- Primary [facility] Diagnosis COVID-19 [facility] Diagnosis Type 2 diabetes mellitus with hyperglycemia, without long-term current use of insulin (HCC)- Primary Nerve pain Neuralgia, neuritis, and radiculitis, unspecified History of COVID-19 Anxiety and depression Dysthymic disorder Hypomagnesemia Disorders of magnesium metabolism Other eczema Muscle weakness Muscle weakness (generalized) Acute bronchitis, unspecified organism [facility]* Diagnosis Elevated LFTs- Primary Other abnormal blood chemistry [facility] Diagnosis Encounter for gynecological examination without abnormal finding- Primary Routine gynecological examination Encounter for screening for malignant neoplasm of cervix Screening for malignant neoplasm of the cervix Special screening examination for human papillomavirus (HPV) Vaginal irritation Unspecified noninflammatory disorder of vagina [facility]* Diagnosis Nerve pain Neuralgia, neuritis, and radiculitis, unspecified [facility] Diagnosis Cervical high risk HPV (human papillomavirus) test positive- Primary Cervical high risk human papillomavirus (HPV) DNA test positive Vaginal burning Other specified symptom associated with female genital organs Vaginal arturo Candidiasis of vulva and vagina [facility] Diagnosis Hypomagnesemia Disorders of magnesium metabolism [facility]* Diagnosis Fatigue, unspecified type Type 2 diabetes mellitus with hyperglycemia, without long-term current use of insulin (HCC) Other eczema Nerve pain Neuralgia, neuritis, and radiculitis, unspecified [facility] Type 2 diabetes mellitus with hyperglycemia, without long-term current use of insulin ([facility])- Primary Nerve pain Neuralgia, neuritis, and radiculitis, unspecified Diabetes mellitus type 2 in obese (HCC) Type II or unspecified type diabetes mellitus without mention of complication, not stated as uncontrolled Acute pain of right knee GERD without esophagitis Esophageal reflux Gastritis without bleeding, unspecified chronicity, unspecified gastritis type Nausea Nausea alone Fatigue, unspecified type Hypertriglyceridemia Pure hyperglyceridemia Obesity, Class III, BMI 40-49.9 (morbid obesity) ([facility]) Morbid obesity documented in this encounter [facility] note* Diagnosis Gastritis without bleeding, unspecified chronicity, unspecified gastritis type Nausea Nausea alone documented in this encounter [facility] note* Diagnosis Anxiety and depression Dysthymic disorder documented in this encounter [facility] note* Diagnosis COVID-19- Primary documented in this encounter [facility] note* Diagnosis Diabetes mellitus type 2 in obese ([facility])- Primary Type II or unspecified type diabetes mellitus without mention of complication, not stated as uncontrolled Type 2 diabetes mellitus with hyperglycemia, without long-term current use of insulin ([facility]) documented in this encounter [facility] note* Diagnosis Elevated LFTs Other abnormal blood chemistry documented in this encounter [facility] note* Diagnosis Vaginal yeast infection Candidiasis of vulva and vagina documented in this encounter [facility] note* Diagnosis Diarrhea, unspecified type- Primary Gastritis without bleeding, unspecified chronicity, unspecified gastritis type Nausea Nausea alone documented in this encounter [facility] note* Diagnosis Anxiety and depression Dysthymic disorder documented in this encounter [facility] note* Diagnosis Gastritis without bleeding, unspecified chronicity, unspecified gastritis type Nausea Nausea alone documented in this encounter [facility] for referral (narrative)* Outpatient Procedure (Routine) - Pending Review Specialty Diagnoses / Procedures Referred By [place] Referred To Contact [facility] Diagnoses ASCUS with positive high risk HPV cervical Procedures COLPOSCOPY COLPOSCOPY CERVIX BX CERVIX & ENDOCRV CURRETAGE Aileen Roman MD [address] [place] [address] [facility] [address] [place] [address] Referral ID Status Reason Start Date Expiration Date Visits Requested Visits Authorized [id number] Pending Review Auto-Generat ed Referral 11/22/2021 11/22/2022 1 1 [facility] for referral (narrative)* Diagnostic Procedure Only (Routine) - Authorized Specialty Diagnoses / Procedures Referred By Contac t Referred To Contact US IMAGING Diagnoses Pelvic pain Procedures US FEMALE PELVIS TRANSVAG US TRANSVAGINAL Chaya Wilson APRN.[employer] [address] [place] [address] Us Imaging Referral ID Status Reason Start Date Expiration Date Visits Requested Visits Authorized [id number] Authorized Auto-Generat ed Referral 04/08/2022 05/08/2023 1 1 * Diagnostic Procedure Only (Routine) - Authorized Specialty Diagnoses / Procedures Referred By Contac t Referred To Contact US IMAGING Diagnoses Pelvic pain Procedures US FEMALE PELVIS TRANSABD LTD US PELVIC NONOBSTETRIC IMAGE DCMTN LIMITED/F/U Chaya Wilson APRN.[employer] [address] [place] [address] Us Imaging Referral ID Status Reason Start Date Expiration Date Visits Requested Visits Authorized [id number] Authorized Auto-Generat ed Referral 04/08/2022 05/08/2023 1 1 [facility] for referral (narrative)* Diagnostic Procedure Only (Routine) - Authorized Specialty Diagnoses / Procedures Referred By Contac t Referred To Contact US IMAGING Diagnoses Elevated LFTs Procedures US ABD RT UPPER QUADRANT US ABDOMINAL REAL TIME W/IMAGE LIMITED Mario Gonzales DO [address] [place] [address] Us Imaging Referral ID Status Reason Start Date Expiration Date Visits Requested Visits Authorized [id number] Authorized Auto-Generat ed Referral 10/13/2022 11/12/2023 1 1 [facility] for referral (narrative)* Outpatient Procedure (Routine) - Authorized Specialty Diagnoses / Procedures Referred By Contac t Referred To Contact [facility] Diagnoses Cervical high risk HPV (human papillomavirus) test positive Procedures COLPOSCOPY COLPOSCOPY CERVIX BX CERVIX & ENDOCRV CURRETAGE Halle Ramirez APRN.CNP [address] [place] [address] [facility] [address] [place] [address] Referral ID Status Reason Start Date Expiration Date Visits Requested Visits Authorized [id number] Authorized Auto-Generat ed Referral 12/06/2022 12/06/2023 1 1 [facility] for referral (narrative)* Diagnostic Procedure Only (Routine) - Closed Specialty Diagnoses / Procedures Referred By Mackac t Referred To Contact US IMAGING Diagnoses Elevated LFTs Procedures US ABD RT UPPER QUADRANT US ABDOMINAL REAL TIME W/IMAGE LIMITED Mario Gonzales DO [address] [place] [address] [place] [address] Referral ID Status Reason Start Date Expiration Date V isits Requested Visits Authorized [id number] Closed Auto-Generate d Referral 10/13/2022 11/12/2023 1 1 [facility] Summary Purpose Family History No Family History Records FoundNo Family History Records Found Advance Directives No Advanced Directives Records FoundNo Advanced Directives Records Found Reason for Referral Specialty Diagnoses / Procedures Referred By Heaven t Referred To Contact Endocrinology Diagnoses Diabetes mellitus type 2 in obese (HCC) Type 2 diabetes mellitus with hyperglycemia, without long-term current use of insulin (HCC) Procedures CONSULT TO ENDOCRINOLOGY OFFICE/OUTPATIENT NEW HIGH MDM 60-74 MINUTES Chaya Ames APRN.CNP [address] [place] [address] Referral ID Status Reason Start Date Expiration Date Visits Requested Visits Authorized [id number] Authorized PCP Requested Referral 05/18/2023 05/17/2024 1 1 Specialty Diagnoses / Procedures Referred By Contac t Referred To Contact Vimal Wilde APRN.[employer] [address] [place] [id number] Referral ID Status Reason Start Date Expiration Date Visits Re quested Visits Authorized [id number] Closed 1 1 Specialty Diagnoses / Procedures Referred By Contac t Referred To Contact Nutrition Diagnoses Type 2 diabetes mellitus with hyperglycemia, without long-term current use of insulin (HCC) Procedures CONSULT TO NUTRITION THERAPY OFFICE/OUTPATIENT [facility] 60-74 MINUTES Chaya Wilson APRN.[employer] [address] [place] [address] Referral ID Status Reason Start Date Expiration Date Visits Requested Visits Authorized [id number] Authorized PCP Requested Referral 02/22/2022 02/22/2023 1 1 Specialty Diagnoses / Procedures Referred By Contac t Referred To Contact Mario Gonzales DO [address] [place] [address] Referral ID Status Reason Start Date Expiration Date Visits Re quested Visits Authorized [id number] Closed 1 1 Specialty Diagnoses / Procedures Referred By Contac t Referred To Contact Chaya Wilson APRN.[employer] [address] [place] [address] Referral ID Status Reason Start Date Expiration Date V isits Requested Visits Authorized [id number] Pending Review 1 1 Additional Source Comments INFORMATION SOURCE (unrecogn ized section and content) DATE CREATED AUTHOR AUTHOR'S ORGANIZ ATION 09/08/2023 [facility] Source Comments (unrecognize d section and content) In the event this informatio n is protected by the Federal Confidentiality of Alcohol and Drug Abuse Patient Records regulations: The Federal rules restrict any use of the information to criminally investigate or prosecute any alcohol or drug abuse patient.[facility] Center[facility] the event this information is protected by the Federal Confidentiality of Alcohol and Drug Abuse Patient Records regulations: The Federal rules restrict any use of the information to criminally investigate or prosecute any alcohol or drug abuse patient.[facility] CenterIn the event this information is protected by the Federal Confidentiality of Alcohol and Drug Abuse Patient Records regulations: The Federal rules restrict any use of the information to criminally investigate or prosecute any alcohol or drug abuse patient.[facility] CenterIn the event this information is protected by the Federal Confidentiality of Alcohol and Drug Abuse Patient Records regulations: The Federal rules restrict any use of the information to criminally investigate or prosecute any alcohol or drug abuse patient.[facility] CenterIn the event this information is protected by the Federal Confidentiality of Alcohol and Drug Abuse Patient Records regulations: The Federal rules restrict any use of the information to criminally investigate or prosecute any alcohol or drug abuse patient.[facility] the event this information is protected by the Federal Confidentiality of Alcohol and Drug Abuse Patient Records regulations: The Federal rules restrict any use of the information to criminally investigate or prosecute any alcohol or drug abuse patient.[facility] CenterIn the event this information is protected by the Federal Confidentiality of Alcohol and Drug Abuse Patient Records regulations: The Federal rules restrict any use of the information to criminally investigate or prosecute any alcohol or drug abuse patient.[facility] CenterIn the event this information is protected by the Federal Confidentiality of Alcohol and Drug Abuse Patient Records regulations: The Federal rules restrict any use of the information to criminally investigate or prosecute any alcohol or drug abuse patient.[facility] CenterIn the event this information is protected by the Federal Confidentiality of Alcohol and Drug Abuse Patient Records regulations: The Federal rules restrict any use of the information to criminally investigate or prosecute any alcohol or drug abuse patient.[facility] CenterIn the event this information is protected by the Federal Confidentiality of Alcohol and Drug Abuse Patient Records regulations: The Federal rules restrict any use of the information to criminally investigate or prosecute any alcohol or drug abuse patient.[facility] CenterIn the event this information is protected by the Federal Confidentiality of Alcohol and Drug Abuse Patient Records regulations: The Federal rules restrict any use of the information to criminally investigate or prosecute any alcohol or drug abuse patient.[facility] CenterIn the event this information is protected by the Federal Confidentiality of Alcohol and Drug Abuse Patient Records regulations: The Federal rules restrict any use of the information to criminally investigate or prosecute any alcohol or drug abuse patient.[facility] CenterIn the event this information is protected by the Federal Confidentiality of Alcohol and Drug Abuse Patient Records regulations: The Federal rules restrict any use of the information to criminally investigate or prosecute any alcohol or drug abuse patient.[facility] CenterIn the event this information is protected by the Federal Confidentiality of Alcohol and Drug Abuse Patient Records regulations: The Federal rules restrict any use of the information to criminally investigate or prosecute any alcohol or drug abuse patient.[facility] CenterIn the event this information is protected by the Federal Confidentiality of Alcohol and Drug Abuse Patient Records regulations: The Federal rules restrict any use of the information to criminally investigate or prosecute any alcohol or drug abuse patient.[facility] CenterIn the event this information is protected by the Federal Confidentiality of Alcohol and Drug Abuse Patient Records regulations: The Federal rules restrict any use of the information to criminally investigate or prosecute any alcohol or drug abuse patient.[facility] CenterIn the event this information is protected by the Federal Confidentiality of Alcohol and Drug Abuse Patient Records regulations: The Federal rules restrict any use of the information to criminally investigate or prosecute any alcohol or drug abuse patient.[facility] CenterIn the event this information is protected by the Federal Confidentiality of Alcohol and Drug Abuse Patient Records regulations: The Federal rules restrict any use of the information to criminally investigate or prosecute any alcohol or drug abuse patient.[facility] CenterIn the event this information is protected by the Federal Confidentiality of Alcohol and Drug Abuse Patient Records regulations: The Federal rules restrict any use of the information to criminally investigate or prosecute any alcohol or drug abuse patient.[facility] CenterIn the event this information is protected by the Federal Confidentiality of Alcohol and Drug Abuse Patient Records regulations: The Federal rules restrict any use of the information to criminally investigate or prosecute any alcohol or drug abuse patient.[facility] CenterIn the event this information is protected by the Federal Confidentiality of Alcohol and Drug Abuse Patient Records regulations: The Federal rules restrict any use of the information to criminally investigate or prosecute any alcohol or drug abuse patient.[facility] CenterIn the event this information is protected by the Federal Confidentiality of Alcohol and Drug Abuse Patient Records regulations: The Federal rules restrict any use of the information to criminally investigate or prosecute any alcohol or drug abuse patient.[facility] CenterIn the event this information is protected by the Federal Confidentiality of Alcohol and Drug Abuse Patient Records regulations: The Federal rules restrict any use of the information to criminally investigate or prosecute any alcohol or drug abuse patient.[facility] CenterIn the event this information is protected by the Federal Confidentiality of Alcohol and Drug Abuse Patient Records regulations: The Federal rules restrict any use of the information to criminally investigate or prosecute any alcohol or drug abuse patient.[facility] CenterIn the event this information is protected by the Federal Confidentiality of Alcohol and Drug Abuse Patient Records regulations: The Federal rules restrict any use of the information to criminally investigate or prosecute any alcohol or drug abuse patient.[facility] CenterIn the event this information is protected by the Federal Confidentiality of Alcohol and Drug Abuse Patient Records regulations: The Federal rules restrict any use of the information to criminally investigate or prosecute any alcohol or drug abuse patient.[facility] CenterIn the event this information is protected by the Federal Confidentiality of Alcohol and Drug Abuse Patient Records regulations: The Federal rules restrict any use of the information to criminally investigate or prosecute any alcohol or drug abuse patient.[facility] CenterIn the event this information is protected by the Federal Confidentiality of Alcohol and Drug Abuse Patient Records regulations: The Federal rules restrict any use of the information to criminally investigate or prosecute any alcohol or drug abuse patient.[facility] CenterIn the event this information is protected by the Federal Confidentiality of Alcohol and Drug Abuse Patient Records regulations: The Federal rules restrict any use of the information to criminally investigate or prosecute any alcohol or drug abuse patient.[facility] CenterIn the event this information is protected by the Federal Confidentiality of Alcohol and Drug Abuse Patient Records regulations: The Federal rules restrict any use of the information to criminally investigate or prosecute any alcohol or drug abuse patient.[facility] CenterIn the event this information is protected by the Federal Confidentiality of Alcohol and Drug Abuse Patient Records regulations: The Federal rules restrict any use of the information to criminally investigate or prosecute any alcohol or drug abuse patient.[facility] CenterIn the event this information is protected by the Federal Confidentiality of Alcohol and Drug Abuse Patient Records regulations: The Federal rules restrict any use of the information to criminally investigate or prosecute any alcohol or drug abuse patient.[facility] CenterIn the event this information is protected by the Federal Confidentiality of Alcohol and Drug Abuse Patient Records regulations: The Federal rules restrict any use of the information to criminally investigate or prosecute any alcohol or drug abuse patient.[facility] CenterIn the event this information is protected by the Federal Confidentiality of Alcohol and Drug Abuse Patient Records regulations: The Federal rules restrict any use of the information to criminally investigate or prosecute any alcohol or drug abuse patient.[facility] CenterIn the event this information is protected by the Federal Confidentiality of Alcohol and Drug Abuse Patient Records regulations: The Federal rules restrict any use of the information to criminally investigate or prosecute any alcohol or drug abuse patient.[facility] CenterIn the event this information is protected by the Federal Confidentiality of Alcohol and Drug Abuse Patient Records regulations: The Federal rules restrict any use of the information to criminally investigate or prosecute any alcohol or drug abuse patient.[facility] CenterIn the event this information is protected by the Federal Confidentiality of Alcohol and Drug Abuse Patient Records regulations: The Federal rules restrict any use of the information to criminally investigate or prosecute any alcohol or drug abuse patient.[facility] CenterIn the event this information is protected by the Federal Confidentiality of Alcohol and Drug Abuse Patient Records regulations: The Federal rules restrict any use of the information to criminally investigate or prosecute any alcohol or drug abuse patient.[facility] CenterIn the event this information is protected by the Federal Confidentiality of Alcohol and Drug Abuse Patient Records regulations: The Federal rules restrict any use of the information to criminally investigate or prosecute any alcohol or drug abuse patient.[facility] CenterIn the event this information is protected by the Federal Confidentiality of Alcohol and Drug Abuse Patient Records regulations: The Federal rules restrict any use of the information to criminally investigate or prosecute any alcohol or drug abuse patient.[facility] CenterIn the event this information is protected by the Federal Confidentiality of Alcohol and Drug Abuse Patient Records regulations: The Federal rules restrict any use of the information to criminally investigate or prosecute any alcohol or drug abuse patient.[facility] CenterIn the event this information is protected by the Federal Confidentiality of Alcohol and Drug Abuse Patient Records regulations: The Federal rules restrict any use of the information to criminally investigate or prosecute any alcohol or drug abuse patient.[facility] CenterIn the event this information is protected by the Federal Confidentiality of Alcohol and Drug Abuse Patient Records regulations: The Federal rules restrict any use of the information to criminally investigate or prosecute any alcohol or drug abuse patient.[facility] CenterIn the event this information is protected by the Federal Confidentiality of Alcohol and Drug Abuse Patient Records regulations: The Federal rules restrict any use of the information to criminally investigate or prosecute any alcohol or drug abuse patient.[facility] CenterIn the event this information is protected by the Federal Confidentiality of Alcohol and Drug Abuse Patient Records regulations: The Federal rules restrict any use of the information to criminally investigate or prosecute any alcohol or drug abuse patient.[facility] CenterIn the event this information is protected by the Federal Confidentiality of Alcohol and Drug Abuse Patient Records regulations: The Federal rules restrict any use of the information to criminally investigate or prosecute any alcohol or drug abuse patient.[facility] CenterIn the event this information is protected by the Federal Confidentiality of Alcohol and Drug Abuse Patient Records regulations: The Federal rules restrict any use of the information to criminally investigate or prosecute any alcohol or drug abuse patient.[facility] CenterIn the event this information is protected by the Federal Confidentiality of Alcohol and Drug Abuse Patient Records regulations: The Federal rules restrict any use of the information to criminally investigate or prosecute any alcohol or drug abuse patient.[facility] CenterIn the event this information is protected by the Federal Confidentiality of Alcohol and Drug Abuse Patient Records regulations: The Federal rules restrict any use of the information to criminally investigate or prosecute any alcohol or drug abuse patient.[facility] CenterIn the event this information is protected by the Federal Confidentiality of Alcohol and Drug Abuse Patient Records regulations: The Federal rules restrict any use of the information to criminally investigate or prosecute any alcohol or drug abuse patient.[facility] CenterIn the event this information is protected by the Federal Confidentiality of Alcohol and Drug Abuse Patient Records regulations: The Federal rules restrict any use of the information to criminally investigate or prosecute any alcohol or drug abuse patient.[facility] CenterIn the event this information is protected by the Federal Confidentiality of Alcohol and Drug Abuse Patient Records regulations: The Federal rules restrict any use of the information to criminally investigate or prosecute any alcohol or drug abuse patient.[facility] CenterIn the event this information is protected by the Federal Confidentiality of Alcohol and Drug Abuse Patient Records regulations: The Federal rules restrict any use of the information to criminally investigate or prosecute any alcohol or drug abuse patient.[facility] CenterIn the event this information is protected by the Federal Confidentiality of Alcohol and Drug Abuse Patient Records regulations: The Federal rules restrict any use of the information to criminally investigate or prosecute any alcohol or drug abuse patient.[facility] CenterIn the event this information is protected by the Federal Confidentiality of Alcohol and Drug Abuse Patient Records regulations: The Federal rules restrict any use of the information to criminally investigate or prosecute any alcohol or drug abuse patient.[facility] the event this information is protected by the Federal Confidentiality of Alcohol and Drug Abuse Patient Records regulations: The Federal rules restrict any use of the information to criminally investigate or prosecute any alcohol or drug abuse patient.[facility] CenterIn the event this information is protected by the Federal Confidentiality of Alcohol and Drug Abuse Patient Records regulations: The Federal rules restrict any use of the information to criminally investigate or prosecute any alcohol or drug abuse patient.[facility] CenterIn the event this information is protected by the Federal Confidentiality of Alcohol and Drug Abuse Patient Records regulations: The Federal rules restrict any use of the information to criminally investigate or prosecute any alcohol or drug abuse patient.[facility] CenterIn the event this information is protected by the Federal Confidentiality of Alcohol and Drug Abuse Patient Records regulations: The Federal rules restrict any use of the information to criminally investigate or prosecute any alcohol or drug abuse patient.[facility] CenterIn the event this information is protected by the Federal Confidentiality of Alcohol and Drug Abuse Patient Records regulations: The Federal rules restrict any use of the information to criminally investigate or prosecute any alcohol or drug abuse patient.[facility] Reason for Visit (unrecogniz ed section and [...] TIME W/IMAGE LIMITED Mario Gonzales, DO [address] [place] [address] [place] [address] Referral ID Status Reason Start Date Expiration Date V isits Requested Visits Authorized [id number] Closed Auto-Generate d Referral 10/13/2022 11/12/2023 1 1 Reason Onset Date Comments Refill Request 07/06/2023 Reason Comments Diarrhea X 1 week Nausea X 1 week Reason Onset Date Comments Refill Request 07/14/2023 Reason Comments Patient Update Patient Question Care Teams (unrecognized sec tion and content) Orthopedics Pediatric Physician Relationship Specialty Start Date End Date Mario Gonzales, DO [address] [place] [address] PCP - General Family Practice [facility] [address] [place] [address] Pharmacist Pharmacy 02/04/21 Orthopedics Pediatric Physician Relationship Specialty Start Date End Date Mario Gonzales DO [address] [place] [address] PCP - General Family Practice 05[facility]23[facility] [address] [place] [address] Pharmacist Pharmacy 02/04/21 Orthopedics Pediatric Physician Relationship Specialty Start Date End Date Mario Gonzales DO [address] [place] [address] PCP - General Family Practice 05[facility]23[facility] [address] [place] [address] Pharmacist Pharmacy 02/04/21 Orthopedics Pediatric Physician Relationship Specialty Start Date End Date Mario Gonzales, DO [address] [place] [address] PCP - General Family Practice 05/23/13 [place] [facility] [address] [place] [address] Pharmacist Pharmacy 02/04/21 Orthopedics Pediatric Physician Relationship Specialty Start Date End Date Mario Gonzales, DO [address] [place] [address] PCP - General Family Practice 05/23/13 [place] [facility] [address] [place] [address] Pharmacist Pharmacy 02/04/21 Orthopedics Pediatric Physician Relationship Specialty Start Date End Date Mario Gonzales, DO [address] [place] [address] PCP - General Family Practice 05/23/13 [facility] [address] [place] [address] Pharmacist Pharmacy 02/04/21 Orthopedics Pediatric Physician Relationship Specialty Start Date End Date Mario Gonzales, DO [address] [place] [address] PCP - General Family Practice 05/23/13 [facility] [address] [place] [address] Pharmacist Pharmacy 02/04/21 Orthopedics Pediatric Physician Relationship Specialty Start Date End Date Mario Gonzales, DO [address] [place] [address] PCP - General Family Practice 05/23/13 Rosas, Zuri, [facility] [address] [place] [address] Pharmacist Pharmacy 02/04/21 Bernardo Archer, [facility] [address] [place] [address] Pharmacist Pharmacy 02/22/22 Orthopedics Pediatric Physician Relationship Specialty Start Date End Date Mario Gonzales, DO [address] [place] [address] PCP - General Family Practice 05/23/13 [place], Zuri, [facility] [address] [place] [address] Pharmacist Pharmacy 02/04/21 ScotBernardo bruce, [facility] [address] [place] [address] Pharmacist Pharmacy 02/22/22 Orthopedics Pediatric Physician Relationship Specialty Start Date End Date Mario Gonzales, DO [address] [place] [address] PCP - General Family Practice 05/23/13 Rosas Zuri, [facility] [address] [place] [address] Pharmacist Pharmacy 02/04/21 ScotBernardo bruce, [facility] [address] [place] [address] Pharmacist Pharmacy 02/22/22 Orthopedics Pediatric Physician Relationship Specialty Start Date End Date Mario Gonzales, DO [address] [place] [address] PCP - General Family Practice 05/23/13 [place], Zuri, [facility] [address] [place] [address] Pharmacist Pharmacy 02/04/21 Bernardo Archer, [facility] [address] [place] [address] Pharmacist Pharmacy 02/22/22 Orthopedics Pediatric Physician Relationship Specialty Start Date End Date Mario Gonzales, DO [address] [place] [address] PCP - General Family Practice 05/23/13 Alicia Pillaiily, [facility] [address] [place] [address] Pharmacist Pharmacy 02/04/21 Bernardo Archer, [facility] [address] [place] [address] Pharmacist Pharmacy 02/22/22 Orthopedics Pediatric Physician Relationship Specialty Start Date End Date Mario Gonzales, DO [address] [place] [address] PCP - General Family Practice 05/23/13 Alicia Pillaiily, [facility] [address] [place] [address] Pharmacist Pharmacy 02/04/21 Bernardo Archer, [facility] [address] [place] [address] Pharmacist Pharmacy 02/22/22 Orthopedics Pediatric Physician Relationship Specialty Start Date End Date Mario Gonzales, DO [address] [place] [address] PCP - General Family Practice 05/23/13 Alicia Pillaiily, [facility] [address] [place] [address] Pharmacist Pharmacy 02/04/21 Bernardo Archer, [facility] [address] [place] [address] Pharmacist Pharmacy 02/22/22 Orthopedics Pediatric Physician Relationship Specialty Start Date End Date Mario Gonzales, DO [address] [place] [address] PCP - General Family Practice 05/23/13 Rosas Zuri, [facility] [address] [place] [address] Pharmacist Pharmacy 02/04/21 ScotBernardo bruce, [facility] [address] [place] [address] Pharmacist Pharmacy 02/22/22 Orthopedics Pediatric Physician Relationship Specialty Start Date End Date Mario Gonzales, DO [address] [place] [address] PCP - General Family Practice 05/23/13 Alicia Pillaiily, [facility] [address] [place] [address] Pharmacist Pharmacy 02/04/21 ScotBernardo bruce, [facility] [address] [place] [address] Pharmacist Pharmacy 02/22/22 Orthopedics Pediatric Physician Relationship Specialty Start Date End Date Mario Gonzales, DO [address] [place] [address] PCP - General Family Practice 05/23/13 Alicia Pillaiily, [facility] [address] [place] [address] Pharmacist Pharmacy 02/04/21 ScotBernardo bruce, [facility] [address] [place] [address] Pharmacist Pharmacy 02/22/22 Orthopedics Pediatric Physician Relationship Specialty Start Date End Date Maroi Gonzales, DO [address] [place] [address] PCP - General Family Practice 05/23/13 Rosas Zuri, [facility] [address] [place] [address] Pharmacist Pharmacy 02/04/21 [facility] [address] [place] [address] Pharmacist Pharmacy 02/22/22 Orthopedics Pediatric Physician Relationship Specialty Start Date End Date Mario Gonzales, DO [address] [place] [address] PCP - General Family Medicine 05/23/13 Zuri Pillai, [facility] [address] [place] [address] Pharmacist Pharmacy 02/04/21 [facility] [address] [place] [address] Pharmacist Pharmacy 02/22/22 Orthopedics Pediatric Physician Relationship Specialty Start Date End Date Mario Gonzales, DO [address] [place] [address] PCP - General Family Medicine 05/23/13 Alicia Pillaiily, [facility] [address] [place] [address] Pharmacist Pharmacy 02/04/21 Suzi Kylejeanne, [facility] [address] [place] [address] Pharmacist Pharmacy 02/22/22 Orthopedics Pediatric Physician Relationship Specialty Start Date End Date Mario Gonzales, DO [address] [place] [address] PCP - General Family Medicine 05/23/13 Alicia Pillaiily, [facility] [address] [place] [address] Pharmacist Pharmacy 02/04/21 [facility] [address] [place] [address] Pharmacist Pharmacy 02/22/22 Orthopedics Pediatric Physician Relationship Specialty Start Date End Date Mario Gonzales, DO [address] [place] [address] PCP - General Family Medicine 05/23/13 Alicia Pillaiily, [facility] [address] [place] [address] Pharmacist Pharmacy 02/04/21 Bernardo Archer, [facility] [address] [place] [address] Pharmacist Pharmacy 02/22/22 Orthopedics Pediatric Physician Relationship Specialty Start Date End Date Mario Gonzales, DO [address] [place] [address] PCP - General Family Medicine 05/23/13 Alicia Pillaiily, [facility] [address] [place] [address] Pharmacist Pharmacy 02/04/21 Bernardo Archer, [facility] [address] [place] [address] Pharmacist Pharmacy 02/22/22 Orthopedics Pediatric Physician Relationship Specialty Start Date End Date Mario Gonzales, DO [address] [place] [address] PCP - General Family Medicine 05/23/13 [place] Zuri, [facility] [address] [place] [address] Pharmacist Pharmacy 02/04/21 Bernardo Archer, [facility] [address] [place] [address] Pharmacist Pharmacy 02/22/22 Orthopedics Pediatric Physician Relationship Specialty Start Date End Date Mario Gonzales, DO [address] [place] [address] PCP - General Family Medicine 05/23/13 [facility] [address] [place] [address] Pharmacist Pharmacy 02/04/21 ScotBernardo bruce, [facility] [address] [place] [address] Pharmacist Pharmacy 02/22/22 Orthopedics Pediatric Physician Relationship Specialty Start Date End Date Mario Gonzales, DO [address] [place] [address] PCP - General Family Medicine 05/23/13 [facility] [address] [place] [address] Pharmacist Pharmacy 02/04/21 ScotBernardo bruce, [facility] [address] [place] [address] Pharmacist Pharmacy 02/22/22 Orthopedics Pediatric Physician Relationship Specialty Start Date End Date Mario Gonzales, DO [address] [place] [address] PCP - General Family Medicine 05/23/13 [facility] [address] [place] [address] Pharmacist Pharmacy 02/04/21 ScotBernardo bruce, [facility] [address] [place] [address] Pharmacist Pharmacy 02/22/22 Orthopedics Pediatric Physician Relationship Specialty Start Date End Date Mario Gonzales, DO [address] [place] [address] PCP - General Family Medicine 05/23/13 Zuri Pillai, [facility] [address] [place] [address] Pharmacist Pharmacy 02/04/21 [facility] [address] [place] [address] Pharmacist Pharmacy 02/22/22 Orthopedics Pediatric Physician Relationship Specialty Start Date End Date Mario Gonzales, DO [address] [place] [address] PCP - General Family Medicine 05/23/13 [place] [address] [place] [address] Pharmacist Pharmacy 02/04/21 ScotBernardo bruce, [facility] [address] [place] [address] Pharmacist Pharmacy 02/22/22 Orthopedics Pediatric Physician Relationship Specialty Start Date End Date Mario Gonzales, DO [address] [place] [address] PCP - General Family Medicine 05/23/13 [facility] [address] [place] [address] Pharmacist Pharmacy 02/04/21 SuziKylejeanne, [facility] [address] [place] [address] Pharmacist Pharmacy 02/22/22 Orthopedics Pediatric Physician Relationship Specialty Start Date End Date Mario Gonzales, DO [address] [place] [address] PCP - General Family Medicine 05/23/13 [place], Zuri, [facility] [address] [place] [address] Pharmacist Pharmacy 02/04/21 ScotBernardo bruce, RPh [address] [place] [address] Pharmacist Pharmacy 02/22/22 Orthopedics Pediatric Physician Relationship Specialty Start Date End Date Mario Gonzales, DO [address] [place] [address] PCP - General Family Medicine 05/23/13 Alicia Pillaiily, [facility] [address] [place] [address] Pharmacist Pharmacy 02/04/21 Bernardo Archer, [facility] [address] [place] [address] Pharmacist Pharmacy 02/22/22 Orthopedics Pediatric Physician Relationship Specialty Start Date End Date Mario Gonzales, DO [address] [place] [address] PCP - General Family Medicine 05/23/13 Alicia Pillaiily, [facility] [address] [place] [address] Pharmacist Pharmacy 02/04/21 Bernardo Archer, [facility] [address] [place] [address] Pharmacist Pharmacy 02/22/22 Orthopedics Pediatric Physician Relationship Specialty Start Date End Date Mario Gonzales, DO [address] [place] [address] PCP - General Family Medicine 05/23/13 Rosas, Zuri, [facility] [address] [place] [address] Pharmacist Pharmacy 02/04/21 ScotBernardo bruce, [facility] [address] [place] [address] Pharmacist Pharmacy 02/22/22 Orthopedics Pediatric Physician Relationship Specialty Start Date End Date Mario Gonzales, DO [address] [place] [address] PCP - General Family Medicine 05/23/13 Zuri Pillai, [facility] [address] [place] [address] Pharmacist Pharmacy 02/04/21 [facility] [address] [place] [address] Pharmacist Pharmacy 02/22/22 Orthopedics Pediatric Physician Relationship Specialty Start Date End Date Mario Gonzales, DO [address] [place] [address] PCP - General Family Medicine 05/23/13 Zuri Pillai, [facility] [address] [place] [address] Pharmacist Pharmacy 02/04/21 ScotBernardo bruce, [facility] [address] [place] [address] Pharmacist Pharmacy 02/22/22 Orthopedics Pediatric Physician Relationship Specialty Start Date End Date Mario Gonzales, DO [address] [place] [address] PCP - General Family Medicine 05/23/13 Zuri Pillai, [facility] [address] [place] [address] Pharmacist Pharmacy 02/04/21 ScotBernardo bruce, [facility] [address] [place] [address] Pharmacist Pharmacy 02/22/22 Orthopedics Pediatric Physician Relationship Specialty Start Date End Date Mario Gonzales, DO [address] [place] [address] PCP - General Family Medicine 05/23/13 Zuri Pillai, [facility] [address] [place] [address] Pharmacist Pharmacy 02/04/21 [facility] [address] [place] [address] Pharmacist Pharmacy 02/22/22 Orthopedics Pediatric Physician Relationship Specialty Start Date End Date Mario Gonzales DO [address] [place] [address] PCP - General Family Medicine 05/23/13 [facility] [address] [place] [address] Pharmacist Pharmacy 02/04/21 [facility] [address] [place] [address] Pharmacist Pharmacy 02/22/22 Orthopedics Pediatric Physician Relationship Specialty Start Date End Date Mario Gonzales DO [address] [place] [address] PCP - General Family Medicine 05/23/13 [facility] [address] [place] [address] Pharmacist Pharmacy 02/04/21 [facility] [address] [place] [address] Pharmacist Pharmacy 02/22/22 Orthopedics Pediatric Physician Relationship Specialty Start Date End Date Mario Gonzales DO [address] [place] [address] PCP - General Family Medicine 05/23/13 [facility] [address] [place] [address] Pharmacist Pharmacy 02/04/21 Suzi [facility] [address] [place] [address] Pharmacist Pharmacy 02/22/22 Orthopedics Pediatric Physician Relationship Specialty Start Date End Date Mario Gonzales DO [address] [place] [address] PCP - General Family Medicine 05/23/13 Rosas, Zuri, [facility] [address] [place] [address] Pharmacist Pharmacy 02/04/21 Bernardo Archer, [facility] [address] [place] [address] Pharmacist Pharmacy 02/22/22 Orthopedics Pediatric Physician Relationship Specialty Start Date End Date Mario Gonzales DO [address] [place] [address] PCP - General Family Medicine 05/23/13 Rosas Zuri, [facility] [address] [place] [address] Pharmacist Pharmacy 02/04/21 Bernardo Archer, [facility] [address] [place] [address] Pharmacist Pharmacy 02/22/22 Orthopedics Pediatric Physician Relationship Specialty Start Date End Date Mario Gonzales DO [address] [place] [address] PCP - General Family Medicine 05/23/13 Alicia Pillaiily, [facility] [address] [place] [address] Pharmacist Pharmacy 02/04/21 Bernardo Archer, [facility] [address] [place] [address] Pharmacist Pharmacy 02/22/22 Orthopedics Pediatric Physician Relationship Specialty Start Date End Date Mario Gonzales DO [address] [place] [address] PCP - General Family Medicine 05/23/13 RosasZuri, [facility] [address] [place] [address] Pharmacist Pharmacy 02/04/21 Bernardo Archer, [facility] [address] [place] [address] Pharmacist Pharmacy 02/22/22 Orthopedics Pediatric Physician Relationship Specialty Start Date End Date Mario Gonzales DO [address] [place] [address] PCP - General Family Medicine 05/23/13 [place] Zuri, [facility] [address] [place] [address] Pharmacist Pharmacy 02/04/21 Bernardo Archer, [facility] [address] [place] [address] Pharmacist Pharmacy 02/22/22 Orthopedics Pediatric Physician Relationship Specialty Start Date End Date Mario Gonzales DO [address] [place] [address] PCP - General Family Medicine 05/23/13 [place], [facility] [address] [place] [address] Pharmacist Pharmacy 02/04/21 Bernardo Archer, [facility] [address] [place] [address] Pharmacist Pharmacy 02/22/22 Orthopedics Pediatric Physician Relationship Specialty Start Date End Date Mario Gonzales DO [address] [place] [address] PCP - General Family Medicine 05/23/13 Rosas, Zuri, [facility] [address] [place] [address] Pharmacist Pharmacy 02/04/21 [facility] [address] [place] [address] Pharmacist Pharmacy 02/22/22 Orthopedics Pediatric Physician Relationship Specialty Start Date End Date Mario Gonzales DO [address] [place] [address] PCP - General Family Medicine 05/23/13 Rosas, Zuri, [facility] [address] [place] [address] Pharmacist Pharmacy 02/04/21 [facility] [address] [place] [address] Pharmacist Pharmacy 02/22/22 Orthopedics Pediatric Physician Relationship Specialty Start Date End Date Mario Gonzales DO [address] [place] [address] PCP - General Family Medicine 05/23/13 [facility] [address] [place] [address] Pharmacist Pharmacy 02/04/21 Bernardo Archer, [facility] [address] [place] [address] Pharmacist Pharmacy 02/22/22 Orthopedics Pediatric Physician Relationship Specialty Start Date End Date Mario Gonzales DO [address] [place] [address] PCP - General Family Medicine 05/23/13 RosasZuri, [facility] [address] [place] [address] Pharmacist Pharmacy 02/04/21 Bernardo Archer, [facility] [address] [place] [address] Pharmacist Pharmacy 02/22/22 FOR RECORDS PERTAINING TO [...] BE BASED ON THE PRIMARY CLINICAL RECORDS. [facility] [employer] [facility]. provides no warranty or guarantee of the accuracy or completeness of information in this document.
[2023-10-08 22:57] LABS: Absolute Lymphocyte Count 4.01 X10^3/uL (0.83-4.51); Absolute Neutrophil Count 12.3 X10^3/uL (2.0-7.7); Basophil% 0.6 % (0-1); Eosinophil# 0.19 X10^3/uL; Eosinophils% 1.1 % (0-5); Hematocrit 40.9 % (37-47); Hemoglobin 12.2 g/dL (12.0-15.0); Lymphocyte # 4.01 X10^3/ul (0.83-4.51); Lymphocyte % 22.6 % (19-41); Mean Corp Hgb Conc 29.8 g/dL (32-36); Mean Corpuscular Hgb 23.1 pg (27.0-32.0); Mean Corpuscular Volume 77.5 fL (81-99); Monocyte# 1.04 X10^3/uL; Monocyte% 5.9 % (0-10); NRBC Flagged by Analyzer 0 % (0-5); Neutrophil # 12.28 X10^3/uL (2.7-7.7); Neutrophil % 69.2 % (47-70); Platelet Count 582 K/mm3 (150-450); RBC Distribution Width CV 15.6 % (11.6-14.6); RBC Distribution Width SD 43.2 fl (35.1-43.9); Red Blood Count 5.28 M/mm3 (4.2-5.4); White Blood Count 17.7 K/mm3 (4.4-11.0)
--- NOTE | 2023-10-08 23:00 | CT_ITS ---
STUDY: CT ABDOMEN AND PELVIS WITH CONTRAST REASON FOR EXAM: Female, 38 years old. abd pain RADIATION DOSAGE (If Supplied By Facility): CTDIvol = ( 17.02 ) mGy, DLP = ( 1301.33 ) mGycm TECHNIQUE: Transaxial images were obtained from the dome of the diaphragm to the symphysis pubis without oral contrast. IV 100mL Isovue-[id number] was administered. Sagittal and coronal images were reconstructed. Individualized dose optimization techniques were used for this CT. COMPARISON: 01/18/2018. FINDINGS: The visualized lung bases are unremarkable. The visualized portions of the heart are within normal limits. Normal liver. Normal gallbladder and extrahepatic biliary system. Normal spleen. Normal pancreas. Normal bilateral adrenal glands. Normal right kidney. Normal left kidney. Normal visualized stomach. Normal small intestine. Normal colon. The appendix is visualized and appears normal. Normal abdominal aorta. Normal inferior vena cava. Normal retroperitoneum. Normal urinary bladder. [Anteverted uterus with tubal ligation sutures present. Normal abdominal wall. Mild spondylosis of the lower thoracic spine, otherwise normal lumbar spine. CT/Abdomen/Pelvis W IV Cont ONLY IMPRESSION: No acute process within the abdomen and pelvis. Electronically Signed: Felicia Gao MD at 1:26 EST ,
[2023-10-08 23:07] LABS: Internal QC Validated? YES +Cl - CLEAR BKGD; Pregnancy, Serum, hCG Quali. NEGATIVE Negative
[2023-10-08 23:08] LABS: D-Dimer Quantitative (DVT/PE) 0.31 FEU/ug/m (0.27-0.49)
[2023-10-08 23:51] LABS: Mucous, Urine 0 SEEN /hpf (<or=2+)
[2023-10-08 23:55] LABS: AST(SGOT) 23 U/L (15-37); Alanine Aminotransfer ALT/SGPT 38 U/L (13-56); Albumin, Serum 3.6 g/dL (3.2-5.0); Alkaline Phosphatase 101 U/L (45-117); Anion Gap 11 (5-15); BUN 11 mg/dL (7-18); BUN/Creat Ratio 17.8 RATIO (10-20); Bilirubin, Direct 0.13 mg/dL (0.00-0.30); Chloride 103 mmol/L (98-107); Creatinine, Serum 0.62 mg/dL (0.55-1.02); EST Glomerular Filtration Rate 116 mL/min (>60); Est Glom Filt Rate - Afr Amer 140 mL/min (>60); Estimated Creatinine Clearance 159.41 ml/min; Globulin 4.4 g/dL (2.2-4.2); Glucose 165 mg/dL (74-106); Lipase 33 U/L (13-75); Magnesium 1.7 mg/dL (1.6-2.6); Potassium 3.6 mmol/L (3.5-5.1); Sodium Level 138 mmol/L (136-145); Troponin-I HS 4 pg/mL (3.0-54.0)
[2023-10-09 00:50] LABS: Color, Urine YELLOW (Yellow)
[2023-10-09 00:51] LABS: Glucose, Dipstick 500 mg/dl (Normal); Urine Bilirubin Dipstick Negative (Negative); Urine Clarity Sl. Cloudy (Clear)
[2023-10-09 00:52] LABS: Ketone-Dipstick 15 - 50 mg/dl (Negative); Leukocyte Esterase-Dipstick 500 /ul (Negative); Nitrite-Dipstick Positive (Negative); Occult Blood-Urine 250 /ul (Negative); Protein-Dipstick 500 mg/dl (Negative); Urine Urobilinogen 12 mg/dl (Normal)
[2023-10-09 00:53] LABS: Bacteria 2+ /hpf (None Seen); Red Blood Cells-Urine 25-50 SEEN /hpf (0-5); Squamous Epithelial Cells - UA 25-50 SEEN /hpf (5-10); White Blood Cells >100 SEEN /hpf (0-5)
[2023-10-09 01:44] LABS: Troponin-I HS 4 pg/mL (3.0-54.0)
--- NOTE | 2023-10-09 01:57 | EDS_ITS ---
HPI History of Present Illness Chief Complaint: Abd Pain Informant: patient and spouse/S.O. Narrative Narrative: Patient is a 38-year-old female with past medical history of hypertension hyperlipidemia and type 2 diabetes. She states that she has had intermittent abdominal pain for quite some time which she has been seen for by her family doctor and had lab work obtained. She reports however that over the last few days she has been noticing some intermittent midsternal to left-sided chest pain. She states this is new for her. She reports that today she felt the pain worsened and with the new onset of symptoms and worsening pain she presents for evaluation [facility] Medical History Cervical pain (neck) Diabetes GERD (gastroesophageal reflux disease) Hypertension Smoker Home Medications glimepiride 4 mg tablet 4 mg PO DAILY 09/26/13 [History Last Taken 01/18/18] omeprazole 20 mg capsule,delayed release 20 mg PO DAILY 02/02/14 [History Last Taken 01/18/18] metformin 750 mg tablet,extended release 24 hr (Glucophage XR) 500 mg PO BID 06/20/15 [History Last Taken 01/18/18] dulaglutide 3 mg/0.5 mL subcutaneous pen injector (Trulicity) 3 mg subcut QWEEK 03/23/21 [History Last Taken Unknown] pravastatin 20 mg tablet 20 mg PO DAILY 04/16/21 [History Last Taken Unknown] gabapentin 100 mg capsule See Rx Instructions .Route .COMPLEX #60 caps 07/02/21 [Rx Last Taken Unknown] cholecalciferol (vitamin D3) 50 mcg (2,000 unit) capsule 2,000 unit PO DAILY 07/21/21 [History Last Taken Unknown] hydrochlorothiazide 12.5 mg capsule 12.5 mg PO DAILY 07/21/21 [History Last Taken Unknown] pyridoxine (vitamin B6) 100 mg tablet 200 mg PO BID 07/21/21 [History Last Taken Unknown] bupropion HCl 150 mg 24 hr tablet, extended release 150 mg PO DAILY 10/04/21 [History Last Taken Unknown] fluconazole 200 mg tablet (Diflucan) 200 mg PO DAILY #2 tabs 09/02/23 [Rx Last Taken Unknown] hydrocodone-acetaminophen 5-325mg 5mg-325mg 1 tab PO Q4H PRN PRN Pain 2 days #10 TABLETS 09/02/23 [Rx Last Taken Unknown] sulfamethoxazole 800 mg-trimethoprim 160 mg tablet 1 tab PO BID #14 TABLETS 09/02/23 [Rx Last Taken Unknown] cephalexin 500 mg capsule 500 mg PO TID 7 days #21 caps 10/09/23 [Rx Last Taken Unknown] fluconazole 150 mg tablet 150 mg PO DAILY 2 days #2 tabs 10/09/23 [Rx Last Taken Unknown] Allergy/AdvReac Type Severity Reaction Status Date / Time naproxen Allergy Itching Verified 10/08/23 21:35 oxycodone HCl [From Percocet] Allergy Itching Verified 10/08/23 21:35 Surgical History History of tympanostomy tube placement Hx of tonsillectomy Social History household members: none Smoking Status: Former smoker substance use type: does not use ROS ROS ED Constitutional Constitutional ED: Denies chills or fever(s) ENT ENT ED: Denies sore throat Cardiovascular Cardiovascular: Reports chest pain; Denies palpitations or racing heartbeat Respiratory/Chest Respiratory/Chest: Denies cough or dyspnea Gastrointestinal Gastrointestinal: Reports abdominal pain and nausea; Denies diarrhea or vomiting Genitourinary Genitourinary ED: Denies dysuria Musculoskeletal Musculoskeletal: Denies myalgias Integumentary Denies rash Neurologic Neurologic: Denies headache(s) Hematologic/Lymphatic Hematologic/Lymphatic: Denies easy bleeding or easy bruising EXAM Physical Exam Const Vital Signs: 10/08/23 21:35 10/09/23 02:22 Temperature 97.6 F L Temperature Source Temporal Pulse Rate 124 H 93 Respiratory Rate 18 18 Blood Pressure 206/112 H 144/67 H Blood Pressure Mean 143 92 Pulse Ox 99 97 Positive well nourished, well developed and obese General Appearance ED: well developed; Negative for pallor Nutritional Appearance: obese HEENT HEENT Narrative: No tongue or lip swelling no oral lesions no airway edema or compromise No signs of infection noted in the posterior pharynx Eyes PERRL and EOMs intact bilaterally General Eye ED: Negative for scleral icterus Neck supple Neck Narrative: No nuchal rigidity or meningeal signs noted Chest Wall palpation of chest normal Chest Narrative: No bony deformity or crepitance palpated Resp normal respiratory effort and clear to auscultation bilaterally Cardio regular rate and regular rhythm Rate: other Other Details: Heart is regular rate and rhythm without murmurs rubs or gallops Radial and carotid pulses are equal and symmetric GI normal to inspection, nondistended, normoactive bowel sounds, non-tender, non- distended and no masses GI Narrative: Abdomen is soft nontender and nondistended with normal active bowel sounds no voluntary guarding or rigidity or pulsatile mass No fluid wave or increased tympany noted Auscultation: normoactive bowel sounds Palpation: soft Back/Spine no CVA tenderness Extremity normal to inspection Extremity Narrative: No asymmetric edema no pitting edema negative Homans' sign bilaterally Neuro oriented x3, CN's II-XII intact bilaterally and no sensory deficits noted Sensorium / Orientation: alert Motor Exam: strength 5/5 throughout Psych mental status grossly normal Skin no rashes or lesions noted General Skin Exam: Negative for jaundice or pallor MDM MDM MDM Narrative Medical decision making narrative: Patient presented to the ER hypertensive otherwise with stable vitals. She reported a longstanding history of recurrent abdominal pain that been worked up with outpatient laboratory studies by her family doctor however her new symptoms of chest discomfort and hypertension were concerning for acute coronary syndrome versus pulmonary embolus versus dissection versus acute kidney injury versus pneumonia or electrolyte derangement. Patient had blood work obtained and patient does have a white count of 17.7 and with her recurrent abdominal pain I elected to add a CT scan and urine sample. CT scan revealed no acute findings and lab work revealed a normal initial and delta troponin. Her D-dimer was normal going against a pulmonary embolus or dissection. She did not have signs of acute kidney injury or altered mental status to suggest hypertensive encephalopathy. Without treating her hypertension it reduced to a normal value. On reevaluation she is resting comfortably remains no acute distress. Therefore this time patient does not have findings concerning for acute coronary syndrome or dissection or pulmonary embolus she does not have pneumonia or pneumothorax on chest x-ray and she does not have signs of endorgan damage secondary to the hypertension which has since improved by the 15-25% salomon aimed for in the ER. She does have findings concerning for urinary tract infection but she does not have changes to suggest urosepsis and therefore she be placed on antibiotics and is otherwise safe for discharge History & Record Review Discussion w/independent historian: Patient and Family Lab Data Attestation: I reviewed the patient's lab results. Labs: Laboratory Results - last 24 hr 10/08/23 10/08/23 10/09/23 22:30 23:25 00:50 WBC 17.7 H RBC 5.28 Hgb 12.2 Hct 40.9 MCV 77.5 L MCH 23.1 L MCHC 29.8 L RDW Std Deviation 43.2 RDW Coeff of Nicky 15.6 H Plt Count 582 H MPV 10.0 Immature Gran % (Auto) 0.600 Neut % (Auto) 69.2 Lymph % (Auto) 22.6 [place] % (Auto) 5.9 Eos % (Auto) 1.1 Baso % (Auto) 0.6 Absolute Neuts (auto) 12.3 H Absolute Lymphs (auto) 4.01 Nucleated RBC % 0 D-Dimer Quant (PE/DVT) 0.31 Sodium 138 Potassium 3.6 Chloride 103 Carbon Dioxide 24.0 Anion Gap 11 BUN 11 Creatinine 0.62 Estim Creat Clear Calc 159.41 Est GFR (MDRD) Af Amer 140 Est GFR (MDRD) Non-Af 116 BUN/Creatinine Ratio 17.8 Glucose 165 H Calcium 9.0 Magnesium 1.7 Total Bilirubin 0.40 Direct Bilirubin 0.13 AST 23 ALT 38 Alkaline Phosphatase 101 Troponin I High Sens 4 4 Total Protein 8.0 Albumin 3.6 Globulin 4.4 H Lipase 33 Serum , Qual NEGATIVE Urine Color YELLOW Urine Clarity Sl. Cloudy Urine pH 7.0 Ur Specific [place] 1.010 Urine Protein 500 H Urine Glucose (UA) 500 H Urine Ketones 15 - 50 Urine Occult Blood 250 H Urine Nitrite Positive H Urine Bilirubin Negative Urine Urobilinogen 12 H Ur Leukocyte Esterase 500 H Urine RBC 25-50 SEEN Urine WBC >100 SEEN Ur Squamous Epith Cells 25-50 SEEN Urine Bacteria 2+ Urine Mucus 0 SEEN Radiography Diagnostic Testing: Clinical Impression(s) from Imaging Studies Chest X-Ray 10/08/23 00:10 IMPRESSION: Normal x-ray examination of the chest. Electronically Signed: Felicia Gao MD at 1:00 EST , Abdomen/Pelvis CT 10/08/23 23:00 IMPRESSION: No acute process within the abdomen and pelvis. Electronically Signed: Felicia Gao MD at 1:26 EST , Chest x-ray as interpreted by the emergency medicine physician reveals no acute infiltrate pneumothorax or pleural effusion Discharge Plan Triage Chief Complaint: Abd Pain ED Provider: Niko Stovall Dx/Rx/DC Orders Clinical Impression: Nonspecific abdominal pain, UTI (urinary tract infection), Nonspecific chest pain, Accelerated hypertension, Type 2 diabetes mellitus, Hypertension Instructions: Abdominal Pain, UTIs Understanding, ED Hypertension, Established Prescriptions: New cephalexin 500 mg capsule 500 mg PO TID 7 Days Qty: 21 0RF fluconazole 150 mg tablet 150 mg PO DAILY 2 Days Qty: 2 0RF Rx Instructions: 1 pill by mouth at start of antibiotics and 1 pill by mouth once antibiotics are finished No Action pyridoxine (vitamin B6) 100 mg tablet 200 mg PO BID cholecalciferol (vitamin D3) 50 mcg (2,000 unit) capsule 2,000 unit PO DAILY Patient Comments: Take 1 capsule by mouth once daily. hydrochlorothiazide 12.5 mg capsule 12.5 mg PO DAILY bupropion HCl 150 mg tablet extended release 24 hr 150 mg PO DAILY Patient Comments: Take 1 tablet by mouth once daily. In the morning, for mood glimepiride 4 MG tablet 4 mg PO DAILY omeprazole 20 MG capsule 20 mg PO DAILY metformin [Glucophage XR] 750 MG tablet extended release 24 hr 500 mg PO BID Trulicity 3 mg/0.5 mL pen injector 3 mg SUBCUT QWEEK pravastatin 20 mg tablet 20 mg PO DAILY gabapentin 100 mg capsule See Rx Instructions .ROUTE .COMPLEX Qty: 60 0RF Rx Instructions: 100 mg orally twice daily for 2 days then 3 times a day then 2 3 times a day for 3 days then 3 3 times a day sulfamethoxazole-trimethoprim [sulfamethoxazole-trimethoprim] 800-160 mg tablet 1 tab PO BID Qty: 14 0RF fluconazole [Diflucan] 200 mg tablet 200 mg PO DAILY Qty: 2 0RF hydrocodone-acetaminophen [hydrocodone-acetaminophen] 5-325 mg tablet 1 tab PO Q4H PRN PRN (Reason: Pain) 2 Days Qty: 10 0RF Stand Alone Forms: ED Work / School Excuse Primary Care Provider: Mario Gonzales Referrals: Mario Gonzales DO [Primary Care Provider] - Activity Restrictions/Additional Instructions: Your workup showed no sign of heart damage or obvious signs of infection within the abdomen. Urine was positive for infectious changes therefore take the antibiotic as directed. Continue all of your other medications as directed by your family doctor and return to the ER should you have any further concerns. Disposition Disposition: Home, Self Care Discharge Date/Time: 10/09/23 02:26
[2023-10-09 02:22] VITALS: BP 144/67; PULSE 93; RESP 18; O2SAT 97
[2023-10-09] MEDS: Cephalexin 250 MG Capsule 500 MG PO (02:23)
== END 2023-10-09 02:26 | disposition home or self-care (01) ==
PROVIDERS: Emergency Provider Emergency Medicine; PCP Student in an Organized Health Care Education/Training Program; Visit Provider Emergency Medicine
DX: R10.9 Unspecified abdominal pain (principal); E11.9 Type 2 diabetes mellitus without complications; N39.0 Urinary tract infection, site not specified; I10 Essential (primary) hypertension; R07.9 Chest pain, unspecified; Z87.891 Personal history of nicotine dependence; E78.5 Hyperlipidemia, unspecified; K21.9 Gastro-esophageal reflux disease without esophagitis; E66.9 Obesity, unspecified
CPT/HCPCS: 71046; 74177; 80048; 80076; 81001; 83690; 83735; 84484; 84703; 85025; 85379; 93005; 96360; 99283; Q9967

== ENCOUNTER 2024-11-11 11:57 | Emergency (ER) | payer MEDICAID, SELFPAY ==
[2024-11-11 11:58] VITALS: BP 142/102; PULSE 76; RESP 15; TEMP 36.4; O2SAT 98; BMI 46.2
--- NOTE | 2024-11-11 11:59 | RAD_ITS ---
PROCEDURE: FOOT MIN 3 VIEWS 11/11/2024 REASON FOR EXAM: INJURY TECHNIQUE: 3 view(s) of the left foot were obtained. COMPARISON: None. FINDINGS: LEFT FOOT: Diffuse soft tissue swelling. No fracture or dislocation. Plantar spur. RAD/Foot min 3 Views IMPRESSION: Diffuse soft tissue swelling. No fracture is seen. Reading Location: [place] [id number]
--- NOTE | 2024-11-11 11:59 | RAD_ITS ---
PROCEDURE: ANKLE MIN 3 VIEWS 11/11/2024 REASON FOR EXAM: Pain and swelling following injury. TECHNIQUE: 3 views of the left ankle COMPARISON: None FINDINGS: Soft tissue swelling. No evidence of fracture or dislocation. Plantar calcaneal spur. RAD/Ankle min 3 Views IMPRESSION: Soft tissue swelling. No fracture or dislocation. Plantar calcaneal spur. Reading Location: [facility]
--- NOTE | 2024-11-11 12:59 | EX.ED.DYSGE1 ---
HPI History of Present Illness Chief Complaint: Lower Extremity Injury [facility] Medical History Cervical pain (neck) Diabetes GERD (gastroesophageal reflux disease) Hypertension Smoker Home Medications ?Medication ?Instructions ?Recorded ?Last Taken ?Type glimepiride 4 mg tablet 4 mg PO DAILY 09/26/13 01/18/18 History omeprazole 20 mg capsule,delayed 20 mg PO DAILY 02/02/14 01/18/18 History release metformin 750 mg tablet,extended 500 mg PO BID 06/20/15 01/18/18 History release 24 hr (Glucophage XR) dulaglutide 3 mg/0.5 mL 3 mg subcut QWEEK 03/23/21 Unknown History subcutaneous pen injector (Trulicity) pravastatin 20 mg tablet 20 mg PO DAILY 04/16/21 Unknown History gabapentin 100 mg capsule See Rx Instructions .Route 07/02/21 Unknown Rx .COMPLEX #60 caps cholecalciferol (vitamin D3) 50 2,000 unit PO DAILY 07/21/21 Unknown History mcg (2,000 unit) capsule hydrochlorothiazide 12.5 mg capsule 12.5 mg PO DAILY 07/21/21 Unknown History pyridoxine (vitamin B6) 100 mg 200 mg PO BID 07/21/21 Unknown History tablet bupropion HCl 150 mg 24 hr tablet, 150 mg PO DAILY 10/04/21 Unknown History extended release fluconazole 200 mg tablet 200 mg PO DAILY #2 tabs 09/02/23 Unknown Rx (Diflucan) hydrocodone-acetaminophen 5-325mg 1 tab PO Q4H PRN PRN Pain 2 days 09/02/23 Unknown Rx 5mg-325mg #10 TABLETS sulfamethoxazole 800 1 tab PO BID #14 TABLETS 09/02/23 Unknown Rx mg-trimethoprim 160 mg tablet cephalexin 500 mg capsule 500 mg PO TID 7 days #21 caps 10/09/23 Unknown Rx fluconazole 150 mg tablet 150 mg PO DAILY 2 days #2 tabs 10/09/23 Unknown Rx Allergy/AdvReac Type Severity Reaction Status Date / Time naproxen Allergy Itching Verified 11/11/24 12:00 oxycodone HCl (From Percocet) Allergy Itching Verified 11/11/24 12:00 Surgical History History of tympanostomy tube placement Hx of tonsillectomy Social History household members: none Smoking Status: Former smoker substance use type: does not use EXAM Physical Exam Const Vital Signs: 11/11/24 11:58 Temperature 97.5 F L Temperature Source Temporal Pulse Rate 76 Respiratory Rate 15 Blood Pressure 142/102 H Blood Pressure Mean 115 Pulse Ox 98 Oxygen Delivery Method Room Air [facility] Narrative Medical decision making narrative: HISTORY OF PRESENT ILLNESS: 39-year-old female presents with left foot and ankle pain. Notes 3 days ago she injured her foot. REVIEW OF SYSTEMS: Pertinent positives: Foot and ankle pain Pertinent negatives: Loss of sensation PHYSICAL EXAM: Nursing triage notes reviewed, Vital signs reviewed Constitutional: please see mdm Extremities: Compartments are soft, left lower extremity neurovascularly intact Neuro: Intact sensation L1-S1 dermatomal distributions. Intact 5/5 strength in hip flexion (T12-L3). Knee extension (L2-L4). Ankle dorsiflexion (L4-L5). Ankle plantar flexion (S1). Great toe extension (L5). 2+ patellar and Achilles DTRs. Skin: No sign of open fracture MEDICAL DECISION MAKING: Chief Complaint: Left foot and ankle pain External records reviewed: Reviewed prior imaging studies Factors affecting care: History of left knee sprain [facility] Narrative: The patient was initially hemodynamically stable, afebrile and nontoxic-appearing. I considered the following differential diagnosis: Foot/ankle fracture dislocation X-rays were obtained in triage. Patient was seen/evaluated approximately 1 hour after arrival secondary to poor department of conditions including high volume and high acuity. X-rays reviewed personally myself ALL IMAGES (IF OBTAINED) HAVE BEEN PERSONALLY REVIEWED AND INTERPRETED BY MYSELF. X-ray of the left foot and ankle showed no evidence of obvious fracture dislocation. Radiology review my interpretation. I suspect the patient suffered from an ankle sprain. Gave RICE instructions, Tylenol and ibuprofen instructions, rehabilitation instructions The patient and/or family, caregivers express understanding. The patient and/or family, caregivers agrees with the plan. Shared decision making: I will have a discussion with the patient and or visitors regarding risk/benefits of further testing or admission. They will be made aware of of the risk/benefits inherent in this decision they will be given the opportunity to voice understanding. Total critical care time today provided was at least 0 minutes. This excludes separately billable procedures. Critical care time (if documented) is secondary to the patient having high probability of clinically significant/life threatening deterioration in the patient's condition which required my urgent intervention. Impression: 1. Left foot sprain 2. Left ankle sprain Dispo: Discharge home This note was generated with Intense dictation software. It may contain incorrect words, spelling, and punctuation that were not noted in review of the chart prior to signing. Radiography Diagnostic Testing: Clinical Impression(s) from Imaging Studies Ankle X-Ray 11/11/24 11:59 IMPRESSION: Soft tissue swelling. No fracture or dislocation. Plantar calcaneal spur. Reading Location: [facility] Foot X-Ray 11/11/24 11:59 IMPRESSION: Diffuse soft tissue swelling. No fracture is seen. Reading Location: [facility] Discharge Plan Triage Chief Complaint: Lower Extremity Injury ED Provider: Bunny Noble Dx/Rx/DC Orders Prescriptions: No Action pyridoxine (vitamin B6) 100 mg tablet 200 mg PO BID cholecalciferol (vitamin D3) 50 mcg (2,000 unit) capsule 2,000 unit PO DAILY Patient Comments: Take 1 capsule by mouth once daily. hydrochlorothiazide 12.5 mg capsule 12.5 mg PO DAILY bupropion HCl 150 mg tablet extended release 24 hr 150 mg PO DAILY Patient Comments: Take 1 tablet by mouth once daily. In the morning, for mood glimepiride 4 MG tablet 4 mg PO DAILY omeprazole 20 MG capsule 20 mg PO DAILY metformin [Glucophage XR] 750 MG tablet extended release 24 hr 500 mg PO BID Trulicity 3 mg/0.5 mL pen injector 3 mg SUBCUT QWEEK pravastatin 20 mg tablet 20 mg PO DAILY gabapentin 100 mg capsule See Rx Instructions .ROUTE .COMPLEX Qty: 60 0RF Rx Instructions: 100 mg orally twice daily for 2 days then 3 times a day then 2 3 times a day for 3 days then 3 3 times a day cephalexin 500 mg capsule 500 mg PO TID 7 Days Qty: 21 0RF fluconazole 150 mg tablet 150 mg PO DAILY 2 Days Qty: 2 0RF Rx Instructions: 1 pill by mouth at start of antibiotics and 1 pill by mouth once antibiotics are finished sulfamethoxazole-trimethoprim [sulfamethoxazole-trimethoprim] 800-160 mg tablet 1 tab PO BID Qty: 14 0RF fluconazole [Diflucan] 200 mg tablet 200 mg PO DAILY Qty: 2 0RF hydrocodone-acetaminophen [hydrocodone-acetaminophen] 5-325 mg tablet 1 tab PO Q4H PRN PRN (Reason: Pain) 2 Days Qty: 10 0RF Primary Care Provider: Mario Gonzales Referrals: Mario Gonzales DO [Primary Care Provider] - Print Language: Indonesian
== END 2024-11-11 13:18 | disposition home or self-care (01) ==
LOC: ED 13:10
PROVIDERS: Emergency Provider Emergency Medicine; PCP Student in an Organized Health Care Education/Training Program; Visit Provider Emergency Medicine
DX: S93.402A Sprain of unspecified ligament of left ankle, initial encounter (principal); E11.9 Type 2 diabetes mellitus without complications; I10 Essential (primary) hypertension; Z87.891 Personal history of nicotine dependence; K21.9 Gastro-esophageal reflux disease without esophagitis; X58.XXXA Exposure to other specified factors, initial encounter
CPT/HCPCS: 73610; 73630; 99282